=== PATIENT | female | born 2000 | race Caucasian/White ===

== ENCOUNTER 2022-11-07 09:24 | Outpatient (OUT) | payer OTHER, SELFPAY ==
--- NOTE | 2022-11-07 09:27 | US_ITS ---
[place] [id number] Patient Name: NOEMI ORTEGA MRN: [id number] date: 2000 Sex: F Assigned Patient Location: Current Patient Location: Accession/Order Number: [id number] Exam Date: 11/07/2022 09:27 Report Date: 11/10/2022 15:28 At the request of: ANGELINA CA Procedure: US OB transvaginal EXAMINATION: US OB transvaginal HISTORY: MISSED MENSES COMPARISON: No relevant comparison available. FINDINGS: GESTATIONAL SAC: Present and normal appearing. YOLK SAC: Present and normal appearing. POLE: Present and normal appearing. CARDIAC: Present. UTERUS: Normal size and appearance. OVARIES: Right: Corpus lutein cyst. Left: Normal. CERVIX: 4.4 cm in length and closed. CUL-DE-SAC: Normal. OTHER: None. AGE BY LMP: 9 weeks 2 days AL BY LMP: 06/10/2023 AGE BY US CRL: 9 weeks 3 days AL BY US CRL: 06/09/2023 US/US OB transvaginal IMPRESSION: 1. Single live intrauterine . Electronically authenticated by: SARIKA DIANA Date: 11/10/2022 15:28
== END 2022-11-07 09:25 | disposition home or self-care (01) ==
LOC: US 09:24
PROVIDERS: Visit Provider Obstetrics & Gynecology
DX: Z34.91 Encounter for supervision of normal pregnancy, unspecified, first trimester (principal); N92.6 Irregular menstruation, unspecified
CPT/HCPCS: 76817

== ENCOUNTER 2022-11-18 09:56 | Outpatient (OUT) | payer OTHER, SELFPAY ==
[2022-11-18 10:28] LABS: Basophils Percent Auto 0.5 % (0.2-2.0); Eosinophils Absolute Auto 0.1 10^3/uL (0.0-0.7); Eosinophils Percent Auto 1.1 % (0.9-7.0); Hematocrit 40.6 % (36.0-48.0); Hemoglobin 13.1 g/dL (12.0-16.0); Immature Granulocytes Abs Auto 0.04 10^3/uL (0.00-0.03); Immature Granulocytes Pct Auto 0.6 % (0.0-0.5); Lymphocytes Absolute Auto 1.4 10^3/uL (1.2-3.8); Lymphocytes Percent Auto 21.7 % (20.5-60.0); Mean Corpuscular HGB Conc 32.3 g/dL (29.9-35.2); Mean Corpuscular Hemoglobin 28.2 pg (26.7-34.0); Mean Corpuscular Volume 87.5 fL (81.0-99.0); Mean Platelet Volume 9.6 fL (9.5-13.5); Monocytes Absolute Auto 0.3 10^3/uL (0.3-0.8); Monocytes Percent Auto 3.9 % (1.7-12.0); Neutrophils Absolute Auto 4.8 10^3/uL (1.4-6.5); Neutrophils Percent Auto 72.2 % (43.0-75.0); Platelet Count 252 10^3/uL (150-450); Red Blood Count 4.64 10^6/uL (4.20-5.40); Red Cell Distribution Width 12.9 % (11.0-15.0); White Blood Count 6.7 10^3/uL (4.0-11.0)
[2022-11-18 10:40] LABS: Estimated Average Glucose 88 mg/dL; Glycohemoglobin A1C 4.7 % (4.5-6.2)
[2022-11-18 11:01] LABS: Thyroid Stimulating Hormone 0.775 uIU/mL (0.358-3.740)
[2022-11-19 05:07] LABS: HCV Ab Non Reactive (Non Reactive); HIV Ab/p24 Ag Screen Non Reactive (Non Reactive); Rubella Antibodies, IgG 4.12 index (Immune >0.99)
[2022-11-19 06:08] LABS: HBsAg Screen Negative (Negative)
[2022-11-19 11:12] LABS: Rapid Plasma Reagin, Quant Non Reactive (NonRea<1:1)
== END 2022-11-18 09:57 | disposition home or self-care (01) ==
LOC: LAB 10:00
PROVIDERS: PCP Nurse Practitioner; Visit Provider Obstetrics & Gynecology
DX: N92.6 Irregular menstruation, unspecified (principal)
CPT/HCPCS: 36415; 83036; 84443; 85025; 86592; 86706; 86762; 86803; 86850; 86900; 86901; 87086; 87389

== ENCOUNTER 2023-01-21 10:21 | Outpatient (OUT) | payer OTHER, SELFPAY ==
--- NOTE | 2023-01-21 10:23 | US_ITS ---
[address] [address] Patient Name: NOEMI ORTEGA MRN: [id number] date: 2000 Sex: F Assigned Patient Location: US Current Patient Location: US Accession/Order Number: [id number] Exam Date: 01/21/2023 10:23 Report Date: 01/21/2023 16:48 At the request of: PAPI MOURA Procedure: US OB anatomy EXAMINATION: US OB anatomy, US OB cervical length HISTORY: ANATOMY COMPARISON: No relevant comparison available. TECHNIQUE: Transabdominal sonographic examination was performed for obstetrical and evaluation. FINDINGS: Number: 1 Heart Rate: 141.0 bpm H.B. /min Amniotic Fluid Volume: Subjectively normal position: Breech presentation, longitudinal lie Placental Location: ANTERIOR, grade 0. Placental edge 5.0 cm from the cervical os Cervix Length: 3.9 cm, closed Normal anatomy: Lateral ventricles, cerebellum, posterior fossa, nose, lips, orbits, diaphragm, stomach, kidneys, abdominal cord insertion, bladder, umbilical arteries, spine, extremities Suboptimal visualization: Four-chamber heart, RVOT, LVOT, three-vessel BIOMETRY: BPD: 4.6 cm 19 weeks 5 days , 41% HC: 17.6 cm 20 weeks 1 days, 48% AC: 13.9 cm 19 weeks 2 days, 23% FL: 3.5 cm 21 weeks 1 days , 79% EFW:333.6 grams; 12 ounces, 53% FL/AC: 25.2 FL/BPD: 77.0 HC/AC: 1.3 GESTATIONAL AGE: Age by EDC: 20 weeks 0 days Age by current US: 20 weeks 1 days AL by current US: 06/09/2023 AL by EDC: 06/10/2023 US/US OB anatomy IMPRESSION: Suboptimal visualization as detailed above, otherwise normal anatomy scan *Reference: [facility] Practice Guideline for the performance of Obstetric Ultrasound Examinations, December 21, 2006. Electronically authenticated by: VERNOA VICKERS Date: 01/21/2023 16:48
--- NOTE | 2023-01-21 10:23 | US_ITS ---
[address] [address] Patient Name: NOEMI ORTEGA MRN: [id number] date: 2000 Sex: F Assigned Patient Location: US Current Patient Location: Accession/Order Number: [id number] Exam Date: 01/21/2023 10:23 Report Date: 01/21/2023 16:48 At the request of: PAPI MOURA Procedure: US OB cervical length EXAMINATION: US OB anatomy, US OB cervical length HISTORY: ANATOMY COMPARISON: No relevant comparison available. TECHNIQUE: Transabdominal sonographic examination was performed for obstetrical and evaluation. FINDINGS: Number: 1 Heart Rate: 141.0 bpm H.B. /min Amniotic Fluid Volume: Subjectively normal position: Breech presentation, longitudinal lie Placental Location: ANTERIOR, grade 0. Placental edge 5.0 cm from the cervical os Cervix Length: 3.9 cm, closed Normal anatomy: Lateral ventricles, cerebellum, posterior fossa, nose, lips, orbits, diaphragm, stomach, kidneys, abdominal cord insertion, bladder, umbilical arteries, spine, extremities Suboptimal visualization: Four-chamber heart, RVOT, LVOT, three-vessel BIOMETRY: BPD: 4.6 cm 19 weeks 5 days , 41% HC: 17.6 cm 20 weeks 1 days, 48% AC: 13.9 cm 19 weeks 2 days, 23% FL: 3.5 cm 21 weeks 1 days , 79% EFW:333.6 grams; 12 ounces, 53% FL/AC: 25.2 FL/BPD: 77.0 HC/AC: 1.3 GESTATIONAL AGE: Age by EDC: 20 weeks 0 days Age by current US: 20 weeks 1 days AL by current US: 06/09/2023 AL by EDC: 06/10/2023 US/US OB cervical length IMPRESSION: Suboptimal visualization as detailed above, otherwise normal anatomy scan *Reference: [facility] Practice Guideline for the performance of Obstetric Ultrasound Examinations, December 21, 2006. Electronically authenticated by: VERONA VICKERS Date: 01/21/2023 16:48
== END 2023-01-21 10:22 | disposition home or self-care (01) ==
LOC: US 10:21
PROVIDERS: PCP Nurse Practitioner; Visit Provider Physician Assistant
DX: Z34.92 Encounter for supervision of normal pregnancy, unspecified, second trimester (principal); Z3A.20 20 weeks gestation of pregnancy
CPT/HCPCS: 76805; 76817

== ENCOUNTER 2023-01-26 08:16 | Outpatient (OUT) | payer OTHER, SELFPAY ==
[2023-01-28 00:07] LABS: Gest. Age on Collection Date 20.7 weeks (.); Insulin Dep Diabetes No (.); Maternal Age At EDD 20.7 yr (.); OSBR Risk 1 IN 10000 (.); Results Report (.)
== END 2023-01-26 08:17 | disposition home or self-care (01) ==
LOC: LAB 08:19
PROVIDERS: PCP Nurse Practitioner; Visit Provider Obstetrics & Gynecology
DX: Z34.92 Encounter for supervision of normal pregnancy, unspecified, second trimester (principal)
CPT/HCPCS: 36415; 82105

== ENCOUNTER 2023-02-18 06:54 | Outpatient (OUT) | payer OTHER, SELFPAY ==
[2023-02-18 08:08] LABS: Basophils Percent Auto 0.5 % (0.2-2.0); Eosinophils Absolute Auto 0.1 10^3/uL (0.0-0.7); Eosinophils Percent Auto 1.4 % (0.9-7.0); Hematocrit 35.9 % (36.0-48.0); Hemoglobin 11.7 g/dL (12.0-16.0); Immature Granulocytes Abs Auto 0.04 10^3/uL (0.00-0.03); Immature Granulocytes Pct Auto 0.5 % (0.0-0.5); Lymphocytes Absolute Auto 2.1 10^3/uL (1.2-3.8); Lymphocytes Percent Auto 24.3 % (20.5-60.0); Mean Corpuscular HGB Conc 32.6 g/dL (29.9-35.2); Mean Corpuscular Volume 88.9 fL (81.0-99.0); Monocytes Absolute Auto 0.4 10^3/uL (0.3-0.8); Monocytes Percent Auto 4.1 % (1.7-12.0); Neutrophils Percent Auto 69.2 % (43.0-75.0); Platelet Count 244 10^3/uL (150-450); Red Blood Count 4.04 10^6/uL (4.20-5.40); Red Cell Distribution Width 12.7 % (11.0-15.0); White Blood Count 8.6 10^3/uL (4.0-11.0)
[2023-02-18 08:38] LABS: Glucose 1 Hour 148 mg/dL
== END 2023-02-18 06:55 | disposition home or self-care (01) ==
LOC: LAB 06:55
PROVIDERS: PCP Nurse Practitioner; Visit Provider Obstetrics & Gynecology
DX: Z34.92 Encounter for supervision of normal pregnancy, unspecified, second trimester (principal)
CPT/HCPCS: 36415; 82950; 85025

== ENCOUNTER 2023-02-19 13:53 | Outpatient (OUT) | payer OTHER, SELFPAY ==
--- NOTE | 2023-02-19 14:06 | US_ITS ---
[address] [address] Patient Name: NOEMI ORTEGA MRN: [id number] date: 2000 Sex: F Assigned Patient Location: US Current Patient Location: US Accession/Order Number: [id number] Exam Date: 02/19/2023 14:08 Report Date: 02/19/2023 15:12 At the request of: ANGELINA CA Procedure: US OB incomplete anatomy EXAM: US OB incomplete anatomy HISTORY: Encounter For Follow Up Ultrasound Anatomy Z36.2 COMPARISON: Ultrasound OB anatomy 01/21/2023 TECHNIQUE: Transabdominal ultrasound FINDINGS: Presentation: Cephalic Heart rate: 140 bpm Anatomy: Three-vessel cord, four-chamber heart, RVOT, LVOT; no appreciable abnormality. US/US OB incomplete anatomy IMPRESSION: 1. Single live intrauterine . 2. Adequate visualization of the three-vessel cord and four-chamber heart. 2. Slightly limited evaluation of the cardiac outflow tracts due to position; no appreciable abnormality. Electronically authenticated by: SARIKA DIANA Date: 02/19/2023 15:12
== END 2023-02-19 13:54 | disposition home or self-care (01) ==
PROVIDERS: PCP Nurse Practitioner; Visit Provider Obstetrics & Gynecology
DX: Z36.2 Encounter for other antenatal screening follow-up (principal)
CPT/HCPCS: 76815

== ENCOUNTER 2023-03-31 01:09 | Emergency (ER) | payer OTHER, SELFPAY ==
[2023-03-31] VITALS (25 sets, daily range): BP systolic 133; BP diastolic 75; PULSE 105–132; RESP 12–22; TEMP 36.6; O2SAT 94–97; BMI 36.2
--- OUTSIDE RECORDS SUMMARY | 2023-03-31 01:21 | XMS_ITS | CCD ---
Author Name Unknown Address [address] [place] [address] Organization [facility] Care Team Providers Care Maintenance Specialist Name Role Phone PAPI SEGURA Attending Unavailable PAPI SEGURA Consulting Unavailable PAPI SEGURA Admitting Unavailable YOLANDA VILLALOBOS Primary Care Unavailable Anya Contreras Unavailable Ne Henderson Unavailable ANGELINA CA Attending Unavailable PAPI MOURA Attending Unavailable Medications Current Medications Medication Drug Class(es) Dates Sig (Normalized) Sig (Original) [id number] 200 actuat albuterol 0.09 mg/actuat metered dose inhaler (1 source) beta2-Adrenergic Agonist Start: 3 take 2 puff(s) by inhalation every four to six hours as needed Albuterol Sulfate HFA 108 (90 Base) MCG/ACT 2 puffs as needed Inhalation every 4-6 hours for 14 days Jun, Active amoxicillin 875 mg oral tablet (1 source) Penicillin-class Antibacterial Start: 3 take 1 tablet by mouth every twelve hours Amoxicillin 875 MG 1 tablet Orally every 12 hrs for 7 days Mar, Active brompheniramine maleate 0.4 mg/ml / dextromethorphan hydrobromide 2 mg/ml / pseudoephedrine hydrochloride 6 mg/ml oral solution (1 source) alpha-Adrenergic Agonist, Uncompetitive A-ejnnvc-A-asparta te Receptor Antagonist, Sigma-1 Agonist Start: 3 take 10 mL by mouth every six hours Bwapbgfhd-Uvqaoxfx-FQ 30-2-10 MG/5ML 10 mL Orally every 6 hours for 5 days Jun, Active methylPREDNISolone 4 mg oral tablet (1 source) Corticosteroid Start: 3 methylPREDNISolone 4 MG as directed Orally Once a day for 6 days Mar, Active Problems Problem Classification Problem Date Documented Da te Episodic/Chronic Abdominal pain (2 sources) Abdominal pain; Translations: [Unspecified abdominal pain] Episodic Immunizations and screening for infectious disease (4 sources) Contact with and (suspected) exposure to infections with a predominantly sexual mode of transmission; Translations: [Contact with and (suspected) exposure to other viral communicable diseases] Onset: 05-21-2022 Episodic Inflammation; infection of eye (except that caused by tuberculosis or sexually transmitteddisease) (1 source) Unspecified acute conjunctivitis, left eye Episodic Other female genital disorders (4 sources) Other specified noninflammatory disorders of vagina; Translations: [OTH SPEC NONINFLAMMATORY D/O VAGINA] Onset: 05-19-2022 Episodic Other gastrointestinal disorders (2 sources) Irritable bowel syndrome; Translations: [Mixed irritable bowel syndrome] Chronic Other upper respiratory infections (4 sources) Sore throat symptom; Translations: [Acute pharyngitis, unspecified] Episodic Otitis media and related conditions (1 source) Otitis media, unspecified, left ear Episodic Results Test Name Value Interpretation Reference Range Facil ity COVID/FLU RT-PCRon 3 SARS-CoV-2 (COVID-19) RNA [facility]+probe Ql (Unsp spec) Negative [employer] Other COVID/FLU RT-PCR Negative [facility] [employer] Other CHLAMYDIA/GONOCOCCUS [facility] (SW AB/URINE/PAPon 05-22-2022 Chlamydia trachomatis, [facility] Negative Normal Negative [facility] Comment on above: Performed By: #### C T/NGNA #### [facility] [address] [address] [address] Clau Valdivia Neisseria gonorrhoeae, [facility] Negative Normal Negative [facility] Comment on above: Performed By: #### C T/NGNA #### [facility] [address] [place], [place] [address] Dr. Clau Valdivia VAGINITIS/VAGINOSIS DNA PROB Melvin 05-21-2022 [place] species Positive Abnormal Negative [facility] Comment on above: Performed By: #### V AGINT #### [facility] [address] [address] [address] Clau Valdivia Gardnerella vaginalis Positive Abnormal Negative [facility] Comment on above: Performed By: #### V AGINT #### [facility] [address] [address] [address] Clau Valdivia Trichomonas vaginalis Negative Normal Negative [facility] Comment on above: Performed By: #### V AGINT #### [facility] [address] [address] [address] Clau Valdivia COVID + FLU Quick Testingon 04-20-2022 SARS-CoV-2 (COVID-19) RNA [facility]probe Ql (Unsp spec) Negative [employer] Other COVID + FLU Quick Testing Negative [employer] Other Quick Strepon 04-20-2022 S. pyogenes Org specific cx Ql (Throat) Negative [employer] Other Quick Strep [employer] Other Vital Signs Date Time Vital Sign Value Performing Clinician Facility 07-19-2022 11:30-0400 Body height 167.64 cm Ne Henderson Other [employer] Other 07-19-2022 11:30-0400 Body mass index (BMI) [Ratio] 34.7 kg/m2 Ne Henderson Other [employer] Other 07-19-2022 11:30-0400 Body temperature 101 [degF] Ne Henderson Other [facility] [employer] Other 07-19-2022 11:30-0400 Body weight 97.52 kg Ne Henderson Other [facility] [employer] Other 07-19-2022 11:30-0400 Diastolic blood pressure 76 mm[Hg] Ne Henderson Other [facility] [employer] Other 07-19-2022 11:30-0400 Respiratory rate 18 /min Ne Henderson Other [employer] Other 07-19-2022 11:30-0400 SaO2% (BldA) [Mass fraction] 97 % Ne Henderson Other [facility] [employer] Other 07-19-2022 11:30-0400 Systolic blood pressure 113 mm[Hg] Ne Barnardler Other [facility] [employer] Other 04-20-2022 10:50-0500 Body height 167.64 cm Anya Diane Other [facility] [employer] Other 04-20-2022 10:50-0500 Body mass index (BMI) [Ratio] 34.7 kg/m2 Anya Diane Other [facility] [employer] Other 04-20-2022 10:50-0500 Body temperature 98.6 [degF] Anya Diane Other [facility] [employer] Other 04-20-2022 10:50-0500 Body weight 97.52 kg Anya Diane Other [facility] [employer] Other 04-20-2022 10:50-0500 Respiratory rate 18 /min Anya Diane Other [facility] [employer] Other 04-20-2022 10:50-0500 SaO2% (BldA) [Mass fraction] 98 % Anya Contreras Other [employer] Other Encounters Encounter Date Encounter Type Care Provider Facility Start: 03-05-2023 End: 03-05-2023 ambulatory PAPI MOURA Not Available Start: 02-04-2023 End: 02-04-2023 ambulatory ANGELINA CA Not Available Start: 07-19-2022 End: 07-19-2022 ambulatory Ne Henderson Other [employer] Other Start: 07-19-2022 Office outpatient visit 25 minutes Ne Henderson [facility] Start: 05-19-2022 End: 05-19-2022 ambulatory PAPI MOURA . Facility: Start: 04-20-2022 End: 04-20-2022 ambulatory Anya Lucasault Other [employer] Other Start: 04-20-2022 Office outpatient visit 25 minutes Anya Diane [facility] Payers Date Payer Category Payer Unknown [id number] 2000 Unknown [id number] 2000 Unknown [id number] 2000 Unknown [id number] 1957 Unknown [id number] Social History Date Type Detail Facility Unknown if ever smoked [employer] Other Sex Assigned At Sex Assigned At Bir th [employer] Other Evaluation note 07-19-2022 Note Date & Type Note Facility 07-19-2022 Evaluation note Encounter Date Diagnosis Assessment Notes Jun, Contact with and (suspected) exposure to other viral communicable diseases (ICD-10 - Z20.828) Jun, Viral URI with cough (ICD-10 - J06.9) Advised patient that COVID/Influenza A/B test was negative today. Advised patient that will treat as viral URI. Supportive care as directed, increase fluids and rest, Tylenol/Motrin as directed, Rx of Bromfed and albuterol inhaler as directed, cool mist humidifier, throat lozenges. Discussed infection control practices such as good hand washing and mask wearing. If patient is still having fevers Thursday, may write work note off. Patient to follow up with PCP if symptoms persist or worsen despite treatment. Immediate eval for SOB, difficulty breathing, chest pain, fevers that do not break with antipyretic or any other concerning symptoms as reviewed on patient education handout. Patient verbalizes understanding and is agreeable to treatment plan. Patient left in stable condition. [employer] Other History general Narrative - Reported 07-19-2022 Note Date & Type Note Facility 07-19-2022 History general N arrative - Reported Type Medical History ADD Medical History Born with cleft palette Surgical History tonsillectomy and adenoidectomy Surgical History cleft palette 3-4 repair Hospitalization History [facility] [employer] Other History general Narrative - Reported 05-25-2022 Note Date & Type Note Facility 05-25-2022 History general N arrative - Reported Type Medical History ADD Medical History Born with cleft palette Surgical History tonsillectomy and adenoidectomy Surgical History cleft palette 3-4 repair Hospitalization History [facility] [employer] Other Evaluation note 04-20-2022 Note Date & Type Note Facility 04-20-2022 Evaluation note Encounter Date Diagnosis Assessment Notes Mar, Left acute otitis media (ICD-10 - H66.92) Ear infections are often a secondary infection caused from an URI, the flu or allergies. Take medication as directed. Complete all doses, even if you feel better. Tylenol or ibuprofen can help with pain. Warm pack to area for comfort helps as well. Follow up with primary care provider if no improvement of symptoms. Mar, Acute bacterial conjunctivitis of left eye (ICD-10 - H10.32) Use medication as directed. Recommend discarding makeup if applicable. Need to wash linens on bed. If you wear contacts dispose of them or if not disposable then must thoroughly decontaminate the contacts before wearing them again. Contact eye doctor if symptoms are not improved by Thursday. If any changes in vision occurs then recommend going to ER immediately Mar, Sore throat (ICD-10 - J02.9) Mar, Contact with and (suspected) exposure to other viral communicable diseases (ICD-10 - Z20.828) Your Covid PCR test is negative. This means at this time you do not have COVID. [employer] Other Summary Purpose Family History No Family History Records FoundNo Family History Records Found Advance Directives No Advanced Directives Records FoundNo Advanced Directives Records Found Additional Source Comments INFORMATION SOURCE (unrecogn ized section and content) DATE CREATED AUTHOR 05/23/2022 [facility] DATE CREATED AUTHOR AUTHOR'S ORGANIZ ATION 03/07/2023 [facility] EPIC REASON FOR VISIT (unrecogniz ed section and content) SORE THROAT POSS PINK EYEBAD COUGH HOT FLASHES HEADACHE FOR RECORDS PERTAINING TO PATIENTS WHO ARE OR HAVE BEEN ENROLLED IN A CHEMICAL DEPENDENCY/SUBSTANCEABUSE PROGRAM, SOME INFORMATION MAY BE OMITTED. This clinical summary was aggregated from multiple sources. Caution should be exercised in using it in the provision of clinical care. This summary normalizes information from multiple sources, and as a consequence, information in this document may materially change the coding, format and clinical context of patient data. In addition, data may be omitted in some cases. CLINICAL DECISIONS SHOULD BE BASED ON THE PRIMARY CLINICAL RECORDS. [employer] provides no warranty or guarantee of the accuracy or completeness of information in this document.
--- NOTE | 2023-03-31 01:35 | PC.NURSE ---
Pt 30 weeks , . Pt reports n/v/d for past 24hrs, sick contacts at [employer] where she works. Pt actively vomiting during assessment.
--- NOTE | 2023-03-31 01:36 | ED.GENADUL1 ---
HPI - General Adult General Chief complaint: Vaginal Bleeding Stated complaint: VOMITING DIARRHEA Time Seen by Provider: 03/31/23 01:36 Source: patient Mode of arrival: walk-in Limitations: no limitations History of Present Illness HPI narrative: patient is 30 weeks . presents complaining of recurrent vomiting and diarrhea. Not able to keep any thing down. Exposed to custodial residents who have been sick. Denies abdominal pain. no bleeding Related Data Home Medications Medication Instructions Recorded Confirmed folic acid 0.8 mg capsule 0.8 mg PO DAILY 03/31/23 03/31/23 Allergies Allergy/AdvReac Type Severity Reaction Status Date / Time No Known Drug Allergies Allergy Verified 03/31/23 01:21 Review of Systems ROS Status of ROS 10 or more systems reviewed and unremarkable except as noted in history and below [facility] Social History Smoking status: Never smoker Exam Constitutional Vital Signs, click to edit/add: Last Vital Signs Temp 97.8 F 03/31/23 01:18 Pulse 113 H 03/31/23 02:40 Resp 20 03/31/23 02:40 BP 133/75 03/31/23 01:18 Pulse Ox 96 03/31/23 01:50 O2 Del Method Room Air 03/31/23 01:18 Common normals: no apparent distress, average body habitus, oriented x3, no limitations and healthy appearing Eye Common normals: EOMs intact bilaterally and conjunctivae normal Respiratory Common normals: normal respiratory effort, no retractions, no use of accessory muscles and clear to auscultation bilaterally Cardio Rate: tachycardic GI Common normals: Normal to inspection, nondistended, normoactive bowel sounds present, soft to palpation and non-tender Extremity Common normals: normal to inspection Neuro Common normals: CN's II-XII intact bilaterally and moves all extremities Psych Appearance: grossly normal Course Vital Signs Vital signs: Vital Signs Temperature 97.8 F 03/31/23 01:18 Pulse Rate 131 H 03/31/23 01:18 Respiratory Rate 18 03/31/23 01:18 Blood Pressure 133/75 03/31/23 01:18 Pulse Oximetry 97 03/31/23 01:18 Oxygen Delivery Method Room Air 03/31/23 01:18 Temperature 97.8 F 03/31/23 01:18 Pulse Rate 113 H 03/31/23 02:40 Respiratory Rate 20 03/31/23 02:40 Blood Pressure 133/75 03/31/23 01:18 Pulse Oximetry 96 03/31/23 01:50 Oxygen Delivery Method Room Air 03/31/23 01:18 Medical Decision Making MDM Narrative Medical decision making narrative: 30 week . exposed to GI bug at work. Presents with recurrent vomiting and diarrhea. Not able keep water down. Exam neg. labs demonstrate dehydration and UTI. Patient medicated with Rocephin, zofran and hydrated. She is feeling better and tolerating po fluids. Discharged home to follow up with her doctor Lab Data Labs: Lab Results 03/31/23 03/31/23 Range/Units : 02:00 WBC 13.7 H (4.0-11.0) 10^3/uL RBC 4.43 (4.20-5.40) 10^6/uL Hgb 12.6 (12.0-16.0) g/dL Hct 38.5 (36.0-48.0) % MCV 86.9 (81.0-99.0) fL MCH 28.4 (26.7-34.0) pg MCHC 32.7 (29.9-35.2) g/dL RDW 12.4 (11.0-15.0) % Plt Count 297 (150-450) 10^3/uL MPV 9.9 (9.5-13.5) fL Neut % (Auto) 89.7 H (43.0-75.0) % Lymph % (Auto) 5.6 L (20.5-60.0) % [place] % (Auto) 3.7 (1.7-12.0) % Eos % (Auto) 0.4 L (0.9-7.0) % Baso % (Auto) 0.2 (0.2-2.0) % Neut # (Auto) 12.3 H (1.4-6.5) 10^3/uL Lymph # (Auto) 0.8 L (1.2-3.8) 10^3/uL [place] # (Auto) 0.5 (0.3-0.8) 10^3/uL Eos # (Auto) 0.1 (0.0-0.7) 10^3/uL Baso # (Auto) 0.0 (0.0-0.1) 10^3/uL Abs Immat Gran (auto) 0.05 H (0.00-0.03) 10^3/uL Imm/Tot Granulo (auto) 0.4 (0.0-0.5) % Sodium 136 (136-145) mmol/L Potassium 3.6 (3.5-5.1) mmol/L Chloride 101 (98-107) mmol/L Carbon Dioxide 20.2 L (21.0-32.0) mmol/L Anion Gap 18.4 BUN 6.0 L (7.0-18.0) mg/dL Creatinine 0.49 L (0.55-1.02) mg/dL Est GFR ( Amer) >60 (>=60) Est GFR (Non-Af Amer) >60 (>=60) BUN/Creatinine Ratio 12.2 Glucose 106 (74-106) mg/dL Calcium 9.1 (8.5-10.1) mg/dL Urine Color Yellow (YELLOW) Urine Clarity Clear (CLEAR) Urine pH 6.0 (5.0-9.0) Ur Specific [place] >=1.030 A (1.005-1.025) Urine Protein 30 A (NEG/TRACE) mg/dL Urine Glucose (UA) Negative (NEGATIVE) mg/dL Urine Ketones >=80 A (NEGATIVE) mg/dL Urine Occult Blood Negative (NEGATIVE) Urine Nitrite Negative (NEGATIVE) Urine Bilirubin Small A (NEGATIVE) Urine Urobilinogen 0.2 (0.2-1.0) EU/dL Ur Leukocyte Esterase Small A (NEGATIVE) Urine RBC 5-10 A (0-2) #/HPF Urine WBC 10-20 A (NONE SEEN) #/HPF Ur Squamous Epith Cells Few A (NONE/RARE) #/LPF Urine Crystals None seen (None Seen) #/HPF Urine Bacteria Large A (NONE SEEN) #/HPF Urine Casts None seen (NONE SEEN) #/LPF Urine Mucus Small A (NONE SEEN) Ur Culture Indicated? Yes Discharge Plan Discharge Chief Complaint: Vaginal Bleeding Clinical Impression: UTI (urinary tract infection), Viral gastroenteritis Prescriptions / Home Meds: No Action folic acid 0.8 mg capsule 0.8 mg PO DAILY Instructions: Acute Nausea and Vomiting (ED), Urinary Tract Infection in (ED) Additional Instructions: follow up with your doctor in a couple of days for recheck Referrals: Bina Zamora NP [Primary Care Provider] - 1 week
[2023-03-31 01:51] LABS: Basophils Percent Auto 0.2 % (0.2-2.0); Eosinophils Absolute Auto 0.1 10^3/uL (0.0-0.7); Eosinophils Percent Auto 0.4 % (0.9-7.0); Hematocrit 38.5 % (36.0-48.0); Hemoglobin 12.6 g/dL (12.0-16.0); Immature Granulocytes Abs Auto 0.05 10^3/uL (0.00-0.03); Immature Granulocytes Pct Auto 0.4 % (0.0-0.5); Lymphocytes Absolute Auto 0.8 10^3/uL (1.2-3.8); Lymphocytes Percent Auto 5.6 % (20.5-60.0); Mean Corpuscular HGB Conc 32.7 g/dL (29.9-35.2); Mean Corpuscular Hemoglobin 28.4 pg (26.7-34.0); Mean Corpuscular Volume 86.9 fL (81.0-99.0); Mean Platelet Volume 9.9 fL (9.5-13.5); Monocytes Absolute Auto 0.5 10^3/uL (0.3-0.8); Monocytes Percent Auto 3.7 % (1.7-12.0); Neutrophils Absolute Auto 12.3 10^3/uL (1.4-6.5); Neutrophils Percent Auto 89.7 % (43.0-75.0); Platelet Count 297 10^3/uL (150-450); Red Blood Count 4.43 10^6/uL (4.20-5.40); Red Cell Distribution Width 12.4 % (11.0-15.0); White Blood Count 13.7 10^3/uL (4.0-11.0)
[2023-03-31 01:59] LABS: Anion Gap 18.4; BUN Creatinine Ratio 12.2; Calcium 9.1 mg/dL (8.5-10.1); Carbon Dioxide 20.2 mmol/L (21.0-32.0); Chloride 101 mmol/L (98-107); Estimated GFR (African America >60 (>=60); Estimated GFR (Non-African Ame >60 (>=60); Glucose 106 mg/dL (74-106); Potassium 3.6 mmol/L (3.5-5.1); Sodium 136 mmol/L (136-145)
[2023-03-31] MEDS: 0.9 % SODIUM CHLORIDE 1,000 ML 999 ML IV ×2 (02:05→02:06)
[2023-03-31] MEDS: ONDANSETRON PF 4 MG/2 ML VIAL IV (02:23)
[2023-03-31 02:52] LABS: Bilirubin Urine SMALL (NEGATIVE); Blood Urine NEGATIVE (NEGATIVE); Clarity Urine CLEAR (CLEAR); Color Urine YELLOW (YELLOW); Glucose Urine UA NEGATIVE (NEGATIVE); Ketones Urine >=80 mg/dL (NEGATIVE); Leukocyte Esterase Urine SMALL (NEGATIVE); Nitrite Urine NEGATIVE (NEGATIVE); Protein Urine 30 mg/dL (NEG/TRACE); Specific Gravity Urine >=1.030 (1.005-1.025); Urobilinogen Urine 0.2 EU/dL (0.2-1.0)
[2023-03-31 02:57] LABS: Urine Microscopic Indicated YES
[2023-03-31 03:01] LABS: Bacteria Urine LARGE #/HPF (NONE SEEN); Cast Seen? NONE SEEN #/LPF (NONE SEEN); Crystals Seen? None Seen #/HPF (None Seen); Mucus Urine SMALL (NONE SEEN); Squamous Epithelial Cell Urine FEW #/LPF (NONE/RARE); Urine Culture Indicated YES
[2023-03-31] MEDS: CEFTRIAXONE 1,000 MG in 0.9 % SODIUM CHLORIDE 50 ML 100 MG IV (03:39)
--- NOTE | 2023-03-31 05:20 | ECG_ITS ---
[facility] Test Date: 2023-03-31 Pat Name: NOEMI ORTEGA Department: Room: - Gender: Female Casing Tester: : 2000 Requested By: MARTINE VILLALOBOS Order Number: [id number] Reading MD: NUHA AGOSTO Measurements Intervals [place] Rate: 121 P: 51 GA: 122 QRS: 79 QRSD: 80 T: 5 QT: 310 QTc: 382 Interpretive Statements 1120 Sinus tachycardia 4068 Nonspecific Twave abnormality 9140 abnormal rhythm ECG No previous ECG available for comparison Electronically Signed On 03-31-2023 7:13:31 EST by NUHA AGOSTO
== END 2023-03-31 05:08 | disposition home or self-care (01) ==
PROVIDERS: Emergency Provider Internal Medicine; PCP Nurse Practitioner
DX: O23.43 Unspecified infection of urinary tract in pregnancy, third trimester (principal); N39.0 Urinary tract infection, site not specified; O99.613 Diseases of the digestive system complicating pregnancy, third trimester; Z3A.30 30 weeks gestation of pregnancy; A08.4 Viral intestinal infection, unspecified
CPT/HCPCS: 36415; 80048; 81001; 85025; 87086; 93005; 96361; 96365; 96375; 99284; J0696; J2405

== ENCOUNTER 2023-04-13 11:13 | Outpatient (OUT) | payer OTHER, SELFPAY ==
--- NOTE | 2023-04-13 11:15 | US_ITS ---
[address] [address] Patient Name: NOEMI ORTEGA MRN: [id number] date: 2000 Sex: F Assigned Patient Location: US Current Patient Location: US Accession/Order Number: [id number] Exam Date: 04/13/2023 11:16 Report Date: 04/13/2023 12:07 At the request of: ANGELINA CA Procedure: US OB growth EXAMINATION: US OB growth HISTORY: SIZE INCONSISTENT WITH DATES COMPARISON: No relevant comparison available. TECHNIQUE: Transabdominal sonographic examination was performed for obstetrical and evaluation. FINDINGS: Number: 1 Heart Rate: 139.0 bpm H.B. /min position: Cephalic presentation, longitudinal lie Amniotic Fluid Volume: 2.9 cm, largest fluid pocket 3.3 cm BIOMETRY: BPD: 8.2 cm 32 weeks 6 days , 75% HC: 29.0 cm 31 weeks 6 days, 19% AC: 27.3 cm 31 weeks 3 days, 38% FL: 6.0 cm 31 weeks 1 days , 21% EFW:1772.4 grams; 3 lbs. 15 oz., 31% FL/AC: 21.9 FL/BPD: 73.0 HC/AC: 1.1 GESTATIONAL AGE: Age by EDC: 31 weeks 5 days Age by current US: 31 weeks 6 days AL by current US: 06/09/2023 AL by EDC: 06/10/2023 US/US OB growth IMPRESSION: Normal interval growth *Reference: [facility] Practice Guideline for the performance of Obstetric Ultrasound Examinations, December 21, 2006. Electronically authenticated by: VERONA VICKERS Date: 04/13/2023 12:07
--- OUTSIDE RECORDS SUMMARY | 2023-04-13 11:29 | XMS_ITS | CCD ---
Author Name Unknown Address [address] [place] [address] Organization [facility] Care Team Providers Care Salt Manager Name Role Phone PAPI SEGURA Attending Unavailable PAPI SEGURA Consulting Unavailable PAPI SEGURA Admitting Unavailable YOLANDA VILLALOBOS Primary Care Unavailable Anya Contreras Unavailable eN Henderson Unavailable PAPI MOURA Attending Unavailable ANGELINA CA Attending Unavailable ANGELINA CA Attending Unavailable PAPI MOURA Attending Unavailable MARVEL CHRISTIAN Admitting Unavailable MARVEL CHRISTIAN Attending Unavailable MARTINE VILLALOBOS Primary Care Unavailable Medications Current Medications Medication Drug Class(es) Dates Sig (Normalized) Sig (Original) [id number] 200 actuat albuterol 0.09 mg/actuat metered dose [...] oral solution (1 source) alpha-Adrenergic Agonist, Uncompetitive J-mcpezn-A-asparta te Receptor Antagonist, Sigma-1 Agonist Start: 3 take 10 mL by mouth every six hours Npcgrqrgd-Mgjhuxjk-NP 30-2-10 MG/5ML 10 mL Orally every 6 [...] (COVID-19) RNA [facility]+probe Ql (Unsp spec) Negative [facility] Other COVID/FLU RT-PCR Negative [facility] [employer] Other CHLAMYDIA/GONOCOCCUS [facility] (SW AB/URINE/PAPon 05-22-2022 Chlamydia trachomatis, [facility] Negative Normal Negative [facility] Comment on above: Performed By: #### C T/NGNA #### [facility] [address] [address] [address] Clau Valdivia Neisseria gonorrhoeae, [facility] Negative Normal Negative [facility] Comment on above: Performed By: #### C T/NGNA #### [facility] [address] [address] [address] Clau Valdivia VAGINITIS/VAGINOSIS DNA PROB Melvin 05-21-2022 Shiloh species Positive Abnormal Negative [facility] Comment on above: Performed By: #### V AGINT #### [facility] [address] [address] [address] Clau Valdivia Gardnerella vaginalis Positive Abnormal Negative [facility] Comment on above: Performed By: #### V AGINT #### [facility] [address] [address] [address] Clau Valdivia Trichomonas vaginalis Negative Normal Negative [facility] Comment on above: Performed By: #### V AGINT #### [facility] [address] [address] [address] Clau Valdivia COVID + FLU Quick Testingon 04-20-2022 SARS-CoV-2 (COVID-19) RNA [facility]+probe Ql (Unsp spec) Negative [facility] [employer] Other COVID + FLU Quick Testing Negative [facility] Other Quick Strepon 04-20-2022 S. pyogenes Org specific cx Ql (Throat) Negative [facility] Other Quick Strep [facility] Other Vital Signs Date Time Vital Sign Value Performing Clinician Facility 07-19-2022 11:30-0400 Body height 167.64 cm Ne Henderson Other [facility] Other 07-19-2022 11:30-0400 Body mass index (BMI) [Ratio] 34.7 kg/m2 Ne Henderson Other [facility] Other 07-19-2022 11:30-0400 Body temperature 101 [degF] Ne Henderson Other [facility] Other 07-19-2022 11:30-0400 Body weight 97.52 kg Ne Santiago Other [facility] Other 07-19-2022 11:30-0400 Diastolic blood pressure 76 mm[Hg] Ne Henderson Other [facility] Other 07-19-2022 11:30-0400 Respiratory rate 18 /min Ne Santiago Other [facility] Other 07-19-2022 11:30-0400 SaO2% (BldA) [Mass fraction] 97 % Ne Henderson Other [facility] Other 07-19-2022 11:30-0400 Systolic blood pressure 113 mm[Hg] Ne Henderson Other [facility] Other 04-20-2022 10:50-0500 Body height 167.64 cm Anya Lucasault Other [facility] Other 04-20-2022 10:50-0500 Body mass index (BMI) [Ratio] 34.7 kg/m2 Anya Lucasault Other [facility] Other 04-20-2022 10:50-0500 Body temperature 98.6 [degF] Anya Diane Other [facility] Other 04-20-2022 10:50-0500 Body weight 97.52 kg Anya Diane Other [facility] Other 04-20-2022 10:50-0500 Respiratory rate 18 /min Anya Diane Other [facility] Other 04-20-2022 10:50-0500 SaO2% (BldA) [Mass fraction] 98 % Anya Contreras Other [facility] Other Encounters Encounter Date Encounter Type Care Provider Facility Start: 04-11-2023 End: 04-11-2023 ambulatory MARVEL CHRISTIAN [facility] Start: 04-06-2023 End: 04-06-2023 ambulatory ANGELINA ROBY Not Available Start: 03-19-2023 End: 03-19-2023 ambulatory PAPI ZENY Not Available Start: 03-05-2023 End: 03-05-2023 ambulatory PAPI ZENY Not Available Start: 02-04-2023 End: 02-04-2023 ambulatory ANGELINA ROBY Not Available Start: 07-19-2022 End: 07-19-2022 ambulatory Ne Henderson Other [facility] Other Start: 07-19-2022 Office outpatient visit 25 minutes Ne Henderson [facility] Start: 05-19-2022 End: 05-19-2022 ambulatory PAPI MOURA . Facility: Start: 04-20-2022 End: 04-20-2022 ambulatory Anya Contreras Other [facility] Other Start: 04-20-2022 Office outpatient visit 25 minutes Anya Contreras [facility] Payers Date Payer Category Payer Unknown [id number] 2002 Unknown [id number] 2.16.84 [id number] 2002 Unknown [id number] 2.16.84 [id number] 2002 Unknown [id number] 2.16.840 .[id number] 2002 Unknown [id number] 2.16.840 .[id number] 2002 Unknown [id number] 2.16.840 .[id number] 2002 Unknown [id number] 2.16.84 [id number] 1959 Unknown [id number] Social History Date Type Detail Facility Unknown if ever smoked [facility] Other Sex Assigned At Sex Assigned At Bir th [facility] Other Evaluation note 07-19-2022 Note Date & [...] treatment plan. Patient left in stable condition. [facility] Other History general Narrative - Reported 07-19-2022 Note Date & Type Note Facility 07-19-2022 History general N arrative - Reported Type Medical History ADD Medical History Born with cleft palette Surgical History tonsillectomy and adenoidectomy Surgical History cleft palette 3-4 repair Hospitalization History see above sugical hx [facility] Other History general Narrative - Reported 05-25-2022 Note Date & Type Note Facility 05-25-2022 History general N arrative - Reported Type Medical History ADD Medical History Born with cleft palette Surgical History tonsillectomy and adenoidectomy Surgical History cleft palette 3-4 repair Hospitalization History see above sugical hx [facility] Other Evaluation note 04-20-2022 Note Date & [...] this time you do not have COVID. [facility] Other Summary Purpose Family History No Family History Records FoundNo Family History Records FoundNo Family History Records Found Advance Directives No Advanced Directives Records FoundNo Advanced Directives Records FoundNo Advanced Directives Records Found Additional Source Comments INFORMATION SOURCE (unrecogn ized section and content) DATE CREATED AUTHOR [facility]/23/2022 [facility] DATE CREATED AUTHOR AUTHOR'S ORGANIZ ATION 04/06/2023 [facility] d[facility] Specialists EPIC DATE CREATED AUTHOR AUTHOR'S ORGANIZ ATION 04/12/2023 [facility] REASON FOR VISIT (unrecogniz ed section and [...] BE BASED ON THE PRIMARY CLINICAL RECORDS. [facility] Amen. [facility]. provides no warranty or guarantee of the accuracy or completeness of information in this document.
== END 2023-04-13 11:14 | disposition home or self-care (01) ==
LOC: US 11:13
PROVIDERS: PCP Nurse Practitioner; Visit Provider Obstetrics & Gynecology
DX: O26.843 Uterine size-date discrepancy, third trimester (principal); Z3A.32 32 weeks gestation of pregnancy
CPT/HCPCS: 76816

== ENCOUNTER 2023-05-18 20:26 | Outpatient (REF) | payer OTHER, SELFPAY ==
--- OUTSIDE RECORDS SUMMARY | 2023-05-18 20:31 | XMS_ITS | CCD ---
Author Name Unknown Address [address] [place] [address] Organization [facility] Care Team Providers Care Supervisor [employer] Canning Name Role Phone PAPI SEGURA Attending Unavailable PAPI SEGURA Consulting Unavailable PAPI SEGURA Admitting Unavailable YOLANDA VILLALOBOS Primary Care Unavailable Anya Contreras Unavailable Ne Henderson Unavailable MARVEL CHRISTIAN Admitting Unavailable AMRVEL CHRISTIAN Attending Unavailable MARTINE VILLALOBOS Primary Care Unavailable PAPI MOURA Attending Unavailable ANGELINA CA Attending Unavailable ANGELINA CA Attending Unavailable PAPI MOURA Attending Unavailable PAPI MOURA Attending Unavailable ANGELINA CA Attending Unavailable Medications Current Medications Medication Drug Class(es) Dates Sig (Normalized) Sig (Original) [id number] 200 actuat albuterol 0.09 mg/actuat metered dose [...] oral solution (1 source) alpha-Adrenergic Agonist, Uncompetitive O-esjedl-T-asparta te Receptor Antagonist, Sigma-1 Agonist Start: 3 take 10 mL by mouth every six hours Glfarhvvr-Gwzbtvgn-IK 30-2-10 MG/5ML 10 mL Orally every 6 [...] (COVID-19) RNA [facility]+probe Ql (Unsp spec) Negative [facility] Other COVID/FLU RT-PCR Negative [facility] [employer] Other CHLAMYDIA/GONOCOCCUS [facility] ( AB/URINE/PAPon 05-22-2022 Chlamydia trachomatis, [facility] Negative Normal Negative [facility] Comment on above: Performed By: #### C T/NGNA #### [facility] [address] [place] [address] Dr. Clau Valdivia Neisseria gonorrhoeae, [facility] Negative Normal Negative [facility] Comment on above: Performed By: #### C T/NGNA #### [facility] [address] [address] [address] Clau Valdivia VAGINITIS/VAGINOSIS DNA PROB Melvin 05-21-2022 Shiloh species Positive Abnormal Negative [facility] Comment on above: Performed By: #### V AGINT #### [facility] [address] [address] [address] Clau Valdivia Gardnerella vaginalis Positive Abnormal Negative [facility] Comment on above: Performed By: #### V AGINT #### [facility] [address] [address] [address] Clau Valdivia Trichomonas vaginalis Negative Normal Negative [facility] Comment on above: Performed By: #### V AGINT #### [facility] [address] [address] [address] Clau Valdivia COVID + FLU Quick Testingon 04-20-2022 SARS-CoV-2 (COVID-19) RNA [facility]+probe Ql (Unsp spec) Negative [facility] [employer] Other COVID + FLU Quick Testing Negative [facility] [employer] Other Quick Strepon 04-20-2022 S. pyogenes Org specific cx Ql (Throat) Negative [facility] [employer] Other Quick Strep [facility] [employer] Other Vital Signs Date Time Vital Sign Value Performing Clinician Facility 07-19-2022 11:30-0400 Body height 167.64 cm Ne Henderson Other [facility] Other 07-19-2022 11:30-0400 Body mass index (BMI) [Ratio] 34.7 kg/m2 Ne Henderson Other [facility] Other 07-19-2022 11:30-0400 Body temperature 101 [degF] Ne Henderson Other [facility] Other 07-19-2022 11:30-0400 Body weight 97.52 kg Ne Henderson Other [facility] Other 07-19-2022 11:30-0400 Diastolic blood pressure 76 mm[Hg] Ne Henderson Other [facility] Other 07-19-2022 11:30-0400 Respiratory rate 18 /min Ne Henderson Other [facility] Other 07-19-2022 11:30-0400 SaO2% (BldA) [Mass fraction] 97 % Ne Henderson Other [facility] Other 07-19-2022 11:30-0400 Systolic blood pressure 113 mm[Hg] Ne Henderson Other [facility] Other 04-20-2022 10:50-0500 Body height 167.64 cm Anya Lucasault Other [facility] Other 04-20-2022 10:50-0500 Body mass index (BMI) [Ratio] 34.7 kg/m2 Anya Diane Other [facility] Other 04-20-2022 10:50-0500 Body temperature 98.6 [degF] Anya Diane Other [facility] Other 04-20-2022 10:50-0500 Body weight 97.52 kg Anya Diane Other [facility] Other 04-20-2022 10:50-0500 Respiratory rate 18 /min Anya Diane Other [facility] Other 04-20-2022 10:50-0286 SaO2% (BldA) [Mass fraction] 98 % Anya Contreras Other [facility] Other Encounters Encounter Date Encounter Type Care Provider Facility Start: 05-04-2023 End: 05-04-2023 ambulatory ANGELINA ROBY Not Available Start: 04-20-2023 End: 04-20-2023 ambulatory PAPI ZENY Not Available Start: 04-11-2023 End: 04-11-2023 ambulatory MARVEL Chaparro ANAHI [facility] Start: 04-06-2023 End: 04-06-2023 ambulatory ANGELINA ROBY Not Available Start: 03-19-2023 End: 03-19-2023 ambulatory PAPI ZENY Not Available Start: 03-05-2023 End: 03-05-2023 ambulatory PAPI ZENY Not Available Start: 02-04-2023 End: 02-04-2023 ambulatory ANGELINA ROBY Not Available Start: 07-19-2022 End: 07-19-2022 ambulatory Ne Henderson Other [facility] Other Start: 07-19-2022 Office outpatient visit 25 minutes Ne Henderson [facility] Start: 05-19-2022 End: 05-19-2022 ambulatory PAPI ZENY . Facility: Start: 04-20-2022 End: 04-20-2022 ambulatory Anya Contreras Other [facility] Other Start: 04-20-2022 Office outpatient visit 25 minutes Anya Contreras [facility] Payers Date Payer Category Payer Unknown [id number] 2002 Unknown [id number] 2.16.84 [id number] 2002 Unknown [id number] 2.16.84 [id number] 2002 Unknown [id number] 2.16.84 0.1.412103.3.579.2.1259 2002 Unknown [id number] 2.16.84 0.1.478606.3.579.2.9 2002 Unknown [id number] 2.16.84 0.1.582815.3.579.2.1259 2002 Unknown [id number] 2.16.840 .1.567666.3.579.2.9 2002 Unknown [id number] 2.16.840 .1.431527.3.579.2.1259 2002 Unknown [id number] 2.16.840 .[id number] 1959 Unknown [id number] Social History Date Type Detail Facility Unknown if ever smoked [facility] Other Sex Assigned At Sex Assigned At Bir th [facility] Other Evaluation note 07-19-2022 Note Date & [...] treatment plan. Patient left in stable condition. [facility] Other History general Narrative - Reported 07-19-2022 Note Date & Type Note Facility 07-19-2022 History general N arrative - Reported Type Medical History ADD Medical History Born with cleft palette Surgical History tonsillectomy and adenoidectomy Surgical History cleft palette 3-4 repair Hospitalization History see above [facility] Other History general Narrative - Reported 05-25-2022 Note Date & Type Note Facility 05-25-2022 History general N arrative - Reported Type Medical History ADD Medical History Born with cleft palette Surgical History tonsillectomy and adenoidectomy Surgical History cleft palette 3-4 repair Hospitalization History see above [facility] Other Evaluation note 04-20-2022 Note Date & [...] this time you do not have COVID. [facility] Other Summary Purpose Family History No Family History Records FoundNo Family History Records FoundNo Family History Records Found Advance Directives No Advanced Directives Records FoundNo Advanced Directives Records FoundNo Advanced Directives Records Found Additional Source Comments INFORMATION SOURCE (unrecogn ized section and content) DATE CREATED AUTHOR 05/23/2022 [facility] DATE CREATED AUTHOR AUTHOR'S ORGANIZ ATION 04/12/2023 [facility] DATE CREATED AUTHOR AUTHOR'S ORGANIZ ATION 05/05/2023 [facility] d[facility] Specialists EPIC REASON FOR VISIT (unrecogniz ed [...] BE BASED ON THE PRIMARY CLINICAL RECORDS. [facility] [employer] [facility]. provides no warranty or guarantee of the accuracy or completeness of information in this document.
== END 2023-05-18 20:27 | disposition home or self-care (01) ==
LOC: LAB 20:26
PROVIDERS: PCP Nurse Practitioner; Visit Provider Physician Assistant
DX: Z34.93 Encounter for supervision of normal pregnancy, unspecified, third trimester (principal)
CPT/HCPCS: 87081; 87150; 87186

== ENCOUNTER 2023-06-01 15:40 | Outpatient (OUT) | payer OTHER, SELFPAY ==
[2023-06-01 15:50] VITALS: BP 135/78; PULSE 115
--- NOTE | 2023-06-01 15:57 | US_ITS ---
[address] [address] Patient Name: NOEMI ORTEGA MRN: [id number] date: 2000 Sex: F Assigned Patient Location: [facility] Current Patient Location: Accession/Order Number: [id number] Exam Date: 06/01/2023 16:14 Report Date: 06/01/2023 17:20 At the request of: ANGELINA CA Procedure: US OB BPP w non-stress EXAM: US OB BPP w non-stress HISTORY: decreased movement COMPARISON: OB ultrasound previous 04/13/2023 and earlier. TECHNIQUE: Biophysical profile evaluation. FINDINGS: Single fetus cephalic presentation. Heart rate 162 bpm. DEEPALI 13.8 cm. Between fifth and 95th percentile. Biophysical score 8 out 8. breathing movements 2, gross body movements 2, tone 2, qualitative amniotic fluid volume 2 US/US OB BPP w non-stress IMPRESSION: Biophysical score 8 /8. No abnormality noted. Electronically authenticated by: AIYANA GREEN Date: 06/01/2023 17:20
== END 2023-06-01 16:50 | disposition home or self-care (01) ==
LOC: FBCO 15:41 → FBC 15:42
PROVIDERS: PCP Nurse Practitioner; Visit Provider Obstetrics & Gynecology
DX: O36.8190 Decreased fetal movements, unspecified trimester, not applicable or unspecified (principal)
CPT/HCPCS: 76818

== ENCOUNTER 2023-06-03 10:34 | Inpatient (IN) | payer OTHER, SELFPAY ==
[2023-06-03] VITALS (60 sets, daily range): BP systolic 99–144; BP diastolic 58–98; PULSE 87–130; RESP 18; TEMP 36.6–36.7
--- OUTSIDE RECORDS SUMMARY | 2023-06-03 10:39 | XMS_ITS | CCD ---
Author Name Unknown Address [address] [place] [address] Organization [facility] Care Team Providers Care Rotary Shear Operator Name Role Phone PAPI SEGURA Attending Unavailable ZENY ., PAPI Consulting Unavailable PAPI SEGURA Admitting Unavailable YOLANDA VILLALOBOS Primary Care Unavailable Anya Contreras Unavailable Ne Henderson Unavailable MARVEL CHRISTIAN Admitting Unavailable MARVEL CHRISTIAN Attending Unavailable MARTINE VILLALOBOS Primary Care Unavailable PAPI MOURA Attending Unavailable ANGELINA CA Attending Unavailable ANGELINA CA Attending Unavailable PAPI MOURA Attending Unavailable ANGELINA CA Attending Unavailable PAPI MOURA Attending Unavailable PAPI MOURA Attending Unavailable ANGELINA CA Attending Unavailable ANGELINA CA Attending Unavailable Medications Current Medications Medication Drug Class(es) Dates Sig (Normalized) Sig (Original) [id number] 200 actuat albuterol 0.09 mg/actuat metered dose [...] oral solution (1 source) alpha-Adrenergic Agonist, Uncompetitive P-zbgppk-W-asparta te Receptor Antagonist, Sigma-1 Agonist Start: 3 take 10 mL by mouth every six hours Eubodunkd-Ehimwrbs-QW 30-2-10 MG/5ML 10 mL Orally every 6 [...] (COVID-19) RNA [facility]+probe Ql (Unsp spec) Negative [facility] Other COVID/FLU RT-PCR Negative [employer] [employer] Other CHLAMYDIA/GONOCOCCUS [facility] ( AB/URINE/PAPon 05-22-2022 Chlamydia trachomatis, [facility] Negative Normal Negative [facility] Comment on above: Performed By: #### C T/NGNA #### [facility] [address] [place] [address] Dr. Clau Valdivia Neisseria gonorrhoeae, [facility] Negative Normal Negative [facility] Comment on above: Performed By: #### C T/NGNA #### [facility] [address] [address] [address] Clau Valdivia VAGINITIS/VAGINOSIS DNA PROB Melvin 05-21-2022 Shiloh species Positive Abnormal Negative [facility] Comment on above: Performed By: #### V AGINT #### [facility] [address] [address] [address] Clau Valdivia Gardnerella vaginalis Positive Abnormal Negative [facility] Comment on above: Performed By: #### V AGINT #### [facility] [address] [address] [address] Clau Valdivia Trichomonas vaginalis Negative Normal Negative [facility] Comment on above: Performed By: #### V AGINT #### [facility] [address] [address] [address] Clau Valdivia COVID + FLU Quick Testingon 04-20-2022 SARS-CoV-2 (COVID-19) RNA [facility]+probe Ql (Unsp spec) Negative [facility] [address] Other COVID + FLU Quick Testing Negative [facility] [address] Other Quick Strepon 04-20-2022 S. pyogenes Org specific cx Ql (Throat) Negative [facility] [address] Other Quick Strep [facility] [address] Other Vital Signs Date Time Vital Sign Value Performing Clinician Facility 07-19-2022 11:30-0400 Body height 167.64 cm Ne Henderson Other [facility] Other 07-19-2022 11:30-0400 Body mass index (BMI) [Ratio] 34.7 kg/m2 Ne Henderson Other [facility] Other 07-19-2022 11:30-0400 Body temperature 101 [degF] Ne Henderson Other [facility] Other 07-19-2022 11:30-0400 Body weight 97.52 kg Ne Henderson Other [facility] Other 07-19-2022 11:30-0400 Diastolic blood pressure 76 mm[Hg] Ne Henedrson Other [facility] Other 07-19-2022 11:30-0400 Respiratory rate 18 /min Ne Henderson Other [facility] Other 07-19-2022 11:30-0400 SaO2% (BldA) [Mass fraction] 97 % Ne Henderson Other [facility] Other 07-19-2022 11:30-0400 Systolic blood pressure 113 mm[Hg] Ne Henderson Other [facility] Other 04-20-2022 10:50-0500 Body height 167.64 cm Anya Diane Other [facility] Other 04-20-2022 10:50-0500 Body mass index (BMI) [Ratio] 34.7 kg/m2 Anya Contreras Other [facility] Other 04-20-2022 10:50-0500 Body temperature 98.6 [degF] Anya Contreras Other [facility] Other 04-20-2022 10:50-0500 Body weight 97.52 kg Anya Contreras Other [facility] Other 04-20-2022 10:50-0500 Respiratory rate 18 /min Anya Contreras Other [facility] Other 04-20-2022 10:500500 SaO2% (BldA) [Mass fraction] 98 % Anya Contreras Other [facility] Other Encounters Encounter Date Encounter Type Care Provider Facility Start: 06-01-2023 End: 06-01-2023 ambulatory ANGELINA ROBY Not Available Start: 05-25-2023 End: 05-25-2023 ambulatory ANGELINA ROBY Not Available Start: 05-18-2023 End: 05-18-2023 ambulatory PAPI ZENY Not Available Start: 05-04-2023 End: 05-04-2023 ambulatory ANGELINA ROBY Not Available Start: 04-20-2023 End: 04-20-2023 ambulatory PAPI ZENY Not Available Start: 04-11-2023 End: 04-11-2023 ambulatory MARVEL M [facility] Start: 04-06-2023 End: 04-06-2023 ambulatory ANGELINA ROBY Not Available Start: 03-19-2023 End: 03-19-2023 ambulatory PAPI ZENY Not Available Start: 03-05-2023 End: 03-05-2023 ambulatory PAPI ZENY Not Available Start: 02-04-2023 End: 02-04-2023 ambulatory ANGELINA ROBY Not Available Start: 07-19-2022 End: 07-19-2022 ambulatory Ne Henderson Other [facility] Other Start: 07-19-2022 Office outpatient visit 25 minutes Ne Henderson [facility] Start: 05-19-2022 End: 05-19-2022 ambulatory PAPI ZENY . Facility: Start: 04-20-2022 End: 04-20-2022 ambulatory Anya Contreras Other [facility] Other Start: 04-20-2022 Office outpatient visit 25 minutes Anya Contreras [facility] Payers Date Payer Category Payer Unknown [id number] 2002 Unknown [id number] 2.16.84 [id number] 2002 Unknown [id number] 2.16.84 0.1.551884.3.579.2.1286 2002 Unknown [id number] 2.16.84 0.1.928997.3.579.2.1259 2002 Unknown [id number] 2.16.84 0.1.133194.3.579.2.1259 2002 Unknown [id number] 2.16.84 0.1.534362.3.579.2.1259 2002 Unknown [id number] 2.16.84 0.1.543799.3.579.2.1259 2002 Unknown [id number] 2.16.84 0.1.584310.3.579.2.1259 2002 Unknown [id number] 2.16.84 0.1.184318.3.579.2.1259 2002 Unknown [id number] 2.16.840 .1.738566.3.579.2.1259 2002 Unknown [id number] 2.16.840 .1.268029.3.579.2.1259 2002 Unknown [id number] 2.16.840 .1.997918.3.579.2.1259 1959 Unknown [id number] Social History Date Type Detail Facility Unknown if ever smoked [facility] Other Sex Assigned At Sex Assigned At Bir th [facility] Other Evaluation note 07-19-2022 Note Date & [...] treatment plan. Patient left in stable condition. [facility] Other History general Narrative - Reported 07-19-2022 Note Date & Type Note Facility 07-19-2022 History general N arrative - Reported Type Medical History ADD Medical History Born with cleft palette Surgical History tonsillectomy and adenoidectomy Surgical History cleft palette 3-4 repair Hospitalization History see above [facility] Other History general Narrative - Reported 05-25-2022 Note Date & Type Note Facility 05-25-2022 History general N arrative - Reported Type Medical History ADD Medical History Born with cleft palette Surgical History tonsillectomy and adenoidectomy Surgical History cleft palette 3-4 repair Hospitalization History see above [facility] [employer] [facility] Other Evaluation note 04-20-2022 Note Date & [...] this time you do not have COVID. [facility] Other Summary Purpose Family History No Family History Records FoundNo Family History Records FoundNo Family History Records Found Advance Directives No Advanced Directives Records FoundNo Advanced Directives Records FoundNo Advanced Directives Records Found Additional Source Comments INFORMATION SOURCE (unrecogn ized section and content) DATE CREATED AUTHOR 05/23/2022 [facility] DATE CREATED AUTHOR AUTHOR'S ORGANIZ ATION 04/12/2023 [facility] DATE CREATED AUTHOR AUTHOR'S ORGANIZ ATION 06/02/2023 [facility] Special[facility] EPIC REASON FOR VISIT (unrecogniz ed [...] BE BASED ON THE PRIMARY CLINICAL RECORDS. [employer] provides no warranty or guarantee of the accuracy or completeness of information in this document.
[2023-06-03 13:26] LABS: Hematocrit 33.5 % (36.0-48.0); Hemoglobin 10.6 g/dL (12.0-16.0); Mean Corpuscular HGB Conc 31.6 g/dL (29.9-35.2); Mean Corpuscular Volume 82.3 fL (81.0-99.0); Mean Platelet Volume 10.1 fL (9.5-13.5); Platelet Count 272 10^3/uL (150-450); Red Blood Count 4.07 10^6/uL (4.20-5.40); Red Cell Distribution Width 12.8 % (11.0-15.0)
[2023-06-03 13:44] LABS: Amphetamine Screen Urine NEGATIVE (NEGATIVE); Benzodiazepines Screen Urine NEGATIVE (NEGATIVE); Cannabinoid Screen Urine NEGATIVE (NEGATIVE); Cocaine Screen Urine NEGATIVE (NEGATIVE); Methamphetamines Screen Urine NEGATIVE (NEGATIVE); Opiate Screen Urine NEGATIVE (NEGATIVE); Phencyclidine Screen Urine NEGATIVE (NEGATIVE)
[2023-06-03 13:45] LABS: Barbiturates Screen Urine NEGATIVE (NEGATIVE); Buprenorphine Screen Urine NEGATIVE (NEGATIVE); Methadone Screen Urine NEGATIVE (NEGATIVE); Oxycodone Screen Urine NEGATIVE (NEGATIVE); Tricyclic Antidepressant Urine NEGATIVE (NEGATIVE)
[2023-06-03] MEDS: OXYTOCIN/0.9 % SODIUM CHLORIDE 10 UNITS/500 ML PLAST..BAG 6 UNIT IV (14:06)
[2023-06-03] MEDS: AMPICILLIN SODIUM 2,000 MG in 0.9 % SODIUM CHLORIDE 100 ML 200 MG IV (14:08)
[2023-06-03] MEDS: 0.9 % SODIUM CHLORIDE 1,000 ML 125 ML IV (14:08)
[2023-06-03] MEDS: AMPICILLIN SODIUM 1,000 MG in 0.9 % SODIUM CHLORIDE 50 ML 100 MG IV ×2 (16:25→20:31)
[2023-06-03] MEDS: 0.9 % SODIUM CHLORIDE 1,000 ML 999 ML IV (19:36)
[2023-06-03] MEDS: ROPIVACAINE HCL/PF 400 MG/200 ML PREMIX 6 MG EPIDURAL (20:32)
[2023-06-04] VITALS (29 sets, daily range): BP systolic 107–140; BP diastolic 57–89; PULSE 87–139; RESP 16; TEMP 36.7–36.8
[2023-06-04] MEDS: OXYTOCIN/0.9 % SODIUM CHLORIDE 20 UNITS/1,000 ML PLAST..BAG 125 UNIT IV (01:05)
--- NOTE | 2023-06-04 01:08 | PM.OBPRCVD ---
Procedure Intrapartal events: None Induction method: per pitocin protocol Delivery augmentation: rupture of membranes and pitocin Delivery monitor: external FHT and external uterine Route of delivery: Episiotomy Description: none L&D Laceration Description: none, periurethral - 1st degree and perineal - 1st degree Delivery repair: Vicryl Estimated blood loss (mL): 300 Anesthesia type: None Disposition: floor Delivery date: 06/04/23 Gender: female presentation: vertex Placental delivery description: Spontaneous cord description: 3 Vessels and Nuchal Cord
[2023-06-04] MEDS: ACETAMINOPHEN 325 MG TABLET 650 MG PO ×3 (01:43→21:10)
[2023-06-04] MEDS: IBUPROFEN 600 MG TABLET PO ×2 (08:11→17:10)
--- NOTE | 2023-06-04 12:00 | P.OBPN_ITS ---
OB - PN: Subj Subjective Patient comments: no complaints, pain well controlled, tolerating diet and flatus present [place] status: doing well feeding status: exclusively bottle feeding Exam Constitutional Vital Signs, click to edit/add: Last Vital Signs Temp 98.2 F 06/04/23 07:50 Pulse 97 H 06/04/23 07:52 Resp 16 06/04/23 07:50 BP 121/81 06/04/23 07:52 Documenting provider has reviewed patient's vital signs: yes Common normals: no apparent distress, average body habitus, oriented x3, no limitations, healthy appearing and alert General appearance: cooperative, comfortable and well kempt Orientation/consciousness: Yes awake, Yes oriented to person, Yes oriented to place and Yes oriented to time HENMT Common normals: normocephalic and head/scalp atraumatic Eye Pupil: PERRL and accommodation reflex normal Neck & C-Spine Common normals: full ROM Chest Common normals: inspection of chest normal Respiratory Common normals: normal respiratory effort and clear to auscultation bilaterally Cardio Common normals: regular rate and regular rhythm GI Common normals: Normal to inspection, nondistended, normoactive bowel sounds present, soft to palpation and non-tender Common normals: no CVA tenderness Back & Pelvis Common normals: thoracic and lumbar spine normal to inspection Extremity Common normals: normal to inspection, full ROM and no calf tenderness Neuro Common normals: oriented x3, CN's II-XII intact bilaterally, moves all extremities, no focal motor deficits and no sensory deficits noted Sensorium/orientation: awake, oriented to person, oriented to place and oriented to time Psych Common normals: mental status grossly normal, thought process normal, cooperative, affect normal and speech normal Results Labs Labs: Short CBC 06/03/23 Range/Units 13:15 WBC 12.0 H (4.0-11.0) 10^3/uL Hgb 10.6 L (12.0-16.0) g/dL Hct 33.5 L (36.0-48.0) % Plt Count 272 (150-450) 10^3/uL OB - PN: A/P Assessment and Plan (1) Normal vaginal delivery: Assessment and Plan: small perineal laceration, bottle feeding, sports bra on, ambulating eating eliminating normally Plan routine care Plan - Vaginal Delivery day: 1 Plan: routine care Time Spent with Patient Time: Total time spent is greater than 50% in coordination of care (as documented) at patient's floor/unit and/or counseling patient: Total time spent with greater than 50% in coordination of care (as documented) at patient's floor/unit and/or counseling patient: less than 15 minutes
--- NOTE | 2023-06-04 14:12 | PC.NURSE ---
given teaching folder and gift packs as well as teaching videos with full explanation on all, voices understanding of same
[2023-06-05] VITALS (9 sets, daily range): BP systolic 123–146; BP diastolic 81–104; PULSE 84–98; RESP 16; TEMP 35.6–36.7
[2023-06-05] MEDS: ACETAMINOPHEN 325 MG TABLET 650 MG PO ×2 (05:06→12:18)
--- NOTE | 2023-06-05 07:29 | W.PC.ACHO ---
Registration Status: ADM IN Primary Language: Preferred Language: Polish Report received at 0700. Active Medications Generic Name Dose Route Start Last Admin Trade Name Freq PRN Reason Stop Dose Admin Acetaminophen 650 mg 06/04/23 01:09 06/05/23 05:06 Acetaminophen 325 Mg Tablet PO 650 mg Q6H PRN Administration Mild Pain Al Hydroxide/Mg Hydroxide 2,400 mg 06/04/23 01:09 Magnesium Hydroxide 2,400 Mg/10 Ml Oral.Susp PO Q6H PRN Dyspepsia Benzocaine/Menthol 1 applic 06/04/23 01:09 Benzocaine/Menthol 85 Gram Costa Bottle TOPICAL Q2H PRN Pain Diphtheria/Pertussis/Tetanus Vacc 0.5 ml 06/06/23 09:00 Adacel Diph,Pertuss(Acell),Tet Vac/Pf 0.5 Ml Adult Syringe IM 06/06/23 09:01 .ONCE ONE Docusate Sodium 100 mg 06/05/23 09:00 Docusate Sodium 100 Mg Capsule PO BID PORTIA Sodium Chloride 1,000 mls @ 125 mls/hr 06/03/23 13:00 06/04/23 01:00 Sodium Chloride 0.9% 1,000 Ml IV Infused .Q8H PORTIA Infusion Ibuprofen 600 mg 06/04/23 01:09 06/04/23 17:10 Ibuprofen 600 Mg Tablet PO 600 mg Q6H PRN Administration Moderate Pain Measles/Mumps/Rubella Vaccine Live 0.5 ml 06/06/23 09:00 Measles,Mumps,Rubella Vacc/Pf 0.5 Ml Vial SQ 06/06/23 09:01 .ONCE ONE Ondansetron HCl 4 mg 06/03/23 12:44 Ondansetron Pf 4 Mg/2 Ml Vial IV Q6H PRN Nausea And Vomiting Senna 17.2 mg 06/04/23 20:00 Sennosides 8.6 Mg Tablet PO QHS PRN Constipation Simethicone 80 mg 06/04/23 01:09 Simethicone 80 Mg Tab.Chew PO QID PRN Abdominal Distention Temazepam 15 mg 06/04/23 01:09 Temazepam 15 Mg Capsule PO QHS PRN Sleep Witch Noemi/Glycerin 1 pad 06/04/23 01:09 Glycerin/Witch Noemi Pads TOPICAL Q2H PRN Pain
[2023-06-05] MEDS: DOCUSATE SODIUM 100 MG CAPSULE PO (09:02)
[2023-06-05] MEDS: IBUPROFEN 600 MG TABLET PO (09:06)
--- NOTE | 2023-06-05 12:38 | PM.OBDS ---
DS: Providers Provider Date of admission: 06/03/23 10:34 Primary care physician: Bina Zamora NP Admitting clinician: Keagan Mcgowan Attending physician on admission: Keagan Mcgowan Consults: 06/03/23 Consult to Anesthesiology Routine Consulting Provider: Jp Owens Reason for consultation: labor pain Has provider been notified: No Attending physician on discharge: Yudy Sim Discharging clinician: Yudy Sim Anticipated date of discharge: 06/05/23 DS: Diagnosis Discharge Diagnosis (1) Normal vaginal delivery: Assessment and plan: INSTRUCTIONS GIVEN, REQUESTING DISCHARGE, DISCHARGED TO HOME, FOLLOW UP IN SIX WEEKS WITH OB PROVIDER Plan ABOVE OB - DS: Summary Hospital Course Hospital Course: UNCOMPLICATED Time spent discussing smoking cessation with patient: 3 to 10 minutes Peripartum Data - Vaginal Delivery Laceration description: perineal - 1st degree Complications complications: none Delivery method: spontaneous vaginal delivery Gender: female Discharge plan: home Status at Discharge Cognitive/behavioral status at discharge: WNL Functional status at discharge: independent ambulation Overall status at discharge: patient is progressing back to baseline Time Spent with Patient Time attestation: Total time spent providing and/or coordinating discharge services: Time spent: less than 30 minutes Exam Narrative Exam Narrative: VOICING NO COMPLAINTS Constitutional Vital Signs, click to edit/add: Last Vital Signs Temp 98.0 F 06/05/23 08:50 Pulse 89 06/05/23 08:55 Resp 16 06/05/23 08:50 BP 126/86 06/05/23 08:55 O2 Del Method Room Air 06/05/23 08:50 Documenting provider has reviewed patient's vital signs: yes Common normals: no apparent distress HENMT Common normals: normocephalic and head/scalp atraumatic Eye Pupil: PERRL and accommodation reflex normal Neck & C-Spine Common normals: full ROM and supple Respiratory Common normals: normal respiratory effort Cardio Common normals: regular rate and regular rhythm GI Common normals: Normal to inspection, nondistended, normoactive bowel sounds present, soft to palpation and non-tender Common normals: no CVA tenderness Back & Pelvis Common normals: thoracic and lumbar spine normal to inspection and no thoracic nor lumbar tenderness Extremity Common normals: full ROM and no calf tenderness Neuro Common normals: CN's II-XII intact bilaterally, moves all extremities, no focal motor deficits and no sensory deficits noted Psych Common normals: mental status grossly normal, thought process normal, cooperative, affect normal and speech normal Discharge Plan Discharge Disposition: Home, Self-Care Condition: Good Assessment: NONFOCAL PHYSICAL EXAM, AFEBRILE VSS Health Concerns: NONE Plan of Treatment: DISCHARGE HOME Discharge Medications: Discontinued folic acid 0.8 mg capsule 0.8 mg PO DAILY Activity: increase activity as tolerated Diet: regular diet Patient Instructions: Vaginal Delivery (DC) Activity Restrictions/Additional Instructions: NO SEX SIX WEEKS, MAY SHOWER, NO BATH TUB FOR 4 WEEKS, LIMIT DRIVING, WALKING ONLY EXERCISE, ONLY LIFT BABY, SPORTS BRA ON 13/10 TO INHIBIT MILK PRODUCTION BOTTLE FEEDING Forms: Portal Instructions Follow Up Appointments: SCHEDULE POST EXAM IN SIX WEEKS Discharge location: HOME
[2023-06-05] MEDS: ADACEL DIPH,PERTUSS(ACELL),TET VAC/PF 0.5 ML ADULT SYRINGE IM (14:47)
--- NOTE | 2023-06-05 15:25 | PC.NURSE ---
Appropriate sized BP cuff used at this time.
--- NOTE | 2023-06-05 15:32 | PC.NURSE ---
POST- warning signs reviewed with pt.
== END 2023-06-05 15:15 | disposition home or self-care (01) | DRG 807 ==
PROVIDERS: Admitting Provider Obstetrics & Gynecology; PCP Nurse Practitioner; Visit Provider Obstetrics & Gynecology
DX: O99.824 Streptococcus B carrier state complicating childbirth (principal); Z37.0 Single live birth; O70.0 First degree perineal laceration during delivery; O69.81X0 Labor and delivery complicated by cord around neck, without compression, not applicable or unspecified; Z3A.39 39 weeks gestation of pregnancy
CPT/HCPCS: 36415; 59050; 80307; 85027; 86850; 86900; 86901; 90471; 90715; 96365; 96366; 96368; 96375; 96376

== ENCOUNTER 2023-12-10 12:57 | Outpatient (OUT) | payer OTHER, SELFPAY ==
--- NOTE | 2023-12-10 13:01 | US_ITS ---
[place] [id number] Patient Name: NOEMI ORTEGA MRN: [id number] date: 2000 Sex: F Assigned Patient Location: [facility] Current Patient Location: [facility] Accession/Order Number: [id number] Exam Date: 12/10/2023 13:01 Report Date: 12/10/2023 13:48 At the request of: ANGELINA CA Procedure: US OB >= 14 weeks Fetus EXAMINATION: US OB >= 14 weeks Fetus HISTORY: MISSED MENSES COMPARISON: No relevant comparison available. FINDINGS: Dozier intrauterine gestation position: Cephalic presentation, transverse lie Heart rate: 148 beats minute Placenta: Posterior BPD: 4.52 cm, 19 weeks 5 days, 96% Head circumference: 16.0 cm, 8 weeks 6 days, 76% Abdominal circumference: 13.5 cm, 19 weeks 0 days, 75% Femur length: 3.0 cm, 19 weeks 3 days, 86% Estimated weight: 277 g, 10 ounces, 95% Clinical age: 18 weeks 1 day Clinical AL: 05/11/2024 Ultrasound age: 19 weeks 2 days Ultrasound AL: 05/03/2024 US/US OB >= 14 weeks Fetus IMPRESSION: BPD at the 96th percentile Dozier intrauterine gestation of 19 weeks 2 days Electronically authenticated by: VERONA VICKERS Date: 12/10/2023 13:48
--- OUTSIDE RECORDS SUMMARY | 2023-12-10 13:07 | XMS_ITS | CCD ---
Author Organization [facility] In[facility] ion Partnership [facility] Care Team Providers Care Hand Singer Name Role Phone PAPI SEGURA Attending Unavailable ZENY ., PAPI Consulting Unavailable PAPI SEGURA Admitting Unavailable YOLANDA ZAMORA Primary Care Unavailable Diane Anya Unavailable Ne Henderson Unavailable MARVEL CHRISTIAN Admitting Unavailable MARVEL CHRISTIAN Attending Unavailable BINA ZAMORA Primary Care Unavailable PAPI MOURA Attending Unavailable ANGELINA CA Attending Unavailable ROBY, ANGELINA Attending Unavailable ZENY, PAPI Attending Unavailable ROBY, ANGELINA Attending Unavailable PAPI MOURA Attending Unavailable ZENY, PAPI Attending Unavailable ROBY, ANGELINA Attending Unavailable ROBY, ANGELINA Attending Unavailable PAPI MOURA Attending Unavailable Bina Zamora Primary Care Unavailable MIRIAN HERBERT Attending Unavailable MIRIAN HERBERT Admitting Unavailable Medications Current Medications Medication Drug Class(es) Dates Sig (Normalized) Sig (Original) [id number] 200 actuat albuterol 0.09 mg/actuat metered dose [...] oral solution (1 source) alpha-Adrenergic Agonist, Uncompetitive S-vnuuct-T-asparta te Receptor Antagonist, Sigma-1 Agonist Start: 3 take 10 mL by mouth every six hours Gljnomigg-Vnjpezej-MK 30-2-10 MG/5ML 10 mL Orally every 6 [...] Results Test Name Value Interpretation Reference Range Facility Consent Formson 09-03-2023 Consent Forms [id number] [facility]son 0 09-03-2023 Lab - Toxicology Results [id number] .00OTGTIFF [facility] ED Clinical Summaryon 2023 ED Clinical Summary [facility] ? Urgent Care [address] [id number] Clinical Summary PERSON INFORMATION Name: NOEMI ORTEGA Age: 22 Years Sex: MALE : 2000 MRN: Acct#: Visit Reason: Medical screening exam; [facility] Arrival: 09/02/2023 11:09:30 Discharge: 09/02/2023 11:41:00 LOS: 000 00:32 Check In: 09/02/2023 11:09:30 Checkout: 09/02/2023 11:41:00 Address: [facility] [address] PCP: Bina Zamora CNP PROVIDER INFORMATION Provider Role Assigned Unassigned MIRIAN HERBERT ED PA 09/02/2023 11:14:20 Tanya Land MA ED Nurse 09/02/2023 11:21:08 VITALS INFORMATION Vital Sign Triage Latest Temperature Tympanic Temperature Temporal Artery Pulse Rate O2 Sat 99 % 99 % Respiratory Rate Blood Pressure /84 mmHg /84 mmHg MEDICAL INFORMATION Medications Given: Allergy Information: No known allergies PHYSICIAN DOCUMENTATION DISCHARGE INFORMATION: Discharge Disposition: Home Discharge Location: Home PATIENT EDUCATION INFORMATION Instructions: Care; First Trimester of Follow-Up: With: Address: When: Pamela Ortiz [address] [place] [address], [facility] [address], [place] [address] Business (1) Comments: Sight Mounter to 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 Abstain from any alcohol or illicit drugs With: Address: When: Bina Zamora [address] [place] [address] Business (1) , only if needed DIAGNOSIS: Physical exam Patient Understands: Yes - Patient/family/caregi carlos verbalizes understanding of instructions given Comment: Normal [facility] ED Patient Summaryon 024 ED Patient Summary [facility] ? Urgent Care [address], [place] [id number] PATIENT DISCHARGE INSTRUCTIONS Patient Information Name: NOEMI ORTEGA Age: 22 Years Date of : 2000 Reason For Visit: Medical screening exam; [facility] Arrival Time: 09/02/2023 11:09:30 Primary Care Physician: Bina Zamora CNP Attending Physician: MIRIAN HERBERT Comment: Patient Education With: Address: When: Pamela Harr[address]irstentelma [address], [address], [place] [address] Business (1) Comments: Sight Mounter to 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 Abstain from any alcohol or illicit drugs With: Address: When: Bina Zamora [address] [place] [address] Business (1) , only if needed Care care is health care during . It helps you and your unborn baby (fetus) stay as healthy as possible. care may be provided by a director of casework, a family practice doctor, a mid-level practitioner (nurse practitioner or physician doctor's assistant), or a childbirth and doctor (ostomy care nurse). How does this affect me? During , you will be closely monitored for any new conditions that might develop. To lower your risk of complications, you and your health care provider will talk about any underlying conditions you have. How does this affect my baby? Early and consistent care increases the chance that your baby will be healthy during . care lowers the risk that your baby will be: ? Born early (prematurely). ? Smaller than expected at (small for gestational age). What can I expect at the first care visit? Your first care visit will likely be the longest. You should schedule your first care visit as soon as you know that you are . Your first visit is a good time to talk about any questions or concerns you have about . Medical history At your visit, you and your health care provider will talk about your medical history, including: ? Any past pregnancies. ? Your family's medical history. ? Medical history of the baby's father. ? Any long-term (chronic) health conditions you have and how you manage them. ? Any surgeries or procedures you have had. ? Any current gduh-hbc-bvruhdt or prescription medicines, herbs, or supplements that you are taking. ? Other factors that could pose a risk to your baby, including: ? Exposure to harmful chemicals or radiation at work or at home. ? Any substance use, including tobacco, alcohol, and drug use. ? Your home setting and your stress levels, including: ? Exposure to abuse or violence. ? Household financial strain. ? Your daily health habits, including diet and exercise. Tests and screenings Your health care provider will: ? Measure your weight, height, and blood pressure. ? Do a physical exam, including a pelvic and breast exam. ? Perform blood tests and urine tests to check for: ? Urinary tract infection. ? Sexually transmitted infections (STIs). ? Low iron levels in your blood (anemia). ? Blood type and certain proteins on red blood cells (Rh antibodies). ? Infections and immunity to viruses, such as hepatitis B and rubella. ? HIV (human immunodeficiency virus). ? Discuss your options for genetic screening. Tips about staying healthy Your health care provider will also give you information about how to keep yourself and your baby healthy, including: ? Nutrition and taking vitamins. ? Physical activity. ? How to manage symptoms such as nausea and vomiting (morning sickness). ? Infections and substances that may be harmful to your baby and how to avoid them. ? Food safety. ? Dental care. ? Working. ? Travel. ? Warning signs to watch for and when to call your health care provider. How often will I have care visits? After your first care visit, you will have regular visits throughout your . The visit schedule is often as follows: ? Up to week 28 of : once every 4 weeks. ? 28?36 weeks: once every 2 weeks. ? After 36 weeks: every week until delivery. Some women may have visits more or less often depending on any underlying health conditions and the health of the baby. Keep all follow-up and care visits. This is important. What happens during routine care visits? Your health care provider will: ? Measure your weight and blood pressure. ? Check for heart sounds. ? Measure the height of your uterus in your abdomen (fundal height). This may be measured starting around week 20 of . ? Check the position of your baby inside your uterus. ? Ask questions about your diet, sleeping patterns, and whether you can feel the baby move. ? Review warning signs to watch for and signs of labor. ? Ask about any s (more content not included)... [facility] Triage Industrialon 09-02-19 24 Drug Screen Complete Collected Normal [facility] Comment on above: Performed By: #### 1 [id number] #### [facility] (DEFAULT) [address] [place] [address] Urgent Care Note- Provideron 09-02-2023 Urgent Care Note- Provider Patient: NOEMI ORTEGA Age: 22 years Sex: MALE : 2000 Associated Diagnoses: Physical exam Author: MIRIAN HERBERT Subjective Patient presents for physical exam. Patient denies any medical issues or taking medications. Does admit that she just found out she was , approximately 3 weeks. Health Status Allergies: No active allergies have been recorded. Objective CONST: -Well-developed well-nourished. -Acute distress: No -Vitals: reviewed. SKIN: -Gross abnormalities: No EYES: -EOM intact, NICHOLE: -Sclera conjunctiva: Unremarkable. ENT: -Postsurgical scarring of the upper lip and oropharynx, posterior pharynx is pink and moist. NECK: -Supple (vxwt-pc-hdxbg): non-tender. CARD: -Rate and rhythm: Regular -Edema: No -Calf pain: No RESP: -Respiratory effort and chest excursion with respirations: Normal -Breath sounds equal bilaterally: Clear -Wheezes: No -Rales: No BACK: -Signs of pain with movement: No ABD: -Distended: No -Deep palpation: Non-tender EXT: Gross appearance and use of all four extremities: Unremarkable NEURO: -Patient: alert -Oriented to: person, place and time. -Appearance and judgment: appropriate. Results Review Heart rate on reexamination is 84 bpm. Impression and Plan Assessment and Plan: Diagnosis: Physical exam (NPQ00-WA Z00.00). Cleared for employment [Electronically Signed on: 09/02/2023 11:41 EDT] MIRIAN HERBERT [Verified on: 09/02/2023 11:41 EDT] MIRIAN HERBERT Normal [facility] [place] 024 Urgent Care Record [facility] ? Urgent Care [address], [place] [id number] PATIENT DISCHARGE INSTRUCTIONS Patient Information Name: NOEMI ORTEGA Age: 22 Years Date of : 2000 [facility]: [id number] Reason For Visit: Medical screening exam; [facility] Arrival Time: 09/02/2023 11:09:30 Primary Care Physician: Bina Zamora CNP Attending Physician: MIRIAN HERBERT Comment: Visit Diagnosis: Diagnoses This Visit Medical screening exam ([id number]) Physical exam (Z00.00) If you received any narcotics, sedation, or any other medication that causes drowsiness for the next 24 hours, unless otherwise directed: ? Do not drive a car. ? Do not operate machinery such as power tools, lawn mowers, drills, sewing machines, or stoves ? Avoid alcoholic beverages and drugs for allergies, nerves, or sleep ? Do not make important personal or business decisions or sign any legal documents With: Address: When: Pamela Ortiz [address] [facility], [address], [place] [address] Business (1) Comments: Sight Mounter to 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 Abstain from any alcohol or illicit drugs With: Address: When: Bina Zamora [address] [place] [address] Business (1) , only if needed Medication Information: The exam and treatment you received today in the [facility] were for an urgent problem and are not intended as complete care. It is important for you to follow up with a doctor, nurse practitioner, or physician?s doctor's assistant for ongoing care. If your symptoms become worse or you do not improve as expected and you are unable to reach your usual health care provider, you should return to the Emergency Department, we are available 24 hours a day. For those patients who have received Radiology results, the interpretation of your X-ray as given to you by our Urgent Care physician is only a preliminary report. The Radiologist will review your films and if there is a change in the diagnosis you will be notified by phone. Please make sure you have provided a working phone number so we can reach you if necessary. In the event that you had a lab culture while you were a patient in the Urgent Care, you will be notified by phone if there is a need to change your antibiotic. Please make sure you have provided a working phone number so we can reach you if necessary. [facility] has provided you with a complete list of medications post discharge. 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 Any specific questions regarding your chronic medications and dosages should be discussed with your primary care physician(s) and/or pharmacist. Visit Information Allergies: Substance Reaction Symptoms Type Comments No known allergies Drug Vital Signs: Vitals and Measurements this Visit (last charted value for your 09/02/2023 visit) Vital Signs This Visit Temperature Oral: 36.1 DegC Apical Heart Rate: 105 bpm Respiratory Rate: 18 br/min Systolic Blood Pressure: 126 mmHg Diastolic Blood Pressure: 84 mmHg SpO2: 99 % Blood Pressure Method: Automatic Measurements This Visit Height/Length Measured: 167.64 cm Weight Measured: 99.79 kg Weight Dosin.790 kg Body Mass Index: 35.51 kg/m2 BSA Measured: 2.16 m2 Problems List: Problem Onset Comments No Problems found Patient Education Care care is health care during . It helps you and your unborn baby (fetus) stay as healthy as possible. care may be provided by a director of casework, a family practice doctor, a mid-level practitioner (nurse practitioner or physician doctor's assistant), or a childbirth and doctor (ostomy care nurse). How does this affect me? During , you will be closely monitored for any new conditions that might develop. To lower your risk of complications, you and your health care provider will talk about any underlying conditions you have. How does this affect my baby? Early and consistent care increases the chance that your baby will be healthy during . care lowers the risk that your baby will be: ? Born early (prematurely). ? Smaller than expected at (small for gestational age). What can I expect at the first care visit? Your first care visit will likely be the longest. You should schedule your first care visit as soon as you know that you are . Your first visit is a good time to talk about any questions or concerns you have about . Medical history At your visit, you and your health care provider will talk about your medical history, including: ? Any past pregnancies. ? Your family's medical history. ? Medical history of the baby's father. ? Any long-term (chronic) health conditions you have and how you manage them. ? Any (more content not included)... Normal [facility] COVID/FLU RT-PCRon 3 SARS-CoV-2 (COVID-19) RNA [facility]+probe Ql (Unsp spec) Negative [facility] Other COVID/FLU RT-PCR Negative [facility] Join The Wellness Team Other CHLAMYDIA/GONOCOCCUS [facility] (SW AB/URINE/PAPon 05-22-2022 Chlamydia trachomatis, [facility] Negative Normal Negative [facility] Comment on above: Performed By: #### C T/NGNA #### [facility] [address] [place] [address] Dr. Clau Valdivia Neisseria gonorrhoeae, [facility] Negative Normal Negative [facility] Comment on above: Performed By: #### C T/NGNA #### [facility] [address] [place] [address] Dr. Clau Valdivia VAGINITIS/VAGINOSIS DNA PROB Melvin 05-21-2022 Shiloh species Positive Abnormal Negative [facility] Comment on above: Performed By: #### V AGINT #### [facility] [address] [place] [address] Dr. Clau Valdivia Gardnerella vaginalis Positive Abnormal Negative [facility] Comment on above: Performed By: #### V AGINT #### [facility] [address] [place] [address] Dr. Clau Valdivia Trichomonas vaginalis Negative Normal Negative [facility] Comment on above: Performed By: #### V AGINT #### [facility] [address] [place] [address] Dr. Clau Valdivia COVID + FLU Quick Testingon 04-20-2022 SARS-CoV-2 (COVID-19) RNA [facility]+probe Ql (Unsp spec) Negative [facility] Other COVID + FLU Quick Testing Negative [facility] Other Quick Strepon 04-20-2022 S. pyogenes Org specific cx Ql (Throat) Negative [facility] Other Quick Strep [facility] Other Vital Signs Date Time Vital Sign Value Performing Clinician Facility 07-19-2022 11:30-0400 Body height 167.64 cm Ne Henderson Other [facility] Other 07-19-2022 11:30-0400 Body mass index (BMI) [Ratio] 34.7 kg/m2 Ne Henderson Other [facility] Other 07-19-2022 11:30-0400 Body temperature 101 [degF] Ne Henderson Other [facility] Other 07-19-2022 11:30-0400 Body weight 97.52 kg Ne Henderson Other [facility] Other 07-19-2022 11:30-0400 Diastolic blood pressure 76 mm[Hg] Ne Henderson Other [facility] Other 07-19-2022 11:30-0400 Respiratory rate 18 /min Ne Henderson Other [facility] Other 07-19-2022 11:30-0400 SaO2% (BldA) [Mass fraction] 97 % Ne Henderson Other [facility] Other 07-19-2022 11:30-0400 Systolic blood pressure 113 mm[Hg] Ne Henderson Other [facility] Other 04-20-2022 10:50-0500 Body height 167.64 cm Anya Contreras Other [facility] Other 04-20-2022 10:50-0500 Body mass index (BMI) [Ratio] 34.7 kg/m2 Anya Contreras Other [facility] Other 04-20-2022 10:50-0500 Body temperature 98.6 [degF] Anya Contreras Other [facility] Other 04-20-2022 10:50-0500 Body weight 97.52 kg Anya Contreras Other [facility] Other 04-20-2022 10:50-0500 Respiratory rate 18 /min Anya Contreras Other [facility] Other 04-20-2022 10:50-0500 SaO2% (BldA) [Mass fraction] 98 % Anya Contreras Other [facility] Other Encounters Encounter Date Encounter Type Care Provider Facility Start: 09-02-2023 End: 09-02-2023 ambulatory Bina Zamora Facility:[facility] Start: 07-16-2023 End: 07-16-2023 ambulatory PAPI MOURA Not Available Start: 06-01-2023 End: 06-01-2023 ambulatory ANGELINA ROBY Not Available Start: 05-25-2023 End: 05-25-2023 ambulatory ANGELINA ROBY Not Available Start: 05-18-2023 End: 05-18-2023 ambulatory PAPI MOURA Not Available Start: 05-04-2023 End: 05-04-2023 ambulatory ANGELINA ROBY Not Available Start: 04-20-2023 End: 04-20-2023 ambulatory PAPI ZENY Not Available Start: 04-11-2023 End: 04-11-2023 ambulatory MARVEL CHRISTIAN [facility] Start: 04-06-2023 End: 04-06-2023 ambulatory ANGELINA ROBY Not Available Start: 03-19-2023 End: 03-19-2023 ambulatory PAPI ZENY Not Available Start: 03-05-2023 End: 03-05-2023 ambulatory PAPI ZENY Not Available Start: 02-04-2023 End: 02-04-2023 ambulatory ANGELINA ROBY Not Available Start: 07-19-2022 End: 07-19-2022 ambulatory Ne Henderson Other [facility] Other Start: 07-19-2022 Office outpatient visit 25 minutes Ne Henderson [facility] Start: 05-19-2022 End: 05-19-2022 ambulatory PAPI MOURA . Facility: Start: 04-20-2022 End: 04-20-2022 ambulatory Anya Contreras Other [facility] Other Start: 04-20-2022 Office outpatient visit 25 minutes Anya Contreras [facility] Payers Date Payer Category Payer Unknown [id number] 2000 Unknown [id number] 2.16.84 [id number] 2000 Unknown [id number] 2.16.84 [id number] 2000 Unknown [id number] 2.16.84 [id number] 2000 Unknown [id number] 2.16.84 [id number] 2002 Unknown [id number] 2.16.84 [id number] 2002 Unknown [id number] 2.16.84 0.1.596438.3.579.2.1259 2002 Unknown [id number] 2.16.84 0.1.401018.3.579.2.9 2002 Unknown [id number] 2.16.84 0.1.994038.3.579.2.9 2002 Unknown [id number] 2.16.84 0.1.623814.3.579.2.1258 2002 Unknown [id number] 2.16.840 .1.333448.3.579.2.1259 2000 Unknown [id number] 2.16.840 .[id number] 2002 Unknown [id number] 2.16.840 .[id number] 1959 Unknown [id number] Social History Date Type Detail Facility Unknown if ever smoked [facility] Other Sex Assigned At Sex Assigned At Bir th [facility] Other History and physical note 09-03-2023 Note Date & Type Note Facility 09-03-2023 Note [id number] [facility] Clinical Note 09-02-2023 Note Date & Type Note Facility 09-02-2023 Note Patient Education Ma terials Follows:and Gynecology Care care is health care during . It helps you and your unborn baby (fetus) stay as healthy as possible. care may be provided by a director of casework, a family practice doctor, a mid-level practitioner (nurse practitioner or physician doctor's assistant), or a childbirth and doctor (ostomy care nurse). How does this affect me? During , you will be closely monitored for any new conditions that might develop. To lower your risk of complications, you and your health care provider will talk about any underlying conditions you have. How does this affect my baby? Early and consistent care increases the chance that your baby will be healthy during . care lowers the risk that your baby will be: ? Born early (prematurely). ? Smaller than expected at (small for gestational age). What can I expect at the first care visit? Your first care visit will likely be the longest. You should schedule your first care visit as soon as you know that you are . Your first visit is a good time to talk about any questions or concerns you have about . Medical history At your visit, you and your health care provider will talk about your medical history, including: ? Any past pregnancies. ? Your family's medical history. ? Medical history of the baby's father. ? Any long-term (chronic) health conditions you have and how you manage them. ? Any surgeries or procedures you have had. ? Any current epla-xij-ojoetok or prescription medicines, herbs, or supplements that you are taking. ? Other factors that could pose a risk to your baby, including: ? Exposure to harmful chemicals or radiation at work or at home. ? Any substance use, including tobacco, alcohol, and drug use. ? Your home setting and your stress levels, including: ? Exposure to abuse or violence. ? Household financial strain. ? Your daily health habits, including diet and exercise. Tests and screenings Your health care provider will: ? Measure your weight, height, and blood pressure. ? Do a physical exam, including a pelvic and breast exam. ? Perform blood tests and urine tests to check for: ? Urinary tract infection. ? Sexually transmitted infections (STIs). ? Low iron levels in your blood (anemia). ? Blood type and certain proteins on red blood cells (Rh antibodies). ? Infections and immunity to viruses, such as hepatitis B and rubella. ? HIV (human immunodeficiency virus). ? Discuss your options for genetic screening. Tips about staying healthy Your health care provider will also give you information about how to keep yourself and your baby healthy, including: ? Nutrition and taking vitamins. ? Physical activity. ? How to manage symptoms such as nausea and vomiting (morning sickness). ? Infections and substances that may be harmful to your baby and how to avoid them. ? Food safety. ? Dental care. ? Working. ? Travel. ? Warning signs to watch for and when to call your health care provider. How often will I have care visits? After your first care visit, you will have regular visits throughout your . The visit schedule is often as follows: ? Up to week 28 of : once every 4 weeks. ? 28?36 weeks: once every 2 weeks. ? After 36 weeks: every week until delivery. Some women may have visits more or less often depending on any underlying health conditions and the health of the baby. Keep all follow-up and care visits. This is important. What happens during routine care visits? Your health care provider will: ? Measure your weight and blood pressure. ? Check for heart sounds. ? Measure the height of your uterus in your abdomen (fundal height). This may be measured starting around week 20 of . ? Check the position of your baby inside your uterus. ? Ask questions about your diet, sleeping patterns, and whether you can feel the baby move. ? Review warning signs to watch for and signs of labor. ? Ask about any symptoms you are having and how you are dealing with them. Symptoms may include: ? Headaches. ? Nausea and vomiting. ? Vaginal discharge. ? Swelling. ? Fatigue. ? Constipation. ? Changes in your vision. ? Feeling persistently sad or anxious. ? Any discomfort, including back or pelvic pain. ? Bleeding or spotting. Make a list of questions to ask your health care provider at your routine visits. What tests might I have during care visits? You may have blood, urine, and imaging tests throughout your , such as: ? Urine tests to check for glucose, protein, or signs of infection. ? Glucose tests to check for a form of diabetes that can develop during (gestational diabetes mellitus). This is usually done around week 24 of (more content not included)... [facility] Evaluation note 07-19-2022 Note Date & Type [...] treatment plan. Patient left in stable condition. [employer] Other History general Narrative - Reported 07-19-2022 Note Date & Type Note Facility 07-19-2022 History general N arrative - Reported Type Medical History ADD Medical History Born with cleft palette Surgical History tonsillectomy and adenoidectomy Surgical History cleft palette 3-4 repair [facility] [employer] Other History general Narrative - Reported 05-25-2022 Note Date & Type Note Facility 05-25-2022 History general N arrative - Reported Type Medical History ADD Medical History Born with cleft palette Surgical History tonsillectomy and adenoidectomy Surgical History cleft palette 3-4 repair [facility] [employer] Other Evaluation note 04-20-2022 Note Date & [...] this time you do not have COVID. [employer] Other Summary Purpose Family History No Family History Records FoundNo Family History Records FoundNo Family History Records FoundNo Family History Records Found Advance Directives No Advanced Directives Records FoundNo Advanced Directives Records FoundNo Advanced Directives Records FoundNo Advanced Directives Records Found Additional Source Comments INFORMATION SOURCE (unrecogn ized section and content) DATE CREATED AUTHOR 05/23/2022 [facility] DATE CREATED AUTHOR AUTHOR'S ORGANIZ ATION 04/12/2023 [facility] DATE CREATED AUTHOR AUTHOR'S ORGANIZ ATION 07/18/2023 [facility] DATE CREATED AUTHOR AUTHOR'S ORGANIZ ATION 09/03/2023 [facility] REASON FOR VISIT (unrecogniz ed section [...] BE BASED ON THE PRIMARY CLINICAL RECORDS. [employer] provides no warranty or guarantee of the accuracy or completeness of information in this document.
== END 2023-12-10 12:58 | disposition home or self-care (01) ==
LOC: NOMS 12:58
PROVIDERS: PCP Nurse Practitioner; Visit Provider Obstetrics & Gynecology
DX: Z34.92 Encounter for supervision of normal pregnancy, unspecified, second trimester (principal); Z3A.19 19 weeks gestation of pregnancy; N92.6 Irregular menstruation, unspecified
CPT/HCPCS: 76815

== ENCOUNTER 2023-12-18 09:04 | Outpatient (OUT) | payer OTHER, SELFPAY ==
--- OUTSIDE RECORDS SUMMARY | 2023-12-18 09:09 | XMS_ITS | CCD ---
Author Organization [facility] Inform ion Partnership [facility] Care Team Providers Care Desizing Machine Operator Name Role Phone ZENY .PAPI Attending Unavailable ZENY ., PAPI Consulting Unavailable PAPI SEGURA Admitting Unavailable YOLANDA ZAMORA Primary Care Unavailable Diane Anya Unavailable Ne Henderson Unavailable MARVEL CHRISTIAN Admitting Unavailable MARVEL CHRISTIAN Attending Unavailable BINA ZAMORA Primary Care Unavailable Bina Zamora Primary Care Unavailable MIRIAN HERBERT Attending Unavailable MIRIAN HERBERT Admitting Unavailable PAPI MOURA Attending Unavailable ANGELINA CA Attending Unavailable ANGELINA CA Attending Unavailable PAPI MOURA Attending Unavailable ANGELINA CA Attending Unavailable PAPI MOURA Attending Unavailable ANGELINA CA Attending Unavailable ANGELINA CA Attending Unavailable PAPI MOURA Attending Unavailable PAPI MOURA Attending Unavailable Medications Current Medications Medication Drug Class(es) Dates Sig (Normalized) Sig (Original) [id number] 200 actuat albuterol 0.09 mg/actuat metered dose [...] oral solution (1 source) alpha-Adrenergic Agonist, Uncompetitive G-sdzaxn-L-asparta te Receptor Antagonist, Sigma-1 Agonist Start: 3 take 10 mL by mouth every six hours Nhzacvquc-Dpuxscgm-FW 30-2-10 MG/5ML 10 mL Orally every 6 [...] Range Facility Consent Formson 09-03-2023 Consent Forms [id number] .[facility] Resultson 0 09-03-2023 Lab - Toxicology Results [id number] .00OTGTIFF [facility] ED Clinical Summaryon 2023 ED Clinical Summary [facility] ? Urgent Care [address] [place] [address] Clinical Summary PERSON INFORMATION Name: NOEMI ORTEGA Age: 22 Years Sex: MALE : 2000 MRN: Acct#: Visit Reason: Medical screening exam; ZBIGNIEW SHARPE Arrival: 09/02/2023 11:09:30 Discharge: 09/02/2023 11:41:00 LOS: 000 00:32 Check In: 09/02/2023 11:09:30 Checkout: 09/02/2023 11:41:00 Address: [address] [place] [id number] PCP: Bina Zamora CNP PROVIDER INFORMATION Provider Role Assigned Unassigned MIRIAN HERBETR ED PA 09/02/2023 11:14:20 Tanya Land MA [...] of Follow-Up: With: Address: When: Pamela Ortiz [address], [address], [place] [address] Business (1) Comments: Deck Supervisor to 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 Abstain from any alcohol or illicit drugs With: Address: When: Bina Zamora [address] [place] [address] Business (1) , only if needed DIAGNOSIS: Physical exam Patient Understands: Yes - Patient/family/caregi carlos verbalizes understanding of instructions given Comment: Normal [facility] ED Patient Summaryon 024 ED Patient Summary [facility] ? Urgent Care [address] [place] [address] [id number] PATIENT DISCHARGE INSTRUCTIONS Patient Information Name: NOEMI ORTEGA Age: 22 Years Date of : 2000 Reason For Visit: Medical screening exam; ZBIGNIEW SHARPE Arrival Time: 09/02/2023 11:09:30 Primary Care Physician: Bina Zamora CNP Attending Physician: MIRIAN HERBERT Comment: Patient Education With: Address: When: Pamela Angel [address], [address], [place] [address] Business (1) Comments: Deck Supervisor to 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 Abstain from any alcohol or illicit drugs With: Address: When: Bina Zamora [address] [place] [address] Business (1) , only if needed Care care is health care during . It helps you and your unborn baby (fetus) stay as healthy as possible. care may be provided by a gauge maker, a family practice doctor, a mid-level practitioner (nurse practitioner or physician emergency veterinary assistant), or a childbirth and doctor (computer technical support specialist). How does this affect me? During , [...] procedures you have had. ? Any current mtlx-fbc-knjubcp or prescription medicines, herbs, or supplements that [...] about any s (more content not included)... Normal [facility] Triage Industrialon 09-02-19 24 Drug Screen Complete Collected [facility] l Comment on above: Performed By: #### 1 [id number] #### [facility] (DEFAULT) [address] [place] [address] Urgent Care Note- Provideron 09-02-2023 Urgent Care [...] pharynx is pink and moist. NECK: -Supple (kooi-me-vhlkr): non-tender. CARD: -Rate and rhythm: Regular -Edema: [...] Plan Assessment and Plan: Diagnosis: Physical exam ([id number] Z00.00). Cleared for employment [Electronically Signed on: 09/02/2023 11:41 EDT] MIRIAN HERBERT [Verified on: 09/02/2023 11:41 EDT] MIRIAN HERBERT Normal [facility] Urgent Care [place] 024 Urgent Care Record [facility] ? Urgent Care [address] [place] [address] PATIENT DISCHARGE INSTRUCTIONS Patient Information Name: NOEMI ORTEGA Age: 22 Years Date of : 2000 Reason For Visit: Medical screening exam; [facility] Arrival Time: 09/02/2023 11:09:30 Primary Care Physician: Bina Zamora CNP Attending Physician: MIRIAN HERBERT Comment: Visit Diagnosis: Diagnoses This Visit Medical screening exam ([id number]) Physical exam (Z00.00) If you received any [...] documents With: Address: When: Pamela Ortiz [address], [address], [place] [address] Business (1) Comments: Deck Supervisor to 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 Abstain from any alcohol or illicit drugs With: Address: When: Bina Zamora [address] [place] [address] Business (1) , only if needed Medication Information: The exam and treatment you received today in the [facility] were for an urgent problem and are not intended as complete care. It is important for you to follow up with a doctor, nurse practitioner, or physician?s emergency veterinary assistant for ongoing care. If your symptoms [...] so we can reach you if necessary. [facility] Urgent Care has provided you with a complete list of medications post discharge. Please inform your plant breeder scientist/provider of your visit and for further instruction [...] possible. care may be provided by a gauge maker, a family practice doctor, a mid-level practitioner (nurse practitioner or physician emergency veterinary assistant), or a childbirth and doctor (computer technical support specialist). How does this affect me? During , [...] ? Any (more content not included)... Normal [facility] COVID/FLU RT-PCRon 3 SARS-CoV-2 (COVID-19) RNA [facility]+probe Ql (Unsp spec) Negative [employer] Other COVID/FLU RT-PCR Negative [facility] [employer] Other CHLAMYDIA/GONOCOCCUS [facility] (SW AB/URINE/PAPon 05-22-2022 Chlamydia trachomatis, [facility] Negative Normal Negative [facility] Comment on above: Performed By: #### C T/NGNA #### [facility] [address] [place] [address] Dr. Clau Valdivia Neisseria gonorrhoeae, [facility] Negative Normal Negative [facility] Comment on above: Performed By: #### C T/NGNA #### [facility] [address] [place] [address] Dr. Clau Valdivia VAGINITIS/VAGINOSIS DNA PROB Melvin 05-21-2022 [place] species Positive Abnormal Negative [facility] Comment on above: Performed By: #### V AGINT #### [facility] [address] [place] [address] Dr. Clau Valdivia Gardnerella vaginalis Positive Abnormal Negative [facility] Comment on above: Performed By: #### V AGINT #### [facility] [address] [place] [address] Dr. Clau Valdivia Trichomonas vaginalis Negative Normal Negative [facility] Comment on above: Performed By: #### V AGINT #### [facility] [address] [place] [address] Dr. Clau Valdivia COVID + FLU Quick Testingon 04-20-2022 SARS-CoV-2 (COVID-19) RNA [facility]+probe Ql (Unsp spec) Negative [employer] Other COVID + FLU Quick Testing Negative [employer] Other Quick Strepon 04-20-2022 S. pyogenes Org specific cx Ql (Throat) Negative [employer] Other Quick Strep [employer] Other Vital Signs Date Time Vital Sign Value Performing Clinician Facility 07-19-2022 11:30-0400 Body height 167.64 cm Ne Henderson Other [employer] Other 07-19-2022 11:30-0400 Body mass index (BMI) [Ratio] 34.7 kg/m2 Ne Henderson Other [employer] Other 07-19-2022 11:30-0400 Body temperature 101 [degF] Ne Henderson Other [employer] Other 07-19-2022 11:30-0400 Body weight 97.52 kg Ne Henderson Other [employer] Other 07-19-2022 11:30-0400 Diastolic blood pressure 76 mm[Hg] Ne Henderson Other [employer] Other 07-19-2022 11:30-0400 Respiratory rate 18 /min Ne Henderson Other [employer] Other 07-19-2022 11:30-0400 SaO2% (BldA) [Mass fraction] 97 % Ne Henderson Other [employer] Other 07-19-2022 11:30-0400 Systolic blood pressure 113 mm[Hg] Ne Henderson Other [employer] Other 04-20-2022 10:50-0500 Body height 167.64 cm Anya Contreras Other [employer] Other 04-20-2022 10:50-0500 Body mass index (BMI) [Ratio] 34.7 kg/m2 Anya Contreras Other [employer] Other 04-20-2022 10:50-0500 Body temperature 98.6 [degF] Anya Contreras Other [employer] Other 04-20-2022 10:50-0500 Body weight 97.52 kg Anya Contreras Other [employer] Other 04-20-2022 10:50-0500 Respiratory rate 18 /min Anya Contreras Other [employer] Other 04-20-2022 10:50-0500 SaO2% (BldA) [Mass fraction] 98 % Anya Contreras Other [employer] Other Encounters Encounter Date Encounter Type Care Provider Facility Start: 12-10-2023 End: 12-10-2023 ambulatory PAPI MOURA Not Available Start: 09-02-2023 End: 09-02-2023 ambulatory Bina Zamora Facility:[facility] Start: 07-16-2023 End: 07-16-2023 ambulatory PAPI MOURA Not Available Start: 06-01-2023 End: 06-01-2023 ambulatory ANGELINA CA Not Available Start: 05-25-2023 End: 05-25-2023 ambulatory ANGELINA ROBY Not Available Start: 05-18-2023 End: 05-18-2023 ambulatory PAPI MOURA Not Available Start: 05-04-2023 End: 05-04-2023 ambulatory ANGELINA ROBY Not Available Start: 04-20-2023 End: 04-20-2023 ambulatory PAPI ZENY Not Available Start: 04-11-2023 End: 04-11-2023 ambulatory MARVEL CHRISTIAN [facility] Start: 04-06-2023 End: 04-06-2023 ambulatory ANGELINA ROBY Not Available Start: 03-19-2023 End: 03-19-2023 ambulatory PAPI ZENY Not Available Start: 03-05-2023 End: 03-05-2023 ambulatory PAPI ZENY Not Available Start: 02-04-2023 End: 02-04-2023 ambulatory ANGELINA ROBY Not Available Start: 07-19-2022 End: 07-19-2022 ambulatory Ne Henderson Other [employer] Other Start: 07-19-2022 Office outpatient visit 25 minutes Ne Henderson [facility] Start: 05-19-2022 End: 05-19-2022 ambulatory PAPI ZENY . Facility: Start: 04-20-2022 End: 04-20-2022 ambulatory Anya Contreras Other [employer] Other Start: 04-20-2022 Office outpatient visit 25 minutes Anya Contreras [facility] Payers Date Payer Category Payer Unknown [id number] 2000 Unknown [id number] 2.16.84 [id number] 2000 Unknown [id number] 2.16.84 [id number] 2002 Unknown [id number] 2.16.84 0.1.518540.3.579.2.1259 2000 Unknown [id number] 2.16.84 0.1.576374.3.579.2.1259 2002 Unknown [id number] 2.16.84 0.1.441381.3.579.2.1259 2002 Unknown [id number] 2.16.84 0.1.630245.3.579.2.1258 2002 Unknown [id number] 2.16.84 0.1.031047.3.579.2.1258 2002 Unknown [id number] 2.16.84 0.1.011410.3.579.2.1258 2002 Unknown [id number] 2.16.84 0.1.609763.3.579.2.1258 2002 Unknown [id number] 2.16.84 0.1.876302.3.579.2.1258 2002 Unknown [id number] 2.16.840 .1.503002.3.579.2.1258 2002 Unknown [id number] 2.16.840 .1.937199.3.579.2.1258 2002 Unknown [id number] 2.16.840 .[id number] 1959 Unknown [id number] Social History Date Type Detail Facility Unknown if ever smoked [employer] Other Sex Assigned At Sex Assigned At Bir th [employer] Other History and physical note 09-03-2023 Note Date & Type Note Facility 09-03-2023 Note [id number] [facility] Clinical Note 09-02-2023 Note Date & Type Note Facility 09-02-2023 Note Patient Education Ma terials Follows:and Gynecology Care care is health care during . It helps you and your unborn baby (fetus) stay as healthy as possible. care may be provided by a gauge maker, a family practice doctor, a mid-level practitioner (nurse practitioner or physician emergency veterinary assistant), or a childbirth and doctor (computer technical support specialist). How does this affect me? During , [...] procedures you have had. ? Any current wtsd-ddz-qourldz or prescription medicines, herbs, or supplements that [...] week 24 of (more content not included)... [facility] Evaluation note 07-19-2022 Note Date & Type [...] treatment plan. Patient left in stable condition. [employer] Other History general Narrative - Reported 07-19-2022 Note Date & Type Note Facility 07-19-2022 History general N arrative - Reported Type Medical History ADD Medical History Born with cleft palette Surgical History tonsillectomy and adenoidectomy Surgical History cleft palette 3-4 repair Hospitalization History see above [facility] [employer] Other History general Narrative - Reported 05-25-2022 Note Date & Type Note Facility 05-25-2022 History general N arrative - Reported Type Medical History ADD Medical History Born with cleft palette Surgical History tonsillectomy and adenoidectomy Surgical History cleft palette 3-4 repair [facility] [employer] Other Evaluation note 04-20-2022 Note Date & [...] this time you do not have COVID. [employer] Other Summary Purpose Family History No Family History Records FoundNo Family History Records FoundNo Family History Records FoundNo Family History Records Found Advance Directives No Advanced Directives Records FoundNo Advanced Directives Records FoundNo Advanced Directives Records FoundNo Advanced Directives Records Found Additional Source Comments INFORMATION SOURCE (unrecogn ized section and content) DATE CREATED AUTHOR 05/23/2022 [facility] DATE CREATED AUTHOR AUTHOR'S ORGANIZ ATION 04/12/2023 [facility] DATE CREATED AUTHOR AUTHOR'S ORGANIZ ATION 09/03/2023 [facility] DATE CREATED AUTHOR AUTHOR'S ORGANIZ ATION 12/13/2023 [facility] EPIC REASON FOR VISIT (unrecogniz ed [...] BE BASED ON THE PRIMARY CLINICAL RECORDS. [employer] provides no warranty or guarantee of the accuracy or completeness of information in this document.
[2023-12-18 09:38] LABS: Basophils Percent Auto 0.5 % (0.2-2.0); Eosinophils Absolute Auto 0.1 10^3/uL (0.0-0.7); Hematocrit 34.1 % (36.0-48.0); Hemoglobin 10.8 g/dL (12.0-16.0); Immature Granulocytes Abs Auto 0.02 10^3/uL (0.00-0.03); Immature Granulocytes Pct Auto 0.3 % (0.0-0.5); Lymphocytes Absolute Auto 2.2 10^3/uL (1.2-3.8); Lymphocytes Percent Auto 27.3 % (20.5-60.0); Mean Corpuscular HGB Conc 31.7 g/dL (29.9-35.2); Mean Platelet Volume 10.2 fL (9.5-13.5); Monocytes Absolute Auto 0.3 10^3/uL (0.3-0.8); Monocytes Percent Auto 4.2 % (1.7-12.0); Neutrophils Absolute Auto 5.3 10^3/uL (1.4-6.5); Neutrophils Percent Auto 66.7 % (43.0-75.0); Platelet Count 270 10^3/uL (150-450); Red Blood Count 4.16 10^6/uL (4.20-5.40); Red Cell Distribution Width 14.7 % (11.0-15.0); White Blood Count 7.9 10^3/uL (4.0-11.0)
[2023-12-18 09:57] LABS: Estimated Average Glucose 97 mg/dL
[2023-12-18 10:18] LABS: Amphetamine Screen Urine NEGATIVE (NEGATIVE); Cannabinoid Screen Urine NEGATIVE (NEGATIVE); Cocaine Screen Urine NEGATIVE (NEGATIVE); Methamphetamines Screen Urine NEGATIVE (NEGATIVE); Opiate Screen Urine NEGATIVE (NEGATIVE); Phencyclidine Screen Urine NEGATIVE (NEGATIVE)
[2023-12-18 10:19] LABS: Barbiturates Screen Urine NEGATIVE (NEGATIVE); Benzodiazepines Screen Urine NEGATIVE (NEGATIVE); Buprenorphine Screen Urine NEGATIVE (NEGATIVE); Methadone Screen Urine NEGATIVE (NEGATIVE); Oxycodone Screen Urine NEGATIVE (NEGATIVE); Tricyclic Antidepressant Urine NEGATIVE (NEGATIVE)
[2023-12-19 06:09] LABS: HBsAg Screen Negative (Negative); HCV Ab Non Reactive (Non Reactive); HIV Ab/p24 Ag Screen Non Reactive (Non Reactive); Rubella Antibodies, IgG 3.18 index (Immune >0.99)
[2023-12-19 10:08] LABS: Rapid Plasma Reagin, Quant Non Reactive titer (NonRea<1:1)
[2023-12-20 01:10] LABS: AFP Value 27.4 ng/mL (.); Gest. Age on Collection Date 19.3 weeks (.); Gestat. Age Based On Ultrasound (.); Insulin Dep Diabetes No (.); Maternal Age At EDD 21.6 yr (.); OSBR Risk 1 IN 10000 (.); Results Report (.)
== END 2023-12-18 09:05 | disposition home or self-care (01) ==
LOC: LAB 09:04
PROVIDERS: PCP Nurse Practitioner; Visit Provider Obstetrics & Gynecology
DX: Z34.92 Encounter for supervision of normal pregnancy, unspecified, second trimester (principal); N92.6 Irregular menstruation, unspecified
CPT/HCPCS: 36415; 80307; 82105; 83036; 85025; 86592; 86762; 86803; 86850; 86900; 86901; 87086; 87340; 87389

== ENCOUNTER 2023-12-22 08:00 | Outpatient (OUT) | payer OTHER, SELFPAY ==
--- NOTE | 2023-12-22 | US_ITS ---
[address] [address] Patient Name: NOEMI ORTEGA MRN: [id number] date: 2000 Sex: F Assigned Patient Location: [facility] Current Patient Location: [facility] Accession/Order Number: [id number] Exam Date: 12/22/2023 08:05 Report Date: 12/22/2023 09:52 At the request of: ANGELINA CA Procedure: US OB anatomy EXAMINATION: US OB transvaginal, US OB anatomy HISTORY: ANATOMY COMPARISON: 12/22/2023 TECHNIQUE: Transabdominal sonographic examination was performed for obstetrical and evaluation. FINDINGS: Number: 1 Heart Rate: 156 bpm H.B. /min Amniotic Fluid Volume: Subjectively normal Placental Location: POSTERIOR, placental edge is 4.3 cm from the cervical os position: Variable presentation and variable lie Cervix Length: 4.15 cm , closed Normal anatomy: Lateral ventricles, cerebellum, posterior fossa, nose, lips, orbits, four-chamber heart, RVOT, LVOT, diaphragm, stomach, kidneys, abdominal cord insertion, bladder, umbilical arteries, three-vessel cord, spine, extremities BIOMETRY: BPD: 4.67 cm; 20 weeks 1 day; 16.30 % HC: 17.81 cm; 20 weeks 2 days; 13.40 % AC: 16.11 cm; 21 weeks 1 day; 50 % FL: 3.47 cm; 21 weeks 0 days; 38.50 % EFW:369.84 g; 42.60 %, 14 ounces FL/AC: 21.54 FL/BPD: 74.30 HC/AC: 1.11 GESTATIONAL AGE: Age by EDC: 21 weeks 0 days AL by EDC: 2024-05-03 Age by current US: 20 weeks 5 days AL by current US: 2024-05-05 US/US OB anatomy IMPRESSION: Low lying placenta Otherwise normal anatomy scan *Reference: [facility] Practice Guideline for the performance of Obstetric Ultrasound Examinations, December 21, 2006. Electronically authenticated by: VERONA VICKERS Date: 12/22/2023 09:52
--- NOTE | 2023-12-22 | US_ITS ---
[address] [address] Patient Name: NOEMI ORTEGA MRN: [id number] date: 2000 Sex: F Assigned Patient Location: [facility] Current Patient Location: [facility] Accession/Order Number: [id number] Exam Date: 12/22/2023 08:05 Report Date: 12/22/2023 09:52 At the request of: ANGELINA CA Procedure: US OB transvaginal EXAMINATION: US OB transvaginal, US OB anatomy HISTORY: ANATOMY COMPARISON: 12/22/2023 TECHNIQUE: Transabdominal sonographic examination was performed for obstetrical and evaluation. FINDINGS: Number: 1 Heart Rate: 156 bpm H.B. /min Amniotic Fluid Volume: Subjectively normal Placental Location: POSTERIOR, placental edge is 4.3 cm from the cervical os position: Variable presentation and variable lie Cervix Length: 4.15 cm , closed Normal anatomy: Lateral ventricles, cerebellum, posterior fossa, nose, lips, orbits, four-chamber heart, RVOT, LVOT, diaphragm, stomach, kidneys, abdominal cord insertion, bladder, umbilical arteries, three-vessel cord, spine, extremities BIOMETRY: BPD: 4.67 cm; 20 weeks 1 day; 16.30 % HC: 17.81 cm; 20 weeks 2 days; 13.40 % AC: 16.11 cm; 21 weeks 1 day; 50 % FL: 3.47 cm; 21 weeks 0 days; 38.50 % EFW:369.84 g; 42.60 %, 14 ounces FL/AC: 21.54 FL/BPD: 74.30 HC/AC: 1.11 GESTATIONAL AGE: Age by EDC: 21 weeks 0 days AL by EDC: 2024-05-03 Age by current US: 20 weeks 5 days AL by current US: 2024-05-05 US/US OB transvaginal IMPRESSION: Low lying placenta Otherwise normal anatomy scan *Reference: [facility] Practice Guideline for the performance of Obstetric Ultrasound Examinations, December 21, 2006. Electronically authenticated by: VERONA VICKERS Date: 12/22/2023 09:52
--- OUTSIDE RECORDS SUMMARY | 2023-12-22 08:20 | XMS_ITS | CCD ---
Author Organization [facility] Inform ion Partnership [facility] Care Team Providers Care Optics Test Technician Name Role Phone ZENY .PAPI Attending Unavailable [...] Drug Class(es) Dates Sig (Normalized) Sig (Original) [id number] 200 actuat albuterol 0.09 mg/actuat metered dose [...] oral solution (1 source) alpha-Adrenergic Agonist, Uncompetitive G-arvmnl-O-asparta te Receptor Antagonist, Sigma-1 Agonist Start: 3 take 10 mL by mouth every six hours Mxpkdzgyf-Sxsriwyl-LN 30-2-10 MG/5ML 10 mL Orally every 6 [...] Range Facility Consent Formson 09-03-2023 Consent Forms [id number] .[facility] Resultson 0 09-03-2023 Lab - Toxicology Results [id number] .00OTGTIFF [facility] ED Clinical Summaryon 2023 ED Clinical Summary [facility] ? Urgent Care [address] [place] [address] Clinical Summary PERSON INFORMATION Name: NOEMI ORTEGA Age: 22 Years Sex: MALE : 2000 MRN: Acct#: Visit Reason: Medical screening exam; ZBIGNIEW SHARPE Arrival: 09/02/2023 11:09:30 Discharge: 09/02/2023 11:41:00 LOS: 000 00:32 Check In: 09/02/2023 11:09:30 Checkout: 09/02/2023 11:41:00 Address: [address] [place] [id number] PCP: Bina Zamora CNP PROVIDER INFORMATION Provider [...] Follow-Up: With: Address: When: Pamela Ortiz [address] [facility] [address] [address], [address], [place] [address] Business (1) Comments: Dermatology Sales Representative to 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 Abstain from any alcohol or illicit drugs With: Address: When: Bina Zamora [address] [place] [address] Business (1) , only if needed DIAGNOSIS: Physical exam Patient Understands: Yes - Patient/family/caregi carlos verbalizes understanding of instructions given Comment: Normal [facility] ED Patient Summaryon 024 ED Patient Summary [facility] ? Urgent Care [address] [place] [address] [id number] PATIENT DISCHARGE INSTRUCTIONS Patient Information Name: NOEMI ORTEGA Age: 22 Years Date of : 2000 Reason For Visit: Medical screening exam; ZBIGNIEW SHARPE Arrival Time: 09/02/2023 11:09:30 Primary Care Physician: Bina Zamora CNP Attending Physician: MIRIAN HERBERT Comment: Patient Education With: Address: When: Pamela Angel [address], [address], [place] [address] Business (1) Comments: Dermatology Sales Representative to 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 Abstain from any alcohol or illicit drugs With: Address: When: Bina Zamora [address] [place] [address] Business (1) , only if needed Care care is health care during . It helps you and your unborn baby (fetus) stay as healthy as possible. care may be provided by a superintendent nonselling, a family practice doctor, a mid-level practitioner (nurse practitioner or physician marketing operations assistant), or a childbirth and doctor (shredded filler cutter operator). How does this affect me? During , [...] procedures you have had. ? Any current lfmb-bll-bxodxux or prescription medicines, herbs, or supplements that [...] any s (more content not included)... Normal [facility] Triage Industrialon 09-02-19 24 Drug Screen Complete Collected [facility] Comment on above: Performed By: #### 1 [id number] #### [facility] (DEFAULT) [address] [place] [address] Urgent Care Note- Provideron 09-02-2023 Urgent Care [...] pharynx is pink and moist. NECK: -Supple (cnpv-lj-walkz): non-tender. CARD: -Rate and rhythm: Regular -Edema: [...] Plan Assessment and Plan: Diagnosis: Physical exam ([id number]-SE Z00.00). Cleared for employment [Electronically Signed on: 09/02/2023 11:41 EDT] MIRIAN HERBERT [Verified on: 09/02/2023 11:41 EDT] MIRIAN HERBERT Normal [facility] Urgent Care [place] 024 Urgent Care Record [facility] ? Urgent Care [address] [place] [address] PATIENT DISCHARGE INSTRUCTIONS Patient Information Name: NOEMI ORTEGA Age: 22 Years Date of : 2000 Reason For Visit: Medical screening exam; [facility] Arrival Time: 09/02/2023 11:09:30 Primary Care Physician: Bina Zamora CNP Attending Physician: MIRIAN HERBERT Comment: Visit Diagnosis: Diagnoses This Visit Medical screening exam ([id number]) Physical exam (Z00.00) If you received any [...] documents With: Address: When: Pamela Ortiz [address] [facility], [address], [place] [address] Business (1) Comments: Dermatology Sales Representative to 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 Abstain from any alcohol or illicit drugs With: Address: When: Bina Zamora [address] [place] [address] Business (1) , only if needed Medication Information: The exam and treatment you received today in the [facility] were for an urgent problem and are not intended as complete care. It is important for you to follow up with a doctor, nurse practitioner, or physician?s marketing operations assistant for ongoing care. If your symptoms [...] so we can reach you if necessary. [facility] has provided you with a complete list of medications post discharge. Please inform your oil prospecting observer/provider of your visit and for further instruction [...] possible. care may be provided by a superintendent nonselling, a family practice doctor, a mid-level practitioner (nurse practitioner or physician marketing operations assistant), or a childbirth and doctor (shredded filler cutter operator). How does this affect me? During , [...] ? Any (more content not included)... Normal [facility] COVID/FLU RT-PCRon 3 SARS-CoV-2 (COVID-19) RNA [facility]+probe Ql (Unsp spec) Negative [facility] Other COVID/FLU RT-PCR Negative [email or web address] Other CHLAMYDIA/GONOCOCCUS [facility] (SW AB/URINE/PAPon 05-22-2022 Chlamydia trachomatis, [facility] Negative Normal Negative [facility] Comment on above: Performed By: #### C T/NGNA #### [facility] [address] [place] [address] Dr. Clau Valdivia Neisseria gonorrhoeae, [facility] Negative Normal Negative [facility] Comment on above: Performed By: #### C T/NGNA #### [facility] [address] [place] [address] Dr. Clau Valdivia VAGINITIS/VAGINOSIS DNA PROB Melvin 05-21-2022 [place] species Positive Abnormal Negative [facility] Comment on above: Performed By: #### V AGINT #### [facility] [address] [place] [address] Dr. Clau Valdivia Gardnerella vaginalis Positive Abnormal Negative [facility] Comment on above: Performed By: #### V AGINT #### [facility] [address] [place] [address] Dr. Clau Valdivia Trichomonas vaginalis Negative Normal Negative [facility] Comment on above: Performed By: #### V AGINT #### [facility] [address] [place] [address] Dr. Clau Valdivia COVID + FLU Quick Testingon 04-20-2022 SARS-CoV-2 (COVID-19) RNA [facility]+probe Ql (Unsp spec) Negative [facility] Other COVID + FLU Quick Testing Negative [facility] Other Quick Strepon 04-20-2022 S. pyogenes Org specific cx Ql (Throat) Negative [facility] Other Quick Strep [facility] Other Vital Signs Date Time Vital Sign Value Performing Clinician Facility 07-19-2022 11:30-0400 Body height 167.64 cm Ne Henderson Other [facility] Other 07-19-2022 11:30-0400 Body mass index (BMI) [Ratio] 34.7 kg/m2 Ne Henderson Other [facility] Other 07-19-2022 11:30-0400 Body temperature 101 [degF] Ne Henderson Other [facility] Other 07-19-2022 11:30-0400 Body weight 97.52 kg Ne Henderson Other [facility] Other 07-19-2022 11:30-0400 Diastolic blood pressure 76 mm[Hg] Ne Henderson Other [facility] Other 07-19-2022 11:30-0400 Respiratory rate 18 /min Ne Henderson Other [facility] Other 07-19-2022 11:30-0400 SaO2% (BldA) [Mass fraction] 97 % Ne Henderson Other [facility] Other 07-19-2022 11:30-0400 Systolic blood pressure 113 mm[Hg] Ne Henderson Other [facility] Other 04-20-2022 10:50-0500 Body height 167.64 cm Anya Contreras Other [facility] Other 04-20-2022 10:50-0500 Body mass index (BMI) [Ratio] 34.7 kg/m2 Anya Contreras Other [facility] Other 04-20-2022 10:50-0500 Body temperature 98.6 [degF] Anya Contreras Other [facility] Other 04-20-2022 10:50-0500 Body weight 97.52 kg Anya Contreras Other [facility] Other 04-20-2022 10:50-0500 Respiratory rate 18 /min Anya Contreras Other [facility] Other 04-20-2022 10:50-0500 SaO2% (BldA) [Mass fraction] 98 % Anya Contreras Other [facility] Other Encounters Encounter Date Encounter Type Care Provider Facility Start: 12-10-2023 End: 12-10-2023 ambulatory PAPI MOURA Not Available Start: 09-02-2023 End: 09-02-2023 ambulatory Bina Zamora Facility:[facility] Start: 07-16-2023 End: 07-16-2023 ambulatory PAPI MOURA Not Available Start: 06-01-2023 End: 06-01-2023 ambulatory ANGELINA CA Not Available Start: 05-25-2023 End: 05-25-2023 ambulatory ANGELINA ROBY Not Available Start: 05-18-2023 End: 05-18-2023 ambulatory PAPI MOURA Not Available Start: 05-04-2023 End: 05-04-2023 ambulatory ANGELINA ROBY Not Available Start: 04-20-2023 End: 04-20-2023 ambulatory PAPI ZENY Not Available Start: 04-11-2023 End: 04-11-2023 ambulatory MARVEL [facility]RI[facility] Start: 04-06-2023 End: 04-06-2023 ambulatory ANGELINA ROBY Not Available Start: 03-19-2023 End: 03-19-2023 ambulatory PAPI ZENY Not Available Start: 03-05-2023 End: 03-05-2023 ambulatory PAPI ZENY Not Available Start: 02-04-2023 End: 02-04-2023 ambulatory ANGELINA ROBY Not Available Start: 07-19-2022 End: 07-19-2022 ambulatory Ne Henderson Other [facility] Other Start: 07-19-2022 Office outpatient visit 25 minutes Ne Henderson [facility] Start: 05-19-2022 End: 05-19-2022 ambulatory PAPI ZENY . Facility: Start: 04-20-2022 End: 04-20-2022 ambulatory Anya Contreras Other [facility] Other Start: 04-20-2022 Office outpatient visit 25 minutes Anya Contreras [facility] Payers Date Payer Category Payer Unknown [id number] 2000 Unknown [id number] 2.16.84 [id number] 2000 Unknown [id number] 2.16.84 0.1.176078.3.579.2.1286 2000 Unknown [id number] 2.16.84 0.1.356570.3.579.2.1259 2000 Unknown [id number] 2.16.84 0.1.570648.3.579.2.1259 2002 Unknown [id number] 2.16.84 0.1.419851.3.579.2.1259 2002 Unknown [id number] 2.16.84 0.1.030077.3.579.2.1258 2002 Unknown [id number] 2.16.84 0.1.890994.3.579.2.1258 2002 Unknown [id number] 2.16.84 0.1.735116.3.579.2.1258 2002 Unknown [id number] 2.16.84 0.1.636046.3.579.2.1258 2002 Unknown [id number] 2.16.84 0.1.827142.3.579.2.1258 2002 Unknown [id number] 2.16.840 .1.206127.3.579.2.1258 2002 Unknown [id number] 2.16.840 .1.564058.3.579.2.1258 2002 Unknown [id number] 2.16.840 .1.122769.3.579.2.1259 1959 Unknown [id number] Social History Date Type Detail Facility Unknown if ever smoked [facility] Other Sex Assigned At Sex Assigned At Bir th [facility] Other History and physical note 09-03-2023 Note Date & Type Note Facility 09-03-2023 Note [id number] [facility] Clinical Note 09-02-2023 Note Date & Type Note Facility 09-02-2023 Note Patient Education Ma terials Follows:and Gynecology Care care is health care during . It helps you and your unborn baby (fetus) stay as healthy as possible. care may be provided by a superintendent nonselling, a family practice doctor, a mid-level practitioner (nurse practitioner or physician marketing operations assistant), or a childbirth and doctor (shredded filler cutter operator). How does this affect me? During , [...] procedures you have had. ? Any current ajwo-nbf-chrsxns or prescription medicines, herbs, or supplements that [...] week 24 of (more content not included)... [facility] Evaluation note 07-19-2022 Note Date & Type [...] treatment plan. Patient left in stable condition. [facility] Other History general Narrative - Reported 07-19-2022 Note Date & Type Note Facility 07-19-2022 History general N arrative - Reported Type Medical History ADD Medical History Born with cleft palette Surgical History tonsillectomy and adenoidectomy Surgical History cleft palette 3-4 repair Hospitalization History see above [facility] Other History general Narrative - Reported 05-25-2022 Note Date & Type Note Facility 05-25-2022 History general N arrative - Reported Type Medical History ADD Medical History Born with cleft palette Surgical History tonsillectomy and adenoidectomy Surgical History cleft palette 3-4 repair Hospitalization History see above [facility] Other Evaluation note 04-20-2022 Note Date & [...] this time you do not have COVID. [facility] Other Summary Purpose Family History No Family History Records FoundNo Family History Records FoundNo Family History Records FoundNo Family History Records Found Advance Directives No Advanced Directives Records FoundNo Advanced Directives Records FoundNo Advanced Directives Records FoundNo Advanced Directives Records Found Additional Source Comments INFORMATION SOURCE (unrecogn ized section and content) DATE CREATED AUTHOR 05/23/2022 [facility] DATE CREATED AUTHOR AUTHOR'S ORGANIZ ATION 04/12/2023 [facility] DATE CREATED AUTHOR AUTHOR'S ORGANIZ ATION 09/03/2023 [facility] DATE CREATED AUTHOR AUTHOR'S ORGANIZ ATION 12/13/2023 [facility] EPIC REASON FOR VISIT (unrecogniz ed [...] BE BASED ON THE PRIMARY CLINICAL RECORDS. [employer] provides no warranty or guarantee of the accuracy or completeness of information in this document.
== END 2023-12-22 08:01 | disposition home or self-care (01) ==
LOC: NOMS 08:01
PROVIDERS: PCP Nurse Practitioner; Visit Provider Obstetrics & Gynecology
DX: O44.42 Low lying placenta NOS or without hemorrhage, second trimester (principal); Z3A.21 21 weeks gestation of pregnancy; Z36.89 Encounter for other specified antenatal screening
CPT/HCPCS: 76805; 76817

== ENCOUNTER 2024-01-19 18:33 | Outpatient (REF) | payer OTHER, SELFPAY ==
--- OUTSIDE RECORDS SUMMARY | 2024-01-19 18:53 | XMS_ITS | CCD ---
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 Name Role Phone ANA LUISA SEGURA Attending Unavailable ZENY ., ANA LUISA Consulting Unavailable ANA LUISA SEGURA Admitting Unavailable YOLANDA ZAMORA Primary Care Unavailable Anya Contreras Unavailable Ne Henderson Unavailable MARVEL CHRISTIAN Admitting Unavailable MARVEL CHRISTIAN Attending Unavailable BINA ZAMORA Primary Care Unavailable Bina Zamora Primary Care Unavailable MIRIAN HERBERT Attending Unavailable MIRIAN HERBERT Admitting Unavailable Unavailable Primary Care Provider UnavailANA LUISA Figueredo Attending Unavailable ANGELINA MCGOWAN Attending Unavailable ROSLYN, ANGELINA Attending Unavailable ZENY, ANA LUISA Attending Unavailable ANGELINA MCGOWAN Attending Unavailable ANA LUISA MOURA Attending Unavailable ZENY, ANA LUISA Attending Unavailable ANGELINA MCGOWAN Attending Unavailable ANGELINA MCGOWAN Attending Unavailable ANA LUISA MOURA Attending Unavailable ANGELINA MCGOWAN Attending Unavailable Araceli BOOGIE Attending Unavailable Araceli BOOGIE Attending Unavailable Medications Current Medications Medication Drug Class(es) Dates Sig (Normalized) Sig (Original) [id number] 200 actuat albuterol 0.09 mg/actuat metered dose [...] 12 hrs for 7 days Mar, Active amoxicillin 500 mg / clavulanate 125 mg oral tablet (2 sources) Penicillin-class Antibacterial Start: 4 take 1 tablet by mouth twice daily at mealtime amoxicillin-clavulana te (Augmentin) 500-125 MG tablet TAKE 1 TABLET BY MOUTH TWICE DAILY WITH FOOD FOR 7 DAYS 12/19/2023 Active brompheniramine maleate 0.4 mg/ml / dextromethorphan hydrobromide 2 mg/ml / pseudoephedrine hydrochloride 6 mg/ml oral solution (1 source) alpha-Adrenergic Agonist, Uncompetitive E-elypwr-X-asparta te Receptor Antagonist, Sigma-1 Agonist Start: 3 take 10 mL by mouth every six hours Tfvcxskcx-Hvusvcwm-VZ 30-2-10 MG/5ML 10 mL Orally every 6 hours for 5 days Jun, Active methylPREDNISolone 4 mg oral tablet (1 source) Corticosteroid Start: 3 methylPREDNISolone 4 MG as directed Orally Once a day for 6 days Mar, Active MV-Min-Fe Fum-FA-DHA ( 1 PO) (3 sources) MV-Min- Fe Fum-FA-DHA ( 1 PO) Take by mouth Active Problems Problem Classification Problem Date Documented Da te Episodic/Chronic Abdominal pain (2 sources) Abdominal pain; Translations: [Unspecified abdominal pain] Episodic Immunizations and screening for infectious disease (4 sources) Contact with and (suspected) exposure to infections with a predominantly sexual mode of transmission; Translations: [Contact with and (suspected) exposure to other viral communicable diseases] Onset: 3 Episodic Inflammation; infection of eye (except that caused by tuberculosis or sexually transmitteddisease) (1 source) Unspecified acute conjunctivitis, left eye Episodic Other female genital disorders (4 sources) Other specified noninflammatory disorders of vagina; Translations: [OTH SPEC NONINFLAMMATORY D/O VAGINA] Onset: 3 Episodic Other gastrointestinal disorders (2 sources) Irritable bowel syndrome; Translations: [Mixed irritable bowel syndrome] Chronic Other and delivery including normal (2 sources) Second trimester ; Translations: [Encounter for supervision of normal , unspecified, second trimester] 12-22-2023 Episodic Other screening for suspected conditions (not mental disorders or infectious disease) (2 sources) Alpha-fetoprotein blood test status; Translations: [Encounter for screening for raised alphafetoprotein level] 12-22-2023 Episodic Other upper respiratory infections (4 sources) Sore throat symptom; Translations: [Acute pharyngitis, unspecified] Episodic Otitis media and related conditions (1 source) Otitis media, unspecified, left ear Episodic Residual codes; unclassified (2 sources) Gestation period, 21 weeks; Translations: [21 weeks gestation of ] 12-22-2023 Episodic Results Test Name Value Interpretation Reference Range Facility Urinalysis macro (dipstick) panel (U)on 12-22-2023 Bilirubin, UA Negative Negative - 4(70) +++ mg/dL [facility] Blood, UA Negative Negative - 50 Jimmy/mcL [facility] Clarity, UA Clear [facility] re Color, UA Yellow [facility] e Glucose, UA Negative Negative - 1999(110) ++++ mg/dL [facility] Interpretation and review of laboratory results Abnormal [facility] re Ketones, UA Negative Negative - 160(16) ++++ mg/dL [facility] Leukocytes, UA Moderate Negative - 500+++ Minnie/mcL [facility] Nitrite, UA Negative Negative - Positive [facility] pH, UA 6.5 5 - 9 [facility] e Protein, UA Negative Negative - 1999(20) ++++ mg/dL [facility] Spec Grav, UA 1.030 1 - 1.03 [facility] Urobilinogen, UA 1.0 0.2 - 12 mg/dL [facility] Cons[facility] Formson 09-03-2023 Consent Forms [id number] [facility] Resultson 0 09-03-2023 Lab - Toxicology Results [id number] .[facility] Clinical Summaryon 2023 ED Clinical Summary [facility] [address] [place] [address] Clinical Summary PERSON INFORMATION Name: FLORINDA ORTEGA Age: 22 Years Sex: MALE : 2000 MRN: Acct#: Visit Reason: Medical screening exam; ZBIGNIEW SHARPE Arrival: 09/02/2023 11:09:30 Discharge: 09/02/2023 11:41:00 LOS: 000 00:32 Check In: 09/02/2023 11:09:30 Checkout: 09/02/2023 11:41:00 Address: [facility] [address] PCP: Bina Zamora CNP PROVIDER INFORMATION Provider [...] Follow-Up: With: Address: When: Pamela Ortiz [address], [address], [place] [address] Business (1) Comments: [employer]ue [employer] Stitcher to 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 Abstain from any alcohol or illicit drugs With: Address: When: Bina Zamora [address] [place], [place] [id number] Business (1) , only if needed DIAGNOSIS: Physical exam Patient Understands: Yes - Patient/family/caregi carlos verbalizes understanding of instructions given Comment: Normal [facility] ED Patient Summaryon 024 ED Patient Summary [facility] [address] [place] [address] [id number] PATIENT DISCHARGE INSTRUCTIONS Patient Information Name: FLORINDA ORTEGA Age: 22 Years Date of : 2000 Reason For Visit: Medical screening exam; ZBIGNIEW SHARPE Arrival Time: 09/02/2023 11:09:30 Primary Care Physician: Bina Zamora CNP Attending Physician: MIRIAN HERBERT Comment: Patient Education With: Address: When: Pamela Robb [address], [address], [place] [address] Business (1) Comments: [employer] Stitcher to 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 Abstain from any alcohol or illicit drugs With: Address: When: Bina Zamora [address] [place] [address] Business (1) , only if needed Care care is health care during . It helps you and your unborn baby (fetus) stay as healthy as possible. care may be provided by a housing assistant property manager, a family practice doctor, a mid-level practitioner (nurse practitioner or physician paralegal assistant), or a childbirth and doctor (forensic materials engineer). How does this affect me? During , [...] procedures you have had. ? Any current cnyo-yjg-bctnfmi or prescription medicines, herbs, or supplements that [...] about any s (more content not included)... [facility] T[facility] Industrial[facility] 09-02-19 24 Drug Screen Complete [facility]lected [facility] Comment on above: Performed By: #### 1 [id number] #### [facility] (DEFAULT) [address] [place] [address] Urgent Care Note- Provideron 09-02-2023 Urgent Care Note- Provider Patient: FLORINDA ORTEGA Age: 22 years Sex: MALE : [...] pharynx is pink and moist. NECK: -Supple (lxmy-ln-izjyw): non-tender. CARD: -Rate and rhythm: Regular -Edema: [...] Plan Assessment and Plan: Diagnosis: Physical exam ([id number] Z00.00). Cleared for employment [Electronically Signed on: 09/02/2023 11:41 EDT] MIRIAN HERBERT [Verified on: 09/02/2023 11:41 EDT] MIRIAN HERBERT [facility] 024 Urgent Care Record [facility] Ur[facility] [address] [id number] PATIENT DISCHARGE INSTRUCTIONS Patient Information Name: FLORINDA ORTEGA Age: 22 Years Date of : 2000 Reason For Visit: Medical screening exam; [facility] Arrival Time: 09/02/2023 11:09:30 Primary Care Physician: Bina Zamora CNP Attending Physician: MIRIAN HERBERT Comment: Visit Diagnosis: Diagnoses This Visit Medical screening exam ([id number]) Physical exam (Z00.00) If you received any [...] Address: When: Pamela Ortiz [address] [facility], [address], [place] [address] Business (1) Comments: [employer]ue And Quarter Stitcher to 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 Abstain from any alcohol or illicit drugs With: Address: When: Bina Zamora [address] [place] [address] Business (1) , only if needed Medication Information: The exam and treatment you received today in the [facility] were for an urgent problem and are not intended as complete care. It is important for you to follow up with a doctor, nurse practitioner, or physician?s paralegal assistant for ongoing care. If your symptoms [...] so we can reach you if necessary. [facility] has provided you with a complete list of medications post discharge. Please inform your medication specialist/provider of your visit and for further instruction [...] possible. care may be provided by a housing assistant property manager, a family practice doctor, a mid-level practitioner (nurse practitioner or physician paralegal assistant), or a childbirth and doctor (forensic materials engineer). How does this affect me? During , [...] ? Any (more content not included)... Normal [facility] COVID/FLU RT-PCRon SARS-CoV-2 (COVID-19) RNA [facility]+probe Ql (Unsp spec) Negative [facility] Other COVID/FLU RT-PCR Negative [facility] Other CHLAMYDIA/GONOCOCCUS [facility] (SW AB/URINE/PAPon 05-22-2022 Chlamydia trachomatis, [facility] Negative Normal Negative [facility] Comment on above: Performed By: #### C T/NGNA #### [facility] [address] [place] [address] Dr. Clau Valdivia Neisseria gonorrhoeae, [facility] Negative Normal Negative [facility] Comment on above: Performed By: #### C T/NGNA #### [facility] [address] [place] [address] Dr. Clau Valdivia VAGINITIS/VAGINOSIS DNA PROB Melvin 05-21-2022 Shiloh species Positive Abnormal Negative [facility] Comment on above: Performed By: #### V AGINT #### [facility] [address] [place] [address] Dr. Clau Valdivia Gardnerella vaginalis Positive Abnormal Negative The [facility] Comment on above: Performed By: #### V AGINT #### [facility] [address] [place] [address] Dr. Clau Valdivia Trichomonas vaginalis Negative Normal Negative [facility] Comment on above: Performed By: #### V AGINT #### [facility] [address] [place] [address] Dr. Clau Valdivia COVID + FLU Quick Testingon 04-20-2022 SARS-CoV-2 (COVID-19) RNA [facility]+probe Ql (Unsp spec) Negative [facility] Other COVID + FLU Quick Testing Negative [facility] Other Quick Strepon 04-20-2022 S. pyogenes Org specific cx Ql (Throat) Negative [facility] Other Quick Strep [facility] Other Vital Signs Date Time Vital Sign Value Performing Clinician Facility 12-22-2023 09:36-0400 Body mass index (BMI) [Ratio] 33.83 kg/m2 [facility] Work Phone: [facility] 12-22-2023 09:36-0400 Body weight 97.98 kg [facility] Work Phone: [facility] 12-22-2023 09:36-0400 Diastolic blood pressure 72 mm[Hg] [facility] Work Phone: [facility] 12-22-2023 09:36-0400 Systolic blood pressure 110 mm[Hg] [facility] Work Phone: [facility] 07-19-2022 11:30-0400 Body height 167.64 cm Ne Henderson Other [facility] Other 07-19-2022 11:30-0400 Body mass index (BMI) [Ratio] 34.7 kg/m2 Ne Henderson Other [facility] Other 07-19-2022 11:30-0400 Body temperature 101 [degF] Ne Henderson Other [facility] Other 07-19-2022 11:30-0400 Body weight 97.52 kg Ne Henderson Other [facility] Other 07-19-2022 11:30-0400 Diastolic blood pressure 76 mm[Hg] Ne Henderson Other [facility] Other 07-19-2022 11:30-0400 Respiratory rate 18 /min Ne Henderson Other [facility] Other 07-19-2022 11:30-0400 SaO2% (BldA) [Mass fraction] 97 % Ne Henderson Other [facility] Other 07-19-2022 11:30-0400 Systolic blood pressure 113 mm[Hg] Ne Henderson Other [facility] Other 04-20-2022 10:50-0500 Body height 167.64 cm Anya Diane Other [facility] Other 04-20-2022 10:50-0500 Body mass index (BMI) [Ratio] 34.7 kg/m2 Anya Contreras Other [facility] Other 04-20-2022 10:50-0500 Body temperature 98.6 [degF] Anya Diane Other [facility] Other 04-20-2022 10:50-0500 Body weight 97.52 kg Anya Diane Other [facility] Other 04-20-2022 10:50-0500 Respiratory rate 18 /min Anya Contreras Other [facility] Other 04-20-2022 10:50-0500 SaO2% (BldA) [Mass fraction] 98 % Anya Contreras Other [facility] Other Encounters Encounter Date Encounter Type Care Provider Facility Start: 01-07-2024 End: 01-07-2024 ambulatory Araceli BOOGIE Facility:[facility] Start: 12-30-2023 End: 12-30-2023 ambulatory Araceli BOOGIE Facility:[facility] Start: 12-22-2023 End: 12-22-2023 Bamboo flowsheet Angelina Roslyn DO Work Phone: [facility] Start: 12-22-2023 End: 12-22-2023 Bamboo flowsheet Angelina Roslyn DO Work Phone: [facility] Start: 12-22-2023 End: 12-22-2023 flow sheet Angelina Roslyn DO Work Phone: [facility] Comment on above: Second trimester pre gnancy; 21 weeks gestation of ; Need for maternal serum alpha-protein (MSAFP) screening Start: 12-22-2023 End: 12-22-2023 ambulatory ANGELINA ROSLYN Not Available Start: 12-10-2023 End: 12-10-2023 ambulatory ANA LUISA ZENY Not Available Start: 09-02-2023 End: 09-02-2023 ambulatory Bina Subha Zamora Facility:[facility] Start: 07-16-2023 End: 07-16-2023 ambulatory ANA LUISA ZENY Not Available Start: 06-01-2023 End: 06-01-2023 ambulatory ANGELINA ROSLYN Not Available Start: 05-25-2023 End: 05-25-2023 ambulatory ANGELINA ROSLYN Not Available Start: 05-18-2023 End: 05-18-2023 ambulatory ANA LUISA ZENY Not Available Start: 05-04-2023 End: 05-04-2023 ambulatory ANGELINA ROSLYN Not Available Start: 04-20-2023 End: 04-20-2023 ambulatory ANA LUISA ZENY Not Available Start: 04-11-2023 End: 04-11-2023 ambulatory MARVEL CHRISTIAN [facility] Start: 04-06-2023 End: 04-06-2023 ambulatory ANGELINA ROSLYN Not Available Start: 03-19-2023 End: 03-19-2023 ambulatory ANA LUISA ZENY Not Available Start: 03-05-2023 End: 03-05-2023 ambulatory ANA LUISA ZENY Not Available Start: 02-04-2023 End: 02-04-2023 ambulatory ANGELINA MCGOWAN Not Available Start: 07-19-2022 End: 07-19-2022 ambulatory Ne Henderson Other [facility] Other Start: 07-19-2022 Office outpatient visit 25 minutes Ne Henderson [facility] Start: 05-19-2022 End: 05-19-2022 ambulatory ANA LUISA MOURA . Facility: Start: 04-20-2022 End: 04-20-2022 ambulatory Anya Contreras Other [facility] Other Start: 04-20-2022 Office outpatient visit 25 minutes Anya Lucasault [facility] Procedures Date Procedure Procedure Detail Performing Clinician Start: 12-22-2023 Urnls dip stick/tabl et rgnt non-auto w/o micrscp Angelina Mcgowan DO Work Phone: Plan of Treatment Date Care Activity Detail Author Start: 01-19-2024 End: 01-19-2024 Patient encounter procedure 01/19/2024 1:30 PM EDT Routine [facility] [address] [place] [address] Ana Luisa Moura PA [address], [place] [address] [facility] Start: 12-22-2023 End: 12-22-2023 Patient encounter procedure 12/22/2023 9:00 AM EDT Routine [facility] [address] [place] [address] Angelina Mcgowan DO [address] [place], [place] [id number] Arrived [facility] Comment on above: Arrived Payers Date Payer Category Payer Unknown [id number] 2019 Private Health Insurance [facility] [id number] 2019-Present [address] [address] [place] [address] [id number] 2000 Unknown [id number] 2.16.840.1.134045.3.579 .2.593 2002 Unknown [id number] 2.16.840.1.026777.3.579 .2.1286 2002 Unknown [id number] 2.16.840.1.762471.3.579 .2.1259 2002 Unknown [id number] 2.16.840.1.195005.3.579 .2.1259 2002 Unknown [id number] 2.16.840.1.318284.3.579 .2.1259 2002 Unknown [id number] 2.16.840.1.049989.3.579 .2.1259 2002 Unknown [id number] 2.16.840.1.200996.3.579 .2.1259 2002 Unknown [id number] 2.16.840.1.754172.3.579 .2.1259 2002 Unknown [id number] 2.16.840.1.894741.3.579 .2.1259 2002 Unknown [id number] 2.16.840.1.897085.3.579 .2.1259 2002 Unknown [id number] 2.16.840.1.807576.3.579 .2.1259 2002 Unknown [id number] 2.16.840.1.500919.3.579 .2.1259 2002 Unknown [id number] 2.16.840.1.504757.3.579 .2.1259 2002 Unknown [id number] 2.16.840.1.786549.3.579 .2.1259 1959 Unknown [id number] Social History Date Type Detail Facility Unknown if ever smoked [facility] Other Sex Assigned At [facility] Other Tobacco smoking status NHIS Tobacco smoking consumption unknown [facility] Start: 08-11-2023 [facility] Start: 2000 Sex assigned at Not on file [facility] History of Present illness Narrative 12-22-2023 Chelsea Wilysandra, TIERRA - 12/22/2023 9:00 AM EDT Note Date & Type Note Facility 12-22-2023 History of Presen t illness Narrative Reason for Appointment: Patient ID: Florinda Ortega is a 23 y.o. female who presents for Routine Visit Patient presents today for Return OB appointment. MEDICATIONS Current Outpatient Medications Medication Instructions amoxicillin-clavulanate (Augmentin) 500-125 MG tablet TAKE 1 TABLET BY MOUTH TWICE DAILY WITH FOOD FOR 7 DAYS MV-Min-Fe Fum-FA-DHA ( 1 PO) Oral ALLERGIES No Known Allergies PROBLEMS Active Ambulatory Problems Diagnosis Date Noted No Active Ambulatory Problems Resolved Ambulatory Problems Diagnosis Date Noted No Resolved Ambulatory Problems Past Medical History: Diagnosis Date ADD (attention deficit disorder) IBS (irritable bowel syndrome) Obesity Pelvic pain HISTORY PAST MEDICAL HISTORY SOCIAL HISTORY Past Medical History: Diagnosis Date ADD (attention deficit disorder) IBS (irritable bowel syndrome) Obesity Pelvic pain Social History Tobacco Use Smoking status: Not on file Smokeless tobacco: Not on file Substance Use Topics Alcohol use: Not on file Drug use: Not on file FAMILY HISTORY Family History Problem Relation Name Age of Onset Hypertension Father Mental illness Father SURGICAL HISTORY Past Surgical History: Procedure Laterality Date LARYNGEAL CLEFT REPAIR TONSILLECTOMY REVIEW OF SYSTEMS Review of Systems: Review of Systems Constitutional: Negative. HENT: Negative. Eyes: Negative. Respiratory: Negative. Cardiovascular: Negative. Gastrointestinal: Negative. Genitourinary: Negative. Musculoskeletal: Negative. Skin: Negative. Neurological: Negative. All other systems reviewed and are negative. Hematological: Negative. Endocrine: Negative. Allergic/Immunologic: Negative. OBJECTIVE Objective: Physical Exam Constitutional: Appearance: Normal appearance. She is well-developed. Cardiovascular: Rate and Rhythm: Normal rate and regular rhythm. Pulmonary: Effort: Pulmonary effort is normal. Breath sounds: Normal breath sounds. Abdominal: General: Bowel sounds are normal. There is no distension. Palpations: Abdomen is soft. Tenderness: There is no abdominal tenderness. There is no guarding or rebound. Musculoskeletal: General: No swelling. Normal range of motion. Right lower leg: No edema. Left lower leg: No edema. Neurological: Mental Status: She is alert and oriented to person, place, and time. Skin: General: Skin is warm and dry. Psychiatric: Mood and Affect: Mood normal. Behavior: Behavior normal. Vitals and nursing note reviewed. Exam conducted with a dental scheduling coordinator present. Vitals: Estimated body mass index is 33.83 kg/m as calculated from the following: Height as of 05/19/22: 5' 7 . Weight as of this encounter: 216 lb. BP: 110/72 Patient's last menstrual period was 08/05/2023. ASSESSMENT & PLAN ICD-10-CM 1. Second trimester Z34.92 POCT urinalysis dipstick manually resulted CANCELED: Alpha fetoprotein, maternal CANCELED: Alpha fetoprotein, maternal 2. 21 weeks gestation of Z3A.21 CANCELED: Alpha fetoprotein, maternal CANCELED: Alpha fetoprotein, maternal 3. Need for maternal serum alpha-protein (MSAFP) screening Z36.1 CANCELED: Alpha fetoprotein, maternal CANCELED: Alpha fetoprotein, maternal Patient presents today for a routine obstetrics appointment. Patient is currently 21w0d with a Estimated Date of Delivery: 05/03/24. Pt had anatomy scan prior to appt. Will notify pt when results return. Pt given msafp order to have obtained. Pt to have pap and cultures next visit. Pt to return in 4 weeks for scheduled OB appt. Documented by Chelsea Mcdonnell LPN on behalf of: Angelina Mcgowan DO documented in this encounter [facility] History and physical note 09-03-2023 Note Date & Type Note Facility 09-03-2023 Note [id number] Clinical Note 09-02-2023 Note Date & Type Note Facility 09-02-2023 Note Patient Education Ma terials Follows:and Gynecology Care care is health care during . It helps you and your unborn baby (fetus) stay as healthy as possible. care may be provided by a housing assistant property manager, a family practice doctor, a mid-level practitioner (nurse practitioner or physician paralegal assistant), or a childbirth and doctor (forensic materials engineer). How does this affect me? During , [...] procedures you have had. ? Any current flli-alp-axxjrhk or prescription medicines, herbs, or supplements that [...] week 24 of (more content not included)... [facility] Evaluation note 07-19-2022 Note Date & Type [...] treatment plan. Patient left in stable condition. [facility] Other History general Narrative - Reported 07-19-2022 Note Date & Type Note Facility 07-19-2022 History general N arrative - Reported Type Medical History ADD Medical History Born with cleft palette Surgical History tonsillectomy and adenoidectomy Surgical History cleft palette 3-4 repair Hospitalization History see above [facility] Other History general Narrative - Reported 05-25-2022 Note Date & Type Note Facility 05-25-2022 History general N arrative - Reported Type Medical History ADD Medical History Born with cleft palette Surgical History tonsillectomy and adenoidectomy Surgical History cleft palette 3-4 repair Hospitalization History see above [facility] Other Evaluation note 04-20-2022 Note Date & [...] this time you do not have COVID. [facility] Other Evaluation note Note Date & Type Note Facility Evaluation note Diagnosis Second trimester state, incidental 21 weeks gestation of Need for maternal serum alpha-protein (MSAFP) screening documented in this encounter [facility] Summary Purpose Family History No Family History Records FoundNo Family History Records FoundNo Family History Records FoundNo Family History Records FoundNo Family History Records Found Advance Directives No Advanced Directives Records FoundNo Advanced Directives Records FoundNo Advanced Directives Records FoundNo Advanced Directives Records FoundNo Advanced Directives Records Found Additional Source Comments INFORMATION SOURCE (unrecogn ized section and content) DATE CREATED AUTHOR 05/23/[address] [facility] DATE CREATED AUTHOR AUTHOR'S ORGANIZ ATION 04/12/2023 [facility] DATE CREATED AUTHOR AUTHOR'S ORGANIZ ATION [facility]/03[facility]2023 [facility] Health DATE CREATED AUTHOR AUTHOR'S ORGANIZ ATION 12/23/2023 [facility] DATE CREATED AUTHOR AUTHOR'S ORGANIZ ATION 01/09/2024 [facility] REASON FOR VISIT (unrecogniz ed section and content) Reason Comments Routine Visit FOR RECORDS PERTAINING TO PATIENTS WHO ARE [...] BE BASED ON THE PRIMARY CLINICAL RECORDS. [facility] [place] [facility]. provides no warranty or guarantee of the accuracy or completeness of information in this document.
== END 2024-01-19 18:34 | disposition home or self-care (01) ==
LOC: LAB 18:33
PROVIDERS: PCP Nurse Practitioner; Visit Provider Physician Assistant
DX: Z01.419 Encounter for gynecological examination (general) (routine) without abnormal findings (principal)
CPT/HCPCS: 88175

== ENCOUNTER 2024-01-20 11:00 | Emergency (ER) | payer OTHER, SELFPAY ==
[2024-01-20 11:04] VITALS: BP 136/76; PULSE 104; TEMP 36.6; O2SAT 98; BMI 35.3
--- NOTE | 2024-01-20 11:29 | ED.NAVMDI1 ---
HPI - Nausea/Vomiting/Diarrhea General Chief complaint: Nausea/Vomiting/Diarrhea Stated complaint: FLU LIKE SYMPTOMS, 6 MONTHS Time Seen by Provider: 01/20/24 11:14 Source: patient Mode of arrival: walk-in Limitations: no limitations History of Present Illness HPI Narrative: This patient is here complaining nausea vomiting and diarrhea. She started with some nausea yesterday morning. She also had a routine obstetrical visit with her doctor yesterday but did not think there was any real problem. Her OB check was completely normal she is approximately 6 months . She went home after the visit and then last night she started having more vomiting and then she developed copious amounts of watery diarrhea. She has not had blood in the diarrhea, she has not had fever. She has not been on antibiotics. 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 She has no pre this GI problems. No other household members are ill. She is not having any chest pain or shortness of breath or respiratory symptoms in the last 48 hours. She is otherwise healthy. She is not having any vaginal bleeding cramping or lower abdominal discomfort. Related Data Allergies Allergy/AdvReac Type Severity Reaction Status Date / Time No Known Drug Allergies Allergy Verified 01/20/24 11:04 [facility] Medical History (Updated 01/20/24 @ 12:21 by Thor Hager MD) Normal vaginal delivery ?O80 - Encounter for full-term uncomplicated delivery (ICD-10) Social History Smoking status: Never smoker Highest level of school completed/degree received: high school graduate Little interest or pleasure in doing things: not at all Feeling down, depressed, or hopeless: not at all Exam Narrative Exam Narrative: Awake alert very pleasant good historian pulse is modestly elevated at 104. Her skin is slightly moist. Mucous membranes however appear normal. Conjunctiva is moist and pink with no evidence of pallor or anemia. Abdomen is nontender there is no guarding rebound rigidity or peritoneal findings. There is no tenderness to palpation any quadrants of the abdomen. Her extremities are normal with no peripheral edema. Cognition mentation neurological examination is normal. Constitutional Vital Signs, click to edit/add: Last Vital Signs Temp 97.8 F 01/20/24 11:04 Pulse 104 H 01/20/24 11:04 Resp 18 01/20/24 11:04 BP 136/76 01/20/24 11:04 Pulse Ox 98 01/20/24 11:04 O2 Del Method Room Air 01/20/24 11:04 Course Vital Signs Vital signs: Vital Signs Temperature 97.8 F 01/20/24 11:04 Pulse Rate 104 H 01/20/24 11:04 Respiratory Rate 18 01/20/24 11:04 Blood Pressure 136/76 01/20/24 11:04 Pulse Oximetry 98 01/20/24 11:04 Oxygen Delivery Method Room Air 01/20/24 11:04 Temperature 97.8 F 01/20/24 11:04 Pulse Rate 104 H 01/20/24 11:04 Respiratory Rate 18 01/20/24 11:04 Blood Pressure 136/76 01/20/24 11:04 Pulse Oximetry 98 01/20/24 11:04 Oxygen Delivery Method Room Air 01/20/24 11:04 MDM - Nausea/Vomiting/Diarrhea MDM Narrative Medical decision making narrative: Patient is laboratory studies are essentially unremarkable however her urinalysis preliminary findings consistent with a UTI. We have given her crystalloid IV fluids. Will also start her on amoxicillin. Will have her follow-up in 48 hours for the final culture results. She should also return should there be any change in her condition and follow-up with her [employer] on an as-needed basis Discharge Plan Discharge Chief Complaint: Nausea/Vomiting/Diarrhea Clinical Impression: Gastroenteritis, UTI (urinary tract infection) Patient Disposition: Home, Self-Care Time of Disposition Decision: 12:21 Print Language: Mongolian Additional Instructions: Zofran/clear fluids for 24 hours. Amoxicillin/call for culture results on Thursday morning Referrals: Bina Zamora [facility] [Primary Care Provider] - 1 week
--- OUTSIDE RECORDS SUMMARY | 2024-01-20 11:40 | XMS_ITS | CCD ---
Author Organization [facility] Inform ion Partnership [facility] Care Team Providers Care Strip Roller Name Role Phone ZENY ., ANA LUISA Attending Unavailable ZENY ., ANA LUISA Consulting Unavailable ZENY ., ANA LUISA Admitting Unavailable AICHHOLIván, YOLANDA BINA Primary Care Unavailable Anya Contreras Unavailable Ne Henderson Unavailable MARVEL CHRISTIAN Admitting Unavailable MARVEL CHRISTIAN Attending Unavailable BINA ZAMORA Primary Care Unavailable Bina Zamora Primary Care Unavailable MIRIAN HERBERT Attending Unavailable MIRIAN HERBERT Admitting Unavailable Unavailable Primary Care Provider UnavailANA LUISA Figueredo Attending Unavailable ROSLYN, ANGELINA Attending Unavailable ROSLYN, ANGELINA Attending Unavailable ZENY, ANA LUISA Attending Unavailable ROSLYN, ANGELINA Attending Unavailable ZENY, ANA LUISA Attending Unavailable ZENY, ANA LUISA Attending Unavailable ROSLYN, ANGELINA Attending Unavailable ROSLYN, ANGELINA Attending Unavailable ZENY, ANA LUISA Attending Unavailable ROSLYN, ANGELINA Attending Unavailable Araceli BOOGIE Attending Unavailable Araceli BOOGIE Attending Unavailable Medications Current Medications Medication Drug Class(es) Dates Sig (Normalized) Sig (Original) [id number] 200 actuat albuterol 0.09 mg/actuat metered dose [...] mg / clavulanate 125 mg oral tablet (5 sources) Penicillin-class Antibacterial Start: 4 take 1 tablet by mouth twice daily at mealtime amoxicillin-clavulana te (Augmentin) 500-125 MG tablet TAKE 1 TABLET BY MOUTH TWICE DAILY WITH FOOD FOR 7 DAYS 12/19/2023 Active brompheniramine maleate 0.4 mg/ml / dextromethorphan hydrobromide 2 mg/ml / pseudoephedrine hydrochloride 6 mg/ml oral solution (1 source) alpha-Adrenergic Agonist, Uncompetitive K-mgbyma-X-asparta te Receptor Antagonist, Sigma-1 Agonist Start: 3 take 10 mL by mouth every six hours Sbhbuflgt-Xfxdqjhz-YO 30-2-10 MG/5ML 10 mL Orally every 6 hours for 5 days Jun, Active methylPREDNISolone 4 mg oral tablet (1 source) Corticosteroid Start: 3 methylPREDNISolone 4 MG as directed Orally Once a day for 6 days Mar, Active MV-Min-Fe Fum-FA-DHA ( 1 PO) (6 sources) MV-Min- Fe Fum-FA-DHA ( 1 PO) Take by mouth Active Problems Problem Classification Problem Date Documented Da te Episodic/Chronic Abdominal pain (2 sources) Abdominal pain; Translations: [Unspecified abdominal pain] Episodic Immunizations and screening for infectious disease (6 sources) Contact with and (suspected) exposure to [...] NONINFLAMMATORY D/O VAGINA] Onset: 3 Episodic Other female genital disorders (2 sources) Vaginal discharge; Translations: [Other specified noninflammatory disorders of vagina] 01-19-2024 Episodic Other gastrointestinal disorders (2 sources) Irritable bowel syndrome; Translations: [Mixed irritable bowel syndrome] Chronic Other and delivery including normal (4 sources) Second trimester ; Translations: [Encounter for [...] [21 weeks gestation of ] 12-22-2023 Episodic Residual codes; unclassified (2 sources) Gestation period, 25 weeks; Translations: [25 weeks gestation of ] 01-19-2024 Episodic Results Test Name Value Interpretation Reference Range Facility Urinalysis macro (dipstick) panel (U)on 01-19-2024 Bilirubin, UA Negative Negative - 4(70) +++ mg/dL [facility] Blood, UA Negative Negative - 50 Jimmy/mcL [facility] Clarity, UA Clear [facility] re Color, UA Light Yellow [facility] are Glucose, UA Negative Negative - 1999(110) ++++ mg/dL [facility] Interpretation and review of laboratory results Abnormal [facility] re Ketones, UA Negative Negative - 160(16) ++++ mg/dL [facility] Leukocytes, UA Negative Negative - 500+++ Minnie/mcL [facility] Nitrite, UA Negative Negative - Positive [facility] pH, UA 6.5 5 - 9 [facility] Protein, UA Positive Negative - 1999(20) ++++ mg/dL [facility] Spec Grav, UA 1.02 1 - 1.03 [facility] Urobilinogen, UA 1.0 0.2 - 12 mg/dL [facility] Urinalysis macro (dipstick) panel (U)on 12-22-2023 Bilirubin, UA Negative Negative - 4(70) +++ mg/dL [facility] Blood, UA Negative Negative - 50 Jimmy/mcL [facility] Clarity, UA Clear [facility] re Color, UA Yellow [facility] Glucose, UA Negative Negative - 1999(110) ++++ mg/dL [facility] Interpretation and review of laboratory results Abnormal [facility] re Ketones, UA Negative Negative - 160(16) ++++ mg/dL [facility] Leukocytes, UA Moderate Negative - 500+++ Minnie/mcL [facility] Nitrite, UA Negative Negative - Positive [facility] pH, UA 6.5 5 - 9 [facility] e Protein, UA Negative Negative - 2000(20) ++++ mg/dL [facility] Spec Grav, UA 1.030 1 - 1.03 [facility] Urobilinogen, UA 1.0 0.2 - 12 mg/dL [facility] Consent Formson 09-03-2023 Consent Forms [id number] Resultson 0 09-03-2023 Lab - Toxicology Results [id number] [facility] Summary[facility] 2023 ED Clinical Summary [facility] ? Urgent Care [address] [place], [place] [address] Clinical Summary PERSON INFORMATION Name: FLORINDA ORTEGA Age: 22 Years Sex: MALE : 2000 MRN: Acct#: Visit Reason: Medical screening exam; [facility] Arrival: 09/02/2023 11:09:30 Discharge: 09/02/2023 11:41:00 LOS: 000 00:32 Check In: 09/02/2023 11:09:30 Checkout: 09/02/2023 11:41:00 Address: [address] [place] [id number] PCP: Bina Zamora CNP PROVIDER INFORMATION Provider [...] Follow-Up: With: Address: When: Pamela Ortiz [address], [address], [place] [address] Business (1) Comments: Supervisory Aide to 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 Abstain from any alcohol or illicit drugs With: Address: When: Bina Sera [facility] [place] [address] Business (1) , only if needed DIAGNOSIS: Physical exam Patient Understands: Yes - Patient/family/caregi carlos verbalizes understanding of instructions given Comment: Normal [facility] ED Patient Summaryon 024 ED Patient Summary [facility] ? Urgent Care [address] [place] [address] PATIENT DISCHARGE INSTRUCTIONS Patient Information Name: FLORINDA ORTEGA Age: 22 Years Date of : 2000 [facility]: [id number] Reason For Visit: Medical screening exam; [facility] Arrival Time: 09/02/2023 11:09:30 Primary Care Physician: Bina Zamora CNP Attending Physician: MIRIAN HERBERT Comment: Patient Education With: Address: When: Pamela [address], [place] [address] Business (1) Comments: Supervisory Aide to 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 Abstain from any alcohol or illicit drugs With: Address: When: Bina Sera [facility] [place] [address] Business (1) , only if needed Care care is health care during . It helps you and your unborn baby (fetus) stay as healthy as possible. care may be provided by a biological engineer, a family practice doctor, a mid-level practitioner (nurse practitioner or physician assistant media planner), or a childbirth and doctor (director prospect). How does this affect me? During , [...] procedures you have had. ? Any current kzkp-mlt-mtrnypo or prescription medicines, herbs, or supplements that [...] any s (more content not included)... Normal [facility] Triage Industrialon 09-02-19 24 Drug Screen Complete Collected Normal [facility] Comment on above: Performed By: #### 1 [id number] #### [facility] (DEFAULT) [address] [place] [address] Urgent Care Note- Provideron 09-02-2023 Urgent Care [...] pharynx is pink and moist. NECK: -Supple (pbfv-mi-chapj): non-tender. CARD: -Rate and rhythm: Regular -Edema: [...] Plan Assessment and Plan: Diagnosis: Physical exam (QUX98-IS Z00.00). Cleared for employment [Electronically Signed on: 09/02/2023 11:41 EDT] MIRIAN HERBERT [Verified on: 09/02/2023 11:41 EDT] MIRIAN HERBERT [facility] [place] 024 Urgent Care Record [facility] ? Urgent Care [address] [place] [address] PATIENT DISCHARGE INSTRUCTIONS Patient Information Name: FLORINDA ORTEGA Age: 22 Years Date of : 2000 [facility]: [id number] Reason For Visit: Medical screening exam; [facility] Arrival Time: 09/02/2023 11:09:30 Primary Care Physician: Bina Zamora CNP Attending Physician: MIRIAN HERBERT Comment: Visit Diagnosis: Diagnoses This Visit Medical screening exam ([id number]) Physical exam (Z00.00) If you received any [...] any legal documents With: Address: When: Pamela Angel [address], [address], [place] [address] Business (1) Comments: Supervisory Aide to 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 Abstain from any alcohol or illicit drugs With: Address: When: Bina Zamora [address] [place] [address] Business (1) , only if needed Medication Information: The exam and treatment you received today in the [facility] were for an urgent problem and are not intended as complete care. It is important for you to follow up with a doctor, nurse practitioner, or physician?s assistant media planner for ongoing care. If your symptoms become [...] so we can reach you if necessary. [facility] Urgent [facility] has provided you with a complete list of medications post discharge. Please inform your director on air/provider of your visit and for further instruction [...] possible. care may be provided by a biological engineer, a family practice doctor, a mid-level practitioner (nurse practitioner or physician assistant media planner), or a childbirth and doctor (director prospect). How does this affect me? During , [...] ? Any (more content not included)... Normal [facility] COVID/FLU RT-PCRon 3 SARS-CoV-2 (COVID-19) RNA [facility]+probe Ql (Unsp spec) Negative [employer] Other COVID/FLU RT-PCR Negative [facility] [employer] Other CHLAMYDIA/GONOCOCCUS [facility] (SW AB/URINE/PAPon 05-22-2022 Chlamydia trachomatis, [facility] Negative Normal Negative [facility] Comment on above: Performed By: #### C T/NGNA #### [facility] [address] [address] [address] Clau Valdivia Neisseria gonorrhoeae, [facility] Negative Normal Negative [facility] Comment on above: Performed By: #### C T/NGNA #### [facility] [address] [address] [address] Clau Valdivia VAGINITIS/VAGINOSIS DNA PROB Melvin 05-21-2022 Shiloh species Positive Abnormal Negative The [facility] Comment on above: Performed By: #### V AGINT #### [facility] [address] [address] [address] Clau Valdivia Gardnerella vaginalis Positive Abnormal Negative [facility] Comment on above: Performed By: #### V AGINT #### [facility] [address] [address] [address] Clau Valdivia Trichomonas vaginalis Negative Normal Negative [facility] Comment on above: Performed By: #### V AGINT #### [facility] [address] [address] [address] Clau Valdivia COVID + FLU Quick Testingon 04-20-2022 SARS-CoV-2 (COVID-19) RNA [facility]+probe Ql (Unsp spec) Negative [facility] [employer] Other COVID + FLU Quick Testing Negative [facility] Other Quick Strepon 04-20-2022 S. pyogenes Org specific cx Ql (Throat) Negative [facility] [employer] Other Quick Strep [facility] Other Vital Signs Date Time Vital Sign Value Performing Clinician Facility 01-19-2024 13:35-0400 Body mass index (BMI) [Ratio] 34.43 kg/m2 Ana Luisa ROY Work Phone: [facility] 01-19-2024 13:35-0400 Body weight 99.7 kg Ana Luisa ROY Work Phone: [facility] 01-19-2024 13:35-0400 Diastolic blood pressure 70 mm[Hg] Ana Luisa ROY Work Phone: [facility] 01-19-2024 13:35-0400 Systolic blood pressure 108 mm[Hg] Ana Luisa Lindoey PA Work Phone: [facility] 12-22-2023 09:36-0400 Body mass index (BMI) [Ratio] 33.83 kg/m2 Angelina Roslyn DO Work Phone: [facility] 12-22-2023 09:36-0400 Body weight 97.98 kg Angelina Roslyn DO Work Phone: [facility] 12-22-2023 09:36-0400 Diastolic blood pressure 72 mm[Hg] Angelina Roslyn DO Work Phone: [facility] 12-22-2023 09:36-0400 Systolic blood pressure 110 mm[Hg] Angelina Roslyn DO Work Phone: [facility] 07-19-2022 11:30-0400 Body height 167.64 cm Ne Henderson Other [employer] Other 07-19-2022 11:30-0400 Body mass index (BMI) [Ratio] 34.7 kg/m2 Ne Henderson Other [employer] Other 07-19-2022 11:30-0400 Body temperature 101 [degF] Ne Henderson Other [employer] Other 07-19-2022 11:30-0400 Body weight 97.52 kg Ne Henderson Other [employer] Other 07-19-2022 11:30-0400 Diastolic blood pressure 76 mm[Hg] Ne Henderson Other [employer] Other 07-19-2022 11:30-0400 Respiratory rate 18 /min Ne Henderson Other [employer] Other 07-19-2022 11:30-0400 SaO2% (BldA) [Mass fraction] 97 % Ne Henderson Other [employer] Other 07-19-2022 11:30-0400 Systolic blood pressure 113 mm[Hg] Ne Henderson Other [employer] Other 04-20-2022 10:50-0500 Body height 167.64 cm Anya Contreras Other [employer] Other 04-20-2022 10:50-0500 Body mass index (BMI) [Ratio] 34.7 kg/m2 Anya Contreras Other [employer] Other 04-20-2022 10:50-0500 Body temperature 98.6 [degF] Anya Contreras Other [employer] Other 04-20-2022 10:50-0500 Body weight 97.52 kg Anya Contreras Other [employer] Other 04-20-2022 10:50-0500 Respiratory rate 18 /min Anya Contreras Other [employer] Other 04-20-2022 10:50-0500 SaO2% (BldA) [Mass fraction] 98 % Anya Contreras Other [employer] Other Encounters Encounter Date Encounter Type Care Provider Facility Start: 01-19-2024 End: 01-19-2024 Ayde ROY Work Phone: [facility] Start: 01-19-2024 End: 01-19-2024 Ayde ROY Work Phone: [facility] Start: 01-19-2024 End: 01-19-2024 Patient encounter procedure Ana Luisa ROY Work Phone: [facility] Work Phone: Start: 01-19-2024 End: 01-19-2024 Periodic preventive med est patient 18-39 yrs Ana Luisa RYO Work Phone: [facility] Comment on above: Well woman exam with routine gynecological exam; Second trimester ; Vaginal discharge; STD exposure; 25 weeks gestation of Start: 01-07-2024 End: 01-07-2024 ambulatory [facility] Facility:[facility] Start: 12-30-2023 End: 12-30-2023 ambulatory [facility] Facility:[facility] Start: 12-22-2023 End: 12-22-2023 Bamboo flowsheet Angelina Roslyn DO Work Phone: [facility] Start: 12-22-2023 End: 12-22-2023 Bamboo flowsheet Angelina Roslyn DO Work Phone: [facility] Start: 12-22-2023 End: 12-22-2023 flow sheet Angelina Roslyn DO Work Phone: [facility] Comment on above: Second trimester pre gnancy; 21 weeks gestation of ; Need for maternal serum alpha-protein (MSAFP) screening Start: 12-22-2023 End: 12-22-2023 ambulatory ANGELINA ROSLYN Not Available Start: 12-10-2023 End: 12-10-2023 ambulatory ANA LUISA MOURA Not Available Start: 09-02-2023 End: 09-02-2023 ambulatory Bina Zamora Facility:[facility] Start: 07-16-2023 End: 07-16-2023 ambulatory ANA LUISA MOURA Not Available Start: 06-01-2023 End: 06-01-2023 ambulatory ANGELINA ROSLYN Not Available Start: 05-25-2023 End: 05-25-2023 ambulatory ANGELINA ROSLYN Not Available Start: 05-18-2023 End: 05-18-2023 ambulatory ANA LUISA MOURA Not Available Start: 05-04-2023 End: 05-04-2023 ambulatory ANGELINA ROSLYN Not Available Start: 04-20-2023 End: 04-20-2023 ambulatory ANA LUISA ZENY Not Available Start: 04-11-2023 End: 04-11-2023 ambulatory MARVEL CHRISTIAN [facility] Start: 04-06-2023 End: 04-06-2023 ambulatory ANGELINA ROSLYN Not Available Start: 03-19-2023 End: 03-19-2023 ambulatory ANA LUISA ZENY Not Available Start: 03-05-2023 End: 03-05-2023 ambulatory ANA LUISA ZENY Not Available Start: 02-04-2023 End: 02-04-2023 ambulatory ANGELINA ROSLYN Not Available Start: 07-19-2022 End: 07-19-2022 ambulatory Ne Henderson Other [employer] Other Start: 07-19-2022 Office outpatient vi sit 25 minutes Ne Henderson [facility] Start: 05-19-2022 End: 05-19-2022 ambulatory ANA LUISA MOURA . Facility: Start: 04-20-2022 End: 04-20-2022 ambulatory Anya Contreras Other [employer] Other Start: 04-20-2022 Office outpatient vi sit 25 minutes Anya Contreras [facility] Procedures Date Procedure Procedure Detail Performing Clinician Start: 01-19-2024 Urnls dip stick/tabl et rgnt non-auto w/o micrscp Ana Luisa Moura PA Work Phone: Start: 12-22-2023 Urnls dip stick/tabl et rgnt non-auto w/o micrscp Angelina Mcgowan DO Work Phone: Plan of Treatment Date Care Activity Detail Author Start: 02-16-2024 End: 02-16-2024 Patient encounter procedure 02/16/2024 1:50 PM EST Routine [facility] [address] [place] [address] Angelina Mcgowan DO [address] [place] [address] [facility] Start: 01-19-2024 End: 01-19-2024 Patient encounter procedure [facility] Comment on above: Arrived Start: 12-22-2023 End: 12-22-2023 Patient encounter procedure 12/22/2023 9:00 AM EDT Routine [facility] [address] [place] [id number] Angelina Mcgowan, [address] [place] [address] Arrived [facility] Comment on above: Arrived CHLAMYDIA TRACHOMATI S (GENITO/STI) CHLAMYDIA TRACHOMATIS (GENITO/STI) Lab Routine STD exposure Ordered: 01/19/2024 [facility] Comment on above: Ordered: 01/19/2024 Cytology Cervical or vaginal smear or scraping study Pap Smear Pathology and Cytology Routine Well woman exam with routine gynecological exam Ordered: 01/19/2024 [facility] Comment on above: Ordered: 01/19/2024 Neisseria gonorrhoea e DNA [Presence] in Unspecified specimen by [facility] with probe detection Neisseria gonorrhea DNA probe, direct Lab Routine STD exposure Ordered: 01/19/2024 [facility] Comment on above: Ordered: 01/19/2024 SURESWAB(R) ADVANCED VAGINITIS PLUS, TMA SURESWAB(R) ADVANCED VAGINITIS PLUS, TMA Pathology and Cytology Routine Vaginal discharge Ordered: 01/19/2024 [facility] Work Phone: Comment on above: Ordered: 01/19/2024 Payers Date Payer Category Payer Unknown [id number] 2019 Private Health Insurance [id number] 2000 Unknown [id number] 2.16.84 [id number] 2000 Unknown [id number] 2.16.84 0.1.300540.3.579.2.1286 2002 Unknown [id number] 2.16.84 0.1.190145.3.579.2.9 2002 Unknown [id number] 2.16.84 0.1.165751.3.579.2.9 2002 Unknown [id number] 2.16.84 0.1.032892.3.579.2.1258 2002 Unknown [id number] 2.16.84 0.1.242658.3.579.2.9 2002 Unknown [id number] 2.16.84 0.1.893258.3.579.2.1258 2002 Unknown [id number] 2.16.84 0.1.564992.3.579.2.9 2002 Unknown [id number] 2.16.84 0.1.812634.3.579.2.1258 2002 Unknown [id number] 2.16.84 0.1.382156.3.579.2.9 2002 Unknown [id number] 2.16.84 0.1.828237.3.579.2.1258 2002 Unknown [id number] 2.16.840 .1.560201.3.579.2.9 2002 Unknown [id number] 2.16.840 .1.134072.3.579.2.1258 2002 Unknown [id number] 2.16.840 .1.468040.3.579.2.1259 1959 Unknown [id number] Social History Date Type Detail Facility Unknown if ever smoked [employer] Other Sex Assigned At [employer] Other Tobacco smoking status NHIS Tobacco smoking consumption unknown [facility] Start: 08-11-2023 [facility] Start: 2000 Sex assigned at Not on file [facility] History of Present illness Narrative 01-19-2024 MANUELA Foy - 01/19/2024 1:30 PM EDT Note Date & Type Note Facility 01-19-2024 History of Presen t illness Narrative Reason [...] Constitutional: Appearance: Normal appearance. She is well-developed. Genitourinary: Vulva normal. Cardiovascular: Rate and Rhythm: Normal rate and [...] nursing note reviewed. Exam conducted with a sr vice president present. Vitals: Estimated body mass index is 34.43 kg/m as calculated from the following: Height as of 05/19/22: 5' 7 . Weight as of this encounter: 219 lb 12.8 oz. BP: 108/70 Patient's last menstrual period was 08/05/2023. ASSESSMENT & PLAN ICD-10-CM 1. Well woman exam with routine gynecological exam Z01.419 Pap Smear 2. Second trimester Z34.92 POCT urinalysis dipstick manually resulted 3. Vaginal discharge N89.8 SURESWAB(R) ADVANCED VAGINITIS PLUS, TMA 4. STD exposure Z20.2 CHLAMYDIA TRACHOMATIS (GENITO/STI) Neisseria gonorrhea DNA probe, direct 5. 25 weeks gestation of Z3A.25 POCT urinalysis dipstick manually resulted Return OB/Annual Exam: Patient presents today for an annual exam/routine obstetrics appointment. Patient is currently 25w0d . Patient is doing well and states she has no complaints. Pap/cultures was obtained without difficulty. Orders Placed This Encounter Procedures CHLAMYDIA TRACHOMATIS (GENITO/STI) Neisseria gonorrhea DNA probe, direct POCT urinalysis dipstick manually resulted Follow Up: Patient is to return to our office in 4 weeks for routine OB appointment Documented by Zhane Amador LPN on behalf of: MANUELA Foy documented in this encounter [facility] History of Present illness Narrative 12-22-2023 Chelsea Mcdonnell LPN - 12/22/2023 9:00 AM EDT Note Date [...] nursing note reviewed. Exam conducted with a sr vice president present. Vitals: Estimated body mass index is [...] Date & Type Note Facility 09-03-2023 Note [id number] [facility] Clinical Note 09-02-2023 Note Date & Type Note Facility 09-02-2023 Note Patient Education Ma terials Follows:and Gynecology Care care is health care during . It helps you and your unborn baby (fetus) stay as healthy as possible. care may be provided by a biological engineer, a family practice doctor, a mid-level practitioner (nurse practitioner or physician assistant media planner), or a childbirth and doctor (director prospect). How does this affect me? During , [...] procedures you have had. ? Any current bdnn-xly-ozsreua or prescription medicines, herbs, or supplements that [...] week 24 of (more content not included)... [facility] Evaluation note 07-19-2022 Note Date [...] treatment plan. Patient left in stable condition. [employer] Other History general Narrative - Reported 07-19-2022 Note Date & Type Note Facility 07-19-2022 History general N arrative - Reported Type Medical History ADD Medical History Born with cleft palette Surgical History tonsillectomy and adenoidectomy Surgical History cleft palette 3-4 repair Hospitalization History see above [email or web address] [employer] Other History general Narrative - Reported 05-25-2022 Note Date & Type Note Facility 05-25-2022 History general N arrative - Reported Type Medical History ADD Medical History Born with cleft palette Surgical History tonsillectomy and adenoidectomy Surgical History cleft palette 3-4 repair Hospitalization History see above nadiya [employer] Other Evaluation note 04-20-2022 Note Date & [...] this time you do not have COVID. [employer] Other Evaluation note Note Date & Type Note Facility Evaluation note Diagnosis Second trimester state, incidental 21 weeks gestation of Need for maternal serum alpha-protein (MSAFP) screening documented in this encounter [facility] Evaluation note Note Date & Type Note Facility Evaluation note Diagnosis Well woman exam with routine gynecological exam Routine gynecological examination Second trimester state, incidental Vaginal discharge Leukorrhea, not specified as infective STD exposure 25 weeks gestation of documented in this encounter [facility] Summary [...] and content) DATE CREATED AUTHOR 05/23/2022 [facility] [facility] DATE CREATED AUTHOR AUTHOR'S ORGANIZ ATION 04/12/2023 [facility] DATE CREATED AUTHOR AUTHOR'S ORGANIZ ATION 09/03/2023 [facility] DATE CREATED AUTHOR AUTHOR'S ORGANIZ ATION 12/23/2023 [facility] EPIC DATE CREATED AUTHOR AUTHOR'S ORGANIZ ATION 01/09/2024 [facility] REASON FOR VISIT (unrecogniz ed section and [...] BE BASED ON THE PRIMARY CLINICAL RECORDS. [facility]. provides no warranty or guarantee of the accuracy or completeness of information in this document.
[2024-01-20] MEDS: 0.9 % SODIUM CHLORIDE 1,000 ML 999 ML IV (11:43)
[2024-01-20] MEDS: ONDANSETRON PF 4 MG/2 ML VIAL IV (11:44)
[2024-01-20 11:47] LABS: Basophils Percent Auto 0.2 % (0.2-2.0); Eosinophils Absolute Auto 0.1 10^3/uL (0.0-0.7); Eosinophils Percent Auto 0.9 % (0.9-7.0); Hematocrit 34.3 % (36.0-48.0); Hemoglobin 11.1 g/dL (12.0-16.0); Immature Granulocytes Abs Auto 0.06 10^3/uL (0.00-0.03); Immature Granulocytes Pct Auto 0.5 % (0.0-0.5); Lymphocytes Percent Auto 17.6 % (20.5-60.0); Mean Corpuscular HGB Conc 32.4 g/dL (29.9-35.2); Mean Corpuscular Hemoglobin 26.3 pg (26.7-34.0); Mean Corpuscular Volume 81.3 fL (81.0-99.0); Mean Platelet Volume 9.4 fL (9.5-13.5); Monocytes Absolute Auto 0.4 10^3/uL (0.3-0.8); Monocytes Percent Auto 3.6 % (1.7-12.0); Neutrophils Absolute Auto 8.8 10^3/uL (1.4-6.5); Neutrophils Percent Auto 77.2 % (43.0-75.0); Platelet Count 306 10^3/uL (150-450); Red Blood Count 4.22 10^6/uL (4.20-5.40); White Blood Count 11.4 10^3/uL (4.0-11.0)
[2024-01-20 11:48] LABS: Bilirubin Urine SMALL (NEGATIVE); Blood Urine NEGATIVE (NEGATIVE); Glucose Urine UA NEGATIVE (NEGATIVE); Ketones Urine NEGATIVE (NEGATIVE); Leukocyte Esterase Urine LARGE (NEGATIVE); Nitrite Urine NEGATIVE (NEGATIVE); Protein Urine TRACE mg/dL (NEG/TRACE); Urobilinogen Urine 0.2 EU/dL (0.2-1.0); pH Urine 6.5 (5.0-9.0)
[2024-01-20 11:49] LABS: Clarity Urine SLIGHTLY CLOUDY (CLEAR); Color Urine DK YELLOW (YELLOW)
[2024-01-20 11:56] LABS: Bacteria Urine SMALL #/HPF (NONE SEEN); Cast Seen? NONE SEEN #/LPF (NONE SEEN); Crystals Seen? None Seen #/HPF (None Seen); Mucus Urine NONE SEEN (NONE SEEN); Squamous Epithelial Cell Urine FEW #/LPF (NONE/RARE); Urine Culture Indicated YES
[2024-01-20 12:06] LABS: Alanine Aminotransferase 16 U/L (14-59); Albumin Globulin Ratio 0.6; Albumin Level 2.7 g/dL (3.4-5.0); Alkaline Phosphatase 102 U/L (46-116); Aspartate Amino Transferase 8 U/L (15-37); BUN Creatinine Ratio 10.9; Bilirubin Total 0.3 mg/dL (0.2-1.0); Calcium 8.9 mg/dL (8.5-10.1); Carbon Dioxide 23.8 mmol/L (21.0-32.0); Chloride 103 mmol/L (98-107); Estimated GFR (African America >60 (>=60 mL/min/1.73m^2); Estimated GFR (Non-African Ame >60 (>=60 mL/min/1.73m^2); Globulin 4.8 g/dL; Glucose 95 mg/dL (74-106); Potassium 3.8 mmol/L (3.5-5.1); Sodium 140 mmol/L (136-145); Total Protein 7.5 g/dL (6.4-8.2)
== END 2024-01-20 13:00 | disposition home or self-care (01) ==
PROVIDERS: Emergency Provider Emergency Medicine Emergency Medical Services; PCP Nurse Practitioner
DX: O23.40 Unspecified infection of urinary tract in pregnancy, unspecified trimester (principal); N39.0 Urinary tract infection, site not specified; O99.619 Diseases of the digestive system complicating pregnancy, unspecified trimester; K52.9 Noninfective gastroenteritis and colitis, unspecified; Z3A.00 Weeks of gestation of pregnancy not specified
CPT/HCPCS: 36415; 80053; 81001; 85025; 87086; 96361; 96374; 99284; J2405

== ENCOUNTER 2024-03-08 13:38 | Outpatient (OUT) | payer OTHER, SELFPAY ==
--- NOTE | 2024-03-08 13:41 | US_ITS ---
[address] [address] Patient Name: NOEMI ORTEGA MRN: [id number] date: 2000 Sex: F Assigned Patient Location: [facility] Current Patient Location: [facility] Accession/Order Number: [id number] Exam Date: 03/08/2024 13:41 Report Date: 03/08/2024 14:10 At the request of: ANGELINA CA Procedure: US OB growth EXAMINATION: US OB growth HISTORY: SIZE INCONSISTENT WITH DATES COMPARISON: No relevant comparison available. FINDINGS: Heart Rate: 136 bpm Amniotic Fluid Volume: 16.5 cm, largest fluid pocket 4.9 cm Number: 1 Position: Cephalic presentation, longitudinal lie BIOMETRY: BPD: 8.28 cm; 33 weeks 2 days; 78.70 % HC: 29.36 cm; 32 weeks 3 days; 23.20 % AC: 27.69 cm; 31 weeks 5 days; 40.80 % FL: 6.40 cm; 33 weeks 0 days: 66.50 % EFW: 1960.48 g; 50.20 % 4 lbs. 5 oz. FL/AC: 23.11 FL/BPD: 77.29 HC/AC: 1.06 GESTATIONAL AGE: Age by EDC: 32 weeks 0 days AL by EDC: 2024-05-03 Age by US: 32 weeks 4 days AL by US: 2024-04-29 US/US OB growth IMPRESSION: Normal interval growth Electronically authenticated by: VERONA VICEKRS Date: 03/08/2024 14:10
--- OUTSIDE RECORDS SUMMARY | 2024-03-08 13:47 | XMS_ITS | CCD ---
Author Organization [facility] Inform ion [facility] Care Team Providers Care Belt Operator Name Role Phone ZENY ., ANA LUISA Attending Unavailable ZENY ., ANA LUISA Consulting Unavailable ZENY ., ANA LUISA Admitting Unavailable YOLANDA ZAMORA Primary Care Unavailable Diane Anya Unavailable Ne Henderson Unavailable Bina Zamora Primary Care Unavailable MIRIAN HERBERT Attending Unavailable MIRIAN HERBERT Admitting Unavailable Unavailable Primary Care Provider UnavailAraceli Jin Attending Unavailable Araceli BOOGIE Attending Unavailable KATHLEEN HASKINS Admitting Unavailable KATHLEEN HASKINS Attending Unavailable BINA ZAMORA Primary Care Unavailable MARVEL CHRISTIAN Admitting Unavailable MARVEL CHRISTIAN Attending Unavailable BINA ZAMORA Primary Care Unavailable ANA LUISA MOURA Attending Unavailable ANGELINA MCGOWAN Attending Unavailable ZENY, ANA LUISA Attending Unavailable ROSLYN, ANGEILNA Attending Unavailable ZENY, ANA LUISA Attending Unavailable ROSLYN, ANGELINA Attending Unavailable ZENY, ANA LUISA Attending Unavailable ROSLYN, ANGELINA Attending Unavailable ZENY, ANA LUISA Attending Unavailable ROSLYN, ANGELINA Attending Unavailable ZENY, ANA LUISA Attending Unavailable ANGELINA MCGOWAN Attending Unavailable Medications Current Medications Medication Drug Class(es) Dates Sig (Normalized) Sig (Original) [id number] 200 actuat albuterol 0.09 mg/actuat metered dose [...] mg / clavulanate 125 mg oral tablet (11 sources) Penicillin-class Antibacterial Start: 4 take 1 tablet by mouth twice daily at mealtime amoxicillin-clavulana te (Augmentin) 500-125 MG tablet TAKE 1 TABLET BY MOUTH TWICE DAILY WITH FOOD FOR 7 DAYS 12/19/2023 Active brompheniramine maleate 0.4 mg/ml / dextromethorphan hydrobromide 2 mg/ml / pseudoephedrine hydrochloride 6 mg/ml oral solution (1 source) alpha-Adrenergic Agonist, Uncompetitive X-sknvgz-E-asparta te Receptor Antagonist, Sigma-1 Agonist Start: 3 take 10 mL by mouth every six hours Bpxrudfug-Oqonoxro-HK 30-2-10 MG/5ML 10 mL Orally every 6 hours for 5 days Jun, Active methylPREDNISolone 4 mg oral tablet (1 source) Corticosteroid Start: 3 methylPREDNISolone 4 MG as directed Orally Once a day for 6 days Mar, Active metroNIDAZOLE 500 mg oral tablet (1 source) Nitroimidazole Antimicrobial Start: 4 End: 4 take 1 tablet by mouth in the morning metroNIDAZOLE (Flagyl) 500 MG tablet Indications: BV (bacterial vaginosis) Take 1 tablet (500 mg) by mouth in the morning and 1 tablet (500 mg) before bedtime. Do all this for 7 days. Do not drink alcohol while taking this medication. 14 tablet 01/20/2024 01/27/2024 Active MV-Min-Fe Fum-FA-DHA ( 1 PO) (12 sources) MV-Min- Fe Fum-FA-DHA ( 1 PO) Take by mouth Active terconazole 4 mg/ml vaginal cream (2 sources) Azole Antifungal Start: 4 End: 4 terconazole (Terazol 7) 0.4 % vaginal cream Indications: Yeast infection Insert 1 applicator into the vagina at bedtime for 7 days 45 g 02/23/2024 03/01/2024 Active Problems Problem Classification Problem Date Documented Da te Episodic/Chronic Abdominal pain (2 sources) Abdominal pain; Translations: [Unspecified abdominal pain] Episodic Headache; including migraine (1 source) Headache Onset: 4 Episodic Headache; including migraine (1 source) Headache; including migraine; Translations: [Headache, unspecified] Onset: 4 Immunizations and screening for infectious disease (6 sources) Contact with and (suspected) exposure to infections with a predominantly sexual mode of transmission; Translations: [Contact with and (suspected) exposure to other viral communicable diseases] Onset: 3 Episodic Inflammation; infection of eye (except that caused by tuberculosis or sexually transmitteddisease) (1 source) Unspecified acute conjunctivitis, left eye Episodic Mycoses (2 sources) Mycosis; Translations: [Candidiasis, unspecified] 02-23-2024 Episodic Other complications of (1 source) Other specified related conditions, second trimester; Translations: [Other specified related conditions, second trimester] Onset: 4 Episodic Other complications of (2 sources) size does not accord with dates; Translations: [Uterine size-date discrepancy, unspecified trimester] 02-23-2024 Episodic Other female genital disorders (4 sources) Other specified noninflammatory disorders of vagina; Translations: [OTH SPEC NONINFLAMMATORY D/O VAGINA] Onset: 3 Episodic Other female genital disorders (2 sources) Vaginal discharge; Translations: [Other specified noninflammatory disorders of vagina] 01-19-2024 Episodic Other gastrointestinal disorders (2 sources) Irritable bowel syndrome; Translations: [Mixed irritable bowel syndrome] Chronic Other and delivery including normal (6 sources) Second trimester ; Translations: [Encounter for supervision of normal , unspecified, second trimester] 12-22-2023 Episodic Other screening for suspected conditions (not mental disorders or infectious disease) (4 sources) Alpha-fetoprotein blood test status; Translations: [Encounter [...] [25 weeks gestation of ] 01-19-2024 Episodic Residual codes; unclassified (2 sources) Gestation period, 30 weeks; Translations: [30 weeks gestation of ] 02-23-2024 Episodic Unclassified (1 source) Decreased Movement Onset: Results Test Name Value Interpretation Reference Range Facility Urinalysis macro (dipstick) panel (U)on 02-23-2024 Bilirubin, UA Negative Negative - 4(70) +++ mg/dL [facility] Blood, UA Negative Negative - 50 Jimmy/mcL [facility] Clarity, UA Clear [facility] re Color, UA Yellow [facility] Glucose, UA Negative Negative - 1999(110) ++++ mg/dL [facility] Interpretation and review of laboratory results Abnormal [facility] re Ketones, UA Negative Negative - 160(16) ++++ mg/dL [facility] Leukocytes, UA Trace Negative - 500+++ Minnie/mcL [facility] Nitrite, UA Negative Negative - Positive [facility] pH, UA 6.5 5 - 9 [facility], [facility]A Negative Negative - 1999(20) ++++ mg/dL [facility] Spec Grav, UA 1.02 1 - 1.03 [facility] Urobilinogen, UA 1.0 0.2 - 12 mg/dL [facility] CBC AND AUTO DIFFon 02-01-20 24 ABSOLUTE BASOPHIL 0.0 X10E9/L Normal 0.0-0.2 [facility] Comment on above: Performed By: #### C BCA, CMP, 2532-0, 3084-1 #### [facility] ([id number]) [address] [place] [address]50 ABSOLUTE NEUTROPHIL 10.5 X10E9/L High 1.5-6.6 [facility] Comment on above: Performed By: #### C BCA, CMP, 2532-0, 3084-1 #### [facility] ([id number]) [address] [place] [address] Basophils/100 WBC (Bld) 0.4 % Normal [facility] Comment on above: Performed By: #### Carol PÉREZ CMP, 0, 3083-03 #### [facility] ([id number]) [address] [place] [address]2446 Eosinophils (Bld) [#/Vol] 0.1 10*3/uL Normal 0.0-0.4 [facility] Comment on above: Performed By: #### C HUDSON PÉREZ, 0, 3083-03 #### [facility] ([id number]) [address] [place] [address] 30209 Eosinophils/100 WBC (Bld) 0.7 % Normal [facility] Comment on above: Performed By: #### Carol PÉREZ CMP, 0, 3083-03 #### [facility] ([id number]) [address] [place] [address] 88036 Erythrocyte distribution width (RBC) [Ratio] 14.5 % Normal 11.5-15.0 [facility] Comment on above: Performed By: #### Carol PÉREZ CMP, 0, 3083-03 #### [facility] ([id number]) [address] [place] [address] 77120 Hematocrit (Bld) [Volume fraction] 29.1 % Low 35-47 [facility] Comment on above: Performed By: #### Carol PÉREZ CMP, 0, 3083-03 #### [facility] ([id number]) [address] [place] [address] 65969 Hemoglobin (Bld) [Mass/Vol] 9.6 g/dL Low 11.7-15.5 [facility] Comment on above: Performed By: #### Carol PÉREZ CMP, 0, 3083-03 #### [facility] ([id number]) [address] [place] [address] 80006 Lymphocytes (Bld) [#/Vol] 2.2 10*3/uL Normal 1.0-3.5 [facility] Comment on above: Performed By: #### Carol PÉREZ CMP, 2531-0, 3083- #### [facility] ([id number]) [address] [place] [address]10 Lymphocytes/100 WBC (Bld) 16.6 % Normal [facility] Comment on above: Performed By: #### Carol PÉREZ [facility], 2531-0, 3083-03 #### [facility] ([id number]) [address] [place] [address] 37549 MCH (RBC) [Entitic mass] 25.7 pg Low 27-34 [facility] Comment on above: Performed By: #### Carol PÉREZ CMP, 0, 3083-03 #### [facility] ([id number]) [address] [place] [address] 25808 MCHC (RBC) [Mass/Vol] 32.9 g/dL Normal 32-36 [facility] Comment on above: Performed By: #### Carol PÉREZ CMP, 0, 3083-03 #### [facility] ([id number]) [address] [place] [address] 51300 MCV (RBC) [Entitic vol] 78 fL Low 80-100 [facility] Comment on above: Performed By: #### Carol PÉREZ CMP, 0, 3083-03 #### [facility] ([id number]) [address] [place] [address] 89511 Monocytes (Bld) [#/Vol] 0.5 10*3/uL Normal 0-0.9 [facility] Comment on above: Performed By: #### Carol PÉREZ CMP, 2531-0, 3083-03 #### [facility] ([id number]) [address] [place] [address] 12759 Monocytes/100 WBC (Bld) 3.7 % Normal [facility] Comment on above: Performed By: #### Carol PÉREZ CMP, 2531-0, 3083- #### [facility] ([id number]) [address] [place] [address] 44085 Neutrophils/100 WBC (Bld) 78.6 % Normal [facility] Comment on above: Performed By: #### C ELISA, CMP, 2531-0, 3083-03 #### [facility] ([id number]) [address] [place] [address] 44061 Platelet mean volume (Bld) [Entitic vol] 7.6 fL Normal 7-12 [facility] Comment on above: Performed By: #### Carol PÉREZ CMP, 0, 3083-03 #### [facility] ([id number]) [address] [place] [address] 61116 Platelets (Bld) [#/Vol] 315 10*3/uL Normal 150-450 [facility] Comment on above: Performed By: #### Carol PÉREZ, CMP, 0, 3083-03 #### [facility] ([id number]) [address] [place] [address] 19272 RBC COUNT 3.73 X10E12/L Low 3.80-5.20 [facility] Comment on above: Performed By: #### Carol PÉREZ, CMP, 2531-0, 3083-03 #### [facility] ([id number]) [address] [place] [address] 20407 WBC (Bld) [#/Vol] 13.4 10*3/uL High 4.0-11.0 [facility] Comment on above: Performed By: #### Carol PÉREZ, CMP, 2531-0, 3083-03 #### [facility] ([id number]) [address] [place] [address] [place] [address] COMPREHENSIVE METABOLIC PANE Wilbur 02-01-2024 Albumin [Mass/Vol] 3.0 g/dL Low 3.2-5.3 [facility] Comment on above: Performed By: #### C BCA, CMP, 2532-0, 3084-1 #### [facility] ([id number]) [address] [place] [address] 71123 ALP [Catalytic activity/Vol] 81 U/L Normal 39-130 [facility] Comment on above: Performed By: #### C BCA, CMP, 2532-0, 3084-1 #### [facility] ([id number]) [address] [place] [address] 63682 ALT [Catalytic activity/Vol] 15 U/L Normal 0-31 [facility] Comment on above: Performed By: #### C BCA, CMP, 2532-0, 3084-1 #### [facility] ([id number]) [address] [place] [address] 48016 Anion gap [Moles/Vol] 11 mmol/L Normal 5-15 [facility] Comment on above: Performed By: #### C BCA, CMP, 2532-0, 3084-1 #### [facility] ([id number]) [address] [place] [address] 52979 AST [Catalytic activity/Vol] 12 U/L Normal 0-41 [facility] Comment on above: Performed By: #### C BCA, CMP, 2532-0, 3084-1 #### [facility] ([id number]) [address] [place] [address] 59981 Bilirubin [Mass/Vol] 0.3 mg/dL Normal 0.3-1.2 [facility] Comment on above: Performed By: #### C BCA, CMP, 2532-0, 3084-1 #### [facility] ([id number]) [address] [place] [address] 95028 Calcium [Mass/Vol] 8.7 mg/dL Normal 8.5-10.5 [facility] Comment on above: Performed By: #### C HUDSON PÉREZ, 2532-0, 3083-1 #### [facility] ([id number]) [address] [place] [address] 74200 Chloride [Moles/Vol] 105 mmol/L Normal 98-109 [facility] Comment on above: Performed By: #### C HUDSON PÉREZ, 2532-0, 3083-1 #### [facility] ([id number]) [address] [place] [address] 22086 CO2 [Moles/Vol] 19 mmol/L Low 22-32 [facility] Comment on above: Performed By: #### C HUDSON PÉREZ, 2531-0, 3083-03 #### [facility] ([id number]) [address] [place] [address] 59610 Creatinine [Mass/Vol] 0.38 mg/dL Low 0.40-1.00 [facility] Comment on above: Result Comment: METH OD TRACEABLE TO IDMS STANDARD Performed By: #### C HUDSON PÉREZ, 2531-0, 3083- #### [facility] ([id number]) [address] [place] [address] 73488 eGFR (CKD-EPI) NON-RACE DEPENDENT >90 Normal >59 [facility] Comment on above: Result Comment: Reported eGFR is based on the CKD-EPI 2020 equation that does not use a race coefficient. Performed By: #### C HUDSON PÉREZ, 2532-0, 3083-1 #### [facility] ([id number]) [address] [place] [address] 88651 Glucose [Mass/Vol] 93 mg/dL Normal 65-99 [facility] Comment on above: Performed By: #### C HUDSON PÉREZ, 2532-0, 3083-1 #### [facility] ([id number]) [address] [place] [address] 25301 Potassium [Moles/Vol] 3.5 mmol/L Normal 3.5-5.0 [facility] Comment on above: Performed By: #### C BCA, CMP, 2532-0, 3083-1 #### [facility] ([id number]) [address] [place] [address] 13185 Protein [Mass/Vol] 6.7 g/dL Normal 6.0-8.0 [facility] Comment on above: Performed By: #### C BCA, CMP, 2531-0, 1 #### [facility] ([id number]) [address] [place] [address] 11673 Sodium [Moles/Vol] 135 mmol/L Normal 134-146 [facility] Comment on above: Performed By: #### C BCA, CMP, 0, 3083-03 #### [facility] ([id number]) [address] [place] [address] 04572 Urea nitrogen [Mass/Vol] 8 mg/dL Normal 5-23 [facility] Comment on above: Performed By: #### C BCA, CMP, 0, 3083-03 #### [facility] ([id number]) [address] [place] [address] 79095 LDH [Catalytic activity/Vol] on 02-01-2024 LDH 107 U/L Normal 100-235 [facility] Comment on above: Performed By: #### C BCA, CMP, 2532-0, 3083-1 #### [facility] ([id number]) [address] [place] [address] 42350 URIC ACIDon 02-01-2024 Urate [Mass/Vol] 4.9 mg/dL Normal 2.6-7.2 [facility] Comment on above: Performed By: #### C BCA, CMP, 2532-0, 3084-1 #### [facility] ([id number]) [address] [place] [address] 40184 PROTEIN CREAT RATIOon 2023 RANDOM URINE PROTEIN 190 mg/L High <120 [facility] Comment on above: Performed By: #### U PCR #### [facility] ([id number]) [address] [place] [address] 64325 U/PRO/BUTTON TUFTER RATIO CALC 0.11 Normal <0.2 [facility] Comment on above: Result Comment: Neph rotic Syndrome is associated with ratios >3.5 Performed By: #### U PCR #### [facility] ([id number]) [address] [place] [address] 64020 URINE CREATININE,RDM 177.57 mg/dL Normal [facility] Comment on above: Performed By: #### U PCR #### [facility] ([id number]) [address] [place] [address] [place] [address] URINALYSISon 01-31-2024 Bilirubin Ql (U) Negative Normal NEG [facility] Comment on above: Performed By: #### U A #### [facility] ([id number]) [address] [place] [address] 65405 BLOOD/HGB Negative Normal NEG [facility] Comment on above: Performed By: #### U A #### [facility] ([id number]) [address] [place] [address] [place] [address] Color (U) YELLOW Normal YELLOW [facility] Comment on above: Performed By: #### U A #### [facility] ([id number]) [address] [place] [address] [place] [address] Glucose Ql (U) Negative Normal NEG [facility] Comment on above: Performed By: #### U A #### [facility] ([id number]) [address] [place] [address] 26721 Ketones Ql (U) Trace Abnormal NEG [facility] Comment on above: Performed By: #### U A #### [facility] ([id number]) [address] [place] [address] 30483 Leukocyte esterase Test strip Ql (U) Trace Abnormal NEG [facility] Comment on above: Performed By: #### U A #### [facility] ([id number]) [address] [place] [address] 07023 Nitrite Ql (U) Negative Normal NEG [facility] Comment on above: Performed By: #### U A #### [facility] ([id number]) [address] [place] [address] 30316 pH (U) 6.0 [pH] Normal 5.0-8.5 [facility] Comment on above: Performed By: #### U A #### [facility] ([id number]) [address] [place] [address] 59140 Protein Ql (U) Negative Normal NEG [facility] Comment on above: Performed By: #### U A #### [facility] ([id number]) [address] [place] [address] 07304 R.B.CELLS 0 /hpf Normal 0-5 [facility] Comment on above: Performed By: #### U A #### [facility] ([id number]) [address] [place] [address] [place] [address] Specific gravity (U) [Rel density] >1.030 Normal 1.003-1.035 [facility] Comment on above: Performed By: #### U A #### [facility] ([id number]) [address] [place] [address] 63755 SQUAMOUS EPITHELIUM 6 /hpf High 0-5 [facility] Comment on above: Performed By: #### U A #### [facility] ([id number]) [address] [place] [address] 72174 TURBIDITY CLEAR Normal CLEAR [facility] Comment on above: Performed By: #### U A #### [facility] ([id number]) [address] [place], [place] [address] Urobilinogen Qn (U) 0.2 {Marce'U}/dL Normal <1.1 [facility] Comment on above: Performed By: #### U A #### [facility] ([id number]) [address] [place], [place] [address] W.B.CELLS 4 /hpf Normal 0-5 [facility] Comment on above: Performed By: #### U A #### [facility] ([id number]) [address] [place] [address] 07555 IGP,APTIMA HPV,AGE GDLNon AGE GDLN ACOG TESTING Note . [facility] Comment on above: TESTS RESULT FLAG UN ITS REF RANGE LAB Clinician Provided Cytology Information Source.............Cervix Other.............. No. of containers..01 ThinPrep Vial Age Algo ACOG Velia... -20 04 FLAG LEGEND: L-Low Normal,H-High Normal,LL-Alert Low,HH-Alert High <-Panic Low,>-Panic High,A-Abnormal,AA-Critical Abnormal Performed at: 01 =[facility] [address] [place] [address] Dodie Felix MD, IGP, RFX APTIMA HPV ASCU Note . [facility] Comment on above: TESTS RESULT FLAG UN ITS REF RANGE LAB DIAGNOSIS: 02 NEGATIVE FOR INTRAEPITHELIAL LESION OR MALIGNANCY. FUNGAL ORGANISMS MORPHOLOGICALLY CONSISTENT WITH SHILOH SPECIES ARE PRESENT. Specimen adequacy: 02 Satisfactory for evaluation. No endocervical component is identified. Performed by: Gallo Lyons, Ticket Clerk ([facility]) . 02 Note: Note 02 The Pap smear is a screening test designed to aid in the detection of premalignant and malignant conditions of the uterine cervix. It is not a diagnostic procedure and should not be used as the sole means of detecting cervical cancer. Both false-positive and false-negative reports do occur. Test Methodology: Note 02 This liquid based ThinPrep(R) pap test was screened with the use of an image guided system. . 02 The HPV DNA reflex criteria were not met with this specimen result therefore, no HPV testing was performed. FLAG LEGEND: L-Low Normal,H-High Normal,LL-Alert Low,HH-Alert High <-Panic Low,>-Panic High,A-Abnormal,AA-Critical Abnormal Performed at: [address] [address] Dodie Felix MD, Performed at: =[facility] [id number] Distribution Accounting Clerk: Ddoie Felix MD, Phone: [phone] Performed at: [facility] [id number] Distribution Accounting Clerk: Dodie Felix MD, Phone: [phone] [facility] URINE CULTURE, ROUTINEon Bacteria identified Cx Nom (U) Urine Culture, Routine [facility] Bacteria identified Cx Nom (U) Mixed urogenital seven [facility] Bacteria identified Cx Nom (U) 25,000-50,000 colony forming units per mL [facility] Bacteria identified Cx Nom (U) Performed at: [facility] Bacteria identified Cx Nom (U) [address] [place], [place] [id number] [facility] Bacteria identified Cx Nom (U) Distribution Accounting Clerk: Anirudh Avendano PhD, Phone: [phone] [facility] URETHRITIS/DISCHARGE PLUS VA GINITIS (HTRX)on 01-20-2024 ATOPOBIUM VAGINAE 18.808 Abnormal [facility] ATOPOBIUM VAGINAE Detected Abnormal [facility]care BVAB 2,3 (BACTERIAL VAGINOSIS ASSOCIATED BACTERIA 2, 3); MOBILUNCUS SPP 0 [facility] BVAB 2,3 (BACTERIAL VAGINOSIS ASSOCIATED BACTERIA 2, 3); MOBILUNCUS SPP Not detected [facility] SHILOH ALBICANS, PARAPSILOSIS, TROPICALIS 26.752 Abnormal [facility] SHILOH ALBICANS, PARAPSILOSIS, TROPICALIS Detected Abnormal [facility] SHILOH GLABRATA 0 [facility] SHILOH GLABRATA Not detected [facility] SHILOH KRUSEI 0 [facility] SHILOH KRUSEI Not detected [facility] CHLAMYDIA TRACHOMATIS 0 [facility] CHLAMYDIA TRACHOMATIS Not detected [facility] ERMB, C; MEFA 17.114 Abnormal [facility] care ERMB, C; MEFA Detected Abnormal [facility] GARDNERELLA VAGINALIS 22.039 Abnormal [facility] GARDNERELLA VAGINALIS Detected Abnormal [facility] Interpretation and review of laboratory results Abnormal [facility] MEGASPHAERA (TYPES 1, 2) 0 [facility] MEGASPHAERA (TYPES 1, 2) Not detected [facility] MYCOPLASMA GENITALIUM 0 [facility] MYCOPLASMA GENITALIUM Not detected [facility] NEISSERIA GONORRHOEAE 0 [facility] NEISSERIA GONORRHOEAE Not detected [facility] TET B, TET M 17.484 Abnormal [facility] are TET B, TET M Detected Abnormal [facility] are TRICHOMONAS VAGINALIS 0 [facility] TRICHOMONAS VAGINALIS Not detected [facility] Urinalysis macro (dipstick) panel (U)on 01-19-2024 Bilirubin, UA Negative Negative - 4(70) +++ mg/dL [facility] Blood, UA Negative Negative - 50 Jimmy/mcL [facility] Clarity, UA Clear [facility] Color, UA Light Yellow [facility] are Glucose, UA Negative Negative - 1999(110) ++++ mg/dL [facility] Interpretation and review of laboratory results [facility]normal [facility] Ketones, UA Negative Negative - 160(16) ++++ mg/dL [facility] Leukocytes, UA Negative Negative - 500+++ Minnie/mcL [facility] Nitrite, UA Negative Negative - Positive [facility] pH, UA 6.5 5 - 9 [facility] e Protein, UA Positive Negative - 1999(20) ++++ mg/dL [facility] Spec Grav, UA 1.02 1 - 1.03 [facility] Urobilinogen, UA 1.0 0.2 - 12 mg/dL [facility] Urinalysis macro (dipstick) panel (U)on 12-22-2023 Bilirubin, UA Negative Negative - 4(70) +++ mg/dL [facility] Blood, UA Negative Negative - 50 Jimmy/mcL [facility] Clarity, UA Clear [facility] Color, UA Yellow [facility] Glucose, UA Negative Negative - 1999(110) ++++ mg/dL [facility] Interpretation and review of laboratory results Abnormal [facility] Ketones, UA Negative Negative - 160(16) ++++ mg/dL [facility] Leukocytes, UA Moderate Negative - 500+++ Minnie/mcL [facility] Nitrite, UA Negative Negative - Positive [facility] pH, UA 6.5 5 - 9 [facility] Protein, UA Negative Negative - 2000(20) ++++ mg/dL [facility] Spec Grav, UA 1.030 1 - 1.03 [facility] care Urobilinogen, UA 1.0 0.2 - 12 mg/dL [facility] Consent Formson 09-03-2023 Consent Forms [id number] [facility] Resultson 0 09-03-2023 Lab - Toxicology Results [id number] .[facility] Clinical Summaryon 2023 ED Clinical Summary [facility] ? Urgent Care [address] [place], [place] [id number] Clinical Summary PERSON INFORMATION Name: FLORINDA ORTEGA Age: 22 Years Sex: MALE : 2000 MRN: Acct#: Visit Reason: Medical screening exam; [facility] Arrival: 09/02/2023 11:09:30 Discharge: 09/02/2023 11:41:00 LOS: 000 00:32 Check In: 09/02/2023 11:09:30 Checkout: 09/02/2023 11:41:00 Address: [facility] [address] PCP: Bina Zamora CNP PROVIDER INFORMATION Provider [...] Pamela Ortiz [address], [address], [place] [address] Business (1) Comments: Food And Beverage Coordinator to 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 Abstain from any alcohol or illicit drugs With: Address: When: Bina Sera [address] [place] [address] Business (1) , only if needed DIAGNOSIS: Physical exam Patient Understands: Yes - Patient/family/caregi carlos verbalizes understanding of instructions given Comment: Normal [facility] ED Patient Summaryon 024 ED Patient Summary [facility] ? Urgent Care [address] [place] [address] PATIENT DISCHARGE INSTRUCTIONS Patient Information Name: FLORINDA ORTEGA Age: 22 Years Date of : 2000 Reason For Visit: Medical screening exam; [facility] Arrival Time: 09/02/2023 11:09:30 Primary Care Physician: Bina Zamora CNP Attending Physician: MIRIAN HERBERT Comment: Patient Education With: Address: When: Pamela Ortiz [address], [address], [place] [address] Business (1) Comments: Food And Beverage Coordinator to 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 Abstain from any alcohol or illicit drugs With: Address: When: Bina Sera [address] [place] [address] Business (1) , only if needed Care care is health care during . It helps you and your unborn baby (fetus) stay as healthy as possible. care may be provided by a rn support services, a family practice doctor, a mid-level practitioner (nurse practitioner or physician assistant associate professor), or a childbirth and doctor (spinner hand). How does this affect me? During , [...] procedures you have had. ? Any current hcai-zdt-mropdsg or prescription medicines, herbs, or supplements that [...] s (more content not included)... [facility] Triage Industrialon 09-02-19 24 Drug Screen Complete Collected [facility] Comment on above: Performed By: #### 1 [id number] #### [facility] (DEFAULT) [address] [place] [address] Urgent Care Note- Provideron 09-02-2023 Urgent Care [...] pharynx is pink and moist. NECK: -Supple (rnjn-wh-ngjgj): non-tender. CARD: -Rate and rhythm: Regular -Edema: [...] Plan Assessment and Plan: Diagnosis: Physical exam ([id number]-BU Z00.00). Cleared for employment [Electronically Signed on: 09/02/2023 11:41 EDT] MIRIAN HERBERT [Verified on: 09/02/2023 11:41 EDT] MIRIAN HERBERT [facility] [place] 024 Urgent Care Record [facility] ? 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 Abstain from any alcohol or illicit drugs With: Address: When: Bina Zamora [address] [place] [address] Business (1) , only if needed Medication Information: The exam and treatment you received today in the [facility] were for an urgent problem and are not intended as complete care. It is important for you to follow up with a doctor, nurse practitioner, or physician?s assistant associate professor for ongoing care. If your symptoms become [...] can reach you if necessary. [facility] has provided you with a complete list of medications post discharge. Please inform your primary counselor/provider of your visit and for further instruction [...] possible. care may be provided by a rn support services, a family practice doctor, a mid-level practitioner (nurse practitioner or physician assistant associate professor), or a childbirth and doctor (spinner hand). How does this affect me? During , [...] (more content not included)... Normal [facility] COVID/FLU RT-PCRon 3 SARS-CoV-2 (COVID-19) RNA [facility]+probe Ql (Unsp spec) Negative [employer] Other COVID/FLU RT-PCR Negative [facility] [employer] Other CHLAMYDIA/GONOCOCCUS [facility] ( AB/URINE/PAPon 05-22-2022 Chlamydia trachomatis, [facility] Negative Normal Negative [facility] Comment on above: Performed By: #### C T/NGNA #### [facility] [address] [place] [address] Dr. Clau Valdivia Neisseria gonorrhoeae, [facility] Negative Normal Negative [facility] Comment on above: Performed By: #### C T/NGNA #### [facility] [address] [place] [address] Dr. Clau Valdivia VAGINITIS/VAGINOSIS DNA PROB Melvin 05-21-2022 Shiloh species Positive Abnormal Negative [facility] Comment on above: Performed By: #### V AGINT #### [facility] [address] [address] [address] Clau Valdivia Gardnerella vaginalis Positive Abnormal Negative [facility] Comment on above: Performed By: #### V AGINT #### [facility] [address] [address] [address] Clau Valdivia Trichomonas vaginalis Negative Normal Negative [facility] Comment on above: Performed By: #### V AGINT #### [facility] [address] [place] [address] Dr. Clau Valdivia COVID + FLU Quick Testingon 04-20-2022 SARS-CoV-2 (COVID-19) RNA [facility]probe Ql (Unsp spec) Negative [facility] [employer] Other COVID + FLU Quick Testing Negative [facility] [employer] Other Quick Strepon 04-20-2022 S. pyogenes Org specific cx Ql (Throat) Negative [facility] [employer] Other Quick Strep [facility] [employer] Other Vital Signs Date Time Vital Sign Value Performing Clinician Facility 02-23-2024 13:59-0500 Body mass index (BMI) [Ratio] 35.37 kg/m2 [employer] Work Phone: [facility] 02-23-2024 13:59-0500 Body weight 102.42 kg [employer] Work Phone: [facility] 02-23-2024 13:59-0500 Diastolic blood pressure 72 mm[Hg] [employer] Work Phone: [facility] 02-23-2024 13:59-0500 Systolic blood pressure 118 mm[Hg] Angelina Roslyn DO Work Phone: [facility] 01-19-2024 13:35-0400 Body mass index (BMI) [Ratio] 34.43 kg/m2 Ana Luisa Zeny PA Work Phone: [facility] 01-19-2024 13:35-0400 Body weight 99.7 kg Ana Luisa Ely PA Work Phone: [facility] 01-19-2024 13:35-0400 Diastolic blood pressure 70 mm[Hg] Ana Luisa Zeny PA Work Phone: [facility] 01-19-2024 13:35-0400 Systolic blood pressure 108 mm[Hg] Ana Luisa Moura PA Work Phone: [facility] 12-22-2023 09:36-0400 Body mass index (BMI) [Ratio] 33.83 kg/m2 Angelina Roslyn DO Work Phone: [facility] 12-22-2023 09:36-0400 Body weight 97.98 kg Angelina Roslyn DO Work Phone: [facility] 12-22-2023 09:36-0400 Diastolic blood pressure 72 mm[Hg] Angelina Roslyn DO Work Phone: [facility] 12-22-2023 09:36-0400 Systolic blood pressure 110 mm[Hg] Angelina Roslyn DO Work Phone: [facility] 07-19-2022 11:30-0400 Body height 167.64 cm Ne Henderson Other [employer] Other 07-19-2022 11:30-0400 Body mass index (BMI) [Ratio] 34.7 kg/m2 Ne Henderson Other [employer] Other 07-19-2022 11:30-0400 Body temperature 101 [degF] Ne Henderson Other [employer] Other 07-19-2022 11:30-0400 Body weight 97.52 kg Ne Henderson Other [employer] Other 07-19-2022 11:30-0400 Diastolic blood pressure 76 mm[Hg] Ne Henderson Other [employer] Other 07-19-2022 11:30-0400 Respiratory rate 18 /min Ne Henderson Other [employer] Other 07-19-2022 11:30-0400 SaO2% (BldA) [Mass fraction] 97 % Ne Henderson Other [employer] Other 07-19-2022 11:30-0400 Systolic blood pressure 113 mm[Hg] Ne Henderson Other [employer] Other 04-20-2022 10:50-0500 Body height 167.64 cm Anya Diane Other [employer] Other 04-20-2022 10:50-0500 Body mass index (BMI) [Ratio] 34.7 kg/m2 Anya Diane Other [employer] Other 04-20-2022 10:50-0500 Body temperature 98.6 [degF] Anya Contreras Other [employer] Other 04-20-2022 10:50-0500 Body weight 97.52 kg Anya Diane Other [employer] Other 04-20-2022 10:50-0500 Respiratory rate 18 /min Anyaviri Contreras Other [employer] Other 04-20-2022 10:500500 SaO2% (BldA) [Mass fraction] 98 % Anya Contreras Other [employer] Other Encounters Encounter Date Encounter Type Care Provider Facility Start: 02-23-2024 End: 02-23-2024 Bamboo flowsheet Angelina Roslyn DO Work Phone: [facility] Start: 02-23-2024 End: 02-23-2024 Bamboo flowsheet Angelina Roslyn DO Work Phone: [facility] Start: 02-23-2024 End: 02-23-2024 flow sheet Angelina Roslyn DO Work Phone: [facility] Comment on above: Third trimester preg sharee; 30 weeks gestation of ; Yeast infection; Diabetes mellitus screening; size inconsistent with dates Start: 02-23-2024 End: 02-23-2024 ambulatory ANGELINA ROSLYN Not Available Start: 01-31-2024 End: 02-01-2024 ambulatory [facility] Start: 01-20-2024 End: 01-22-2024 Clinisync Result Encounter Generic External Data Provider [facility] External [facility] Unsolicited Start: 01-20-2024 End: 01-22-2024 Clinisync Result Encounter Generic External Data Provider [facility] External [facility] Unsolicited Start: 01-19-2024 End: 01-19-2024 Bamboo flowsheet Ana Luisa ROY Work Phone: [facility] Start: 01-19-2024 End: 01-27-2024 Bamboo flowsheet Ana Luisa ROY Work Phone: [facility] Start: 01-19-2024 End: 01-27-2024 Clinisync Result Encounter Generic External Data Provider [facility] External [facility] Unsolicited Start: 01-19-2024 End: 01-20-2024 External Result Encounter Ana Luisa ROY Work Phone: [facility] Unsolicited Start: 01-19-2024 End: 01-19-2024 Patient encounter procedure Ana Luisa ROY Work Phone: [facility] Work Phone: Start: 01-19-2024 End: 01-19-2024 Periodic preventive med est patient 18-39 yrs Ana Luisa ROY Work Phone: [facility] Comment on above: Well woman exam with routine gynecological exam; Second trimester ; Vaginal discharge; STD exposure; 25 weeks gestation of Start: 01-19-2024 End: 01-19-2024 ambulatory ANA LUISA MOURA Not Available Start: 01-07-2024 End: 01-07-2024 ambulatory [facility] Facility:[facility] Start: 12-30-2023 End: 12-30-2023 ambulatory [facility] Facility:[facility] Start: 12-22-2023 End: 12-22-2023 Bamboo flowsheet Angelina Roslyn DO Work Phone: [facility] Start: 12-22-2023 End: 12-22-2023 Bamboo flowsheet Angelina Roslyn DO Work Phone: [facility] Start: 12-22-2023 End: 12-22-2023 flow sheet Angelina Roslyn DO Work Phone: [facility] Comment on above: Second trimester pre gnancy; 21 weeks gestation of ; Need for maternal serum alpha-protein (MSAFP) screening Start: 12-22-2023 End: 12-22-2023 ambulatory ANGELINA ROSLYN Not Available Start: 12-10-2023 End: 12-10-2023 ambulatory ANA LUISA MOURA Not Available Start: 09-02-2023 End: 09-02-2023 [facility] Start: 07-16-2023 End: 07-16-2023 ambulatory ANA LUISA MOURA Not Available Start: 06-01-2023 End: 06-01-2023 ambulatory ANGELINA ROSLYN Not Available Start: 05-25-2023 End: 05-25-2023 ambulatory ANGELINA ROSLYN Not Available Start: 05-18-2023 End: 05-18-2023 ambulatory ANA LUISA MOURA Not Available Start: 05-04-2023 End: 05-04-2023 ambulatory ANGELINA ROSLYN Not Available Start: 04-20-2023 End: 04-20-2023 ambulatory ANA LUISA MOURA Not Available Start: 04-11-2023 End: 04-11-2023 ambulatory MARVEL Villaseñor ANAHI [facility] Start: 04-06-2023 End: 04-06-2023 ambulatory ANGELINA ROSLYN Not Available Start: 03-19-2023 End: 03-19-2023 ambulatory ANA LUISA ZENY Not Available Start: 03-05-2023 End: 03-05-2023 ambulatory ANA LUISA ZENY Not Available Start: 07-19-2022 End: 07-19-2022 ambulatory Ne Henderson Other [employer] Other Start: 07-19-2022 Office outpatient vi sit 25 minutes Ne Henderson [facility] Start: 05-19-2022 End: 05-19-2022 ambulatory ANA LUISA ZENY . Facility: Start: 04-20-2022 End: 04-20-2022 ambulatory Anya Contreras Other [employer] Other Start: 04-20-2022 Office outpatient vi sit 25 minutes Anya Contreras [facility] Procedures Date Procedure Procedure Detail Performing Clinician Start: 02-23-2024 Urnls dip stick/tabl et rgnt non-auto w/o micrscp Angelina Roslyn DO Work Phone: Start: 01-20-2024 Bacteria identified in Urine by Culture Generic External Data Provider Start: 01-19-2024 IGP,APTIMA HPV,AGE GDLN Ana Luisa ROY Work Phone: Start: 01-19-2024 Urnls dip stick/tabl et rgnt non-auto w/o micrscp Ana Luisa ROY Work Phone: Start: 01-19-2024 URETHRITIS/DISCHARGE PLUS VAGINITIS (HTRX) Ana Luisa ROY Work Phone: Start: 12-22-2023 Urnls dip stick/tabl et rgnt non-auto w/o micrscp Angelina Mcgowan DO Work Phone: Plan of Treatment Date Care Activity Detail Author Start: 03-08-2024 End: 03-08-2024 Patient encounter procedure 03/08/2024 2:20 PM EST Routine [facility] [address] [facility] [place] [address] Ana Luisa Moura PA [address] [facility] [address] [place] [address] [facility] Start: 03-08-2024 End: 03-08-2024 Professional / ancillary services management 03/08/2024 1:30 PM EST Ancillary Procedure [facility] [address] [facility] [place] [address] [facility] Start: 02-23-2024 End: 02-22-2025 CBC panel - Blood by Automated count CBC Lab Routine Diabetes mellitus screening Expected: 02/23/2024 (Approximate), Expires: 02/22/2025 [facility] Comment on above: Expected: 02/23/2024 (Approximate), Expires: 02/22/2025 Start: 02-23-2024 End: 02-22-2025 Measurement of glucose 1 hour after glucose challenge for glucose tolerance test Glucose tolerance, 1 hour Lab Routine Diabetes mellitus screening Expected: 02/23/2024 (Approximate), Expires: 02/22/2025 [facility] Comment on above: Expected: 02/23/2024 (Approximate), Expires: 02/22/2025 Start: 02-23-2024 End: 02-22-2025 US for US OB SCAN FOR GROWTH Imaging Routine size inconsistent with dates Expected: 02/23/2024 (Approximate), Expires: 02/22/2025 [facility] Work Phone: Comment on above: Expected: 02/23/2024 (Approximate), Expires: 02/22/2025 Start: 02-23-2024 End: 02-23-2024 Patient encounter procedure 02/23/2024 1:40 PM EST Routine [facility] [address] [place] [address] Angelina Mcgowan, DO [address] [place] [address] Arrived [facility] Comment on above: Arrived Start: 02-16-2024 End: 02-16-2024 Patient encounter procedure 02/16/2024 1:50 PM EST Routine [facility] [address] [place] [address] Angelina Mcgowan, DO [address] [place] [address] [facility] Start: 01-19-2024 End: 01-19-2024 Patient encounter procedure [facility] Comment on above: Arrived Start: 12-22-2023 End: 12-22-2023 Patient encounter procedure 12/22/2023 9:00 AM EDT Routine [facility] [address] [facility] [place] [address] Angelina Mcgowan, DO [address] [place] [address] Arrived [facility] Comment on above: Arrived CHLAMYDIA TRACHOMATI S (GENITO/STI) CHLAMYDIA TRACHOMATIS (GENITO/STI) Lab Routine STD exposure Ordered: 01/19/2024 [facility] Comment on above: Ordered: 01/19/2024 Cytology Cervical or vaginal smear or scraping study Pap Smear Pathology and Cytology Routine Well woman exam with routine gynecological exam Ordered: 01/19/2024 [facility] Comment on above: Ordered: 01/19/2024 Neisseria gonorrhoea e DNA [Presence] in Unspecified specimen by [facility] with probe detection Neisseria gonorrhea DNA probe, direct Lab Routine STD exposure Ordered: 01/19/2024 [facility] Comment on above: Ordered: 01/19/2024 SURESWAB(R) ADVANCED VAGINITIS PLUS, TMA SURESWAB(R) ADVANCED VAGINITIS PLUS, TMA Pathology and Cytology Routine Vaginal discharge Ordered: 01/19/2024 [facility] [employer] Work Phone: Comment on above: Ordered: 01/19/2024 Payers Date Payer Category Payer Unknown [id number] 2019 Private Health Insurance [id number] 2002 Unknown [id number] 2.16.84 [id number] 2002 Unknown [id number] 2.16.8 40.1.676544.3.579.2.1286 2002 Unknown [id number] 2.16.84 0.1.354835.3.579.2.1286 2002 Unknown [id number] 2.16.84 0.1.411168.3.579.2.1259 2002 Unknown [id number] 2.16.84 0.1.346690.3.579.2.1259 2002 Unknown [id number] 2.16.84 0.1.247401.3.579.2.1259 2002 Unknown [id number] 2.16.84 0.1.354126.3.579.2.1259 2002 Unknown [id number] 2.16.84 0.1.973669.3.579.2.1259 2002 Unknown [id number] 2.16.84 0.1.215822.3.579.2.1259 2002 Unknown [id number] 2.16.84 0.1.189450.3.579.2.1259 2002 Unknown [id number] 2.16.84 0.1.626000.3.579.2.1259 2002 Unknown [id number] 2.16.84 0.1.556615.3.579.2.1259 2002 Unknown [id number] 2.16.84 0.1.758455.3.579.2.1259 2002 Unknown [id number] 2.16.84 0.1.552842.3.579.2.1259 2002 Unknown [id number] 2.16.840 .1.026546.3.579.2.1259 2002 Unknown [id number] 2.16.840 .1.595501.3.579.2.1259 1959 Unknown [id number] Social History Date Type Detail Facility Unknown if ever smoked [facility] [employer] Other Sex Assigned At [facility] [employer] Other Tobacco smoking status PRIS Tobacco smoking consumption unknown [facility] Start: 08-11-2023 [facility] Start: 2000 Sex assigned at Not on file N [facility] Clinical Notes 04-20-2022 to 02-23-2024 Zhane Amador LPN - 02/23/2024 1:40 PM Lizzy Mcdonnell LPN - 02/23/2024 1:40 PM MANUELA Zayas - 01/19/2024 1:30 PM Milagros Mcdonnell LPN - 12/22/2023 9:00 AM EDT Note Date & Type Note Facility 02-23-2024 History of Presen t illness Narrative Reason [...] Respiratory: Negative. Cardiovascular: Negative. Gastrointestinal: Negative. Genitourinary: Positive for vaginal discharge. Musculoskeletal: Negative. Skin: Negative. Neurological: Negative. All [...] nursing note reviewed. Exam conducted with a customer resource specialist present. Vitals: Estimated body mass index is 35.37 kg/m as calculated from the following: Height as of 05/19/22: 5' 7 . Weight as of this encounter: 225 lb 12.8 oz. BP: 118/72 Patient's last menstrual period was 08/05/2023. ASSESSMENT & PLAN ICD-10-CM 1. Third trimester Z34.93 POCT urinalysis dipstick manually resulted 2. 30 weeks gestation of Z3A.30 POCT urinalysis dipstick manually resulted Return OB: Patient presents today for a routine obstetrics appointment. Patient is currently 30w0d . Patient states she is doing well but has complaints of being tired due to current . Patient has verbalizes frequent movement. labor precautions was discussed/given and patient was instructed to perform kick counts three times a day. Pt given glucola and cbc order to have obtained. Pt given growth to have obtained next visit. Orders Placed This Encounter Procedures US OB SCAN FOR GROWTH CBC Glucose tolerance, 1 hour POCT urinalysis dipstick manually resulted Follow Up: Patient is to return to office in 2 week for routine OB appointment. Documented by Chelsea Mcdonnell LPN on behalf of: Angelina Mcgowan DO documented in this encounter [facility] 01-19-2024 History of Presen t illness Narrative [...] nursing note reviewed. Exam conducted with a customer resource specialist present. Vitals: Estimated body mass index is [...] of: MANUELA Foy documented in this encounter [facility] 12-22-2023 History of Presen t illness Narrative [...] nursing note reviewed. Exam conducted with a customer resource specialist present. Vitals: Estimated body mass index is [...] Angelina Mcgowan DO documented in this encounter [facility] 09-03-2023 Note [id number] 09-02-2023 Note Patient Education Ma terials Follows:and Gynecology Care care is health care during . It helps you and your unborn baby (fetus) stay as healthy as possible. care may be provided by a rn support services, a family practice doctor, a mid-level practitioner (nurse practitioner or physician assistant associate professor), or a childbirth and doctor (spinner hand). How does this affect me? During , [...] procedures you have had. ? Any current ieox-tkv-voazjda or prescription medicines, herbs, or supplements that [...] of (more content not included)... [facility] 07-19-2022 Evaluation note Encounter Date Diagnosis Assessment [...] treatment plan. Patient left in stable condition. [employer] Other 04-29-2023 History general Narrative - Reported* Type Description Date Medical History ADD Medical History Born with cleft palette Surgical History tonsillectomy and adenoidectomy Surgical History cleft palette 3-4 repair Hospitalization History see above nadiya [employer] Other 03-05-2023 History general Narrative - Reported* Type Description Date Medical History ADD Medical History Born with cleft palette Surgical History tonsillectomy and adenoidectomy Surgical History cleft palette 3-4 repair Hospitalization History see above nadiya [employer] Other 01-29-2023 Evaluation note* Encounter Date Diagnosis Assessment Notes Treatment Notes Treatment Clinical Notes Mar, Left acute otitis media (ICD-10 [...] this time you do not have COVID. [employer] Other Evaluation note* Diagnosis Second trimester state, incidental 21 weeks gestation of Need for maternal serum alpha-protein (MSAFP) screening [facility] Diagnosis Well woman exam with routine gynecological exam Routine gynecological examination Second trimester state, incidental Vaginal discharge Leukorrhea, not specified as infective STD exposure 25 weeks gestation of [facility] Diagnosis Third trimester state, incidental 30 weeks gestation of Yeast infection Diabetes mellitus screening Screening for diabetes mellitus size inconsistent with dates documented in this encounter [facility] Summary [...] and content) DATE CREATED AUTHOR 05/23/2022 [facility] DATE CREATED AUTHOR AUTHOR'S ORGANIZ ATION 09/03/2023 [facility] DATE CREATED AUTHOR AUTHOR'S ORGANIZ ATION 01/09/2024 [facility] DATE CREATED AUTHOR AUTHOR'S ORGANIZ ATION 02/01/2024 [facility] DATE CREATED AUTHOR AUTHOR'S ORGANIZ ATION 02/25/2024 [facility] EPIC REASON FOR VISIT (unrecogniz ed [...] BE BASED ON THE PRIMARY CLINICAL RECORDS. [employer] provides no warranty or guarantee of the accuracy or completeness of information in this document.
== END 2024-03-08 13:39 | disposition home or self-care (01) ==
LOC: NOMS 13:40
PROVIDERS: PCP Nurse Practitioner; Visit Provider Obstetrics & Gynecology
DX: O26.843 Uterine size-date discrepancy, third trimester (principal); Z3A.32 32 weeks gestation of pregnancy
CPT/HCPCS: 76816

== ENCOUNTER 2024-03-11 10:28 | Outpatient (OUT) | payer OTHER, SELFPAY ==
--- OUTSIDE RECORDS SUMMARY | 2024-03-11 10:39 | XMS_ITS | CCD ---
Author Organization [facility] Inform ion [facility] Care Team Providers Care Afternoon Nanny Name Role Phone ZENY ., ANA LUISA [...] Drug Class(es) Dates Sig (Normalized) Sig (Original) [id number] 200 actuat albuterol 0.09 mg/actuat metered dose [...] oral solution (1 source) alpha-Adrenergic Agonist, Uncompetitive L-fbfzbg-Y-asparta te Receptor Antagonist, Sigma-1 Agonist Start: 3 take 10 mL by mouth every six hours Ujxhvbugr-Chvwvbzx-MF 30-2-10 MG/5ML 10 mL Orally every 6 [...] 01/27/2024 Active MV-Min-Fe Fum-FA-DHA ( 1 PO) (17 sources) MV-Min- Fe Fum-FA-DHA ( 1 PO) Take by mouth Active Completed/Discontinued Medications Medication Drug Class(es) Dates Sig (Normalized) Sig (Original) amoxicillin 500 mg / clavulanate 125 mg oral tablet (14 sources) Penicillin-class Antibacterial Start: 12-19-2023 End: 03-08-2024 take 1 tablet by mouth twice daily at mealtime amoxicillin-clavula geovanny (Augmentin) 500-125 MG tablet TAKE 1 TABLET BY MOUTH TWICE DAILY WITH FOOD FOR 7 DAYS 12/19/2023 03/08/2024 Discontinued (Therapy completed) desogestrel 0.15 mg / ethinyl estradiol 0.03 mg oral tablet (1 source) Progestin, Estrogen Start: 07-16-2023 End: 12-10-2023 desogestrel-ethinyl estradiol (Apri) 0.15-30 MG-MCG tablet Indications: 6 weeks follow-up Take 1 tablet by mouth Daily 28 tablet 12 07/16/2023 12/10/2023 Discontinued folic acid 1 mg oral tablet (1 source) End: 12-10-2023 take 1 tablet by mouth in the morning folic acid (Folvite) 1 MG tablet Take 1 mg by mouth in the morning. 12/10/2023 Discontinued folic acid / vitamin B12 / vitamin B6 (1 source) Vitamin B12 Start: 03-27-2023 End: 12-10-2023 K-Ysagiomtflis-Z4-B 12 (Folbic RF) 1.13-25-2 MG tablet Take 1 tablet by mouth in the morning. 03/27/2023 12/10/2023 Discontinued loratadine 10 mg oral tablet (1 source) End: 12-10-2023 take 1 tablet by mouth in the morning loratadine (Claritin) 10 MG tablet Take 10 mg by mouth in the morning. 12/10/2023 Discontinued ondansetron 4 mg disintegrating oral tablet (1 source) Serotonin-3 Receptor Antagonist Start: 03-31-2023 End: 12-10-2023 ondansetron ODT (Zofran-ODT) 4 MG disintegrating tablet DISSOLVE 1 TABLET ON THE TONGUE FOUR TIMES DAILY NEEDED 03/31/2023 12/10/2023 Discontinued terconazole 4 mg/ml vaginal cream (4 sources) Azole Antifungal Start: 02-23-2024 End: 03-08-2024 terconazole (Terazol 7) 0.4 % vaginal cream Indications: Yeast infection Insert 1 applicator into the vagina at bedtime for 7 days 45 g 02/23/2024 03/08/2024 Discontinued (Therapy completed) Problems Problem Classification Problem Date Documented Da [...] source) Unspecified acute conjunctivitis, left eye Episodic Menstrual disorders (1 source) Missed period; Translations: [Irregular menstruation, unspecified] 12-10-2023 Chronic Mycoses (2 sources) Mycosis; Translations: [Candidiasis, 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 Other and delivery including normal (11 sources) Second trimester ; Translations: [Encounter for supervision of normal , unspecified, second trimester] 12-22-2023 Episodic Other screening for suspected conditions (not mental disorders or infectious disease) (5 sources) Alpha-fetoprotein blood test status; Translations: [Encounter [...] [30 weeks gestation of ] 02-23-2024 Episodic Residual codes; unclassified (2 sources) Gestation period, 32 weeks; Translations: [32 weeks gestation of ] 03-08-2024 Episodic Unclassified (1 source) Decreased Movement Onset: Results Test Name Value Interpretation Reference Range Facility Urinalysis macro (dipstick) panel (U)on 03-08-2024 Bilirubin, UA Negative Negative - 4(70) +++ mg/dL [facility] Blood, UA Negative Negative - 50 Jimmy/mcL [facility] Healthcare Clarity, UA Clear [facility] Color, UA Yellow [facility] Glucose, UA Negative Negative - 1999(110) ++++ mg/dL [facility] Interpretation and review of laboratory results Abnormal [facility] re Ketones, UA Negative Negative - 160(16) ++++ mg/dL [facility] Leukocytes, UA Trace Negative - 500+++ Minnie/mcL [facility] Nitrite, UA Negative Negative - Positive [facility] pH, UA 6.5 5 - 9 [facility] Healthcar e Protein, UA Negative Negative - 1999(20) ++++ mg/dL [facility] Spec Grav, UA 1.025 1 - 1.03 [facility] Urobilinogen, UA 0.2 0.2 - 12 mg/dL [facility] Urinalysis macro (dipstick) panel (U)on 02-23-2024 Bilirubin, UA Negative Negative - 4(70) +++ mg/dL [facility] Blood, UA Negative Negative - 50 Jimmy/mcL [facility] Healthcare Clarity, UA Clear [facility] Color, UA Yellow [facility]car e Glucose, UA Negative Negative - 1999(110) ++++ mg/dL [facility] Interpretation and review of laboratory results Abnormal [facility] Healthca re Ketones, UA Negative Negative - 160(16) ++++ mg/dL [facility] Leukocytes, UA Trace Negative - 500+++ Minnie/mcL [facility] Nitrite, UA Negative Negative - Positive [facility] pH, UA 6.5 5 - 9 [facility] Healthcar e Protein, UA Negative Negative - 1999(20) ++++ mg/dL [facility] Healthcare Spec Grav, UA 1.02 1 - 1.03 [facility] care Urobilinogen, UA 1.0 0.2 - 12 mg/dL [facility] e CBC AND AUTO DIFFon 02-01-20 24 ABSOLUTE BASOPHIL 0.0 X10E9/L Normal 0.0-0.2 [facility] Comment on above: Performed By: #### C ELISA CMP, 2-0, 3083-1 #### [facility] ([id number]) [address] [place] [address] 19165 ABSOLUTE NEUTROPHIL 10.5 X10E9/L High 1.5-6.6 [facility] Comment on above: Performed By: #### C ELISA CMP, 2531-0, 3083-1 #### [facility] ([id number]) [address] [place] [address] 35246 Basophils/100 WBC (Bld) 0.4 % Normal [facility] Comment on above: Performed By: #### C ELISA, CMP, 0, 3083-03 #### [facility] ([id number]) [address] [place] [address] 47399 Eosinophils (Bld) [#/Vol] 0.1 10*3/uL Normal 0.0-0.4 [facility] Comment on above: Performed By: #### Carol PÉREZ, CMP, 0, 3083-03 #### [facility] ([id number]) [address] [place] [address] 55847 Eosinophils/100 WBC (Bld) 0.7 % Normal [facility] Comment on above: Performed By: #### C ELISA, CMP, 0, 3083- #### [facility] ([id number]) [address] [place] [address] 53773 Erythrocyte distribution width (RBC) [Ratio] 14.5 % Normal 11.5-15.0 [facility] Comment on above: Performed By: #### Carol PÉREZ, CMP, 2531-0, 3083-1 #### [facility] ([id number]) [address] [place] [address] 27192 Hematocrit (Bld) [Volume fraction] 29.1 % Low 35-47 [facility] Comment on above: Performed By: #### C ELISA CMP, 2531-0, 3083-03 #### [facility] ([id number]) [address] [place] [address] 79534 Hemoglobin (Bld) [Mass/Vol] 9.6 g/dL Low 11.7-15.5 [facility] Comment on above: Performed By: #### C ELISA CMP, 0, 3083-03 #### [facility] ([id number]) [address] [place] [address] 64889 Lymphocytes (Bld) [#/Vol] 2.2 10*3/uL Normal 1.0-3.5 [facility] Comment on above: Performed By: #### C ELISA, CMP, 0, 3083-03 #### [facility] ([id number]) [address] [place] [address] 34930 Lymphocytes/100 WBC (Bld) 16.6 % Normal [facility] Comment on above: Performed By: #### Carol PÉREZ CMP, 0, 3083-03 #### [facility] ([id number]) [address] [place] [address] 80858 MCH (RBC) [Entitic mass] 25.7 pg Low 27-34 [facility] Comment on above: Performed By: #### C ELISA, CMP, 0, 3083-03 #### [facility] ([id number]) [address] [place] [address] 42112 MCHC (RBC) [Mass/Vol] 32.9 g/dL Normal 32-36 [facility] Comment on above: Performed By: #### Carol PÉREZ CMP, 0, 3083-03 #### [facility] ([id number]) [address] [place] [address] 50862 MCV (RBC) [Entitic vol] 78 fL Low 80-100 [facility] Comment on above: Performed By: #### Carol PÉREZ CMP, 2532-0, 3083-03 #### [facility] ([id number]) [address] [place] [address] 92289 Monocytes (Bld) [#/Vol] 0.5 10*3/uL Normal 0-0.9 [facility] Comment on above: Performed By: #### Carol PÉREZ CMP, 2531-0, 3083-03 #### [facility] ([id number]) [address] [place] [address] 46491 Monocytes/100 WBC (Bld) 3.7 % Normal [facility] Comment on above: Performed By: #### Carol PÉREZ CMP, 0, 3083-03 #### [facility] ([id number]) [address] [place] [address] 47404 Neutrophils/100 WBC (Bld) 78.6 % Normal [facility] Comment on above: Performed By: #### Carol PÉREZ CMP, 253-0, 3083-03 #### [facility] ([id number]) [address] [place] [address] 88214 Platelet mean volume (Bld) [Entitic vol] 7.6 fL Normal 7-12 [facility] Comment on above: Performed By: #### C ELISA CMP, 2532-0, 3083-03 #### [facility] ([id number]) [address] [place] [address] 69909 Platelets (Bld) [#/Vol] 315 10*3/uL Normal 150-450 [facility] Comment on above: Performed By: #### Carol PÉREZ CMP, 253-0, 3083- #### [facility] ([id number]) [address] [place] [address] 75620 RBC COUNT 3.73 X10E12/L Low 3.80-5.20 [facility] Comment on above: Performed By: #### C BCA, CMP, 2532-0, 3083-1 #### [facility] ([id number]) [address] [place] [address] 66767 WBC (Bld) [#/Vol] 13.4 10*3/uL High 4.0-11.[address] [facility] Comment on above: Performed By: #### C BCA, CMP, 2531-0, 3083- #### [facility] ([id number]) [address] [place] [address] 54446 COMPREHENSIVE METABOLIC PANE Wilbur 02-01-2024 Albumin [Mass/Vol] 3.0 g/dL Low 3.2-5.3 [facility] Comment on above: Performed By: #### C BCA, CMP, 2532-0, 3083-1 #### [facility] ([id number]) [address] [place] [address] 89588 ALP [Catalytic activity/Vol] 81 U/L Normal 39-130 [facility] Comment on above: Performed By: #### C BCA, CMP, 2531-0, 3083- #### [facility] ([id number]) [address] [place] [address] 77289 ALT [Catalytic activity/Vol] 15 U/L Normal 0-31 [facility] Comment on above: Performed By: #### C BCA, CMP, 2532-0, 3083- #### [facility] ([id number]) [address] [place] [address] 87122 Anion gap [Moles/Vol] 11 mmol/L Normal 5-15 [facility] Comment on above: Performed By: #### C BCA, CMP, 2532-0, 3083-03 #### [facility] ([id number]) [address] [place] [address] [place] [address] AST [Catalytic activity/Vol] 12 U/L Normal 0-41 [facility] Comment on above: Performed By: #### C BCA, CMP, 2532-0, 4-1 #### [facility] ([id number]) [address] [place] [address] 16115 Bilirubin [Mass/Vol] 0.3 mg/dL Normal 0.3-1.2 [facility] Comment on above: Performed By: #### C BCA, CMP, 0, 3083-03 #### [facility] ([id number]) [address] [place] [address] 15194 Calcium [Mass/Vol] 8.7 mg/dL Normal 8.5-10.5 [facility] Comment on above: Performed By: #### C BCA, CMP, 0, 3083-03 #### [facility] ([id number]) [address] [place] [address] 14623 Chloride [Moles/Vol] 105 mmol/L Normal 98-109 [facility] Comment on above: Performed By: #### C BCA, CMP, 0, 3083- #### [facility] ([id number]) [address] [place] [address] [place] [address] CO2 [Moles/Vol] 19 mmol/L Low 22-32 [facility] Comment on above: Performed By: #### C BCA, CMP, 2-0, 3084-1 #### [facility] ([id number]) [address] [place] [address] 19927 Creatinine [Mass/Vol] 0.38 mg/dL Low 0.40-1.00 [facility] Comment on above: Result Comment: METH OD TRACEABLE TO IDMS STANDARD Performed By: #### C BCA, CMP, 2532-0, 3083-03 #### [facility] ([id number]) [address] [place] [address] 17806 eGFR (CKD-EPI) NON-RACE DEPENDENT >90 Normal >59 [facility] Comment on above: Result Comment: Reported eGFR is based on the CKD-EPI 2020 equation that does not use a race coefficient. Performed By: #### C HUDSON PÉREZ, 0, 3083-03 #### [facility] ([id number]) [address] [place] [address] 39499 Glucose [Mass/Vol] 93 mg/dL Normal 65-99 [facility] Comment on above: Performed By: #### C HUDSON PÉREZ, 0, 3083-03 #### [facility] ([id number]) [address] [place] [address] 72781 Potassium [Moles/Vol] 3.5 mmol/L Normal 3.5-5.0 [facility] Comment on above: Performed By: #### C HUDSON PÉREZ, 0, 3083-03 #### [facility] ([id number]) [address] [place] [address] 17083 Protein [Mass/Vol] 6.7 g/dL Normal 6.0-8.0 [facility] Comment on above: Performed By: #### C HUDSON PÉREZ, 0, 3083-03 #### [facility] ([id number]) [address] [place] [address] 15162 Sodium [Moles/Vol] 135 mmol/L Normal 134-146 [facility] Comment on above: Performed By: #### C HUDSON PÉREZ, 0, 3083-03 #### [facility] ([id number]) [address] [place] [address] 01619 Urea nitrogen [Mass/Vol] 8 mg/dL Normal 5-23 [facility] Comment on above: Performed By: #### C BCA, CMP, 2532-0, 3084-1 #### [facility] ([id number]) [address] [place] [address] 33183 LDH [Catalytic activity/Vol] on 02-01-2024 LDH 107 U/L Normal 100-235 [facility] Comment on above: Performed By: #### C BCA, CMP, 2532-0, 3084-1 #### [facility] ([id number]) [address] [place] [address] 00969 URIC ACIDon 02-01-2024 Urate [Mass/Vol] 4.9 mg/dL Normal 2.6-7.2 [facility] Comment on above: Performed By: #### C BCA, CMP, 2532-0, 3084-1 #### [facility] ([id number]) [address] [place] [address] 57982 PROTEIN CREAT RATIOon 2023 RANDOM URINE PROTEIN 190 mg/L High <120 [facility] Comment on above: Performed By: #### U PCR #### [facility] ([id number]) [address] [place] [address] 16558 U/PRO/STUDENT ADVISOR RATIO CALC 0.11 Normal <0.2 [facility] Comment on above: Result Comment: Neph rotic Syndrome is associated with ratios >3.5 Performed By: #### U PCR #### [facility] ([id number]) [address] [place] [address] 83739 URINE CREATININE,RDM 177.57 mg/dL Normal [facility] Comment on above: Performed By: #### U PCR #### [facility] ([id number]) [address] [place] [address] 75090 URINALYSISon 01-31-2024 Bilirubin Ql (U) Negative Normal NEG [facility] Comment on above: Performed By: #### U A #### [facility] ([id number]) [address] [place] [address], [place] [address] BLOOD/HGB Negative Normal NEG [facility] Comment on above: Performed By: #### U A #### [facility] ([id number]) [address] [place] [address] [place] [address] Color (U) YELLOW Normal YELLOW [facility] Comment on above: Performed By: #### U A #### [facility] ([id number]) [address] [place] [address], [place] [address] Glucose Ql (U) Negative Normal NEG [facility] Comment on above: Performed By: #### U A #### [facility] ([id number]) [address] [place] [address] [place] [address] Ketones Ql (U) Trace Abnormal NEG [facility] Comment on above: Performed By: #### U A #### [facility] ([id number]) [address] [place] [address] [place] [address] Leukocyte esterase Test strip Ql (U) Trace Abnormal NEG [facility] Comment on above: Performed By: #### U A #### [facility] ([id number]) [address] [place] [address], [place] [address] Nitrite Ql (U) Negative Normal NEG [facility] Comment on above: Performed By: #### U A #### [facility] ([id number]) [address] [place] [address], [place] [address] pH (U) 6.0 [pH] Normal 5.0-8.5 [facility] Comment on above: Performed By: #### U A #### [facility] ([id number]) [address] [place] [address], [place] [address] Protein Ql (U) Negative Normal NEG [facility] Comment on above: Performed By: #### U A #### [facility] ([id number]) [address] [place] [address] 74379 R.B.CELLS 0 /hpf Normal 0-5 [facility] Comment on above: Performed By: #### U A #### [facility] ([id number]) [address] [place] [address] 75949 Specific gravity (U) [Rel density] >1.030 Normal 1.003-1.035 [facility] Comment on above: Performed By: #### U A #### [facility] ([id number]) [address] [place] [address] 76366 SQUAMOUS EPITHELIUM 6 /hpf High 0-[address] [facility] Comment on above: Performed By: #### U A #### [facility] ([id number]) [address] [place] [address] 36152 TURBIDITY CLEAR Normal CLEAR [facility] Comment on above: Performed By: #### U A #### [facility] ([id number]) [address] [place] [address] 28330 Urobilinogen Qn (U) 0.2 {Marce'U}/dL Normal <1.1 [facility] Comment on above: Performed By: #### U A #### [facility] ([id number]) [address] [place] [address] 34172 W.B.CELLS 4 /hpf Normal 0-5 [facility] Comment on above: Performed By: #### U A #### [facility] ([id number]) [address] [place] [address] 39143 IGP,APTIMA HPV,AGE GDLNon AGE GDLN ACOG TESTING Note . [facility] Comment on above: TESTS RESULT FLAG UN ITS REF RANGE LAB Clinician Provided Cytology Information Source.............Cervix Other.............. No. of containers..01 ThinPrep Vial Age Bryce MACEDO Velia... FLAG LEGEND: L-Low Normal,H-High Normal,LL-Alert Low,HH-Alert High <-Panic Low,>-Panic High,A-Abnormal,AA-Critical Abnormal Performed at: 01 =[facility] [address] [place] [address] Dodie Felix MD, IGP, RFX APTIMA HPV ASCU Note . [facility] Comment on above: TESTS RESULT FLAG UN ITS REF RANGE LAB DIAGNOSIS: 02 NEGATIVE FOR INTRAEPITHELIAL LESION OR MALIGNANCY. FUNGAL ORGANISMS MORPHOLOGICALLY CONSISTENT WITH SHILOH SPECIES ARE PRESENT. Specimen adequacy: 02 Satisfactory for evaluation. No endocervical component is identified. Performed by: [employer] ([facility]) . 02 Note: Note 02 [...] <-Panic Low,>-Panic High,A-Abnormal,AA-Critical Abnormal Performed at: [address] [address] Dodie Felix MD, Performed at: =[address] [id number] Market Gardener: Dodie Felix MD, Phone: [phone] Performed at: [address] [id number] Market Gardener: Dodie Felix MD, Phone: [phone] [facility] URINE CULTURE, ROUTINEon Bacteria identified Cx Nom (U) Urine Culture, Routine [facility] Bacteria identified Cx Nom (U) Mixed urogenital seven [facility] Bacteria identified Cx Nom (U) 25,000-50,000 colony forming units per mL [facility] Bacteria identified Cx Nom (U) Performed at: [facility] Bacteria identified Cx Nom (U) [address], [place] [id number] [facility] Bacteria identified Cx Nom (U) Market Gardener: Anirudh Avendano PhD, Phone: [phone] [facility] URETHRITIS/DISCHARGE PLUS VA GINITIS (HTRX)on 01-20-2024 ATOPOBIUM VAGINAE 18.808 Abnormal [facility] ATOPOBIUM VAGINAE Detected Abnormal [facility]care BVAB 2,3 (BACTERIAL VAGINOSIS ASSOCIATED BACTERIA 2, 3); MOBILUNCUS SPP 0 [facility] BVAB 2,3 (BACTERIAL VAGINOSIS ASSOCIATED BACTERIA 2, 3); MOBILUNCUS SPP Not detected [facility] SHILOH ALBICANS, PARAPSILOSIS, TROPICALIS 26.752 Abnormal [facility] SHILOH ALBICANS, PARAPSILOSIS, TROPICALIS Detected Abnormal [facility] SHILOH GLABRATA 0 [facility] Hea lthcare SHILOH GLABRATA Not detected [facility] ealthcare SHILOH KRUSEI 0 [facility] Healt hcare SHILOH KRUSEI Not detected [facility] CHLAMYDIA TRACHOMATIS 0 [facility] CHLAMYDIA TRACHOMATIS Not detected [facility] ERMB, C; MEFA 17.114 Abnormal [facility] care ERMB, C; MEFA Detected Abnormal [facility] care GARDNERELLA VAGINALIS 22.039 Abnormal [facility] GARDNERELLA VAGINALIS Detected Abnormal [facility] Interpretation and review of laboratory results Abnormal [facility] re MEGASPHAERA (TYPES 1, 2) 0 [facility] MEGASPHAERA (TYPES 1, 2) Not detected [facility] MYCOPLASMA GENITALIUM 0 [facility] MYCOPLASMA GENITALIUM Not detected [facility] NEISSERIA GONORRHOEAE 0 [facility] NEISSERIA GONORRHOEAE Not detected [facility] TET B, TET M 17.484 Abnormal [facility] TET B, TET M Detected Abnormal [facility] TRICHOMONAS VAGINALIS 0 [facility] TRICHOMONAS VAGINALIS Not detected [facility] Urinalysis macro (dipstick) panel (U)on 01-19-2024 Bilirubin, UA Negative Negative - 4(70) +++ mg/dL [facility] Blood, UA Negative Negative - 50 Jimmy/mcL [facility] Clarity, UA Clear [facility] Healthca re Color, UA Light Yellow [facility] Glucose, UA Negative Negative - 2000(110) ++++ mg/dL [facility] Interpretation and review of laboratory results Abnormal [facility] Healthca re Ketones, UA Negative Negative - 160(16) ++++ mg/dL [facility] Leukocytes, UA Negative Negative - 500+++ Minnie/mcL [facility] Nitrite, UA Negative Negative - Positive [facility] pH, UA 6.5 5 - 9 [facility] Healthcar e Protein, UA Positive Negative - 1999(20) ++++ mg/dL [facility] Spec Grav, UA 1.02 1 - 1.03 [facility] Urobilinogen, UA 1.0 0.2 - 12 mg/dL [facility] Urinalysis macro (dipstick) panel (U)on 12-22-2023 Bilirubin, UA Negative Negative - 4(70) +++ mg/dL [facility] Blood, UA Negative Negative - 50 Jimmy/mcL [facility] Clarity, UA Clear [facility] Healthde re Color, UA Yellow [facility] Health[facility] e Glucose, UA Negative Negative - 1999(110) ++++ mg/dL [facility] Interpretation and review of laboratory results Abnormal [facility] re Ketones, UA Negative Negative - 160(16) ++++ mg/dL [facility] Leukocytes, UA Moderate Negative - 500+++ Minnie/mcL [facility] Nitrite, UA Negative Negative - Positive [facility] pH, UA 6.5 5 - 9 [facility] Healthcar e Protein, UA Negative Negative - 1999(20) ++++ mg/dL [facility] Spec Grav, UA 1.030 1 - 1.03 [facility] Urobilinogen, UA 1.0 0.2 - 12 mg/dL [facility] Health[facility] e ALL CBC WITH AUTO DIFFon BASOPHILS ABSOLUTE AUTO 0.0 [facility] Basophils/100 WBC (Bld) 0.5 % 0.2 - 2.0 % [facility] Eosinophils/100 WBC (Bld) 1.0 % 0.9 - 7.0 % [facility] Erythrocyte distribution width (RBC) [Ratio] 14.7 % 11.0 - 15.0 % [facility] Hematocrit (Bld) [Volume fraction] 34.1 % Low 36.0 - 48.0 % [facility] Healthcar e Hemoglobin (Bld) [Mass/Vol] 10.8 g/dL Low 12.0 - 16.0 g/dL [facility] IMMATURE GRANULOCYTES ABS AUTO 0.02 [facility] Immature granulocytes/100 WBC (Bld) 0.3 % 0.0 - 0.5 % [facility] Interpretation and review of laboratory results Abnormal [facility] Healthca re LYMPHOCYTES ABSOLUTE AUTO 2.2 [facility] Lymphocytes/100 WBC (Bld) 27.3 % 20.5 - 60.0 % [facility] MCH (RBC) [Entitic mass] 26.0 pg Low 26.7 - 34.0 pg [facility] MCHC (RBC) [Mass/Vol] 31.7 g/dL 29.9 - 35.2 g/dL [facility] MCV (RBC) [Entitic vol] 82.0 fL 81.0 - 99.0 fL [facility] MONOCYTES ABSOLUTE AUTO 0.3 [facility] Monocytes/100 WBC (Bld) 4.2 % 1.7 - 12.0 % [facility] NEUTROPHILS ABSOLUTE AUTO 5.3 [facility] Neutrophils/100 WBC (Bld) 66.7 % 43.0 - 75.0 % [facility] Platelet mean volume (Bld) [Entitic vol] 10.2 fL 9.5 - 13.5 fL [facility] TBH EO # 0.1 [facility] e TBH PLT 270 [facility] TB RBC 4.16 Low [facility] TBH WBC 7.9 [facility] CLINISYNC [facility] HCG ( test) Ql (U)o n 12-10-2023 Interpretation and review of laboratory results Abnormal [facility] re Preg Test, Ur Positive [facility] Health[facility] e Urinalysis macro (dipstick) panel (U)on 12-10-2023 Bilirubin, UA Negative Negative - 4(70) +++ mg/dL [facility] Blood, UA Negative Negative - 50 Jimmy/mcL [facility] Clarity, UA Clear [facility] re Color, UA Yellow [facility] e Glucose, UA Negative Negative - 1999(110) ++++ mg/dL [facility] Interpretation and review of laboratory results Abnormal [facility] re Ketones, UA Negative Negative - 160(16) ++++ mg/dL [facility] Leukocytes, UA Positive Negative - 500+++ Minnie/mcL [facility] Comment on above: small Nitrite, UA Negative Negative - Positive [facility] pH, UA 7.5 5 - 9 [facility] e Protein, UA Negative Negative - 1999(20) ++++ mg/dL [facility] Spec Grav, UA 1.015 1 - 1.03 [facility] Urobilinogen, UA 0.2 0.2 - 12 mg/dL [facility] e Consent Formson 09-03-2023 Consent Forms [id number] [facility] Resultson 0 09-03-2023 Lab - Toxicology Results [id number] .[facility] ED Clinical Summaryon 2023 ED Clinical Summary [facility] ? Urgent Care [address] [place] [address] Clinical Summary PERSON INFORMATION Name: FLORINDA ORTEGA Age: 22 Years Sex: MALE : 2000 MRN: Acct#: Visit Reason: Medical screening exam; [facility] Arrival: 09/02/2023 11:09:30 Discharge: 09/02/2023 11:41:00 LOS: 000 00:32 Check In: 09/02/2023 11:09:30 Checkout: 09/02/2023 11:41:00 Address: [facility] [address] PCP: Bina Zamora CNP PROVIDER INFORMATION Provider [...] Trimester of Follow-Up: With: Address: When: Pamela ROSADO, [facility] [address], [place] [address] Business (1) Comments: Rehabilitation Counsellor to 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 Abstain from any alcohol or illicit drugs With: Address: When: Bina Zamora [address] [place] [address] Business (1) , only if needed DIAGNOSIS: Physical exam Patient Understands: Yes - Patient/family/caregi carlos verbalizes understanding of instructions given Comment: Normal [facility] ED Patient Summaryon 024 ED Patient Summary [facility] ? Urgent Care [address] [place] [address] PATIENT DISCHARGE INSTRUCTIONS Patient Information Name: FLORINDA ORTEGA Age: 22 Years Date of : 2000 Reason [facility] Ar[facility] Time: 09/02/2023 11:09:30 Primary Care Physician: Bina Zamora CNP Attending Physician: MIRIAN HERBERT Comment: Patient Education With: Address: When: Pamela Ortiz [address] [facility] [address] [place] [address] Business (1) Comments: Rehabilitation Counsellor to 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 Abstain from any alcohol or illicit drugs With: Address: When: Bina Zamora [address] [place] [address] Business (1) , only if needed Care care is health care during . It helps you and your unborn baby (fetus) stay as healthy as possible. care may be provided by a form maker plaster, a family practice doctor, a mid-level practitioner (nurse practitioner or physician patient services assistant), or a childbirth and doctor (sanitation inspector). How does this affect me? During , [...] procedures you have had. ? Any current gnbo-pxl-pkmavdn or prescription medicines, herbs, or supplements that [...] any s (more content not included)... Normal [facility] Triage Industrialon 09-02-19 24 Drug Screen Complete Collected [facility] Comment on above: Performed By: #### 1 [id number] #### [facility] (DEFAULT) [address] [place] [address] Urgent Care Note- Provideron 09-02-2023 Urgent Care [...] pharynx is pink and moist. NECK: -Supple (lige-iu-ndauk): non-tender. CARD: -Rate and rhythm: Regular -Edema: [...] Plan Assessment and Plan: Diagnosis: Physical exam ([id number] Z00.00). Cleared for employment [Electronically Signed on: 09/02/2023 11:41 EDT] MIRIAN HERBERT [Verified on: 09/02/2023 11:41 EDT] MIRIAN HERBERT Normal [facility] Care [place] 024 Urgent Care Record [facility] ? Urgent Care [address] [place] [address] PATIENT DISCHARGE INSTRUCTIONS Patient Information Name: FLORINDA ORTEGA Age: 22 Years Date of : 2000 Reason For Visit: Medical screening exam; [facility] Arrival Time: 09/02/2023 11:09:30 Primary Care Physician: Bina Zamora CNP Attending Physician: MIRIAN HERBERT Comment: Visit Diagnosis: Diagnoses This Visit Medical screening exam ([id number]) Physical exam (Z00.00) If you received any [...] any legal documents With: Address: When: Pamela ROSADO, [address], [place] [address] Business (1) Comments: Rehabilitation Counsellor to 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 Abstain from any alcohol or illicit drugs With: Address: When: Bina Zamora [address] [place] [address] Business (1) , only if needed Medication Information: The exam and treatment you received today in the [facility] were for an urgent problem and are not intended as complete care. It is important for you to follow up with a doctor, nurse practitioner, or physician?s patient services assistant for ongoing care. If your symptoms [...] so we can reach you if necessary. [facility] Urgent [facility] has provided you with a complete list of medications post discharge. Please inform your primary special education teacher/provider of your visit and for further instruction [...] possible. care may be provided by a form maker plaster, a family practice doctor, a mid-level practitioner (nurse practitioner or physician patient services assistant), or a childbirth and doctor (sanitation inspector). How does this affect me? During , [...] ? Any (more content not included)... Normal [facility] COVID/FLU RT-PCRon 3 SARS-CoV-2 (COVID-19) RNA [facility]+probe Ql (Unsp spec) Negative [employer] Other COVID/FLU RT-PCR Negative [employer] [facility] Agent Panda Other CHLAMYDIA/GONOCOCCUS [facility] (SW AB/URINE/PAPon 05-22-2022 Chlamydia trachomatis, [facility] Negative Normal Negative [facility] Comment on above: Performed By: #### C T/NGNA #### [facility] [address] [address] [address] Clau Valdivia Neisseria gonorrhoeae, [facility] Negative Normal Negative [facility] Comment on above: Performed By: #### C T/NGNA #### [facility] [address] [address] [address] Clau Valdivia VAGINITIS/VAGINOSIS DNA PROB Melvin 05-21-2022 [place] species Positive Abnormal Negative [facility] Comment on above: Performed By: #### V AGINT #### [facility] [address] [address] [address] Clau Valdivia Gardnerella vaginalis Positive Abnormal Negative [facility] Comment on above: Performed By: #### V AGINT #### [facility] [address] [address] [address] Clau Valdivia Trichomonas vaginalis Negative Normal Negative [facility] Comment on above: Performed By: #### V AGINT #### [facility] [address] [address] [address] Clau Valdivia COVID + FLU Quick Testingon 04-20-2022 SARS-CoV-2 (COVID-19) RNA [facility]+probe Ql (Unsp spec) Negative [facility] Agent [employer] Other COVID + FLU Quick Testing Negative [facility] Agent [employer] Other Quick Strepon 04-20-2022 S. pyogenes Org specific cx Ql (Throat) Negative [facility] Agent [employer] Other Quick Strep [facility] Agent [employer] Other Vital Signs Date Time Vital Sign Value Performing Clinician Facility 03-08-2024 14:41-0500 Body mass index (BMI) [Ratio] 35.87 kg/m2 Ana Luisa ROY Work Phone: [facility] 03-08-2024 14:41-0500 Body weight 103.87 kg Ana Luisa ROY Work Phone: [facility] 03-08-2024 14:41-0500 Diastolic blood pressure 74 mm[Hg] Ana Luisa ROY Work Phone: [facility] 03-08-2024 14:41-0500 Systolic blood pressure 120 mm[Hg] Ana Luisa ROY Work Phone: [facility] 02-23-2024 13:59-0500 Body mass index (BMI) [Ratio] 35.37 kg/m2 Angelina Roslyn Sosedi Work Phone: [facility] 02-23-2024 13:59-0500 Body weight 102.42 kg Angelina Roslyn DO Work Phone: [facility] 02-23-2024 13:59-0500 Diastolic blood pressure 72 mm[Hg] Angelina Roslyn DO Work Phone: [facility] 02-23-2024 13:59-0500 Systolic blood pressure 118 mm[Hg] Angelina Roslyn DO Work Phone: [facility] 01-19-2024 13:35-0400 Body mass index (BMI) [Ratio] 34.43 kg/m2 Ana Luisa ROY Work Phone: [facility] 01-19-2024 13:35-0400 Body weight 99.7 kg Ana Luisa Zeny PA Work Phone: [facility] 01-19-2024 13:35-0400 Diastolic blood pressure 70 mm[Hg] Ana Luisa Moura PA Work Phone: [facility] 01-19-2024 13:35-0400 Systolic blood pressure 108 mm[Hg] Ana Luisa Moura PA Work Phone: [facility] 12-22-2023 09:36-0400 Body mass index (BMI) [Ratio] 33.83 kg/m2 Angelina Roslyn DO Work Phone: [facility] 12-22-2023 09:36-0400 Body weight 97.98 kg Angelina Roslyn DO Work Phone: [facility] 12-22-2023 09:36-0400 Diastolic blood pressure 72 mm[Hg] Angelina Roslyn DO Work Phone: [facility] 12-22-2023 09:36-0400 Systolic blood pressure 110 mm[Hg] Angelina Roslyn DO Work Phone: [facility] 12-10-2023 13:39-0400 Body mass index (BMI) [Ratio] 33.67 kg/m2 [facility] Nurse [facility] 12-10-2023 13:39-0400 Body weight 97.52 kg [facility] Nurse [facility] 12-10-2023 13:39-0400 Diastolic blood pressure 78 mm[Hg] Nom Nurse [facility] 12-10-2023 13:39-0400 Systolic blood pressure 112 mm[Hg] [facility] 07-19-2022 11:30-0400 Body height 167.64 cm Ne Henderson Other [employer] Other 07-19-2022 11:30-0400 Body mass index (BMI) [Ratio] 34.7 kg/m2 Ne Henderson Other [employer] Other 07-19-2022 11:30-0400 Body temperature 101 [degF] Ne Henderson Other [employer] Other 07-19-2022 11:30-0400 Body weight 97.52 kg Ne Henderson Other [employer] Other 07-19-2022 11:30-0400 Diastolic blood pressure 76 mm[Hg] Ne Henderson Other [employer] Other 07-19-2022 11:30-0400 Respiratory rate 18 /min Ne Henderson Other [employer] Other 07-19-2022 11:30-0400 SaO2% (BldA) [Mass fraction] 97 % Ne Henderson Other [employer] Other 07-19-2022 11:30-0400 Systolic blood pressure 113 mm[Hg] Ne Henderson Other [employer] Other 04-20-2022 10:50-0500 Body height 167.64 cm Anya Contreras Other [employer] Other 04-20-2022 10:50-0500 Body mass index (BMI) [Ratio] 34.7 kg/m2 Anya Contreras Other [employer] Other 04-20-2022 10:50-0500 Body temperature 98.6 [degF] Anya Contreras Other [employer] Other 04-20-2022 10:50-0500 Body weight 97.52 kg Anya Contreras Other [employer] Other 04-20-2022 10:50-0500 Respiratory rate 18 /min Anya Contreras Other [employer] Other 04-20-2022 10:50-0500 SaO2% (BldA) [Mass fraction] 98 % Anya Contreras Other [employer] Other Encounters Encounter Date Encounter Type Care Provider Facility Start: 03-08-2024 End: 03-08-2024 flow sheet Ana Luisa ROY Work Phone: [facility] Comment on above: Third trimester preg sharee; 32 weeks gestation of Start: 03-08-2024 End: 03-08-2024 Bamboo flowsheet Ana Luisa ROY Work Phone: [facility] Start: 03-08-2024 End: 03-08-2024 Bamboo flowsheet Ana Luisa ROY Work Phone: [facility] Start: 02-23-2024 [...] dates Start: 02-23-2024 End: 02-23-2024 ambulatory ANGELINA MCGOWAN Not Available Start: 01-31-2024 End: 02-01-2024 ambulatory [facility] Start: 01-20-2024 End: 01-22-2024 Clinisync Result Encounter [...] encounter procedure Ana Luisa ROY Work Phone: [facility] Work Phone: Start: 01-19-2024 End: 01-19-2024 Periodic preventive med est patient 18-39 yrs Ana Luisa ROY Work Phone: [facility] Comment on above: Well woman exam with routine gynecological exam; Second trimester ; Vaginal discharge; STD exposure; 25 weeks gestation of Start: 01-19-2024 End: 01-19-2024 ambulatory ANA LUISA MOURA Not Available Start: 01-07-2024 End: 01-07-2024 ambulatory [facility] Val BOOGIE Facility:[facility] Start: 12-30-2023 End: 12-30-2023 [facility] Start: 12-22-2023 End: 12-22-2023 Bamboo flowsheet Angelina [...] 12-22-2023 ambulatory ANGELINA ROSLYN Not Available Start: 12-18-2023 End: 12-18-2023 Clinisync Result Encounter Generic External Data Provider [facility] External Department Unsolicited Start: 12-18-2023 End: 12-18-2023 Clinisync Result Encounter Generic External Data Provider [facility] External Department Unsolicited Start: 12-10-2023 End: 12-10-2023 Office outpatient visit 5 minutes [facility] Roslyn Nurse [facility] Comment on above: GA: 19w2d Start: 12-10-2023 End: 12-10-2023 ambulatory ANA LUISA ZENY Not Available Start: 09-02-2023 End: 09-02-2023 ambulatory Bina Zamora Facility:[facility] Start: 07-16-2023 End: 07-16-2023 ambulatory ANA [...] 04-11-2023 End: 04-11-2023 ambulatory MARVEL Villaseñor ANAHI [facility] Start: 04-06-2023 End: 04-06-2023 ambulatory ANGELINA ROSLYN Not Available Start: 03-19-2023 End: 03-19-2023 ambulatory ANA LUISA ZENY Not Available Start: 03-05-2023 End: 03-05-2023 ambulatory ANA LUISA MOURA Not Available Start: 07-19-2022 End: 07-19-2022 ambulatory Ne Henderson Other [employer] Other Start: 07-19-2022 Office outpatient vi sit 25 minutes Ne Henderson [facility] Start: 05-19-2022 End: 05-19-2022 ambulatory ANA LUISA MOURA . Facility: Start: 04-20-2022 End: 04-20-2022 ambulatory Anya Contreras Other [employer] Other Start: 04-20-2022 Office outpatient vi sit 25 minutes Anya Contreras [facility] Procedures Date Procedure Procedure Detail Performing Clinician Start: 03-08-2024 Urnls dip stick/tabl et rgnt non-auto w/o micrscp Ana Luisa ROY Work Phone: Start: 02-23-2024 Urnls dip stick/tabl et rgnt [...] micrscp Angelina Roslyn DO Work Phone: Start: 12-18-2023 ALL CBC WITH AUTO DIFF Angelina Roslyn DO Work Phone: Start: 12-10-2023 End: 12-10-2023 Urnls dip stick/tablet rgnt non-auto w/o micrscp Angelina Mcgowan DO Work Phone: Plan of Treatment Date Care Activity Detail Author Start: 03-29-2024 End: 03-29-2024 Patient encounter procedure 03/29/2024 10:10 AM EST Routine [facility] [address] [place] [address] Angelina Mcgowan, DO [address] [place], [place] [id number] [facility] Start: 03-08-2024 End: 03-08-2024 Patient encounter procedure [facility] Comment on above: Arrived Start: 03-08-2024 End: 03-08-2024 Professional / ancillary services management 03/08/2024 1:30 PM EST Ancillary Procedure [facility] [address] [place] [address] [facility] Start: 02-23-2024 End: 02-22-2025 CBC panel - Blood by Automated count CBC Lab Routine Diabetes mellitus screening Expected: 02/23/2024 (Approximate), Expires: 02/22/2025 [facility] Comment on above: Expected: 02/23/2024 (Approximate), Expires: 02/22/2025 Start: 02-23-2024 End: 02-22-2025 Measurement of glucose 1 hour after glucose challenge for glucose tolerance test Glucose tolerance, 1 hour Lab Routine Diabetes mellitus screening Expected: 02/23/2024 (Approximate), Expires: 02/22/2025 [facility] Comment on above: Expected: 02/23/2024 (Approximate), Expires: 02/22/2025 Start: 02-23-2024 End: 02-22-2025 US for US OB SCAN FOR GROWTH Imaging Routine size inconsistent with dates Expected: 02/23/2024 (Approximate), Expires: 02/22/2025 [facility] Healthcare Work Phone: Comment on above: Expected: 02/23/2024 (Approximate), Expires: 02/22/2025 Start: 02-23-2024 End: 02-23-2024 Patient encounter procedure 02/23/2024 1:40 PM EST Routine [facility] [address] [place] [phone] Angelina Mcgowan, DO [address] [place], [place] [id number] Arrived [facility] Comment on above: Arrived Start: 02-16-2024 End: 02-16-2024 Patient encounter procedure 02/16/2024 1:50 PM EST Routine [facility] [address] [place] [phone] Angelina Mcgowan, DO [address] [place] [address] [facility] Start: 01-19-2024 End: 01-19-2024 Patient encounter procedure [facility] Comment on above: Arrived Start: 12-22-2023 End: 12-22-2023 Patient encounter procedure [facility] Comment on above: Arrived Start: 12-22-2023 End: 12-22-2023 Professional / ancillary services management 12/22/2023 8:00 AM EDT Ancillary Procedure [facility] [address] [place] [phone] [facility] Start: 12-21-2023 End: 12-21-2023 Patient encounter procedure 12/21/2023 9:00 AM EDT Routine [facility] [address] [place] [phone] Angelina Mcgowan, DO [address] [place] [address] [facility] Start: 12-10-2023 End: 12-09-2024 ABO/Rh ABO/Rh Lab Routine Missed menses Expected: 12/10/2023 (Approximate), Expires: 12/09/2024 [facility] Comment on above: Expected: 12/10/2023 (Approximate), Expires: 12/09/2024 Start: 12-10-2023 End: 12-09-2024 Alpha fetoprotein, maternal Alpha fetoprotein, maternal Lab Routine Second trimester Expected: 12/10/2023 (Approximate), Expires: 12/09/2024 [facility] Comment on above: Expected: 12/10/2023 (Approximate), Expires: 12/09/2024 Start: 12-10-2023 End: 12-09-2024 Blood type and Indirect antibody screen panel - Blood Type and screen Lab Routine Missed menses Expected: 12/10/2023 (Approximate), Expires: 12/09/2024 [facility] Work Phone: Comment on above: Expected: 12/10/2023 (Approximate), Expires: 12/09/2024 Start: 12-10-2023 End: 12-09-2024 Drugs of abuse panel - Urine by Screen method Rapid drug screen, urine Lab Routine Encounter for supervision of normal first in first trimester , unspecified gestational age Expected: 12/10/2023 (Approximate), Expires: 12/09/2024 [facility] Comment on above: Expected: 12/10/2023 (Approximate), Expires: 12/09/2024 Start: 12-10-2023 End: 12-09-2024 US for [facility] Comment on above: Expected: 12/10/2023 (Approximate), Expires: 12/09/2024 Bacteria identified in Urine by Culture Urine culture Microbiology Routine Missed menses Ordered: 12/10/2023 [facility] Comment on above: Ordered: 12/10/2023 CBC W Auto Different ial panel - Blood CBC and differential Lab Routine Missed menses Ordered: 12/10/2023 [facility] Comment on above: Ordered: 12/10/2023 CHLAMYDIA TRACHOMATI S (GENITO/STI) CHLAMYDIA TRACHOMATIS (GENITO/STI) Lab Routine STD exposure Ordered: 01/19/2024 [facility] Comment on above: Ordered: 01/19/2024 Cytology Cervical or vaginal smear or scraping study Pap Smear Pathology and Cytology Routine Well woman exam with routine gynecological exam Ordered: 01/19/2024 [facility] Comment on above: Ordered: 01/19/2024 Hemoglobin A1c/Hemoglobin.total in Blood Hemoglobin A1c Lab Routine Third trimester Ordered: 03/08/2024 [facility] Work Phone: Comment on above: Ordered: 03/08/2024 Hemoglobin A1c/Hemoglobin.total in Blood Hemoglobin A1c Lab Routine Missed menses Ordered: 12/10/2023 [facility] Comment on above: Ordered: 12/10/2023 Hepatitis B virus surface Ag [Presence] in Serum or Plasma by Immunoassay Hepatitis B surface antigen Lab Routine Missed menses Ordered: 12/10/2023 [facility] Comment on above: Ordered: 12/10/2023 Hepatitis C virus Ab [Presence] in Serum or Plasma by Immunoassay Hepatitis C antibody Lab Routine Missed menses Ordered: 12/10/2023 [facility] Comment on above: Ordered: 12/10/2023 HIV-1/HIV-2 antigen/antibody combination immunoassay HIV-1 and HIV-2 antibodies Lab Routine Missed menses Ordered: 12/10/2023 [facility] Comment on above: Ordered: 12/10/2023 Neisseria gonorrhoea e DNA [Presence] in Unspecified specimen by [facility] with probe detection Neisseria gonorrhea DNA probe, direct Lab Routine STD exposure Ordered: 01/19/2024 [facility] Comment on above: Ordered: 01/19/2024 Reagin Ab [Presence] in Serum by RPR RPR Lab Routine Missed menses Ordered: 12/10/2023 [facility] Comment on above: Ordered: 12/10/2023 Rubella antibody, IgG Rubella an tibody, IgG Lab Routine Missed menses Ordered: 12/10/2023 [facility] Comment on above: Ordered: 12/10/2023 SURESWAB(R) ADVANCED VAGINITIS PLUS, TMA SURESWAB(R) ADVANCED VAGINITIS PLUS, TMA Pathology and Cytology Routine Vaginal discharge Ordered: 01/19/2024 [facility] Work Phone: Comment on above: Ordered: 01/19/2024 Payers Date Payer Category Payer Unknown [id number] 2019 Private Health Insurance [id number] 2000 Unknown [id number] 2000 Unknown [id number] 2002 Unknown [id number] 2002 Unknown [id number] 2.16.84 0.1.022738.3.579.2.1259 2002 Unknown [id number] 2.16.84 0.1.459816.3.579.2.1258 2002 Unknown [id number] 2.16.84 0.1.802156.3.579.2.1259 2002 Unknown [id number] 2.16.84 0.1.102867.3.579.2.1258 2002 Unknown [id number] 2.16.84 0.1.276782.3.579.2.125 2002 Unknown [id number] 2.16.84 0.1.239961.3.579.2.1258 2002 Unknown [id number] 2.16.84 0.1.116765.3.579.2.1258 2002 Unknown [id number] 2.16.84 0.1.801503.3.579.2.125 2002 Unknown [id number] 2.16.84 0.1.368935.3.579.2.125 2002 Unknown [id number] 2.16.84 0.1.346091.3.579.2.125 2002 Unknown [id number] 2.16.84 0.1.119166.3.579.2.125 2002 Unknown [id number] 2.16.840 .1.092885.3.579.2.1258 2002 Unknown [id number] 2.16.840 .1.566325.3.579.2.1259 1959 Unknown [id number] Social History Date Type Detail Facility Unknown if ever smoked [facility] Agent Panda Other Sex Assigned At [employer] Other Tobacco smoking status NHIS Tobacco smoking consumption unknown [facility] Start: 08-11-2023 [facility] Start: 2002 Sex assigned at Not on file [facility] Clinical Notes 04-20-2022 to 03-08-2024 Gila Torres, MA - 03/08/2024 2:20 PM MANUELA Zayas - 03/08/2024 2:20 PM Jay Amador, CRYPTOLOGIC TECHNICIAN OPERATOR/ANALYST - 02/23/2024 1:40 PM Lizzy Mcdonnell, [facility] - 02/23/2024 1:40 PM EST Note Date & Type Note Facility 03-08-2024 History of Presen t illness Narrative Reason for Appointment: Patient ID: Florinda Ortega is a 23 y.o. female who presents for Routine Visit Patient presents today for Return OB appointment. MEDICATIONS Current Outpatient Medications Medication Instructions MV-Min-Fe Fum-FA-DHA ( 1 PO) Oral ALLERGIES [...] SYSTEMS Review of Systems: Review of Systems OBJECTIVE Objective: OBGyn Exam Vitals: Estimated body mass index is 35.87 kg/m as calculated from the following: Height as of 05/19/22: 5' 7 . Weight as of this encounter: 229 lb. BP: 120/74 Patient's last menstrual period was 08/05/2023. ASSESSMENT & PLAN ICD-10-CM 1. Third trimester Z34.93 POCT urinalysis dipstick manually resulted 2. 32 weeks gestation of Z3A.32 Return OB: Patient presents today for a routine obstetrics appointment. Patient is currently 32w0d . Patient states she is doing well but has complaints of being tired due to current . Patient has verbalizes frequent movement. labor precautions was discussed/given and patient was instructed to perform kick counts three times a day. Orders Placed This Encounter Procedures POCT urinalysis dipstick manually resulted Follow Up: Patient is to return to office in 2 week for routine OB appointment. Documented by Gila Torres MA on behalf of: MANUELA Foy Reason for Appointment: Patient ID: Florinda Ortega is a 23 y.o. female who presents for Routine Visit Patient presents today for Return OB appointment. MEDICATIONS Current Outpatient Medications Medication Instructions MV-Min-Fe Fum-FA-DHA ( 1 PO) Oral ALLERGIES [...] SYSTEMS Review of Systems: Review of Systems All other systems reviewed and are negative. OBJECTIVE Objective: Physical Exam Constitutional: Appearance: Normal appearance. She is normal weight. HENT: Head: Normocephalic. Cardiovascular: Rate and Rhythm: Normal rate. Pulses: Normal pulses. Pulmonary: Effort: Pulmonary effort is normal. Breath sounds: Normal breath sounds. Abdominal: Palpations: Abdomen is soft. Musculoskeletal: General: Normal range of motion. Neurological: General: No focal deficit present. Mental Status: She is alert and oriented to person, place, and time. Psychiatric: Mood and Affect: Mood normal. Behavior: Behavior normal. Thought Content: Thought content normal. Judgment: Judgment normal. Vitals and nursing note reviewed. Vitals: Estimated body mass index is 35.87 kg/m as calculated from the following: Height as of 05/19/22: 5' 7 . Weight as of this encounter: 229 lb. BP: 120/74 Patient's last menstrual period was 08/05/2023. ASSESSMENT & PLAN ICD-10-CM 1. Third trimester Z34.93 POCT urinalysis dipstick manually resulted Hemoglobin A1c 2. 32 weeks gestation of Z3A.32 Return OB: Patient presents today for a routine obstetrics appointment. Patient is currently 32w0d . Patient states she is doing well but has complaints of being tired due to current . Patient has verbalizes frequent movement. Patient advised on the importance of monitoring glucose during and an order was provided for an A1c today. Patient verbalizes understanding and reports that she will obtain lab draw today. labor precautions was discussed/given and patient was instructed to perform kick counts three times a day. Orders Placed This Encounter Procedures Hemoglobin A1c POCT urinalysis dipstick manually resulted Follow Up: Patient is to return to office in 2 week for routine OB appointment. Documented by MANUELA Foy on behalf of: MANUELA Foy documented in this encounter [facility] 02-23-2024 History of Presen t illness Narrative [...] nursing note reviewed. Exam conducted with a community development coordinator present. Vitals: Estimated body mass index [...] Angelina Mcgowan DO documented in this encounter [facility] 01-19-2024 History of Presen t illness [...] nursing note reviewed. Exam conducted with a community development coordinator present. Vitals: Estimated body mass index [...] of: MANUELA Foy documented in this encounter [facility] 12-22-2023 History of Presen t illness [...] nursing note reviewed. Exam conducted with a community development coordinator present. Vitals: Estimated body mass index [...] Angelina Mcgowan DO documented in this encounter [facility] 12-10-2023 History of Presen t illness Narrative Reason for Appointment: Patient ID: Florinda Ortega is a 23 y.o. female who presents for Initial Visit Patient presents today for a Nurse OB Intake appointment. Patient is 19w2d with a Estimated Date of Delivery: 05/03/24 OB History Para Term AB Living 2 1 1 1 SAB IAB Ectopic Multiple Live Births # Outcome Date GA Lbr Noam/2nd Weight Sex Type Anes PTL Lv 2 Current 1 Term 06/04/23 39w1d Current Medications: has a current medication list which includes the following prescription(s): mv-min-fe fum-fa-dha. Medical History: Active Ambulatory Problems Diagnosis Date Noted No Active Ambulatory Problems Resolved Ambulatory Problems Diagnosis Date Noted No Resolved Ambulatory Problems Past Medical History: Diagnosis Date ADD (attention deficit disorder) IBS (irritable bowel syndrome) Obesity Pelvic pain Family History Problem Relation Name Age of Onset Hypertension Father Mental illness Father Social History Tobacco Use Smoking status: Not on file Smokeless tobacco: Not on file Substance Use Topics Alcohol use: Not on file Drug use: Not on file Past Surgical History: Procedure Laterality Date LARYNGEAL CLEFT REPAIR TONSILLECTOMY No Known Allergies Vitals: Estimated body mass index is 33.67 kg/m as calculated from the following: Height as of 05/19/22: 5' 7 . Weight as of this encounter: 215 lb. BP: 112/78 Patient's last menstrual period was 08/05/2023. Assessment/Plan Diagnoses and all orders for this visit: Missed menses - Type and screen; Future - ABO/Rh; Future - CBC and differential - Hemoglobin A1c - RPR - Rubella antibody, IgG - Hepatitis B surface antigen - Hepatitis C antibody - HIV-1 and HIV-2 antibodies - Urine culture - POCT , urine manually resulted - POCT urinalysis dipstick manually resulted - US OB > 14 WEEKS; Future Encounter for supervision of normal first in first trimester - Rapid drug screen, urine; Future , unspecified gestational age - Rapid drug screen, urine; Future Screening, , for anatomic survey - US OB ANATOMY SINGLE W US OB CERVICAL LENGTH; Future Second trimester - Alpha fetoprotein, maternal; Future Nurse Note: OB Intake: Patient presents today for first OB visit. Patients history has been reviewed in great detail including any potential risks. Patient signed consent forms and patient desires testing in both trimesters. Patient currently has no complaints and has been advised to drink 6-8 glasses of water a day, eat no raw or undercooked meat, and stay away from [facility]. Patient has also been advised to not change litter boxes and eat 6 small meals a day. Patient has been consulted regarding the do's and don'ts of . Patient was given labs and all questions and concerns were answered. Follow Up: Patient is to return in 4 weeks for routine OB appointment. Follow Up: Patient is to have labs drawn at directed and return to office for initial OB appointment with provider. Patient may call office as needed with any concerns or questions. Nurse Visit Completed by: Karmen Alvares documented in this encounter [facility] 09-03-2023 Note [phone] [id number] 09-02-2023 Note Patient Education Ma terials Follows:and Gynecology Care care is health care during . It helps you and your unborn baby (fetus) stay as healthy as possible. care may be provided by a form maker plaster, a family practice doctor, a mid-level practitioner (nurse practitioner or physician patient services assistant), or a childbirth and doctor (sanitation inspector). How does this affect me? During , [...] procedures you have had. ? Any current [id number]-kprxczh or prescription medicines, herbs, or supplements that [...] week 24 of (more content not included)... [facility] 07-19-2022 Evaluation note Encounter Date Diagnosis Assessment [...] treatment plan. Patient left in stable condition. [employer] Other 04-29-2023 History general Narrative - Reported* Type Description Date Medical History ADD Medical History Born with cleft palette Surgical History tonsillectomy and adenoidectomy Surgical History cleft palette 3-4 repair Hospitalization History see above [facility] Other 03-05-2023 History general Narrative - Reported* Type Description Date Medical History ADD Medical History Born with cleft palette Surgical History tonsillectomy and adenoidectomy Surgical History cleft palette 3-4 repair Hospitalization History see above [facility] Other 01-29-2023 Evaluation note* Encounter Date Diagnosis [...] this time you do not have COVID. [employer] Other Evaluation note* Diagnosis Second trimester state, [...] with dates [facility] Diagnosis Third trimester state, incidental 32 weeks gestation of [facility]* Diagnosis Missed menses Encounter for supervision of normal first in first trimester , unspecified gestational age Screening, , for anatomic survey Encounter for anatomic survey Second trimester state, incidental documented in this encounter [facility] Healthcare Summary Purpose Family History No Family [...] content) DATE CREATED AUTHOR 05/23/2022 [facility] DATE CREATED AUTHOR AUTHOR'S ORGANIZ ATION 09/03/2023 [facility] DATE CREATED AUTHOR AUTHOR'S ORGANIZ ATION 01/09/2024 [facility] DATE CREATED AUTHOR AUTHOR'S ORGANIZ ATION 02/01/2024 [facility] DATE CREATED AUTHOR AUTHOR'S PETROS AGUAYO 02/25/2024 [facility] EPIC REASON FOR VISIT (unrecogniz ed section and content) Reason Comments Routine Visit Reason Comments Initial Visit FOR RECORDS PERTAINING TO PATIENTS WHO [...] BE BASED ON THE PRIMARY CLINICAL RECORDS. [facility] [employer] provides no warranty or guarantee of the accuracy or completeness of information in this document.
[2024-03-11 11:07] LABS: Estimated Average Glucose 108 mg/dL; Glycohemoglobin A1C 5.4 % (4.5-6.2)
== END 2024-03-11 10:29 | disposition home or self-care (01) ==
LOC: LAB 10:30
PROVIDERS: PCP Nurse Practitioner; Visit Provider Physician Assistant
DX: Z34.93 Encounter for supervision of normal pregnancy, unspecified, third trimester (principal)
CPT/HCPCS: 36415; 83036

== ENCOUNTER 2024-04-01 09:25 | Outpatient (OUT) | payer OTHER, SELFPAY ==
--- OUTSIDE RECORDS SUMMARY | 2024-04-01 09:48 | XMS_ITS | CCD ---
Author Organization [facility] Inform ion [facility] Care Team Providers Care Can Filler Name Role Phone ZENY ., ANA LUISA [...] Care Unavailable ANA LUISA MOURA Attending Unavailable ANA LUISA MOURA Attending Unavailable ANGELINA MCGOWAN Attending Unavailable ZENY, ANA LUISA Attending Unavailable ANGELINA MCGOWAN Attending Unavailable ZENY, ANA LUISA Attending Unavailable ROSLYN, ANGELINA Attending Unavailable ROSLYN, ANGELINA Attending Unavailable ROSLYN, ANGELINA Attending Unavailable ZENY, ANA LUISA Attending Unavailable ROSLYN, ANGELINA Attending Unavailable ZENY, ANA LUISA Attending Unavailable Medications Current Medications Medication Drug Class(es) Dates Sig (Normalized) Sig (Original) [id number] 200 actuat albuterol 0.09 mg/actuat metered dose [...] oral solution (1 source) alpha-Adrenergic Agonist, Uncompetitive S-kzqqkr-A-asparta te Receptor Antagonist, Sigma-1 Agonist Start: 3 take 10 mL by mouth every six hours Fdhctafaz-Npbsrhev-VY 30-2-10 MG/5ML 10 mL Orally every 6 [...] this medication. 14 tablet 01/20/2024 01/27/2024 Active polysaccharide iron complex 391 mg oral capsule (2 sources) Start: 5 End: 5 take 1 capsule by mouth once daily iron polysaccharides (ProFe) 391.3 (180 Fe) MG capsule Indications: Other iron deficiency anemia Take 1 capsule (391.3 mg) by mouth Daily 30 capsule 6 03/29/2024 04/28/2024 Active MV-Min-Fe Fum-FA-DHA ( 1 PO) (20 sources) MV-Min- Fe Fum-FA-DHA ( 1 PO) [...] source) Vitamin B12 Start: 03-27-2023 End: 12-10-2023 R-Cyitkpvvbite-Z9-B 12 (Folbic RF) 1.13-25-2 MG tablet Take [...] Abdominal pain; Translations: [Unspecified abdominal pain] Episodic Deficiency and other anemia (2 sources) Iron deficiency anemia; Translations: [Other iron deficiency anemias] 03-29-2024 Episodic Headache; including migraine (1 source) Headache [...] syndrome] Chronic Other and delivery including normal (13 sources) Second trimester ; Translations: [Encounter for [...] [32 weeks gestation of ] 03-08-2024 Episodic Residual codes; unclassified (2 sources) Gestation period, 35 weeks; Translations: [35 weeks gestation of ] 03-29-2024 Episodic Unclassified (1 source) Decreased Movement Onset: Results Test Name Value Interpretation Reference Range Facility Urinalysis macro (dipstick) panel (U)on 03-29-2024 Bilirubin, UA Negative Negative - 4(70) +++ mg/dL [facility] Blood, UA Negative Negative - 50 Jimmy/mcL [facility] Clarity, UA Clear [facility] re Color, UA Ne [facility] e Glucose, UA Negative Negative - 1999(110) ++++ mg/dL [facility] Interpretation and review of laboratory results Abnormal [facility] re Ketones, UA Negative Negative - 160(16) ++++ mg/dL [facility] Leukocytes, UA Trace Negative - 500+++ Minnie/mcL [facility] Nitrite, UA Negative Negative - Positive [facility] pH, UA 6 5 - 9 [facility], [facility] Trace Negative - 1999(20) ++++ mg/dL [facility] Spec Grav, UA 1.025 1 - 1.03 [facility] Urobilinogen, UA 0.2 0.2 - 12 mg/dL [facility] MLR HEMOGLOBIN A1Con 024 Glucose [Mass/Vol] 108 mg/dL [facility] HbA1c (Bld) [Mass fraction] 5.4 % 4.5 - 6.2 % [facility] Comment on above: ADA RECOMMENDED LIMI T 4.0 - 6.0 ADA THERAPEUTIC TARGET < 7.0 ACTION SUGGESTED > 7.0 [facility] Urinalysis macro (dipstick) panel (U)on 03-08-2024 Bilirubin, UA Negative Negative - 4(70) +++ mg/dL [facility] Blood, UA Negative Negative - 50 Jimmy/mcL [facility] Clarity, UA Clear [facility] Color, UA Yellow [facility] Glucose, UA Negative Negative - 1999(110) ++++ mg/dL [facility] Interpretation and review of laboratory results Abnormal [facility] re Ketones, UA Negative Negative - 160(16) ++++ mg/dL [facility] Leukocytes, UA Trace Negative - 500+++ Minnie/mcL [facility] Healthcare Nitrite, UA Negative Negative - Positive [facility] pH, UA 6.5 5 - 9 [facility] Protein, UA Negative Negative - 1999(20) ++++ mg/dL [facility] Spec Grav, UA 1.025 1 - 1.03 [facility] Urobilinogen, UA 0.2 0.2 - 12 mg/dL [facility] Urinalysis macro (dipstick) panel (U)on 02-23-2024 Bilirubin, UA Negative Negative - 4(70) +++ mg/dL [facility] Blood, UA Negative Negative - 50 Jimmy/mcL [facility] Clarity, UA Clear [facility] Color, UA Yellow [facility] Glucose, UA Negative Negative - 1999(110) ++++ mg/dL [facility] Interpretation and review of laboratory results Abnormal [facility] Ketones, UA Negative Negative - 160(16) ++++ mg/dL [facility] Healthcare Leukocytes, UA Trace Negative - 500+++ Minnie/mcL [facility] Healthcare Nitrite, UA Negative Negative - Positive [facility] pH, UA 6.5 5 - 9 [facility] Protein, UA Negative Negative - 1999(20) ++++ mg/dL [facility] Spec Grav, UA 1.02 1 - 1.03 [facility] Urobilinogen, UA 1.0 0.2 - 12 mg/dL [facility] CBC AND AUTO DIFFon 02-01-20 24 ABSOLUTE BASOPHIL 0.0 X10E9/L Normal 0.0-0.2 [facility] Comment on above: Performed By: #### C HUDSON PÉREZ, 0, 3083-03 #### [facility] ([id number]) [address] [place] [address] 72224 ABSOLUTE NEUTROPHIL 10.5 X10E9/L High 1.5-6.6 [facility] Comment on above: Performed By: #### Carol PÉREZ CMP, 0, 3083-03 #### [facility] ([id number]) [address] [place] [address] 86514 Basophils/100 WBC (Bld) 0.4 % Normal [facility] Comment on above: Performed By: #### Carol PÉREZ CMP, , 3083-03 #### [facility] ([id number]) [address] [place] [address] 59644 Eosinophils (Bld) [#/Vol] 0.1 10*3/uL Normal 0.0-0.4 [facility] Comment on above: Performed By: #### Carol PÉREZ CMP, 0, 3083-03 #### [facility] ([id number]) [address] [place] [address] 08384 Eosinophils/100 WBC (Bld) 0.7 % Normal [facility] Comment on above: Performed By: #### Carol PÉREZ CMP, 0, 3083-03 #### [facility] ([id number]) [address] [place] [address] 26216 Erythrocyte distribution width (RBC) [Ratio] 14.5 % Normal 11.5-15.0 [facility] Comment on above: Performed By: #### Carol PÉREZ CMP, 0, 3083-03 #### [facility] ([id number]) [address] [place] [address] 59933 Hematocrit (Bld) [Volume fraction] 29.1 % Low 35-47 [facility] Comment on above: Performed By: #### C HUDSON PÉREZ, 0, 3083-03 #### [facility] ([id number]) [address] [place] [address] 02748 Hemoglobin (Bld) [Mass/Vol] 9.6 g/dL Low 11.7-15.5 [facility] Comment on above: Performed By: #### Carol PÉREZ CMP, 0, 3083-03 #### [facility] ([id number]) [address] [place] [address] 23575 Lymphocytes (Bld) [#/Vol] 2.2 10*3/uL Normal 1.0-3.5 [facility] Comment on above: Performed By: #### Carol PÉREZ CMP, 0, 3083-03 #### [facility] ([id number]) [address] [place] [address] 65314 Lymphocytes/100 WBC (Bld) 16.6 % Normal [facility] Comment on above: Performed By: #### Carol PÉREZ CMP, 0, 3083-03 #### [facility] ([id number]) [address] [place] [address] 34558 MCH (RBC) [Entitic mass] 25.7 pg Low 27-34 [facility] Comment on above: Performed By: #### Carol PÉREZ CMP, 0, 3083-03 #### [facility] ([id number]) [address] [place] [address] 03337 MCHC (RBC) [Mass/Vol] 32.9 g/dL Normal 32-36 [facility] Comment on above: Performed By: #### Carol PÉREZ CMP, 0, 3083-03 #### [facility] ([id number]) [address] [place] [address] 44003 MCV (RBC) [Entitic vol] 78 fL Low 80-100 [facility] Comment on above: Performed By: #### C ELISA CMP, 2531-0, 3083-03 #### [facility] ([id number]) [address] [place] [address] 93043 Monocytes (Bld) [#/Vol] 0.5 10*3/uL Normal 0-0.9 [facility] Comment on above: Performed By: #### Carol PÉREZ, CMP, 2531-0, 3083-03 #### [facility] ([id number]) [address] [place] [address] 62608 Monocytes/100 WBC (Bld) 3.7 % Normal [facility] Comment on above: Performed By: #### Carol PÉREZ, CMP, 0, 3083-03 #### [facility] ([id number]) [address] [place] [address] 83883 Neutrophils/100 WBC (Bld) 78.6 % Normal [facility] Comment on above: Performed By: #### Carol PÉREZ CMP, 0, 3083-03 #### [facility] ([id number]) [address] [place] [address] 93549 Platelet mean volume (Bld) [Entitic vol] 7.6 fL Normal 7-12 [facility] Comment on above: Performed By: #### Carol PÉREZ CMP, 0, 3083-03 #### [facility] ([id number]) [address] [place] [address] 99692 Platelets (Bld) [#/Vol] 315 10*3/uL Normal 150-450 [facility] Comment on above: Performed By: #### Carol PÉREZ, CMP, 2531-0, 3083-03 #### [facility] ([id number]) [address] [place] [address] 49422 RBC COUNT 3.73 X10E12/L Low 3.80-5.20 [facility] Comment on above: Performed By: #### C BCA, CMP, 2532-0, 3084-1 #### [facility] ([id number]) [address] [place] [address] 23490 WBC (Bld) [#/Vol] 13.4 10*3/uL High 4.0-11.0 [facility] Comment on above: Performed By: #### C BCA, CMP, 2532-0, 3084-1 #### [facility] ([id number]) [address] [place] [address] 95533 COMPREHENSIVE METABOLIC PANE Wilbur 02-01-2024 Albumin [Mass/Vol] 3.0 g/dL Low 3.2-5.3 [facility] Comment on above: Performed By: #### C BCA, CMP, 2532-0, 3084-1 #### [facility] ([id number]) [address] [place] [address] 12783 ALP [Catalytic activity/Vol] 81 U/L Normal 39-130 [facility] Comment on above: Performed By: #### C BCA, CMP, 2532-0, 3084-1 #### [facility] ([id number]) [address] [place] [address] 00829 ALT [Catalytic activity/Vol] 15 U/L Normal 0-31 [facility] Comment on above: Performed By: #### C BCA, CMP, 2532-0, 3084-1 #### [facility] ([id number]) [address] [place] [address] 49940 Anion gap [Moles/Vol] 11 mmol/L Normal 5-15 [facility] Comment on above: Performed By: #### C BCA, CMP, 2532-0, 3084-1 #### [facility] ([id number]) [address] [place] [address] 01913 AST [Catalytic activity/Vol] 12 U/L Normal 0-41 [facility] Comment on above: Performed By: #### C BCA, CMP, 2-0, 3083-1 #### [facility] ([id number]) [address] [place] [address] 63548 Bilirubin [Mass/Vol] 0.3 mg/dL Normal 0.3-1.2 [facility] Comment on above: Performed By: #### C BCA, CMP, 2531-0, 3083- #### [facility] ([id number]) [address] [place] [address] 03430 Calcium [Mass/Vol] 8.7 mg/dL Normal 8.5-10.5 [facility] Comment on above: Performed By: #### C ELISA, CMP, 0, 3083-03 #### [facility] ([id number]) [address] [place] [address] 73234 Chloride [Moles/Vol] 105 mmol/L Normal 98-109 [facility] Comment on above: Performed By: #### C ELISA, CMP, 0, 3083-03 #### [facility] ([id number]) [address] [place] [address] 42996 CO2 [Moles/Vol] 19 mmol/L Low 22-32 [facility] Comment on above: Performed By: #### C BCA, CMP, 0, 3083-03 #### [facility] ([id number]) [address] [place] [address] 93341 Creatinine [Mass/Vol] 0.38 mg/dL Low 0.40-1.00 [facility] Comment on above: Result Comment: METH OD TRACEABLE TO IDMS STANDARD Performed By: #### C BCA, CMP, 2532-0, 3083- #### [facility] ([id number]) [address] [place] [address] 67872 eGFR (CKD-EPI) NON-RACE DEPENDENT >90 Normal >59 [facility] Comment on above: Result Comment: Reported eGFR is based on the CKD-EPI 2020 equation that does not use a race coefficient. Performed By: #### C HUDSON PÉREZ, 2532-0, 3083-1 #### [facility] ([id number]) [address] [place] [address] 78694 Glucose [Mass/Vol] 93 mg/dL Normal 65-99 [facility] Comment on above: Performed By: #### C HUDSON PÉREZ, 2531-0, 3083- #### [facility] ([id number]) [address] [place] [address] 78522 Potassium [Moles/Vol] 3.5 mmol/L Normal 3.5-5.0 [facility] Comment on above: Performed By: #### C HUDSON PÉREZ, 0, 3083-03 #### [facility] ([id number]) [address] [place] [address] 44283 Protein [Mass/Vol] 6.7 g/dL Normal 6.0-8.0 [facility] Comment on above: Performed By: #### C HUDSON PÉREZ, 2530, 3083-03 #### [facility] ([id number]) [address] [place] [address] 96855 Sodium [Moles/Vol] 135 mmol/L Normal 134-146 [facility] Comment on above: Performed By: #### C ELISA CMP, 253-0, 3083-03 #### [facility] ([id number]) [address] [place] [address] 59665 Urea nitrogen [Mass/Vol] 8 mg/dL Normal 5-23 [facility] Comment on above: Performed By: #### C ELISA CMP, 253-0, 3083- #### [facility] ([id number]) [address] [place] [address] LDH [Catalytic activity/Vol] on 02-01-2024 LDH 107 U/L Normal 100-235 [facility] Comment on above: Performed By: #### C BCA, CMP, 2532-0, 3084-1 #### [facility] ([id number]) [address] [place] [address] 57466 URIC ACIDon 02-01-2024 Urate [Mass/Vol] 4.9 mg/dL Normal 2.6-7.2 [facility] Comment on above: Performed By: #### C BCA, [facility], 2532-0, 3084-1 #### [facility] ([id number]) [address] [place] [address] 85263 PROTEIN CREAT RATIOon 2023 RANDOM URINE PROTEIN 190 mg/L High <120 [facility] Comment on above: Performed By: #### U PCR #### [facility] ([id number]) [address] [place] [address] 34310 U/PRO/GENERAL CONTRACTOR RATIO CALC 0.11 Normal <0.2 [facility] Comment on above: Result Comment: Neph rotic Syndrome is associated with ratios >3.5 Performed By: #### U PCR #### [facility] ([id number]) [address] [place] [address] 07832 URINE CREATININE,RDM 177.57 mg/dL Normal [facility] Comment on above: Performed By: #### U PCR #### [facility] ([id number]) [address] [place] [address] 74787 URINALYSISon 01-31-2024 Bilirubin Ql (U) Negative Normal NEG [facility] Comment on above: Performed By: #### U A #### [facility] ([id number]) [address] [place] [address] 38217 BLOOD/HGB Negative Normal NEG [facility] Comment on above: Performed By: #### U A #### [facility] ([id number]) [address] [place] [address] 48091 Color (U) YELLOW Normal YELLOW [facility] Comment on above: Performed By: #### U A #### [facility] ([id number]) [address] [place] [address] 72560 Glucose Ql (U) Negative Normal NEG [facility] Comment on above: Performed By: #### U A #### [facility] ([id number]) [address] [place] [address] 57449 Ketones Ql (U) Trace Abnormal NEG [facility] Comment on above: Performed By: #### U A #### [facility] ([id number]) [address] [place] [address] 55757 Leukocyte esterase Test strip Ql (U) Trace Abnormal NEG [facility] Comment on above: Performed By: #### U A #### [facility] ([id number]) [address] [place] [address] 55818 Nitrite Ql (U) Negative Normal NEG [facility] Comment on above: Performed By: #### U A #### [facility] ([id number]) [address] [place] [address] 80193 pH (U) 6.0 [pH] Normal 5.0-8.5 [facility] Comment on above: Performed By: #### U A #### [facility] ([id number]) [address] [place] [address] 86990 Protein Ql (U) Negative Normal NEG [facility] Comment on above: Performed By: #### U A #### [facility] ([id number]) [address] [place] [address] 09242 R.B.CELLS 0 /hpf Normal 0-5 [facility] Comment on above: Performed By: #### U A #### [facility] ([id number]) [address] [place] [address] 42966 Specific gravity (U) [Rel density] >1.030 Normal 1.003-1.035 [facility] Comment on above: Performed By: #### U A #### [facility] ([id number]) [address] [place] [address] 98625 SQUAMOUS EPITHELIUM 6 /hpf High 0-5 [facility] Comment on above: Performed By: #### U A #### [facility] ([id number]) [address] [place] [address] 04107 TURBIDITY CLEAR Normal CLEAR [facility] Comment on above: Performed By: #### U A #### [facility] ([id number]) [address] [place] [address] 22978 Urobilinogen Qn (U) 0.2 {Marce'U}/dL Normal <1.1 [facility] Comment on above: Performed By: #### U A #### [facility] ([id number]) [address] [place] [address] 47252 W.B.CELLS 4 /hpf Normal 0-5 [facility] Comment on above: Performed By: #### U A #### [facility] ([id number]) [address] [place] [address] [place] [address] IGP,APTIMA HPV,AGE GDLNon AGE GDLN ACOG TESTING Note . [facility] Comment on above: TESTS RESULT FLAG UN ITS REF RANGE LAB Clinician Provided Cytology Information Source.............Cervix Other.............. No. of containers..01 ThinPrep Vial Age Bryce Gunn... -22 04 FLAG LEGEND: L-Low Normal,H-High Normal,LL-Alert Low,HH-Alert High <-Panic Low,>-Panic High,A-Abnormal,AA-Critical Abnormal Performed at: 01 =[address] [facility] [address] Dodie Felix MD, IGP, RFX APTIMA HPV ASCU Note . [facility] Comment on above: TESTS RESULT FLAG UN ITS REF RANGE LAB DIAGNOSIS: 02 NEGATIVE FOR INTRAEPITHELIAL LESION OR MALIGNANCY. FUNGAL ORGANISMS MORPHOLOGICALLY CONSISTENT WITH SHILOH SPECIES ARE PRESENT. Specimen adequacy: 02 Satisfactory for evaluation. No endocervical component is identified. Performed by: 02 Brianna Lyons Home Theater Experience Expert ([facility]) . 02 Note: Note 02 The Pap [...] <-Panic Low,>-Panic High,A-Abnormal,AA-Critical Abnormal Performed at: [address] [address] Dodie Felix MD, Performed at: =[address] [id number] Summer Clerk: Dodie Felix MD, Phone: [phone] Performed at: [address] [id number] Summer Clerk: Dodie Felix MD, Phone: [phone] SPATULA[facility]ONE CERVIX [facility] URINE CULTURE, ROUTINEon Bacteria identified Cx Nom (U) Urine Culture, Routine [facility] Healthcare Bacteria identified Cx Nom (U) Mixed urogenital seven [facility] Bacteria identified Cx Nom (U) 25,000-50,000 colony forming units per mL [facility] Bacteria identified Cx Nom (U) Performed at: [facility] Bacteria identified Cx Nom (U) [address] [place], [place] [id number] [facility] Bacteria identified Cx Nom (U) Summer Clerk: Anirudh Avendano PhD, Phone: [phone] [facility] URETHRITIS/DISCHARGE PLUS VA GINITIS (HTRX)on 01-20-2024 ATOPOBIUM VAGINAE 18.808 Abnormal [facility] ATOPOBIUM VAGINAE Detected Abnormal [facility] BVAB 2,3 (BACTERIAL VAGINOSIS ASSOCIATED BACTERIA 2, 3); MOBILUNCUS SPP [address] [facility] BVAB 2,3 (BACTERIAL VAGINOSIS ASSOCIATED BACTERIA 2, 3); MOBILUNCUS SPP Not detected [facility] SHILOH ALBICANS, PARAPSILOSIS, TROPICALIS 26.[address] [facility] SHILOH ALBICANS, PARAPSILOSIS, TROPICALIS Detected Abnormal [facility] SH[facility] GLABRATA Not detected [facility] ealthcare SHILOH KRUSEI 0 [facility] Healt hcare SHILOH KRUSEI Not detected [facility] Hea lthcare CHLAMYDIA TRACHOMATIS [address] [facility] CHLAMYDIA TRACHOMATIS Not detected [facility] ERMB, C; MEFA 17.114 Abnormal [facility] care ERMB, C; MEFA Detected Abnormal [facility] GARDNERELLA VAGINALIS 22.[address] [facility] GARDNERELLA VAGINALIS Detected Abnormal [facility] Interpretation and review of laboratory results Abnormal [facility] re MEGASPHAERA (TYPES 1, 2) [address] [facility] MEGASPHAERA (TYPES 1, 2) Not detected [facility] MYCOPLASMA GENITALIUM [address] [facility] MYCOPLASMA GENITALIUM Not detected [facility] NEISSERIA GONORRHOEAE [address] [facility] NEISSERIA GONORRHOEAE Not detected [facility] TET B, TET M 17.484 Abnormal [facility] T[facility] B, TET M Detected Abnormal [facility] are TRICHOMONAS VAGINALIS [address] [facility] TRICHOMONAS VAGINALIS Not detected [facility] Urinalysis macro (dipstick) panel (U)on 01-19-2024 Bilirubin, UA Negative Negative - 4(70) +++ mg/dL [facility] Blood, UA Negative Negative - 50 Jimmy/mcL [facility] Clarity, UA Clear [facility] re Color, UA Light Yellow [facility] Healthc are Glucose, UA Negative Negative - 1999(110) ++++ mg/dL [facility] Interpretation and review of laboratory results Abnormal [facility] Ketones, UA Negative Negative - 160(16) ++++ mg/dL [facility] Leukocytes, UA Negative Negative - 500+++ Minnie/mcL [facility] Nitrite, UA Negative Negative - Positive [facility] pH, UA 6.5 5 - 9 [facility] e Protein, UA Positive Negative - 1999(20) ++++ mg/dL [facility] Spec Grav, UA 1.02 1 - 1.03 [facility] Urobilinogen, UA 1.0 0.2 - 12 mg/dL [facility] Urinalysis macro (dipstick) panel (U)on 12-22-2023 Bilirubin, UA Negative Negative - 4(70) +++ mg/dL [facility] Blood, UA Negative Negative - 50 Jimmy/mcL [facility] Clarity, UA Clear [facility] re Color, UA Yellow [facility] Glucose, UA Negative Negative - 1999(110) ++++ mg/dL [facility] Interpretation and review of laboratory results Abnormal [facility] re Ketones, UA Negative Negative - 160(16) ++++ mg/dL [facility] Leukocytes, UA Moderate Negative - 500+++ Minnie/mcL [facility] Nitrite, UA Negative Negative - Positive [facility] pH, UA 6.5 5 - 9 [facility] Protein, UA Negative Negative - 1999(20) ++++ mg/dL [facility] Spec Grav, UA 1.030 1 - 1.03 [facility] Urobilinogen, UA 1.0 0.2 - 12 mg/dL [facility] ALL CBC WITH AUTO DIFFon BASOPHILS ABSOLUTE AUTO 0.[address] [facility] Basophils/100 WBC (Bld) 0.5 % 0.2 - 2.0 % [facility] Eosinophils/100 WBC (Bld) 1.0 % 0.9 - 7.0 % [facility] Erythrocyte distribution width (RBC) [Ratio] 14.7 % 11.0 - 15.0 % [facility] Hematocrit (Bld) [Volume fraction] 34.1 % Low 36.0 - 48.0 % [facility] e Hemoglobin (Bld) [Mass/Vol] 10.8 g/dL Low 12.0 - 16.0 g/dL [facility] IMMATURE GRANULOCYTES ABS AUTO 0.[address] [facility] Immature granulocytes/100 WBC (Bld) 0.3 % 0.0 - 0.5 % [facility] Interpretation and review of laboratory results [facility] LYMPHOC[facility] ABSOLUTE AUTO 2.[address] [facility] Lymphocytes/100 WBC (Bld) 27.3 % 20.5 - 60.0 % [facility] MCH (RBC) [Entitic mass] 26.0 pg Low 26.7 - 34.[address] [facility] MCHC (RBC) [Mass/Vol] 31.7 g/dL 29.9 - 35.2 g/dL [facility] MCV (RBC) [Entitic vol] 82.0 fL 81.0 - 99.[address] [facility] MONOCYTES ABSOLUTE AUTO 0.[address] [facility] Monocytes/100 WBC (Bld) 4.2 % 1.7 - 12.0 % [facility] NEUTROPHILS ABSOLUTE AUTO 5.[address] [facility] Neutrophils/100 WBC (Bld) 66.7 % 43.0 - 75.0 % [facility] Platelet mean volume (Bld) [Entitic vol] 10.2 fL 9.5 - 13.[address] [facility] TBH EO # 0.1 [facility] e TB PLT 270 [facility] e TB RBC 4.16 Low [facility] WBC 7.9 [facility] e [facility]IS[facility]NC [facility] e HCG ( test) Ql (U)o n 12-10-2023 Interpretation and review of laboratory results Abnormal [facility] re Preg Test, Ur Positive [facility] e Urinalysis macro (dipstick) panel (U)on 12-10-2023 Bilirubin, UA Negative Negative - 4(70) +++ mg/dL [facility] Blood, UA Negative Negative - 50 Jimmy/mcL [facility] Clarity, UA Clear [facility] re Color, UA Yellow [facility] e Glucose, UA Negative Negative - 1999(110) ++++ mg/dL [facility] Interpretation and review of laboratory results Abnormal [facility] re Ketones, UA Negative Negative - 160(16) ++++ mg/dL [facility] Leukocytes, UA Positive Negative - 500+++ Minnie/mcL [facility] Comment on above: small Nitrite, UA Negative Negative - Positive [facility] pH, UA 7.5 5 - 9 [facility] e Protein, UA Negative Negative - 1999(20) ++++ mg/dL [facility] Spec Grav, UA 1.015 1 - 1.03 [facility] Urobilinogen, UA 0.2 0.2 - 12 mg/dL [facility] Consent Formson 09-03-2023 Consent Forms [id number] .[id number] [facility] Lab - Toxicology Resultson 0 09-03-2023 Lab - Toxicology Results [id number] .[id number] [facility] ED Clinical Summaryon 2023 ED Clinical Summary [facility] ? Urgent Care [address] [place], [place] [id number] Clinical Summary PERSON INFORMATION Name: FLORINDA ORTEGA Age: 22 Years Sex: MALE : 2000 MRN: Acct#: Visit Reason: Medical screening exam; [facility] Arrival: 09/02/2023 11:09:30 Discharge: 09/02/2023 11:41:00 LOS: 000 00:32 Check In: 09/02/2023 11:09:30 Checkout: 09/02/2023 11:41:00 Address: [address] [place] [id number] PCP: Bina Zamora CNP PROVIDER INFORMATION Provider [...] Follow-Up: With: Address: When: Pamela Ortiz [address] [facility], [address], [place] [address] Business (1) Comments: [facility] to 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 Abstain from any alcohol or illicit drugs With: Address: When: Bina Zamora [address] [place] [address] Business (1) , only if needed DIAGNOSIS: Physical exam Patient Understands: Yes - Patient/family/caregi carlos verbalizes understanding of instructions given Comment: [facility] ED Patient Summaryon 024 ED Patient Summary [facility] ? Urgent Care [address] [place] [address] PATIENT DISCHARGE INSTRUCTIONS Patient Information Name: FLORINDA ORTEGA Age: 22 Years Date of : 2000 Reason For Visit: Medical screening exam; [facility] Arrival Time: 09/02/2023 11:09:30 Primary Care Physician: Bina Zamora CNP Attending Physician: MIRIAN HERBERT Comment: Patient Education With: Address: When: Pamela Ortiz [address] [facility], [address], [place] [address] Business (1) Comments: [facility] [employer] to 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 Abstain from any alcohol or illicit drugs With: Address: When: Bina Zamora [address] [place] [address] Business (1) , only if needed Care care is health care during . It helps you and your unborn baby (fetus) stay as healthy as possible. care may be provided by a electric deicer inspector, a family practice doctor, a mid-level practitioner (nurse practitioner or physician podiatric assistant), or a childbirth and doctor (administrative office assistant). How does this affect me? During , [...] procedures you have had. ? Any current higu-wha-bdtsftg or prescription medicines, herbs, or supplements that [...] any s (more content not included)... Normal [facility] Triage Industrialon 09-02-19 24 Drug Screen Complete Collected [facility] Comment on above: Performed By: #### 1 [id number] #### [facility] (DEFAULT) [address] [place] [address] Urgent Care Note- Provideron 09-02-2023 Urgent Care [...] pharynx is pink and moist. NECK: -Supple (cjpg-so-jbfec): non-tender. CARD: -Rate and rhythm: Regular -Edema: [...] Plan Assessment and Plan: Diagnosis: Physical exam ([id number] Z00.00). Cleared for employment [Electronically Signed on: 09/02/2023 11:41 EDT] MIRIAN HERBERT [Verified on: 09/02/2023 11:41 EDT] MIRIAN HERBERT Normal [facility] Urgent Care Recordon 024 Urgent Care Record [facility] ? Urgent Care [address] [place] [address] PATIENT DISCHARGE INSTRUCTIONS Patient Information Name: FLORINDA ORTEGA Age: 22 Years Date of : 2000 Reason For Visit: Medical screening exam; [facility] Arrival Time: 09/02/2023 11:09:30 Primary Care Physician: Bina Zamora CNP Attending Physician: MIRIAN HERBERT Comment: Visit Diagnosis: Diagnoses This Visit Medical screening exam ([id number]) Physical exam (Z00.00) If you received any [...] documents With: Address: When: Pamela Ortiz [address] [facility], [address], [place] [address] Business (1) Comments: [facility] [employer] to 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 Abstain from any alcohol or illicit drugs With: Address: When: Bina Zamora [address] [place] [address] Business (1) , only if needed Medication Information: The exam and treatment you received today in the [facility] were for an urgent problem and are not intended as complete care. It is important for you to follow up with a doctor, nurse practitioner, or physician?s podiatric assistant for ongoing care. If your symptoms [...] so we can reach you if necessary. [facility] has provided you with a complete list of medications post discharge. Please inform your net solutions architect/provider of your visit and for further instruction [...] possible. care may be provided by a electric deicer inspector, a family practice doctor, a mid-level practitioner (nurse practitioner or physician podiatric assistant), or a childbirth and doctor (administrative office assistant). How does this affect me? During , [...] ? Any (more content not included)... Normal [facility] COVID/FLU RT-PCRon SARS-CoV-2 (COVID-19) RNA [facility]+probe Ql (Unsp spec) Negative [facility] Other COVID/FLU RT-PCR Negative [facility] Other CHLAMYDIA/GONOCOCCUS [facility] (SW AB/URINE/PAPon 05-22-2022 Chlamydia trachomatis, [facility] Negative Normal Negative [facility] Comment on above: Performed By: #### C T/NGNA #### [facility] [address] [address] [address] Clau Valdivia Neisseria gonorrhoeae, [facility] Negative Normal Negative [facility] Comment on above: Performed By: #### C T/NGNA #### [facility] [address] [address] [address] Clau Valdivia VAGINITIS/VAGINOSIS DNA PROB Melvin 05-21-2022 [place]oh species Positive Abnormal Negative [facility] Comment on above: Performed By: #### V AGINT #### [facility] [address] [address] [address] Clau Valdivia Gardnerella vaginalis Positive Abnormal Negative [facility] Comment on above: Performed By: #### V AGINT #### [facility] [address] [address] [address] Clau Valdivia Trichomonas vaginalis Negative Normal Negative [facility] Comment on above: Performed By: #### V AGINT #### [facility] [address] [address] [address] Clau Valdivia COVID + FLU Quick Testingon 04-20-2022 SARS-CoV-2 (COVID-19) RNA [facility]probe Ql (Unsp spec) Negative [facility] [employer] Other COVID + FLU Quick Testing Negative [facility] Other Quick Strepon 04-20-2022 S. pyogenes Org specific cx Ql (Throat) Negative [facility] Other Quick Strep [employer] [facility] Other Vital Signs Date Time Vital Sign Value Performing Clinician Facility 03-29-2024 10:14-0500 Body mass index (BMI) [Ratio] 35.89 kg/m2 [email or web address] Work Phone: [facility] 03-29-2024 10:14-0500 Body weight 103.93 kg [email or web address] Work Phone: [facility] 03-29-2024 10:14-0500 Diastolic blood pressure 72 mm[Hg] [email or web address] Work Phone: [facility] 03-29-2024 10:14-0500 Systolic blood pressure 110 mm[Hg] [email or web address] Work Phone: [facility] 03-08-2024 14:41-0500 Body mass index (BMI) [Ratio] 35.87 kg/m2 Ana Luisa ROY Work Phone: [facility] 03-08-2024 14:41-0500 Body weight 103.87 kg Ana Luisa ROY Work Phone: [facility] 03-08-2024 14:41-0500 Diastolic blood pressure 74 mm[Hg] Ana Luisa ROY Work Phone: [facility] 03-08-2024 14:41-0500 Systolic blood pressure 120 mm[Hg] Ana Luisa ROY Work Phone: [facility] 02-23-2024 13:59-0500 Body mass index (BMI) [Ratio] 35.37 kg/m2 Angelina Roslyn DO Work Phone: [facility] 02-23-2024 13:59-0500 Body weight 102.42 kg Angelina Roslyn DO Work Phone: [facility] 02-23-2024 13:59-0500 Diastolic blood pressure 72 mm[Hg] Angelina Roslyn DO Work Phone: [facility] 02-23-2024 13:59-0500 Systolic blood pressure 118 mm[Hg] Angelina Roslyn DO Work Phone: [facility] 01-19-2024 13:35-0400 Body mass index (BMI) [Ratio] 34.43 kg/m2 Ana Luisa ROY Work Phone: [facility] 01-19-2024 13:35-0400 Body weight 99.7 kg Ana Luisa ROY Work Phone: [facility] 01-19-2024 13:35-0400 Diastolic blood pressure 70 mm[Hg] Ana Luisa ROY Work Phone: [facility] 01-19-2024 13:35-0400 Systolic blood pressure 108 mm[Hg] Ana Luisa ROY Work Phone: [facility] 12-22-2023 09:36-0400 Body mass index (BMI) [Ratio] 33.83 kg/m2 Angelina Roslyn DO Work Phone: [facility] 12-22-2023 09:36-0400 Body weight 97.98 kg Angelina Roslyn DO Work Phone: [facility] 12-22-2023 09:36-0400 Diastolic blood pressure 72 mm[Hg] Angelina Roslyn DO Work Phone: [facility] 12-22-2023 09:36-0400 Systolic blood pressure 110 mm[Hg] Angelina Mcgowan DO Work Phone: [facility] 12-10-2023 13:39-0400 Body mass index (BMI) [Ratio] 33.67 kg/m2 [facility] Nurse [facility] 12-10-2023 13:39-0400 Body weight 97.52 kg Nom Nurse [facility] 12-10-2023 13:39-0400 Diastolic blood pressure 78 mm[Hg] [facility] Nurse [facility] 12-10-2023 13:39-0400 Systolic blood pressure 112 mm[Hg] [facility] Nurse [facility] 07-19-2022 11:30-0400 Body height 167.64 cm Ne Henderson Other [facility] Other 07-19-2022 11:30-0400 Body mass index (BMI) [Ratio] 34.7 kg/m2 Ne Henderson Other [facility] Other 07-19-2022 11:30-0400 Body temperature 101 [degF] Ne Henderson Other [facility] Other 07-19-2022 11:30-0400 Body weight 97.52 kg Ne Henderson Other [facility] Other 07-19-2022 11:30-0400 Diastolic blood pressure 76 mm[Hg] Ne Henderson Other [facility] Other 07-19-2022 11:30-0400 Respiratory rate 18 /min Ne Henderson Other [facility] Other 07-19-2022 11:30-0400 SaO2% (BldA) [Mass fraction] 97 % Ne Henderson Other [facility] Other 07-19-2022 11:30-0400 Systolic blood pressure 113 mm[Hg] Ne Henderson Other [facility] Other 04-20-2022 10:50-0500 Body height 167.64 cm Anya Contreras Other [facility] Other 04-20-2022 10:50-0500 Body mass index (BMI) [Ratio] 34.7 kg/m2 Anya Contreras Other [facility] Other 04-20-2022 10:50-0500 Body temperature 98.6 [degF] Anya Contreras Other [facility] Other 04-20-2022 10:50-0500 Body weight 97.52 kg Anya Contreras Other [facility] Other 04-20-2022 10:50-0500 Respiratory rate 18 /min Anya Contreras Other [facility] Other 04-20-2022 10:50-0500 SaO2% (BldA) [Mass fraction] 98 % Anya Contreras Other [facility] Other Encounters Encounter Date Encounter Type Care Provider Facility Start: 03-29-2024 End: 03-29-2024 Bamboo flowsheet Angelina Roslyn DO Work Phone: [facility] Start: 03-29-2024 End: 03-29-2024 Bamboo flowsheet Angelina Roslyn DO Work Phone: [facility] Start: 03-29-2024 End: 03-29-2024 flow sheet Angelina Roslyn DO Work Phone: [facility] Comment on above: 35 weeks gestation o f ; Third trimester ; Other iron deficiency anemia Start: 03-11-2024 End: 03-11-2024 Clinisync Result Encounter Ana Luisa ROY Work Phone: [facility] Unsolicited Start: 03-11-2024 End: 03-11-2024 Clinisync Result Encounter Ana Luisa ROY Work Phone: [facility] Unsolicited Start: 03-08-2024 End: 03-08-2024 flow sheet Ana Luisa ROY Work Phone: [facility] Comment on above: Third trimester preg sharee; 32 weeks gestation of Start: 03-08-2024 End: 03-08-2024 Bamboo flowsheet Ana Luisa ROY Work Phone: [facility] Start: 03-08-2024 End: 03-08-2024 Bamboo flowsheet Ana Luisa ROY Work Phone: [facility] Start: 03-08-2024 End: 03-08-2024 ambulatory ANA LUISA MOURA Not Available Start: 02-23-2024 End: 02-23-2024 Bamboo flowsheet Angelina [...] Not Available Start: 01-31-2024 End: 02-01-2024 ambulatory [facility] Start: 01-20-2024 End: 01-22-2024 Clinisync Result Encounter [...] Not Available Start: 01-07-2024 End: 01-07-2024 ambulatory [facility] Start: 12-30-2023 End: 12-30-2023 ambulatory [facility] Start: 12-22-2023 End: 12-22-2023 Bamboo [...] Start: 09-02-2023 End: 09-02-2023 ambulatory Bina Zamora Facility:[facility] Start: 07-16-2023 End: 07-16-2023 ambulatory ANA LUISA [...] Start: 04-11-2023 End: 04-11-2023 ambulatory MARVEL CHRISTIAN [facility] Start: 04-06-2023 End: 04-06-2023 ambulatory ANGELINA ROSLYN Not Available Start: 03-19-2023 End: 03-19-2023 ambulatory ANA LUISA ZENY Not Available Start: 07-19-2022 End: 07-19-2022 ambulatory Ne Henderson Other [facility] Other Start: 07-19-2022 Office outpatient vi sit 25 minutes Ne Henderson [facility] Start: 05-19-2022 End: 05-19-2022 ambulatory ANA LUISA ZENY . Facility: Start: 04-20-2022 End: 04-20-2022 ambulatory Anya Diane Other [facility] Other Start: 04-20-2022 Office outpatient vi sit 25 minutes Anya Contreras [facility] Procedures Date Procedure Procedure Detail Performing Clinician Start: 03-29-2024 Urnls dip stick/tabl et rgnt non-auto w/o micrscp Angelina Roslyn DO Work Phone: Start: 03-11-2024 MLR HEMOGLOBIN A1C Gene ken External Data Provider Start: 03-08-2024 Urnls dip stick/tabl et rgnt [...] dip stick/tablet rgnt non-auto w/o micrscp Angelina Roslyn DO Work Phone: Plan of Treatment Date Care Activity Detail Author Start: 03-29-2024 End: 03-29-2024 Patient encounter procedure [facility] Comment on above: Arrived Start: 03-08-2024 End: 03-08-2024 Patient encounter procedure [facility] Comment on above: Arrived Start: 03-08-2024 End: 03-08-2024 Professional / ancillary services management 03/08/2024 1:30 PM EST Ancillary Procedure [facility] [address] [place] [address] [facility] Start: 02-23-2024 End: 02-22-2025 CBC panel - Blood by Automated count CBC Lab Routine Diabetes mellitus screening Expected: 02/23/2024 (Approximate), Expires: 02/22/2025 [facility] Comment on above: Expected: 02/23/2024 (Approximate), Expires: 02/22/2025 Start: 02-23-2024 End: 02-22-2025 Measurement of glucose 1 hour after glucose challenge for glucose tolerance test Glucose tolerance, 1 hour Lab Routine Diabetes mellitus screening Expected: 02/23/2024 (Approximate), Expires: 02/22/[address] [facility] Comment on above: Expected: 02/23/2024 (Approximate), Expires: 02/22/2025 Start: 02-23-2024 End: 02-22-2025 US for US OB SCAN FOR GROWTH Imaging Routine size inconsistent with dates Expected: 02/23/2024 (Approximate), Expires: 02/22/2025 [facility] Work Phone: Comment on above: Expected: 02/23/2024 (Approximate), Expires: 02/22/2025 Start: 02-23-2024 End: 02-23-2024 Patient encounter procedure 02/23/2024 1:40 PM EST Routine [facility] [address] [facility] [place] [id number] Angelina Mcgowan DO [address] [place] [address] Arrived [facility] Comment on above: Arrived Start: 02-16-2024 End: 02-16-2024 Patient encounter procedure 02/16/2024 1:50 PM EST Routine [facility] [address] [place] [address] Angelina Mcgowan, DO [address] [place] [address] [facility] Start: 01-19-2024 End: 01-19-2024 Patient encounter procedure [facility] Comment on above: Arrived Start: 12-22-2023 End: 12-22-2023 Patient encounter procedure [facility] Comment on above: Arrived Start: 12-22-2023 End: 12-22-2023 Professional / ancillary services management 12/22/2023 8:00 AM EDT Ancillary Procedure [facility] [address] [place] [address] [facility] Start: 12-21-2023 End: 12-21-2023 Patient encounter procedure 12/21/2023 9:00 AM EDT Routine [facility] [address] [place] [address] Angelina Mcgowan, DO [address] [place] [address] [facility] Start: 12-10-2023 End: 12-09-2024 [...] Missed menses Expected: 12/10/2023 (Approximate), Expires: 12/09/2024 [facility] Work Phone: Comment on above: Expected: 12/10/2023 (Approximate), Expires: 12/09/2024 Start: 12-10-2023 End: 12-09-2024 Drugs of abuse panel - Urine by Screen method Rapid drug screen, urine Lab Routine Encounter for supervision of normal first in first trimester , unspecified gestational age Expected: 12/10/2023 (Approximate), Expires: 12/09/2024 [facility] Comment on above: Expected: 12/10/2023 (Approximate), Expires: 12/09/2024 Start: 12-10-2023 End: 12-09-2024 US for [facility] Comment on above: Expected: 12/10/2023 (Approximate), Expires: 12/09/2024 Start: 11-22-2023 Influenza vaccination Influenza Vacc ine (#1) [facility] Bacteria identified in Urine by Culture Urine culture Microbiology Routine Missed menses Ordered: 12/10/[address] [facility] Comment on above: Ordered: 12/10/2023 CBC W Auto Different ial panel - Blood CBC and differential Lab Routine Missed menses Ordered: 12/10/[address] [facility] Comment on above: Ordered: 12/10/2023 CHLAMYDIA TRACHOMATI S (GENITO/STI) CHLAMYDIA TRACHOMATIS (GENITO/STI) Lab Routine STD exposure Ordered: 01/19/[address] [facility] Comment on above: Ordered: 01/19/2024 Cytology Cervical or vaginal smear or scraping study Pap Smear Pathology and Cytology Routine Well woman exam with routine gynecological exam Ordered: 01/19/[address] [facility] Comment on above: Ordered: 01/19/2024 Hemoglobin A1c/Hemoglobin.total in Blood Hemoglobin A1c Lab Routine Third trimester Ordered: 03/08/[address] [facility] Work Phone: Comment on above: Ordered: 03/08/2024 Hemoglobin A1c/Hemoglobin.total in Blood Hemoglobin A1c Lab Routine Missed menses Ordered: 12/10/[address] [facility] Comment on above: Ordered: 12/10/2023 Hepatitis B virus surface Ag [Presence] in Serum or Plasma by Immunoassay Hepatitis B surface antigen Lab Routine Missed menses Ordered: 12/10/[address] [facility] Comment on above: Ordered: 12/10/2023 Hepatitis C virus Ab [Presence] in Serum or Plasma by Immunoassay Hepatitis C antibody Lab Routine Missed menses Ordered: 12/10/[address] [facility] Comment on above: Ordered: 12/10/2023 HIV-1/HIV-2 antigen/antibody combination immunoassay HIV-1 and HIV-2 antibodies Lab Routine Missed menses Ordered: 12/10/[address] [facility] Comment on above: Ordered: 12/10/2023 Neisseria gonorrhoea e DNA [Presence] in Unspecified specimen by [facility] with probe detection Neisseria gonorrhea DNA probe, direct Lab Routine STD exposure Ordered: 01/19/[address] [facility] Comment on above: Ordered: 01/19/2024 Reagin Ab [Presence] in Serum by RPR RPR Lab Routine Missed menses Ordered: 12/10/[address] [facility] Comment on above: Ordered: 12/10/2023 Rubella antibody, IgG Rubella an tibody, IgG Lab Routine Missed menses Ordered: 12/10/[address] [facility] Comment on above: Ordered: 12/10/2023 SURESWAB(R) ADVANCED VAGINITIS PLUS, TMA SURESWAB(R) ADVANCED VAGINITIS PLUS, TMA Pathology and Cytology Routine Vaginal discharge Ordered: 01/19/[address] [facility] Work Phone: Comment on above: Ordered: 01/19/2024 Immunizations Immunization Date Immunization Notes Care Provider Sara zaidi 01-25-2021 influenza virus vacc ine, unspecified formulation Angelina Mcgowan DO Work Phone: [facility] Payers Date Payer Category Payer Unknown [id number] 2019 Private Health Insurance [id number] 2002 Unknown [id number] 2.16.84 [id number] 2002 Unknown [id number] 2.16.8 40.1.514709.3.579.2.1286 2002 Unknown [id number] 2.16.84 0.1.552379.3.579.2.1286 2002 Unknown [id number] 2.16.84 0.1.238155.3.579.2.1259 2002 Unknown [id number] 2.16.84 0.1.978973.3.579.2.1259 2002 Unknown [id number] 2.16.84 0.1.073995.3.579.2.9 2002 Unknown [id number] 2.16.84 0.1.382211.3.579.2.1259 2002 Unknown [id number] 2.16.84 0.1.084709.3.579.2.9 2002 Unknown [id number] 2.16.84 0.1.051552.3.579.2.9 2002 Unknown [id number] 2.16.84 0.1.082706.3.579.2.9 2002 Unknown [id number] 2.16.84 0.1.199900.3.579.2.9 2002 Unknown [id number] 2.16.84 0.1.555472.3.579.2.9 2002 Unknown [id number] 2.16.84 0.1.613634.3.579.2.9 2002 Unknown [id number] 2.16.84 0.1.336852.3.579.2.1258 2002 Unknown [id number] 2.16.84 0.1.696223.3.579.2.9 2002 Unknown [id number] 2.16.840 .1.182196.3.579.2.1259 1959 Unknown [id number] Social History Date Type Detail Facility Unknown if ever smoked [facility] Other Sex Assigned At [facility] Other Tobacco smoking status KYIS Tobacco smoking consumption unknown [facility] Start: 08-11-2023 [facility] Start: 2000 Sex assigned at Not on file N [facility] Clinical Notes 04-20-2022 to 03-29-2024 Chelsea Mcdonnell, BRAND STRATEGIST - 03/29/2024 10:10 AM Oseas TorresCINTHIA king - 03/08/2024 2:20 PM MANUELA Zayas - 03/08/2024 2:20 PM Johnfranca Amador, TIERRA - 02/23/2024 1:40 PM EST Note Date & Type Note Facility 03-29-2024 History of Presen t illness Narrative Reason for Appointment: Patient ID: Florinda Ortega is a 23 y.o. female who presents for Routine Visit Patient presents today for Return OB appointment. MEDICATIONS Current Outpatient Medications Medication Instructions MV-Min-Fe Fum-FA-DHA ( 1 PO) Take by mouth ALLERGIES No Known Allergies PROBLEMS Active Ambulatory [...] nursing note reviewed. Exam conducted with a casting machine adjuster present. Vitals: Estimated body mass index is 35.89 kg/m as calculated from the following: Height as of 05/19/22: 5' 7 . Weight as of this encounter: 229 lb 1.9 oz. BP: 110/72 Patient's last menstrual period was 08/05/2023. ASSESSMENT & PLAN ICD-10-CM 1. 35 weeks gestation of Z3A.35 POCT urinalysis dipstick manually resulted 2. Third trimester Z34.93 POCT urinalysis dipstick manually resulted Return OB: Patient presents today for a routine obstetrics appointment. Patient is currently 35w0d . Patient states she is doing well but has complaints of being tired due to current . Patient has verbalizes frequent movement. labor precautions was discussed/given and patient was instructed to perform kick counts three times a day. Orders Placed This Encounter Procedures POCT urinalysis dipstick manually resulted Follow Up: Patient is to return to office in 1 week for routine OB appointment. Documented by Chelsea Mcdonnell LPN on behalf of: Angelina Mcgowan DO documented in this encounter [facility] 03-08-2024 History of Presen t illness Narrative [...] of: MANUELA Foy documented in this encounter [facility] 02-23-2024 History of Presen t illness Narrative [...] nursing note reviewed. Exam conducted with a casting machine adjuster present. Vitals: Estimated body mass index is [...] Angelina Mcgowan DO documented in this encounter [facility] 01-19-2024 History of Presen t illness Narrative [...] nursing note reviewed. Exam conducted with a casting machine adjuster present. Vitals: Estimated body mass index is [...] of: MANUELA Foy documented in this encounter [facility] 12-22-2023 History of Presen t illness Narrative [...] nursing note reviewed. Exam conducted with a casting machine adjuster present. Vitals: Estimated body mass index is [...] Angelina Mcgowan DO documented in this encounter [facility] 12-10-2023 History of Presen t illness Narrative [...] or undercooked meat, and stay away from [facility]. Patient has also been advised to not [...] by: Karmen Alvares documented in this encounter [facility] 09-03-2023 Note [phone] [id number] 09-02-2023 Note Patient Education Ma terials Follows:and Gynecology Care care is health care during . It helps you and your unborn baby (fetus) stay as healthy as possible. care may be provided by a electric deicer inspector, a family practice doctor, a mid-level practitioner (nurse practitioner or physician podiatric assistant), or a childbirth and doctor (administrative office assistant). How does this affect me? During , [...] procedures you have had. ? Any current [id number] or prescription medicines, herbs, or supplements that [...] week 24 of (more content not included)... [facility] 07-19-2022 Evaluation note Encounter Date Diagnosis Assessment [...] treatment plan. Patient left in stable condition. [facility] Other 04-29-2023 History general Narrative - Reported* Type Description Date Medical History ADD Medical History Born with cleft palette Surgical History tonsillectomy and adenoidectomy Surgical History cleft palette 3-4 repair Hospitalization History see above [facility] Other 03-05-2023 History general Narrative - Reported* Type Description Date Medical History ADD Medical History Born with cleft palette Surgical History tonsillectomy and adenoidectomy Surgical History cleft palette 3-4 repair Hospitalization History see above [facility] Other 01-29-2023 Evaluation note* Encounter Date Diagnosis [...] this time you do not have COVID. [facility] Other Evaluation note* Diagnosis Second trimester state, [...] trimester state, incidental [facility] Diagnosis 35 weeks gestation of Third trimester state, incidental Other iron deficiency anemia documented in this encounter [facility] Summary [...] and content) DATE CREATED AUTHOR 05/23/2022 [facility] DATE CREATED AUTHOR AUTHOR'S ORGANIZ ATION 09/03/2023 [facility] DATE CREATED AUTHOR AUTHOR'S ORGANIZ ATION 01/09/2024 [facility] DATE CREATED AUTHOR AUTHOR'S ORGANIZ ATION 02/01/2024 [facility] DATE CREATED AUTHOR AUTHOR'S ORGANIZ ATION 03/11/2024 [facility] EPIC REASON FOR VISIT (unrecogniz ed [...] BE BASED ON THE PRIMARY CLINICAL RECORDS. [employer] [facility]. provides no warranty or guarantee of the accuracy or completeness of information in this document.
[2024-04-01 10:07] LABS: Basophils Percent Auto 0.3 % (0.2-2.0); Eosinophils Absolute Auto 0.1 10^3/uL (0.0-0.7); Hematocrit 31.4 % (36.0-48.0); Hemoglobin 9.6 g/dL (12.0-16.0); Immature Granulocytes Abs Auto 0.05 10^3/uL (0.00-0.03); Immature Granulocytes Pct Auto 0.5 % (0.0-0.5); Lymphocytes Absolute Auto 2.5 10^3/uL (1.2-3.8); Lymphocytes Percent Auto 27.7 % (20.5-60.0); Mean Corpuscular HGB Conc 30.6 g/dL (29.9-35.2); Mean Corpuscular Hemoglobin 23.5 pg (26.7-34.0); Mean Platelet Volume 9.6 fL (9.5-13.5); Monocytes Absolute Auto 0.3 10^3/uL (0.3-0.8); Monocytes Percent Auto 3.5 % (1.7-12.0); Neutrophils Absolute Auto 6.1 10^3/uL (1.4-6.5); Platelet Count 276 10^3/uL (150-450); Red Blood Count 4.08 10^6/uL (4.20-5.40); Red Cell Distribution Width 14.2 % (11.0-15.0); White Blood Count 9.2 10^3/uL (4.0-11.0)
== END 2024-04-01 09:26 | disposition home or self-care (01) ==
LOC: LAB 09:26
PROVIDERS: PCP Nurse Practitioner; Visit Provider Obstetrics & Gynecology
DX: Z13.1 Encounter for screening for diabetes mellitus (principal)
CPT/HCPCS: 36415; 85025

== ENCOUNTER 2024-04-07 17:00 | Outpatient (REF) | payer OTHER, SELFPAY ==
--- OUTSIDE RECORDS SUMMARY | 2024-04-08 07:02 | XMS_ITS | CCD ---
Author Organization [facility] Inform ion [facility] Care Team Providers Care Cadd Manager Name Role Phone ZENY ., ANA LUISA Attending Unavailable ZENY ., ANA LUISA Consulting Unavailable EZNY Sun, ANA LUISA Admitting Unavailable YOLANDA ZAMORA Primary [...] Attending Unavailable BINA ZAMORA Primary Care Unavailable ANGELINA MCGOWAN Attending Unavailable ZENY, ANA LUISA Attending Unavailable ANGELINA MCGOWAN Attending Unavailable ZENY, ANA LUISA Attending Unavailable JOSELIN MCGOWANY Attending Unavailable ANGELINA MCGOWAN Attending Unavailable ZENY, ANA LUISA Attending Unavailable ROSLYN, ANGELINA Attending Unavailable ZENY, ANA LUISA Attending Unavailable ROSLYN, ANGELINA Attending Unavailable ZENY, ANA LUISA Attending Unavailable JOSELIN MCGOWANY Attending Unavailable Medications Current Medications Medication Drug Class(es) Dates Sig (Normalized) Sig (Original) [id number] 200 actuat albuterol 0.09 mg/actuat metered dose [...] oral solution (1 source) alpha-Adrenergic Agonist, Uncompetitive J-sioaqn-H-asparta te Receptor Antagonist, Sigma-1 Agonist Start: 3 take 10 mL by mouth every six hours Wnzlepgau-Nksbmack-MP 30-2-10 MG/5ML 10 mL Orally every 6 [...] polysaccharide iron complex 391 mg oral capsule (6 sources) Start: 5 End: 5 take 1 [...] source) Vitamin B12 Start: 03-27-2023 End: 12-10-2023 H-Yexzowffsivj-A8-B 12 (Folbic RF) 1.13-25-2 MG tablet Take [...] syndrome] Chronic Other and delivery including normal (15 sources) Second trimester ; Translations: [Encounter for [...] [35 weeks gestation of ] 03-29-2024 Episodic Residual codes; unclassified (2 sources) Gestation period, 36 weeks; Translations: [36 weeks gestation of ] 04-07-2024 Episodic Unclassified (1 source) Decreased Movement Onset: Results Test Name Value Interpretation Reference Range Facility Urinalysis macro (dipstick) panel (U)on 04-07-2024 Bilirubin, UA Negative Negative - 4(70) +++ mg/dL [facility] Blood, UA Negative Negative - 50 Jimmy/mcL [facility] Clarity, UA Clear [facility] re Color, UA Yellow [facility] Glucose, UA Negative Negative - 1999(110) ++++ mg/dL [facility] Interpretation and review of laboratory results Abnormal [facility] re Ketones, UA Positive Negative - 160(16) ++++ mg/dL [facility] Comment on above: 40 Leukocytes, UA Trace Negative - 500+++ Minnie/mcL [facility] Nitrite, UA Negative Negative - Positive [facility] pH, UA 6 5 - 9 [facility] e Protein, UA Trace Negative - 1999(20) ++++ mg/dL [facility] Spec Grav, UA 1.03 1 - 1.03 [facility] Urobilinogen, UA 0.2 0.2 - 12 mg/dL [facility] e ALL CBC WITH AUTO DIFFon BASOPHILS ABSOLUTE AUTO 0 [facility] Basophils/100 WBC (Bld) 0.3 % 0.2 - 2.0 % [facility] Eosinophils/100 WBC (Bld) 1 % 0.9 - 7.0 % [facility] Erythrocyte distribution width (RBC) [Ratio] 14.2 % 11.0 - 15.0 % [facility] Hematocrit (Bld) [Volume fraction] 31.4 % Low 36.0 - 48.0 % [facility] Health[facility] e Hemoglobin (Bld) [Mass/Vol] 9.6 g/dL Low 12.0 - 16.0 g/dL [facility] IMMATURE GRANULOCYTES ABS AUTO 0.05 High [facility] Immature granulocytes/100 WBC (Bld) 0.5 % 0.0 - 0.5 % [facility] Interpretation and review of laboratory results Abnormal [facility] re LYMPHOCYTES ABSOLUTE AUTO 2.5 [facility] Lymphocytes/100 WBC (Bld) 27.7 % 20.5 - 60.0 % [facility] MCH (RBC) [Entitic mass] 23.5 pg Low 26.7 - 34.0 pg [facility] MCHC (RBC) [Mass/Vol] 30.6 g/dL 29.9 - 35.2 g/dL [facility] MCV (RBC) [Entitic vol] 77 fL Low 81.0 - 99.0 fL [facility] MONOCYTES ABSOLUTE AUTO 0.3 [facility] Monocytes/100 WBC (Bld) 3.5 % 1.7 - 12.0 % [facility] NEUTROPHILS ABSOLUTE AUTO 6.1 [facility] Neutrophils/100 WBC (Bld) 67 % 43.0 - 75.0 % [facility] Platelet mean volume (Bld) [Entitic vol] 9.6 fL 9.5 - 13.5 fL [facility] TBH EO # 0.1 [facility] Health[facility] e TB PLT 276 [facility] RBC 4.08 Low [facility] e TB WBC 9.2 [facility] e Urinalysis macro (dipstick) panel (U)on 03-29-2024 Bilirubin, UA Negative Negative - 4(70) +++ mg/dL [facility] Blood, UA Negative Negative - 50 Jimmy/mcL [facility] Clarity, UA Clear [facility] re Color, UA Ne [facility] Glucose, UA Negative Negative - 2000(110) ++++ mg/dL [facility] Interpretation and review of laboratory results Abnormal [facility] re Ketones, UA Negative Negative - 160(16) ++++ mg/dL [facility] Leukocytes, UA Trace Negative - 500+++ Minnie/mcL [facility] Nitrite, UA Negative Negative - Positive [facility] pH, UA 6 5 - 9 [facility] e Protein, UA Trace Negative - 1999(20) ++++ mg/dL [facility] Spec Grav, UA 1.025 1 - 1.03 [facility] Urobilinogen, UA 0.2 0.2 - 12 mg/dL [facility] MLR HEMOGLOBIN A1Con 024 Glucose [Mass/Vol] 108 mg/dL [facility] HbA1c (Bld) [Mass fraction] 5.4 % 4.5 - 6.2 % [facility] Comment on above: ADA RECOMMENDED LIMI T 4.0 - 6.0 ADA THERAPEUTIC TARGET < 7.0 ACTION SUGGESTED > 7.0 [facility] e Urinalysis macro (dipstick) panel (U)on 03-08-2024 Bilirubin, UA Negative Negative - 4(70) +++ mg/dL [facility] Blood, UA Negative Negative - 50 Ijmmy/mcL [facility] Clarity, UA Clear [facility] re Color, UA Yellow [facility] Glucose, UA Negative Negative - 1999(110) ++++ mg/dL [facility] Interpretation and review of laboratory results Abnormal [facility] Healthca re Ketones, UA Negative Negative - 160(16) ++++ mg/dL [facility] Leukocytes, UA Trace Negative - 500+++ Minnie/mcL [facility] Nitrite, UA Negative Negative - Positive [facility] pH, UA 6.5 5 - 9 [facility] Health[facility] e Protein, UA Negative Negative - 1999(20) ++++ mg/dL [facility] Spec Grav, UA 1.025 1 - 1.03 [facility] Urobilinogen, UA 0.2 0.2 - 12 mg/dL [facility] Urinalysis macro (dipstick) panel (U)on 02-23-2024 Bilirubin, UA Negative Negative - 4(70) +++ mg/dL [facility] Blood, UA Negative Negative - 50 Jimmy/mcL [facility] Clarity, UA Clear [facility] Healthca re Color, UA Yellow [facility] Health[facility] e Glucose, UA Negative Negative - 1999(110) ++++ mg/dL [facility] Interpretation and review of laboratory results Abnormal [facility] Healthca re Ketones, UA Negative Negative - 160(16) ++++ mg/dL [facility] Leukocytes, UA Trace Negative - 500+++ Minnie/mcL [facility] Nitrite, UA Negative Negative - Positive [facility] pH, UA 6.5 5 - 9 [facility] Health[facility] e Protein, UA Negative Negative - 1999(20) ++++ mg/dL [facility] Spec Grav, UA 1.02 1 - 1.03 [facility] Urobilinogen, UA 1.0 0.2 - 12 mg/dL [facility] CBC AND AUTO DIFFon 02-01-20 24 ABSOLUTE BASOPHIL 0.0 X10E9/L Normal 0.0-0.2 [facility] Comment on above: Performed By: #### C HUDSON PÉREZ, , 3083-03 #### [facility] ([id number]) [address] [place] [address] 32521 ABSOLUTE NEUTROPHIL 10.5 X10E9/L High 1.5-6.6 [facility] Comment on above: Performed By: #### Carol PÉREZ CMP, , 3083-03 #### [facility] ([id number]) [address] [place] [address] 11694 Basophils/100 WBC (Bld) 0.4 % Normal [facility] Comment on above: Performed By: #### Carol PÉREZ CMP, 0, 3083-03 #### [facility] ([id number]) [address] [place] [address] 58830 Eosinophils (Bld) [#/Vol] 0.1 10*3/uL Normal 0.0-0.4 [facility] Comment on above: Performed By: #### Carol PÉREZ CMP, , 3083-03 #### [facility] ([id number]) [address] [place] [address] 04845 Eosinophils/100 WBC (Bld) 0.7 % Normal [facility] Comment on above: Performed By: #### Carol PÉREZ CMP, 0, 3083-03 #### [facility] ([id number]) [address] [place] [address] 58312 Erythrocyte distribution width (RBC) [Ratio] 14.5 % Normal 11.5-15.0 [facility] Comment on above: Performed By: #### Carol PÉREZ CMP, 0, 3083-03 #### [facility] ([id number]) [address] [place] [address] 00825 Hematocrit (Bld) [Volume fraction] 29.1 % Low 35-47 [facility] Comment on above: Performed By: #### Carol PÉREZ CMP, 0, 3083-03 #### [facility] ([id number]) [address] [place] [address] 45144 Hemoglobin (Bld) [Mass/Vol] 9.6 g/dL Low 11.7-15.5 [facility] Comment on above: Performed By: #### Carol PÉREZ CMP, 0, 3083-03 #### [facility] ([id number]) [address] [place] [address] 75978 Lymphocytes (Bld) [#/Vol] 2.2 10*3/uL Normal 1.0-3.5 [facility] Comment on above: Performed By: #### Carol PÉREZ CMP, 0, 3083-03 #### [facility] ([id number]) [address] [place] [address] 58468 Lymphocytes/100 WBC (Bld) 16.6 % Normal [facility] Comment on above: Performed By: #### Carol PÉREZ CMP, 0, 3083-03 #### [facility] ([id number]) [address] [place] [address] 61853 MCH (RBC) [Entitic mass] 25.7 pg Low 27-34 [facility] Comment on above: Performed By: #### C ELISA CMP, 253-0, 3083- #### [facility] ([id number]) [address] [place] [address] 92312 MCHC (RBC) [Mass/Vol] 32.9 g/dL Normal 32-36 [facility] Comment on above: Performed By: #### C ELISA CMP, 2531-0, 3083-03 #### [facility] ([id number]) [address] [place] [address] 52654 MCV (RBC) [Entitic vol] 78 fL Low 80-100 [facility] Comment on above: Performed By: #### Carol PÉREZ CMP, 0, 3083-03 #### [facility] ([id number]) [address] [place] [address] 46614 Monocytes (Bld) [#/Vol] 0.5 10*3/uL Normal 0-0.9 [facility] Comment on above: Performed By: #### Carol PÉREZ, CMP, 0, 3083-03 #### [facility] ([id number]) [address] [place] [address] 45290 Monocytes/100 WBC (Bld) 3.7 % Normal [facility] Comment on above: Performed By: #### C ELISA, CMP, 0, 3083-03 #### [facility] ([id number]) [address] [place] [address] 83535 Neutrophils/100 WBC (Bld) 78.6 % Normal [facility] Comment on above: Performed By: #### Carol PÉREZ, CMP, 2531-0, 3083-03 #### [facility] ([id number]) [address] [place] [address] 96705 Platelet mean volume (Bld) [Entitic vol] 7.6 fL Normal 7-12 [facility] Comment on above: Performed By: #### C ELISA CMP, 2531-0, 3083-1 #### [facility] ([id number]) [address] [place] [address] 59642 Platelets (Bld) [#/Vol] 315 10*3/uL Normal 150-450 [facility] Comment on above: Performed By: #### C ELISA CMP, 0, 3083- #### [facility] ([id number]) [address] [place] [address] 02173 RBC COUNT 3.73 X10E12/L Low 3.80-5.20 [facility] Comment on above: Performed By: #### C ELISA, CMP, 0, 3083- #### [facility] ([id number]) [address] [place] [address] 56040 WBC (Bld) [#/Vol] 13.4 10*3/uL High 4.0-11.0 [facility] Comment on above: Performed By: #### C ELISA, CMP, 0, 3083-03 #### [facility] ([id number]) [address] [place] [address] 04833 COMPREHENSIVE METABOLIC PANE Wilbur 02-01-2024 Albumin [Mass/Vol] 3.0 g/dL Low 3.2-5.3 [facility] Comment on above: Performed By: #### C ELISA, CMP, 0, 3083- #### [facility] ([id number]) [address] [place] [address] 47432 ALP [Catalytic activity/Vol] 81 U/L Normal 39-130 [facility] Comment on above: Performed By: #### C BCA, CMP, 2531-0, 3083-03 #### [facility] ([id number]) [address] [place] [address] 90264 ALT [Catalytic activity/Vol] 15 U/L Normal 0-31 [facility] Comment on above: Performed By: #### C BCA, CMP, 2532-0, 3083-1 #### [facility] ([id number]) [address] [place] [address] 67650 Anion gap [Moles/Vol] 11 mmol/L Normal 5-15 [facility] Comment on above: Performed By: #### C BCA, CMP, 2532-0, 3083- #### [facility] ([id number]) [address] [place] [address] 35482 AST [Catalytic activity/Vol] 12 U/L Normal 0-41 [facility] Comment on above: Performed By: #### C BCA, CMP, 2-0, 3083-03 #### [facility] ([id number]) [address] [place] [address] 99459 Bilirubin [Mass/Vol] 0.3 mg/dL Normal 0.3-1.2 [facility] Comment on above: Performed By: #### C BCA, CMP, 2532-0, 3083- #### [facility] ([id number]) [address] [place] [address] 87317 Calcium [Mass/Vol] 8.7 mg/dL Normal 8.5-10.5 [facility] Comment on above: Performed By: #### C BCA, CMP, 2532-0, 308- #### [facility] ([id number]) [address] [place] [address] 79141 Chloride [Moles/Vol] 105 mmol/L Normal 98-109 [facility] Comment on above: Performed By: #### C BCA, CMP, 2532-0, 3083- #### [facility] ([id number]) [address] [place] [address] 78808 CO2 [Moles/Vol] 19 mmol/L Low 22-32 [facility] Comment on above: Performed By: #### C HUDSON PÉREZ, 2531-0, 3083- #### [facility] ([id number]) [address] [place] [address] 25247 Creatinine [Mass/Vol] 0.38 mg/dL Low 0.40-1.00 [facility] Comment on above: Result Comment: METH OD TRACEABLE TO IDMS STANDARD Performed By: #### C HUDSON PÉREZ, 0, 3083-03 #### [facility] ([id number]) [address] [place] [address] 84663 eGFR (CKD-EPI) NON-RACE DEPENDENT >90 Normal >59 [facility] Comment on above: Result Comment: Reported eGFR is based on the CKD-EPI 2020 equation that does not use a race coefficient. Performed By: #### C HUDSON PÉREZ, 0, 3083-03 #### [facility] ([id number]) [address] [place] [address] 93438 Glucose [Mass/Vol] 93 mg/dL Normal 65-99 [facility] Comment on above: Performed By: #### C HUDSON PÉREZ, 0, 3083-03 #### [facility] ([id number]) [address] [place] [address] 11523 Potassium [Moles/Vol] 3.5 mmol/L Normal 3.5-5.0 [facility] Comment on above: Performed By: #### C HUDSON PÉREZ, 2531-0, 3083- #### [facility] ([id number]) [address] [place] [address] 64288 Protein [Mass/Vol] 6.7 g/dL Normal 6.0-8.0 [facility] Comment on above: Performed By: #### C BCA, CMP, 2532-0, 3084-1 #### [facility] ([id number]) [address] [place] [address] 17129 Sodium [Moles/Vol] 135 mmol/L Normal 134-146 [facility] Comment on above: Performed By: #### C BCA, CMP, 2532-0, 4-1 #### [facility] ([id number]) [address] [place] [address] 81764 Urea nitrogen [Mass/Vol] 8 mg/dL Normal 5-23 [facility] Comment on above: Performed By: #### C BCA, CMP, 2-0, 3083-1 #### [facility] ([id number]) [address] [place] [address] 01849 LDH [Catalytic activity/Vol] on 02-01-2024 LDH 107 U/L Normal 100-235 [facility] Comment on above: Performed By: #### C BCA, CMP, 2-0, 3083-1 #### [facility] ([id number]) [address] [place] [address] 16397 URIC ACIDon 02-01-2024 Urate [Mass/Vol] 4.9 mg/dL Normal 2.6-7.2 [facility] Comment on above: Performed By: #### C BCA, CMP, 2532-0, 3083-1 #### [facility] ([id number]) [address] [place] [address] 91027 PROTEIN CREAT RATIOon 2023 RANDOM URINE PROTEIN 190 mg/L High <120 [facility] Comment on above: Performed By: #### U PCR #### [facility] ([id number]) [address] [place] [address] 86609 U/PRO/DIRECTOR SUPPLY CHAIN RATIO CALC 0.11 Normal <0.2 [facility] Comment on above: Result Comment: Neph rotic Syndrome is associated with ratios >3.5 Performed By: #### U PCR #### [facility] ([id number]) [address] [place] [address] 50822 URINE CREATININE,RDM 177.57 mg/dL Normal [facility] Comment on above: Performed By: #### U PCR #### [facility] ([id number]) [address] [place] [address] [place] [address] URINALYSISon 01-31-2024 Bilirubin Ql (U) Negative Normal NEG [facility] Comment on above: Performed By: #### U A #### [facility] ([id number]) [address] [place] [address] [place] [address] BLOOD/HGB Negative Normal NEG [facility] Comment on above: Performed By: #### U A #### [facility] ([id number]) [address] [place] [address] [place] [address] Color (U) YELLOW Normal YELLOW [facility] Comment on above: Performed By: #### U A #### [facility] ([id number]) [address] [place] [address], [place] [address] Glucose Ql (U) Negative Normal NEG [facility] Comment on above: Performed By: #### U A #### [facility] ([id number]) [address] [place] [address], [place] [address] Ketones Ql (U) Trace Abnormal NEG [facility] Comment on above: Performed By: #### U A #### [facility] ([id number]) [address] [place] [address], [place] [address] Leukocyte esterase Test strip Ql (U) Trace Abnormal NEG [facility] Comment on above: Performed By: #### U A #### [facility] ([id number]) [address] [place] [address], [place] [address] Nitrite Ql (U) Negative Normal NEG [facility] Comment on above: Performed By: #### U A #### [facility] ([id number]) [address] [place] [address] 75494 pH (U) 6.0 [pH] Normal 5.0-8.5 [facility] Comment on above: Performed By: #### U A #### [facility] ([id number]) [address] [place] [address] 53883 Protein Ql (U) Negative Normal NEG [facility] Comment on above: Performed By: #### U A #### [facility] ([id number]) [address] [place] [address] 43414 R.B.CELLS 0 /hpf Normal 0-5 [facility] Comment on above: Performed By: #### U A #### [facility] ([id number]) [address] [place] [address] 24406 Specific gravity (U) [Rel density] >1.030 Normal 1.003-1.035 [facility] Comment on above: Performed By: #### U A #### [facility] ([id number]) [address] [place] [address] 59524 SQUAMOUS EPITHELIUM 6 /hpf High 0-5 [facility] Comment on above: Performed By: #### U A #### [facility] ([id number]) [address] [place] [address] 48573 TURBIDITY CLEAR Normal CLEAR [facility] Comment on above: Performed By: #### U A #### [facility] ([id number]) [address] [place] [address] 52076 Urobilinogen Qn (U) 0.2 {Marce'U}/dL Normal <1.1 [facility] Comment on above: Performed By: #### U A #### [facility] ([id number]) [address] [facility], [place] [address] W.B.CELLS 4 /hpf Normal 0-5 [facility] Comment on above: Performed By: #### U A #### [facility] ([id number]) [address] [facility], [place] [address] IGP,APTIMA HPV,AGE GDLNon AGE GDLN ACOG TESTING Note . [facility] Comment on above: TESTS RESULT FLAG U NITS REF RANGE LAB Clinician Provided Cytology Information Source.............Cervix Other.............. No. of containers..01 ThinPrep Vial Age Algo ACOG Velia... -20 04 FLAG LEGEND: L-Low Normal,H-High Normal,LL-Alert Low,HH-Alert High <-Panic Low,>-Panic High,A-Abnormal,AA-Critical Abnormal Performed at: 01 =G [address] [address] Dodie Felix MD, IGP, RFX APTIMA HPV ASCU Note . [facility] Comment on above: TESTS RESULT FLAG UN ITS REF RANGE LAB DIAGNOSIS: 02 NEGATIVE FOR INTRAEPITHELIAL LESION OR MALIGNANCY. FUNGAL ORGANISMS MORPHOLOGICALLY CONSISTENT WITH SHILOH SPECIES ARE PRESENT. Specimen adequacy: 02 Satisfactory for evaluation. No endocervical component is identified. Performed by: Gallo Lyons Seismograph Operator Helper ([facility]) . 02 Note: Note 02 [...] <-Panic Low,>-Panic High,A-Abnormal,AA-Critical Abnormal Performed at: [address] [place] [address] Dodie Felix MD, Performed at: =G - [facility] [address] [id number] [employer] Architect: Dodie Felix MD, Phone: [phone] Performed at: [facility] [address] [id number] [employer] Architect: Dodie Felix MD, Phone: [phone] [facility] URINE CULTURE, ROUTINEon Bacteria identified Cx Nom (U) Urine Culture, Routine [facility] Bacteria identified Cx Nom (U) Mixed urogenital seven [facility] Bacteria identified Cx Nom (U) 25,000-50,000 colony forming units per mL [facility] Bacteria identified Cx Nom (U) Performed at: [facility] Bacteria identified Cx Nom (U) [address], [place] [id number] [facility] Bacteria identified Cx Nom (U) [employer] Architect: Anirudh Avendano PhD, Phone: [phone] [facility] URETHRITIS/DISCHARGE PLUS VA GINITIS (HTRX)on 01-20-2024 ATOPOBIUM VAGINAE 18.808 Abnormal [facility] ATOPOBIUM VAGINAE Detected Abnormal [facility] althcare BVAB 2,3 (BACTERIAL VAGINOSIS ASSOCIATED BACTERIA 2, 3); MOBILUNCUS SPP 0 [facility] Healthcare BVAB 2,3 (BACTERIAL VAGINOSIS ASSOCIATED BACTERIA 2, 3); MOBILUNCUS SPP Not detected [facility] SHILOH ALBICANS, PARAPSILOSIS, TROPICALIS 26.752 Abnormal [facility] Healthcare SHILOH ALBICANS, PARAPSILOSIS, TROPICALIS Detected Abnormal [facility] Healthcare SHILOH GLABRATA 0 [facility] Hea lthcare SHILOH GLABRATA Not [facility] SHILOH KRUSEI 0 [facility] SHILOH KRUSEI Not [facility] CHLAMYDIA TRACHOMATIS 0 [facility] Healthcare CHLAMYDIA TRACHOMATIS Not detected [facility] Healthcare ERMB, C; MEFA 17.114 Abnormal [facility] care ERMB, C; MEFA Detected Abnormal [facility] care GARDNERELLA VAGINALIS 22.039 Abnormal [facility] Healthcare GARDNERELLA VAGINALIS Detected Abnormal [facility] Interpretation and review of laboratory results Abnormal [facility] Healthca re MEGASPHAERA (TYPES 1, 2) 0 [facility] Healthcare MEGASPHAERA (TYPES 1, 2) Not detected [facility] MYCOPLASMA GENITALIUM 0 [facility] MYCOPLASMA GENITALIUM Not detected [facility] NEISSERIA GONORRHOEAE 0 [facility] NEISSERIA GONORRHOEAE Not detected [facility] Healthcare TET B, TET M 17.484 Abnormal [facility] Healthc are TET B, TET M Detected Abnormal [facility] Healthc are TRICHOMONAS VAGINALIS 0 [facility] TRICHOMONAS VAGINALIS Not detected [facility] Urinalysis macro (dipstick) panel (U)on 01-19-2024 Bilirubin, UA Negative Negative - 4(70) +++ mg/dL [facility] Blood, UA Negative Negative - 50 Jimmy/mcL [facility] Healthcare Clarity, UA Clear [facility] Color, UA Light Yellow [facility] Healthc are Glucose, UA Negative Negative - 1999(110) ++++ mg/dL [facility] Interpretation and review of laboratory results Abnormal [facility] Healthca re Ketones, UA Negative Negative - 160(16) ++++ mg/dL [facility] Leukocytes, UA Negative Negative - 500+++ Minnie/mcL [facility] Nitrite, UA Negative Negative - Positive [facility] pH, UA 6.5 5 - 9 [facility] Healthcar e Protein, UA Positive Negative - 1999(20) ++++ mg/dL [facility] Spec Grav, UA 1.02 1 - 1.03 [facility] Urobilinogen, UA 1.0 0.2 - 12 mg/dL [facility] Urinalysis macro (dipstick) panel (U)on 12-22-2023 Bilirubin, UA Negative Negative - 4(70) +++ mg/dL [facility] Blood, UA Negative Negative - 50 Jimmy/mcL [facility] Healthcare Clarity, UA Clear [facility] Healthca re Color, UA Yellow [facility] Healthcar e Glucose, UA Negative Negative - 1999(110) ++++ mg/dL [facility] Interpretation and review of laboratory results Abnormal [facility] Healthca re Ketones, UA Negative Negative - 160(16) ++++ mg/dL [facility] Leukocytes, UA Moderate Negative - 500+++ Minnie/mcL [facility] Nitrite, UA Negative Negative - Positive [facility] pH, UA 6.5 5 - 9 [facility] Healthcar e Protein, UA Negative Negative - 1999(20) ++++ mg/dL [facility] Spec Grav, UA 1.030 1 - 1.03 [facility] Urobilinogen, UA 1.0 0.2 - 12 mg/dL [facility] ALL CBC WITH AUTO DIFFon BASOPHILS ABSOLUTE AUTO 0.0 [facility] Basophils/100 WBC (Bld) 0.5 % 0.2 - 2.0 % [facility] Eosinophils/100 WBC (Bld) 1.0 % 0.9 - 7.0 % [facility] Erythrocyte distribution width (RBC) [Ratio] 14.7 % 11.0 - 15.0 % [facility] Hematocrit (Bld) [Volume fraction] 34.1 % Low 36.0 - 48.0 % [facility] Healthcar e Hemoglobin (Bld) [Mass/Vol] 10.8 g/dL Low 12.0 - 16.0 g/dL [facility] IMMATURE GRANULOCYTES ABS AUTO 0.02 [facility] Immature granulocytes/100 WBC (Bld) 0.3 % 0.0 - 0.5 % [facility] Interpretation and review of laboratory results Abnormal [facility] LYMPHOCYTES ABSOLUTE AUTO 2.2 [facility] Lymphocytes/100 WBC (Bld) 27.3 % 20.5 - 60.0 % [facility] MCH (RBC) [Entitic mass] 26.0 pg Low 26.7 - 34.0 pg [facility] MCHC (RBC) [Mass/Vol] 31.7 g/dL 29.9 - 35.2 g/dL [facility] MCV (RBC) [Entitic vol] 82.0 fL 81.0 - 99.0 fL [facility] MONOCYTES ABSOLUTE AUTO 0.3 [facility] Monocytes/100 WBC (Bld) 4.2 % 1.7 - 12.0 % [facility] NEUTROPHILS ABSOLUTE AUTO 5.3 [facility] Neutrophils/100 WBC (Bld) 66.7 % 43.0 - 75.0 % [facility] Platelet mean volume (Bld) [Entitic vol] 10.2 fL 9.5 - 13.5 fL [facility] TBH EO # 0.1 [facility] e TB PLT 270 [facility] TB RBC 4.16 Low [facility] e TB WBC 7.9 [facility] e HCG ( test) Ql (U)o n 12-10-2023 Interpretation and review of laboratory results Abnormal [facility] Preg Test, Ur Positive [facility] Healthcar e Urinalysis macro (dipstick) panel (U)on 12-10-2023 Bilirubin, UA Negative Negative - 4(70) +++ mg/dL [facility] Blood, UA Negative Negative - 50 Jimmy/mcL [facility] Clarity, UA Clear [facility] Healthca re Color, UA Yellow [facility] Healthcar e Glucose, UA Negative Negative - 1999(110) ++++ mg/dL [facility] Interpretation and review of laboratory results Abnormal [facility] re Ketones, UA Negative Negative - 160(16) ++++ mg/dL [facility] Leukocytes, UA Positive Negative - 500+++ Minnie/mcL [facility] Comment on above: small Nitrite, UA Negative Negative - Positive [facility] pH, UA 7.5 5 - 9 [facility] Healthcar e Protein, UA Negative Negative - 1999(20) ++++ mg/dL [facility] Spec Grav, UA 1.015 1 - 1.03 [facility] Urobilinogen, UA 0.2 0.2 - 12 mg/dL [facility] Consent Formson 09-03-2023 Consent Forms [id number] [facility] - Toxicology Resultson 0 09-03-2023 Lab - Toxicology Results [id number] .[facility] ED Clinical Summaryon 2023 ED Clinical Summary [facility] ? Urgent Care [address] [place], [place] [id number] Clinical Summary PERSON INFORMATION Name: FLORINDA ORTEGA Age: 22 Years Sex: MALE : 2000 MRN: Acct#: Visit Reason: Medical screening exam; [facility] Arrival: 09/02/2023 11:09:30 Discharge: 09/02/2023 11:41:00 LOS: 000 00:32 Check In: 09/02/2023 11:09:30 Checkout: 09/02/2023 11:41:00 Address: [address] [facility] [address] PCP: Bina Zamora CNP PROVIDER INFORMATION Provider [...] Pamela Ortiz [address], [address], [place] [address] Business (1) Comments: Tube Cleaner to 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 Abstain from any alcohol or illicit drugs With: Address: When: Bina Sera [address] [place] [address] Business (1) , only if needed DIAGNOSIS: Physical exam Patient Understands: Yes - Patient/family/caregi carlos verbalizes understanding of instructions given Comment: [facility] ED Patient Summaryon 024 ED Patient Summary [facility] ? Urgent Care [address] [place] [address] [id number] PATIENT DISCHARGE INSTRUCTIONS Patient Information Name: FLORINDA ORTEGA Age: 22 Years Date of : 2000 Reason For Visit: Medical screening exam; [facility] Arrival Time: 09/02/2023 11:09:30 Primary Care Physician: Bina Zamora CNP Attending Physician: MIRIAN HERBERT Comment: Patient Education With: Address: When: [address], [place] [address] Business (1) Comments: Tube Cleaner to 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 Abstain from any alcohol or illicit drugs With: Address: When: Bina Sera [address] [place] [address] Business (1) , only if needed Care care is health care during . It helps you and your unborn baby (fetus) stay as healthy as possible. care may be provided by a magnetometer operator, a family practice doctor, a mid-level practitioner (nurse practitioner or physician assistant infant toddler teacher), or a childbirth and doctor (bench worker helper). How does this affect me? During , [...] procedures you have had. ? Any current [id number] or prescription medicines, herbs, or supplements that [...] any s (more content not included)... Normal [facility] Triage Industrialon 09-02-19 24 Drug Screen Complete Collected Normal [facility] Comment on above: Performed By: #### 1 [id number] #### [facility] (DEFAULT) [address] [place] [address] Urgent Care Note- Provideron 09-02-2023 Urgent Care [...] pharynx is pink and moist. NECK: -Supple ([id number]): non-tender. CARD: -Rate and rhythm: Regular -Edema: [...] Plan Assessment and Plan: Diagnosis: Physical exam ([id number] Z00.00). Cleared for employment [Electronically Signed on: 09/02/2023 11:41 EDT] MIRIAN HERBERT [Verified on: 09/02/2023 11:41 EDT] MIRIAN HERBERT [facility] [place] 024 Urgent Care Record [facility] ? Urgent Care [address] [place] [address] PATIENT DISCHARGE INSTRUCTIONS Patient Information Name: FLORINDA ORTEGA Age: 22 Years Date of : 2000 Reason For Visit: Medical screening exam; [facility] Arrival Time: 09/02/2023 11:09:30 Primary Care Physician: Bina Zamora CNP Attending Physician: MIRIAN HERBERT Comment: Visit Diagnosis: Diagnoses This Visit Medical screening exam ([id number]) Physical exam (Z00.00) If you received any [...] legal documents With: Address: When: Pamela Ortiz [address] [place] [address], [address], [place] [address] Business (1) Comments: Tube Cleaner to 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 Abstain from any alcohol or illicit drugs With: Address: When: Bina Zamora [address] [place] [address] Business (1) , only if needed Medication Information: The exam and treatment you received today in the [facility] were for an urgent problem and are not intended as complete care. It is important for you to follow up with a doctor, nurse practitioner, or physician?s assistant infant toddler teacher for ongoing care. If your symptoms become [...] so we can reach you if necessary. [facility] Urgent [facility] has provided you with a complete list of medications post discharge. Please inform your vertical boring mill operator/provider of your visit and for further instruction [...] possible. care may be provided by a magnetometer operator, a family practice doctor, a mid-level practitioner (nurse practitioner or physician assistant infant toddler teacher), or a childbirth and doctor (bench worker helper). How does this affect me? During , [...] ? Any (more content not included)... Normal [facility] COVID/FLU RT-PCRon 3 SARS-CoV-2 (COVID-19) RNA [facility]+probe Ql (Unsp spec) Negative [employer] Other COVID/FLU RT-PCR Negative [employer] Other CHLAMYDIA/GONOCOCCUS [facility] (SW AB/URINE/PAPon 03-02-2023 Chlamydia trachomatis, [facility] Negative Normal Negative [facility] Comment on above: Performed By: #### C T/NGNA #### [facility] [address] [place] [address] Dr. Clau Valdivia Neisseria gonorrhoeae, [facility] Negative Normal Negative [facility] Comment on above: Performed By: #### C T/NGNA #### [facility] [address] [place] [address] Dr. Clau Valdivia VAGINITIS/VAGINOSIS DNA PROB Melvin 05-21-2022 Shiloh species Positive Abnormal Negative [facility] Comment on above: Performed By: #### V AGINT #### [facility] [address] [place] [address] Dr. Clau Valdivia Gardnerella vaginalis Positive Abnormal Negative [facility] Comment on above: Performed By: #### V AGINT #### [facility] [address] [place] [address] Dr. Clau Valdivia Trichomonas vaginalis Negative Normal Negative [facility] Comment on above: Performed By: #### V AGINT #### [facility] [address] [place] [address] Dr. Clau Valdivia COVID + FLU Quick Testingon 04-20-2022 SARS-CoV-2 (COVID-19) RNA [facility]+probe Ql (Unsp spec) Negative [facility] [employer] Other COVID + FLU Quick Testing Negative [facility] [employer] Other Quick Strepon 04-20-2022 S. pyogenes Org specific cx Ql (Throat) Negative [facility] [employer] Other Quick Strep [facility] [employer] Other Vital Signs Date Time Vital Sign Value Performing Clinician Facility 04-07-2024 08:54-0500 Body mass index (BMI) [Ratio] 36.96 kg/m2 Ana Luisa ROY Work Phone: [facility] 04-07-2024 08:54-0500 Body weight 107.05 kg Ana Luisa ROY Work Phone: [facility] 04-07-2024 08:54-0500 Diastolic blood pressure 74 mm[Hg] Ana Luisa Weatherford PA Work Phone: [facility] 04-07-2024 08:54-0500 Systolic blood pressure 120 mm[Hg] Ana Luisa Weatherford PA Work Phone: [facility] 03-29-2024 10:14-0500 Body mass index (BMI) [Ratio] 35.89 kg/m2 Angelina Roslyn DO Work Phone: [facility] 03-29-2024 10:14-0500 Body weight 103.93 kg Angelina Roslyn DO Work Phone: [facility] 03-29-2024 10:14-0500 Diastolic blood pressure 72 mm[Hg] Angelina Roslyn DO Work Phone: [facility] 03-29-2024 10:14-0500 Systolic blood pressure 110 mm[Hg] Angelina Roslyn DO Work Phone: [facility] 03-08-2024 14:41-0500 Body mass index (BMI) [Ratio] 35.87 kg/m2 Ana Luisa Zeny PA Work Phone: [facility] 03-08-2024 14:41-0500 Body weight 103.87 kg Ana Luisa Zeny PA Work Phone: [facility] 03-08-2024 14:41-0500 Diastolic blood pressure 74 mm[Hg] Ana Luisa Zeny PA Work Phone: [facility] 03-08-2024 14:41-0500 Systolic blood pressure 120 mm[Hg] Ana Luisa Zeny PA Work Phone: [facility] 02-23-2024 13:59-0500 Body mass index (BMI) [Ratio] 35.37 kg/m2 Angelina Roslyn DO Work Phone: [facility] 02-23-2024 13:59-0500 Body weight 102.42 kg Angelina Roslyn DO Work Phone: [facility] 02-23-2024 13:59-0500 Diastolic blood pressure 72 mm[Hg] Angelina Roslyn DO Work Phone: [facility] 02-23-2024 13:59-0500 Systolic blood pressure 118 mm[Hg] Angelina Roslyn DO Work Phone: [facility] 01-19-2024 13:35-0400 Body mass index (BMI) [Ratio] 34.43 kg/m2 Ana Luisa ROY Work Phone: [facility] 01-19-2024 13:35-0400 Body weight 99.7 kg Ana Luisa Weatherford PA Work Phone: [facility] 01-19-2024 13:35-0400 Diastolic blood pressure 70 mm[Hg] Ana Luisa Zeny PA Work Phone: [facility] 01-19-2024 13:35-0400 Systolic blood pressure 108 mm[Hg] Ana Luisa Lindoey PA Work Phone: [facility] 12-22-2023 09:36-0400 Body mass index (BMI) [Ratio] 33.83 kg/m2 Angelina Roslyn DO Work Phone: [facility] 12-22-2023 09:36-0400 Body weight 97.98 kg Angelina Roslyn DO Work Phone: [facility] 12-22-2023 09:36-0400 Diastolic blood pressure 72 mm[Hg] Angelina Roslyn DO Work Phone: [facility] 12-22-2023 09:36-0400 Systolic blood pressure 110 mm[Hg] Angelina Roslyn DO Work Phone: [facility] 12-10-2023 13:39-0400 Body mass index (BMI) [Ratio] 33.67 kg/m2 [facility] 12-10-2023 13:39-0400 Body weight 97.52 kg [facility] Nurse [facility] 12-10-2023 13:39-0400 Diastolic blood pressure 78 mm[Hg] Nom Nurse [facility] 12-10-2023 13:39-0400 Systolic blood pressure 112 mm[Hg] [facility] Nurse [facility] 07-19-2022 11:30-0400 Body height 167.64 cm Ne Santiago Other [employer] Other 07-19-2022 11:30-0400 Body mass index (BMI) [Ratio] 34.7 kg/m2 Ne Henderson Other [employer] Other 07-19-2022 11:30-0400 Body temperature 101 [degF] Ne Henderson Other [employer] Other 07-19-2022 11:30-0400 Body weight 97.52 kg Ne Henderson Other [employer] Other 07-19-2022 11:30-0400 Diastolic blood pressure 76 mm[Hg] Ne Henderson Other [employer] Other 07-19-2022 11:30-0400 Respiratory rate 18 /min Ne Henderson Other [employer] Other 07-19-2022 11:30-0400 SaO2% (BldA) [Mass fraction] 97 % Ne Henderson Other [employer] Other 07-19-2022 11:30-0400 Systolic blood pressure 113 mm[Hg] Ne Henderson Other [employer] Other 04-20-2022 10:50-0500 Body height 167.64 cm Anya Contreras Other [employer] Other 04-20-2022 10:50-0500 Body mass index (BMI) [Ratio] 34.7 kg/m2 Anya Contreras Other [employer] Other 04-20-2022 10:50-0500 Body temperature 98.6 [degF] Anya Contreras Other [employer] Other 04-20-2022 10:50-0500 Body weight 97.52 kg Anya Contreras Other [employer] Other 04-20-2022 10:50-0500 Respiratory rate 18 /min Anya Contreras Other [employer] Other 04-20-2022 10:50-0500 SaO2% (BldA) [Mass fraction] 98 % Anya Contreras Other [employer] Other Encounters Encounter Date Encounter Type Care Provider Facility Start: 04-07-2024 End: 04-07-2024 Bamboo flowsheet Ana Luisa ROY Work Phone: [facility] Start: 04-07-2024 End: 04-07-2024 Bamboo flowsheet Ana Luisa ROY Work Phone: [facility] Start: 04-07-2024 End: 04-07-2024 flow sheet Ana Luisa ROY Work Phone: [facility] Comment on above: Third trimester preg sharee; 36 weeks gestation of Start: 04-01-2024 End: 04-01-2024 Clinisync Result Encounter Generic External Data Provider [facility] External Department Unsolicited Start: 04-01-2024 End: 04-01-2024 Clinisync Result Encounter Generic External Data Provider [facility] External Department Unsolicited Start: 03-29-2024 End: 03-29-2024 Bamboo flowsheet Angelina Roslyn DO Work Phone: [facility] Start: 03-29-2024 End: 03-29-2024 Bamboo flowsheet Angelina Roslyn DO Work Phone: [facility] Start: 03-29-2024 End: 03-29-2024 flow sheet Angelina Roslyn DO Work Phone: [facility] Comment on above: 35 weeks gestation o f ; Third trimester ; Other iron deficiency anemia Start: 03-29-2024 End: 03-29-2024 ambulatory ANGELINA ROSLYN Not Available Start: 03-11-2024 End: 03-11-2024 Clinisync Result Encounter Ana Luisa ROY Work Phone: [facility] External [facility] Unsolicited Start: 03-11-2024 End: 03-11-2024 Clinisync Result Encounter Ana Luisa ROY Work Phone: [facility] External Department Unsolicited Start: 03-08-2024 End: 03-08-2024 flow sheet Ana Luisa ROY Work Phone: [facility] Comment on above: Third trimester [...] Not Available Start: 01-31-2024 End: 02-01-2024 ambulatory KATHLEEN HASKINS [facility] Start: 01-20-2024 End: 01-22-2024 Clinisync Result Encounter [...] Not Available Start: 01-07-2024 End: 01-07-2024 ambulatory Araceli Val BOOGIE Facility:[facility] Start: 12-30-2023 End: 12-30-2023 ambulatory Araceli Val BOOGIE Facility:[facility] Start: 12-22-2023 End: 12-22-2023 Bamboo flowsheet Angelina [...] GA: 19w2d Start: 12-10-2023 End: 12-10-2023 ambulatory ANGELINA ROSLYN Not Available Start: 09-02-2023 End: 09-02-2023 ambulatory Bina Zamora Facility:[facility] Start: 07-16-2023 End: 07-16-2023 ambulatory [...] Not Available Start: 04-11-2023 End: 04-11-2023 ambulatory MAREVL CHRISTIAN [facility] Start: 04-06-2023 End: 04-06-2023 ambulatory ANGELINA ROSLYN Not Available Start: 07-19-2022 End: 07-19-2022 ambulatory Ne Henderson Other [employer] Other Start: 07-19-2022 Office outpatient vi sit 25 minutes Ne Henderson [facility] Start: 05-19-2022 End: 05-19-2022 ambulatory ANA LUISA MOURA . Facility: Start: 04-20-2022 End: 04-20-2022 ambulatory Anya Contreras Other [facility] [employer] Other Start: 04-20-2022 Office outpatient vi sit 25 minutes Anya Contreras [facility] Procedures Date Procedure Procedure Detail Performing Clinician Start: 04-07-2024 Urnls dip stick/tabl et rgnt non-auto w/o micrscp Ana Luisa ROY Work Phone: Start: 04-01-2024 ALL CBC WITH AUTO DIFF Angelina Roslyn DO Work Phone: Start: 03-29-2024 Urnls dip stick/tabl et rgnt [...] Treatment Date Care Activity Detail Author Start: 04-14-2024 End: 04-14-2024 Patient encounter procedure 04/14/2024 10:00 AM EST Routine [facility] [address] [place] [address] RoslynAngelina gonzalez, DO [address] [place] [address] [facility] Start: 04-07-2024 End: 04-07-2025 CULTURE, GROUP B STREP WITH SUSCEPTIBLITY CULTURE, GROUP B STREP WITH SUSCEPTIBLITY Lab Routine Third trimester Expected: 04/07/2024, Expires: 04/07/2025 [facility] Work Phone: Comment on above: Expected: 04/07/2024 , Expires: 04/07/2025 Start: 04-07-2024 End: 04-07-2024 Patient encounter procedure [facility] Comment on above: Arrived Start: 03-29-2024 End: 03-29-2024 Patient encounter procedure [facility] Comment on above: Arrived Start: 03-08-2024 End: 03-08-2024 Patient encounter procedure [facility] Comment on above: Arrived Start: 03-08-2024 End: 03-08-2024 Professional / ancillary services management 03/08/2024 1:30 PM EST Ancillary Procedure [facility] [address] [place] [id number] [facility] Start: 02-23-2024 End: 02-22-2025 CBC panel - Blood by Automated count CBC Lab Routine Diabetes mellitus screening Expected: 02/23/2024 (Approximate), Expires: 02/22/2025 [facility] Healthcare Comment on above: Expected: 02/23/2024 (Approximate), Expires: 02/22/2025 Start: 02-23-2024 End: 02-22-2025 Measurement of glucose 1 hour after glucose challenge for glucose tolerance test Glucose tolerance, 1 hour Lab Routine Diabetes mellitus screening Expected: 02/23/2024 (Approximate), Expires: 02/22/2025 [facility] Healthcare Comment on above: Expected: 02/23/2024 (Approximate), Expires: 02/22/2025 Start: 02-23-2024 End: 02-22-2025 US for US OB SCAN FOR GROWTH Imaging Routine size inconsistent with dates Expected: 02/23/2024 (Approximate), Expires: 02/22/2025 [facility] Work Phone: Comment on above: Expected: 02/23/2024 (Approximate), Expires: 02/22/2025 Start: 02-23-2024 End: 02-23-2024 Patient encounter procedure 02/23/2024 1:40 PM EST Routine [facility] [address] [place] [phone] Angelina Mcgowan, DO [address] [place] [address] Arrived [facility] Comment on above: Arrived Start: 02-16-2024 End: 02-16-2024 Patient encounter procedure 02/16/2024 1:50 PM EST Routine [facility] [address] [place] [phone] Angelina Mcgowan, DO [address] [place] [address] [facility] Start: 01-19-2024 End: 01-19-2024 Patient encounter procedure [facility] Comment on above: Arrived Start: 12-22-2023 End: 12-22-2023 Patient encounter procedure [facility] Comment on above: Arrived Start: 12-22-2023 End: 12-22-2023 Professional / ancillary services management 12/22/2023 8:00 AM EDT Ancillary Procedure [facility] [address] [place] [phone] [facility] Start: 12-21-2023 End: 12-21-2023 Patient encounter procedure 12/21/2023 9:00 AM EDT Routine [facility] [address] [place] [id number] Angelina Mcgowan, DO [address] [place] [address] [facility] Start: 12-10-2023 End: 12-09-2024 ABO/Rh ABO/Rh Lab Routine Missed menses Expected: 12/10/2023 (Approximate), Expires: 12/09/2024 [facility] Comment on above: Expected: 12/10/2023 (Approximate), Expires: 12/09/2024 Start: 12-10-2023 End: 12-09-2024 Alpha fetoprotein, maternal Alpha fetoprotein, maternal Lab Routine Second trimester Expected: 12/10/2023 (Approximate), Expires: 12/09/2024 [facility] Comment on above: Expected: 12/10/2023 (Approximate), Expires: 12/09/2024 Start: 12-10-2023 End: 12-09-2024 Blood type and Indirect antibody screen panel - Blood Type and screen Lab Routine Missed menses Expected: 12/10/2023 (Approximate), Expires: 12/09/2024 [facility] Work Phone: Comment on above: Expected: 12/10/2023 (Approximate), Expires: 12/09/2024 Start: 12-10-2023 End: 12-09-2024 Drugs of abuse panel - Urine by Screen method Rapid drug screen, urine Lab Routine Encounter for supervision of normal first in first trimester , unspecified gestational age Expected: 12/10/2023 (Approximate), Expires: 12/09/2024 [facility] Comment on above: Expected: 12/10/2023 (Approximate), Expires: 12/09/2024 Start: 12-10-2023 End: 12-09-2024 [place] for [facility] Comment on above: Expected: 12/10/2023 (Approximate), Expires: 12/09/2024 Start: 11-22-2023 Influenza vaccination Influenza Vacc ine (#1) [facility] Bacteria identified in Urine by Culture Urine culture Microbiology Routine Missed menses Ordered: 12/10/2023 [facility] Comment on above: Ordered: 12/10/2023 CBC W Auto Different ial panel - Blood CBC and differential Lab Routine Missed menses Ordered: 12/10/2023 [facility] Comment on above: Ordered: 12/10/2023 CHLAMYDIA TRACHOMATI S (GENITO/STI) CHLAMYDIA TRACHOMATIS (GENITO/STI) Lab Routine STD exposure Ordered: 01/19/2024 [facility] Comment on above: Ordered: 01/19/2024 Cytology Cervical or vaginal smear or scraping study Pap Smear Pathology and Cytology Routine Well woman exam with routine gynecological exam Ordered: 01/19/2024 [facility] Comment on above: Ordered: 01/19/2024 Hemoglobin A1c/Hemoglobin.total in Blood Hemoglobin A1c Lab Routine Third trimester Ordered: 03/08/2024 [facility] Work Phone: Comment on above: Ordered: 03/08/2024 Hemoglobin A1c/Hemoglobin.total in Blood Hemoglobin A1c Lab Routine Missed menses Ordered: 12/10/2023 [facility] Comment on above: Ordered: 12/10/2023 Hepatitis B virus surface Ag [Presence] in Serum or Plasma by Immunoassay Hepatitis B surface antigen Lab Routine Missed menses Ordered: 12/10/2023 [facility] Comment on above: Ordered: 12/10/2023 Hepatitis C virus Ab [Presence] in Serum or Plasma by Immunoassay Hepatitis C antibody Lab Routine Missed menses Ordered: 12/10/2023 [facility] Comment on above: Ordered: 12/10/2023 HIV-1/HIV-2 antigen/antibody combination immunoassay HIV-1 and HIV-2 antibodies Lab Routine Missed menses Ordered: 12/10/2023 [facility] Comment on above: Ordered: 12/10/2023 Neisseria gonorrhoea e DNA [Presence] in Unspecified specimen by [facility] with probe detection Neisseria gonorrhea DNA probe, direct Lab Routine STD exposure Ordered: 01/19/2024 [facility] Comment on above: Ordered: 01/19/2024 Reagin Ab [Presence] in Serum by RPR RPR Lab Routine Missed menses Ordered: 12/10/2023 [facility] Comment on above: Ordered: 12/10/2023 Rubella antibody, IgG Rubella an tibody, IgG Lab Routine Missed menses Ordered: 12/10/2023 [facility] Comment on above: Ordered: 12/10/2023 SURESWAB(R) ADVANCED VAGINITIS PLUS, TMA SURESWAB(R) ADVANCED VAGINITIS PLUS, TMA Pathology and Cytology Routine Vaginal discharge Ordered: 01/19/2024 [facility] Work Phone: Comment on above: Ordered: 01/19/2024 Immunizations Immunization Date Immunization Notes Care Provider Sara zaidi 01-25-2021 influenza virus vacc ine, unspecified formulation Angelinareggie Armentao DO Work Phone: [facility] Payers Date Payer Category Payer Unknown [id number] 2019 Private Health Insurance [id number] 2002 Unknown [id number] 2.16.84 [id number] 2002 Unknown [id number] 2.16.8 40.1.285416.3.579.2.1286 2002 Unknown [id number] 2.16.84 0.1.143492.3.579.2.1286 2002 Unknown [id number] 2.16.84 0.1.122139.3.579.2.1259 2002 Unknown [id number] 2.16.84 0.1.236261.3.579.2.1259 2002 Unknown [id number] 2.16.84 0.1.672094.3.579.2.1259 2002 Unknown [id number] 2.16.84 0.1.284217.3.579.2.1259 2002 Unknown [id number] 2.16.84 0.1.661583.3.579.2.9 2002 Unknown [id number] 2.16.84 0.1.544664.3.579.2.9 2002 Unknown [id number] 2.16.84 0.1.974797.3.579.2.1258 2002 Unknown [id number] 2.16.84 0.1.789719.3.579.2.9 2002 Unknown [id number] 2.16.84 0.1.871778.3.579.2.1258 2002 Unknown [id number] 2.16.84 0.1.720101.3.579.2.1258 2002 Unknown [id number] 2.16.84 0.1.508754.3.579.2.9 2002 Unknown [id number] 2.16.84 0.1.584475.3.579.2.9 2002 Unknown [id number] 2.16.84 0.1.407003.3.579.2.9 1959 Unknown [id number] Social History Date Type Detail Facility Unknown if ever smoked [facility] Other Sex Assigned At [facility] Other Tobacco smoking status VAIS Tobacco smoking consumption unknown [facility] Start: 08-11-2023 [facility] Start: 2002 Sex assigned at Not on file [facility] Clinical Notes 04-20-2022 to 04-07-2024 MANUELA Foy - 04/07/2024 8:50 AM Lizzy Mcdonnell LPN - 03/29/2024 10:10 AM Oseas Torres MA - 03/08/2024 2:20 PM MANUELA Zayas - 03/08/2024 2:20 PM MANUELA Zayas - 01/19/2024 1:30 PM EDT Note Date & Type Note Facility 04-07-2024 History of Presen t illness Narrative Reason for Appointment: Patient ID: Florinda Ortega is a 23 y.o. female who presents for Routine Visit Patient presents today for Return OB appointment. MEDICATIONS Current Outpatient Medications Medication Instructions iron polysaccharides (PROFE) 391.3 mg, Oral, Daily MV-Min-Fe Fum-FA-DHA ( 1 PO) Take by [...] reviewed. Vitals: Estimated body mass index is 36.96 kg/m as calculated from the following: Height as of 05/19/22: 5' 7 . Weight as of this encounter: 236 lb. BP: 120/74 Patient's last menstrual period was 08/05/2023. ASSESSMENT & PLAN ICD-10-CM 1. Third trimester Z34.93 POCT urinalysis dipstick manually resulted CULTURE, GROUP B STREP WITH SUSCEPTIBLITY CULTURE, GROUP B STREP WITH SUSCEPTIBLITY 2. 36 weeks gestation of Z3A.36 Patient is doing well but has complaints of being tired and having maternal discomfort due to . Patient verbalized frequent movement and was instructed to perform kick counts three times per day. labor precautions were given, LARC consent was signed/declined, and GBS was obtained. Cervical check was performed and patient is 0cm dilated. Orders Placed This Encounter Procedures CULTURE, GROUP B STREP WITH SUSCEPTIBLITY POCT urinalysis dipstick manually resulted Follow Up: Patient is to return to office in 1 week for routine OB appointment Documented by Gila Torres MA on behalf of: MANUELA Foy documented in this encounter [facility] 03-29-2024 History of Presen t illness Narrative [...] nursing note reviewed. Exam conducted with a financial services intern present. Vitals: Estimated body mass index is [...] Angelina Mcgowan DO documented in this encounter [facility] 03-08-2024 History of Presen t illness Narrative [...] of: MANUELA Foy documented in this encounter [facility] 02-23-2024 History of Presen t illness Narrative [...] nursing note reviewed. Exam conducted with a financial services intern present. Vitals: Estimated body mass index is [...] Angelina Mcgowan DO documented in this encounter [facility] 01-19-2024 History of Presen t illness Narrative [...] nursing note reviewed. Exam conducted with a financial services intern present. Vitals: Estimated body mass index is [...] of: MANUELA Foy documented in this encounter [facility] 12-22-2023 History of Presen t illness Narrative [...] nursing note reviewed. Exam conducted with a financial services intern present. Vitals: Estimated body mass index is [...] Angelina Mcgowan DO documented in this encounter [facility] 12-10-2023 History of Presen t illness Narrative [...] or undercooked meat, and stay away from [facility]. Patient has also been advised to [...] by: Karmen Alvares documented in this encounter [facility] 09-03-2023 Note [id number] 09-02-2023 Note Patient Education Ma terials Follows:and Gynecology Care care is health care during . It helps you and your unborn baby (fetus) stay as healthy as possible. care may be provided by a magnetometer operator, a family practice doctor, a mid-level practitioner (nurse practitioner or physician assistant infant toddler teacher), or a childbirth and doctor (bench worker helper). How does this affect me? During , [...] procedures you have had. ? Any current [id number] or prescription medicines, herbs, or supplements that [...] week 24 of (more content not included)... [facility] 07-19-2022 Evaluation note Encounter Date [...] treatment plan. Patient left in stable condition. [facility] Other 04-29-2023 History general Narrative - Reported* Type Description Date Medical History ADD Medical History Born with cleft palette Surgical History tonsillectomy and adenoidectomy Surgical History cleft palette 3-4 repair Hospitalization History see above nadiya [facility] Other 03-05-2023 History general Narrative - Reported* Type Description Date Medical History ADD Medical History Born with cleft palette Surgical History tonsillectomy and adenoidectomy Surgical History cleft palette 3-4 repair Hospitalization History see above [facility] [employer] Other 01-29-2023 Evaluation note* Encounter Date Diagnosis [...] this time you do not have COVID. [facility] Other Evaluation note* Diagnosis Second trimester state, [...] deficiency anemia [facility] Third trimester state, incidental 36 weeks gestation of documented in this encounter [...] and content) DATE CREATED AUTHOR 05/23/2022 [facility] DATE CREATED AUTHOR AUTHOR'S ORGANIZ ATION 09/03/2023 [facility] DATE CREATED AUTHOR AUTHOR'S ORGANIZ ATION 01/09/2024 [facility] DATE CREATED AUTHOR AUTHOR'S ORGANIZ ATION 02/01/2024 [facility] DATE CREATED AUTHOR AUTHOR'S ORGANIZ ATION 04/04/2024 [facility] EPIC REASON FOR VISIT (unrecogniz [...] BE BASED ON THE PRIMARY CLINICAL RECORDS. [facility] [employer] [facility]. provides no warranty or guarantee of the accuracy or completeness of information in this document.
== END 2024-04-07 17:01 | disposition home or self-care (01) ==
LOC: LAB 17:00
PROVIDERS: PCP Nurse Practitioner; Visit Provider Physician Assistant
DX: Z34.93 Encounter for supervision of normal pregnancy, unspecified, third trimester (principal)
CPT/HCPCS: 36415; 87081

== ENCOUNTER 2024-04-11 12:27 | Emergency (ER) | payer OTHER, SELFPAY ==
[2024-04-11 12:39] VITALS: BP 131/80; PULSE 124; TEMP 36.5; O2SAT 97; BMI 38.7
[2024-04-11 12:51] VITALS: O2SAT 99
--- OUTSIDE RECORDS SUMMARY | 2024-04-11 12:52 | XMS_ITS | CCD ---
Author Organization [facility] Inform ion Partnership [facility] Care Team Providers Care Media Buyer Name Role Phone ZENY ., ANA LUISA Attending Unavailable ZENY ., ANA LUISA Consulting Unavailable ZENY Sun, ANA LUISA Admitting Unavailable YOLANDA ZAMORA [...] MOURA Attending Unavailable ANGELINA MCGOWAN Attending Unavailable ANA LUISA MOURA Attending Unavailable ANGELINA MCGOWAN Attending Unavailable ANGELINA MCGOWAN Attending Unavailable ZENY, ANA LUISA Attending Unavailable ANGELINA MCGOWAN Attending Unavailable ANA LUISA MOURA Attending Unavailable ROSLYNJOSELIN VERDEY Attending Unavailable ZENY, ANA LUISA Attending Unavailable JOSELIN MCGOWANY Attending Unavailable ANA LUISA MOURA Attending Unavailable Medications Current Medications Medication Drug Class(es) Dates Sig (Normalized) Sig (Original) [id number] 200 actuat albuterol 0.09 mg/actuat metered dose [...] oral solution (1 source) alpha-Adrenergic Agonist, Uncompetitive C-xkvpde-Q-asparta te Receptor Antagonist, Sigma-1 Agonist Start: 3 take 10 mL by mouth every six hours Wzclwlvdv-Ffiepdsk-AH 30-2-10 MG/5ML 10 mL Orally every 6 [...] source) Vitamin B12 Start: 03-27-2023 End: 12-10-2023 B-Twzwfoypjdcc-G8-B 12 (Folbic RF) 1.13-25-2 MG tablet Take [...] UA Negative Negative - 4(70) +++ mg/dL [facility] Blood, UA Negative Negative - 50 Jimmy/mcL [facility] Clarity, UA Clear [facility] re Color, UA Yellow [facility] e Glucose, UA Negative Negative - 1999(110) ++++ mg/dL [facility] Interpretation and review of laboratory results Abnormal [facility] re Ketones, UA Positive Negative - 160(16) ++++ mg/dL [facility] Comment on above: 40 Leukocytes, UA Trace Negative - 500+++ Minnie/mcL [facility] Nitrite, UA Negative Negative - Positive [facility] pH, UA 6 5 - 9 [facility] e Protein, UA Trace Negative - 1999(20) ++++ mg/dL [facility] Spec Grav, UA 1.03 1 - 1.03 [facility] Urobilinogen, UA 0.2 0.2 - 12 mg/dL [facility] ALL CBC WITH AUTO DIFFon BASOPHILS ABSOLUTE AUTO 0 [facility] Basophils/100 WBC (Bld) 0.3 % 0.2 - 2.0 % [facility] Eosinophils/100 WBC (Bld) 1 % 0.9 - 7.0 % [facility] Erythrocyte distribution width (RBC) [Ratio] 14.2 % 11.0 - 15.0 % [facility] Hematocrit (Bld) [Volume fraction] 31.4 % Low 36.0 - 48.0 % [facility] e Hemoglobin (Bld) [Mass/Vol] 9.6 g/dL Low 12.0 - 16.0 g/dL [facility] IMMATURE GRANULOCYTES ABS AUTO 0.05 High [facility] Immature granulocytes/100 WBC (Bld) 0.5 % 0.0 - 0.5 % [facility] Interpretation and review of laboratory results [facility] LYMPHOCYTES ABSOLUTE AUTO 2.5 [facility] Lymphocytes/100 WBC (Bld) 27.7 % 20.5 - 60.0 % [facility] MCH (RBC) [Entitic mass] 23.5 pg Low 26.7 - 34.0 pg [facility] MCHC (RBC) [Mass/Vol] 30.6 g/dL 29.9 - 35.2 g/dL [facility] MCV (RBC) [Entitic vol] 77 fL Low 81.0 - 99.0 fL [facility] MONOCYTES ABSOLUTE AUTO 0.3 [facility] Monocytes/100 WBC (Bld) 3.5 % 1.7 - 12.0 % [facility] NEUTROPHILS ABSOLUTE AUTO 6.1 [facility] Neutrophils/100 WBC (Bld) 67 % 43.0 - 75.0 % [facility] Platelet mean volume (Bld) [Entitic vol] 9.6 fL 9.5 - 13.5 fL [facility] TBH EO # 0.1 [facility]T 276 [facility] TB RBC 4.08 Low [facility] TB WBC 9.2 [facility] Urinalysis macro (dipstick) panel (U)on 03-29-2024 Bilirubin, UA Negative Negative - 4(70) +++ mg/dL [facility] Blood, UA Negative Negative - 50 Jimmy/mcL [facility] Clarity, UA Clear [facility] re Color, UA Ne [facility] Glucose, UA Negative Negative - 2000(110) ++++ mg/dL [facility] Interpretation and review of laboratory results Abnormal [facility] Ketones, UA Negative Negative - 160(16) ++++ mg/dL [facility] Leukocytes, UA Trace Negative - 500+++ Minnie/mcL [facility] Nitrite, UA Negative Negative - Positive [facility] pH, UA 6 5 - 9 [facility] Protein, UA Trace Negative - 1999(20) ++++ mg/dL [facility] Spec Grav, UA 1.025 1 - 1.03 [facility] Urobilinogen, UA 0.2 0.2 - 12 mg/dL [facility] MLR HEMOGLOBIN A1Con 024 Glucose [Mass/Vol] 108 mg/dL [facility]care HbA1c (Bld) [Mass fraction] 5.4 % 4.5 - 6.2 % [facility] Comment on above: ADA RECOMMENDED LIMI T 4.0 - 6.0 ADA THERAPEUTIC TARGET < 7.0 ACTION SUGGESTED > 7.0 [facility] Urinalysis macro (dipstick) panel (U)on 03-08-2024 Bilirubin, UA Negative Negative - 4(70) +++ mg/dL [facility] Blood, UA Negative Negative - 50 Jimmy/mcL [facility] Clarity, UA Clear [facility] Color, UA Yellow [facility] Glucose, UA Negative Negative - 1999(110) ++++ mg/dL [facility] Interpretation and review of laboratory results Abnormal [facility] re Ketones, UA Negative Negative - 160(16) ++++ mg/dL [facility] Leukocytes, UA Trace Negative - 500+++ Minnie/mcL [facility] Nitrite, UA Negative Negative - Positive [facility] pH, UA 6.5 5 - 9 [facility] Protein, UA Negative Negative - 1999(20) ++++ mg/dL [facility] Spec Grav, UA 1.025 1 - 1.03 [facility] Urobilinogen, UA 0.2 0.2 - 12 mg/dL [facility] Urinalysis macro (dipstick) panel (U)on 02-23-2024 Bilirubin, UA Negative Negative - 4(70) +++ mg/dL [facility] Blood, UA Negative Negative - 50 Jimmy/mcL [facility] Clarity, UA Clear [facility] re Color, UA Yellow [facility] Glucose, UA Negative Negative - 1999(110) ++++ mg/dL [facility] Interpretation and review of laboratory results Abnormal [facility] re Ketones, UA Negative Negative - 160(16) ++++ mg/dL [facility] Leukocytes, UA Trace Negative - 500+++ Minnie/mcL [facility] Nitrite, UA Negative Negative - Positive [facility] pH, UA 6.5 5 - 9 [facility] Protein, UA Negative Negative - 1999(20) ++++ mg/dL [facility] Spec Grav, UA 1.02 1 - 1.03 [facility] Urobilinogen, UA 1.0 0.2 - 12 mg/dL [facility] CBC AND AUTO DIFFon 02-01-20 24 ABSOLUTE BASOPHIL 0.0 X10E9/L Normal 0.0-0.2 [facility] Comment on above: Performed By: #### C HUDSON PÉREZ, , 3083-03 #### [facility] ([id number]) [address] [place] [address] 89212 ABSOLUTE NEUTROPHIL 10.5 X10E9/L High 1.5-6.6 [facility] Comment on above: Performed By: #### Carol PÉREZ CMP, , 3083-03 #### [facility] ([id number]) [address] [place] [address] 36252 Basophils/100 WBC (Bld) 0.4 % Normal [facility] Comment on above: Performed By: #### Carol PÉREZ CMP, 0, 3083-03 #### [facility] ([id number]) [address] [place] [address] 80235 Eosinophils (Bld) [#/Vol] 0.1 10*3/uL Normal 0.0-0.4 [facility] Comment on above: Performed By: #### Carol PÉREZ CMP, 0, 3083-03 #### [facility] ([id number]) [address] [place] [address] 21288 Eosinophils/100 WBC (Bld) 0.7 % Normal [facility] Comment on above: Performed By: #### C HUDSON PÉREZ, 2531-0, 3083-03 #### [facility] ([id number]) [address] [place] [address] 01869 Erythrocyte distribution width (RBC) [Ratio] 14.5 % Normal 11.5-15.0 [facility] Comment on above: Performed By: #### C HUDSON PÉREZ, 2531-0, 3083-03 #### [facility] ([id number]) [address] [place] [address] 14180 Hematocrit (Bld) [Volume fraction] 29.1 % Low 35-47 [facility] Comment on above: Performed By: #### Carol PÉREZ CMP, 0, 3083-03 #### [facility] ([id number]) [address] [place] [address] 26099 Hemoglobin (Bld) [Mass/Vol] 9.6 g/dL Low 11.7-15.5 [facility] Comment on above: Performed By: #### Carol PÉREZ CMP, 0, 3083-03 #### [facility] ([id number]) [address] [place] [address] 07415 Lymphocytes (Bld) [#/Vol] 2.2 10*3/uL Normal 1.0-3.5 [facility] Comment on above: Performed By: #### Carol PÉREZ CMP, 2531-0, 3083-03 #### [facility] ([id number]) [address] [place] [address] 10125 Lymphocytes/100 WBC (Bld) 16.6 % Normal [facility] Comment on above: Performed By: #### Carol PÉREZ CMP, 2531-0, 3083-03 #### [facility] ([id number]) [address] [place] [address] 04165 MCH (RBC) [Entitic mass] 25.7 pg Low 27-34 [facility] Comment on above: Performed By: #### C ELISA CMP, 2531-0, 3083-03 #### [facility] ([id number]) [address] [place] [address] 50795 MCHC (RBC) [Mass/Vol] 32.9 g/dL Normal 32-36 [facility] Comment on above: Performed By: #### C ELISA CMP, 0, 3083-03 #### [facility] ([id number]) [address] [place] [address] 70106 MCV (RBC) [Entitic vol] 78 fL Low 80-100 [facility] Comment on above: Performed By: #### Carol PÉREZ CMP, 0, 3083-03 #### [facility] ([id number]) [address] [place] [address] 66614 Monocytes (Bld) [#/Vol] 0.5 10*3/uL Normal 0-0.9 [facility] Comment on above: Performed By: #### Carol PÉREZ, CMP, 0, 3083-03 #### [facility] ([id number]) [address] [place] [address] 27912 Monocytes/100 WBC (Bld) 3.7 % Normal [facility] Comment on above: Performed By: #### Carol PÉREZ, CMP, 0, 3083-03 #### [facility] ([id number]) [address] [place] [address] 89827 Neutrophils/100 WBC (Bld) 78.6 % Normal [facility] Comment on above: Performed By: #### Carol PÉREZ, CMP, 0, 3083-03 #### [facility] ([id number]) [address] [place] [address], [place] [address] Platelet mean volume (Bld) [Entitic vol] 7.6 fL Normal 7-12 [facility] Comment on above: Performed By: #### C ELISA CMP, 2532-0, 3083-1 #### [facility] ([id number]) [address] [place] [address] 95878 Platelets (Bld) [#/Vol] 315 10*3/uL Normal 150-450 [facility] Comment on above: Performed By: #### C ELISA CMP, 2531-0, 3083-1 #### [facility] ([id number]) [address] [place] [address] 36352 RBC COUNT 3.73 X10E12/L Low 3.80-5.20 [facility] Comment on above: Performed By: #### C ELISA, CMP, 0, 3083- #### [facility] ([id number]) [address] [place] [address] 33861 WBC (Bld) [#/Vol] 13.4 10*3/uL High 4.0-11.0 [facility] Comment on above: Performed By: #### C ELISA, CMP, 0, 3083- #### [facility] ([id number]) [address] [place] [address] 17251 COMPREHENSIVE METABOLIC PANE Wilbur 02-01-2024 Albumin [Mass/Vol] 3.0 g/dL Low 3.2-5.3 [facility] Comment on above: Performed By: #### C ELISA, CMP, 2531-0, 3083- #### [facility] ([id number]) [address] [place] [address] 17135 ALP [Catalytic activity/Vol] 81 U/L Normal 39-130 [facility] Comment on above: Performed By: #### C BCA, CMP, 2532-0, 3084-1 #### [facility] ([id number]) [address] [place] [address] 70600 ALT [Catalytic activity/Vol] 15 U/L Normal 0-31 [facility] Comment on above: Performed By: #### C BCA, CMP, 2532-0, 3084-1 #### [facility] ([id number]) [address] [place] [address] 76374 Anion gap [Moles/Vol] 11 mmol/L Normal 5-15 [facility] Comment on above: Performed By: #### C BCA, CMP, 2532-0, 3083-1 #### [facility] ([id number]) [address] [place] [address] 00640 AST [Catalytic activity/Vol] 12 U/L Normal 0-41 [facility] Comment on above: Performed By: #### C BCA, CMP, 2532-0, 3083- #### [facility] ([id number]) [address] [place] [address] 73621 Bilirubin [Mass/Vol] 0.3 mg/dL Normal 0.3-1.2 [facility] Comment on above: Performed By: #### C BCA, CMP, 2532-0, 3083-1 #### [facility] ([id number]) [address] [place] [address] 54631 Calcium [Mass/Vol] 8.7 mg/dL Normal 8.5-10.5 [facility] Comment on above: Performed By: #### C BCA, CMP, 2532-0, 308-1 #### [facility] ([id number]) [address] [place] [address] 19605 Chloride [Moles/Vol] 105 mmol/L Normal 98-109 [facility] Comment on above: Performed By: #### C BCA, CMP, 2532-0, 3083-1 #### [facility] ([id number]) [address] [place] [address] 72944 CO2 [Moles/Vol] 19 mmol/L Low 22-32 [facility] Comment on above: Performed By: #### C HUDSON PÉREZ, 2531-0, 3083- #### [facility] ([id number]) [address] [place] [address] 03531 Creatinine [Mass/Vol] 0.38 mg/dL Low 0.40-1.00 [facility] Comment on above: Result Comment: METH OD TRACEABLE TO IDMS STANDARD Performed By: #### C HUDSON PÉREZ, 0, 3083-03 #### [facility] ([id number]) [address] [place] [address] 83245 eGFR (CKD-EPI) NON-RACE DEPENDENT >90 Normal >59 [facility] Comment on above: Result Comment: Reported eGFR is based on the CKD-EPI 2020 equation that does not use a race coefficient. Performed By: #### C HUDSON PÉREZ, 0, 3083-03 #### [facility] ([id number]) [address] [place] [address] 30324 Glucose [Mass/Vol] 93 mg/dL Normal 65-99 [facility] Comment on above: Performed By: #### C HUDSON PÉREZ, 0, 3083-03 #### [facility] ([id number]) [address] [place] [address] 74738 Potassium [Moles/Vol] 3.5 mmol/L Normal 3.5-5.0 [facility] Comment on above: Performed By: #### C ELISA CMP, 253-0, 3083-03 #### [facility] ([id number]) [address] [place] [address] 23000 Protein [Mass/Vol] 6.7 g/dL Normal 6.0-8.0 [facility] Comment on above: Performed By: #### C BCA, CMP, 2532-0, 3084-1 #### [facility] ([id number]) [address] [place] [address] 16365 Sodium [Moles/Vol] 135 mmol/L Normal 134-146 [facility] Comment on above: Performed By: #### C BCA, CMP, 2532-0, 3084-1 #### [facility] ([id number]) [address] [place] [address] 23413 Urea nitrogen [Mass/Vol] 8 mg/dL Normal 5-23 [facility] Comment on above: Performed By: #### C BCA, CMP, 2532-0, 3083-1 #### [facility] ([id number]) [address] [place] [address] 07377 LDH [Catalytic activity/Vol] on 02-01-2024 LDH 107 U/L Normal 100-235 [facility] Comment on above: Performed By: #### C BCA, CMP, 2532-0, 3083-1 #### [facility] ([id number]) [address] [place] [address] 82198 URIC ACIDon 02-01-2024 Urate [Mass/Vol] 4.9 mg/dL Normal 2.6-7.2 [facility] Comment on above: Performed By: #### C BCA, CMP, 2532-0, 3083-1 #### [facility] ([id number]) [address] [place] [address] 93674 PROTEIN CREAT RATIOon 2023 RANDOM URINE PROTEIN 190 mg/L High <120 [facility] Comment on above: Performed By: #### U PCR #### [facility] ([id number]) [address] [place] [address] 61479 U/PRO/LINE CLOSER RATIO CALC 0.11 Normal <0.2 [facility] Comment on above: Result Comment: Neph rotic Syndrome is associated with ratios >3.5 Performed By: #### U PCR #### [facility] ([id number]) [address] [place] [address] 55979 URINE CREATININE,RDM 177.57 mg/dL Normal [facility] Comment on above: Performed By: #### U PCR #### [facility] ([id number]) [address] [place] [address] [place] [address] URINALYSISon 01-31-2024 Bilirubin Ql (U) Negative Normal NEG [facility] Comment on above: Performed By: #### U A #### [facility] ([id number]) [address] [place] [address] [place] [address] BLOOD/HGB Negative Normal NEG [facility] Comment on above: Performed By: #### U A #### [facility] ([id number]) [address] [place] [address] [place] [address] Color (U) YELLOW Normal YELLOW [facility] Comment on above: Performed By: #### U A #### [facility] ([id number]) [address] [place] [address] [place] [address] Glucose Ql (U) Negative Normal NEG [facility] Comment on above: Performed By: #### U A #### [facility] ([id number]) [address] [place] [address] [place] [address] Ketones Ql (U) Trace Abnormal NEG [facility] Comment on above: Performed By: #### U A #### [facility] ([id number]) [address] [place] [address] [place] [address] Leukocyte esterase Test strip Ql (U) Trace Abnormal NEG [facility] Comment on above: Performed By: #### U A #### [facility] ([id number]) [address] [place] [address] [place] [address] Nitrite Ql (U) Negative Normal NEG [facility] Comment on above: Performed By: #### U A #### [facility] ([id number]) [address] [place] [address] 09344 pH (U) 6.0 [pH] Normal 5.0-8.5 [facility] Comment on above: Performed By: #### U A #### [facility] ([id number]) [address] [place] [address] 26146 Protein Ql (U) Negative Normal NEG [facility] Comment on above: Performed By: #### U A #### [facility] ([id number]) [address] [place] [address] 34418 R.B.CELLS 0 /hpf Normal 0-5 [facility] Comment on above: Performed By: #### U A #### [facility] ([id number]) [address] [place] [address] 01885 Specific gravity (U) [Rel density] >1.030 Normal 1.003-1.035 [facility] Comment on above: Performed By: #### U A #### [facility] ([id number]) [address] [place] [address] 79039 SQUAMOUS EPITHELIUM 6 /hpf High 0-5 [facility] Comment on above: Performed By: #### U A #### [facility] ([id number]) [address] [place] [address] [place] [address] TURBIDITY CLEAR Normal CLEAR [facility] Comment on above: Performed By: #### U A #### [facility] ([id number]) [address] [place] [address] 95605 Urobilinogen Qn (U) 0.2 {Marce'U}/dL Normal <1.1 [facility] Comment on above: Performed By: #### U A #### [facility] ([id number]) [address] [facility] [place], [place] [address] W.B.CELLS 4 /hpf Normal 0-5 [facility] Comment on above: Performed By: #### U A #### [facility] ([id number]) [address] [place] [address], [place] [address] IGP,APTIMA HPV,AGE GDLNon AGE GDLN ACOG TESTING Note . [facility] Comment on above: TESTS RESULT FLAG UN ITS REF RANGE LAB Clinician Provided Cytology Information Source.............Cervix Other.............. No. of containers..01 ThinPrep Vial Age Algo ACOG Velia... FLAG LEGEND: L-Low Normal,H-High Normal,LL-Alert Low,HH-Alert High <-Panic Low,>-Panic High,A-Abnormal,AA-Critical Abnormal Performed at: 01 =G [facility] [address] [address] Dodie Felix MD, IGP, RFX APTIMA HPV ASCU Note . [facility] [employer] Comment on above: TESTS RESULT FLAG UN ITS REF RANGE LAB DIAGNOSIS: 02 NEGATIVE FOR INTRAEPITHELIAL LESION OR MALIGNANCY. FUNGAL ORGANISMS MORPHOLOGICALLY CONSISTENT WITH SHILOH SPECIES ARE PRESENT. Specimen adequacy: 02 Satisfactory for evaluation. No endocervical component is identified. Performed by: 02 Brianna Lyons [employer] ([facility]) . 02 Note: Note 02 The Pap [...] <-Panic Low,>-Panic High,A-Abnormal,AA-Critical Abnormal Performed at: [address] [facility] [address] [place] [address] Dodie Felix MD, Performed at: =G - [facility] [address] [id number] Barrel Lapper: Dodie Felix MD, Phone: [phone] Performed at: [facility] [id number] Barrel Lapper: Dodie Felix MD, Phone: [phone] [facility] URINE CULTURE, ROUTINEon Bacteria identified Cx Nom (U) Urine Culture, Routine [facility] Bacteria identified [facility] (U) Mixed urogenital seven [facility] Bacteria identified [facility] (U) 25,000-50,000 colony forming units per mL [facility] Bacteria identified Cx Nom (U) Performed at: [facility] Bacteria identified Cx Nom (U) [address] [place], [place] [id number] [facility] Healthcare Bacteria identified Cx Nom (U) Barrel Lapper: Anirudh Avendano PhD, Phone: [phone] [facility] e URETHRITIS/DISCHARGE PLUS VA GINITIS (HTRX)on 01-20-2024 ATOPOBIUM VAGINAE 18.808 Abnormal [facility]care ATOPOBIUM VAGINAE Detected Abnormal [facility] BVAB 2,3 (BACTERIAL VAGINOSIS ASSOCIATED BACTERIA 2, 3); MOBILUNCUS SPP 0 [facility] BVAB 2,3 (BACTERIAL VAGINOSIS ASSOCIATED BACTERIA 2, 3); MOBILUNCUS SPP Not detected [facility] SHILOH ALBICANS, PARAPSILOSIS, TROPICALIS 26.752 Abnormal [facility] Healthcare SHILOH ALBICANS, PARAPSILOSIS, TROPICALIS Detected Abnormal [facility] Healthcare SHILOH GLABRATA 0 [facility] Hea lthcare SHILOH GLABRATA Not detected [facility] KRUSEI Not [facility] CHLAMYDIA TRACHOMATIS 0 [facility] CHLAMYDIA TRACHOMATIS Not detected [facility] ERMB, C; MEFA 17.114 Abnormal [facility] Health care ERMB, C; MEFA Detected Abnormal [facility] care GARDNERELLA VAGINALIS 22.039 Abnormal [facility] GARDNERELLA VAGINALIS Detected Abnormal [facility] Interpretation and review of laboratory results Abnormal [facility] Healthca re MEGASPHAERA (TYPES 1, 2) 0 [facility] Healthcare MEGASPHAERA (TYPES 1, 2) Not detected [facility] MYCOPLASMA GENITALIUM 0 [facility] MYCOPLASMA GENITALIUM Not detected [facility] NEISSERIA GONORRHOEAE 0 [facility] NEISSERIA GONORRHOEAE Not detected [facility] TET B, TET M 17.484 Abnormal [facility] Healthc are TET B, TET M Detected Abnormal [facility] Healthc are TRICHOMONAS VAGINALIS 0 [facility] TRICHOMONAS VAGINALIS Not detected [facility] Urinalysis macro (dipstick) panel (U)on 01-19-2024 Bilirubin, UA Negative Negative - 4(70) +++ mg/dL [facility] Blood, UA Negative Negative - 50 Jimmy/mcL [facility] Healthcare Clarity, UA Clear [facility] Color, UA Light Yellow [facility] Glucose, UA Negative Negative - 1999(110) ++++ mg/dL [facility] Interpretation and review of laboratory results Abnormal [facility] re Ketones, UA Negative Negative - 160(16) ++++ mg/dL [facility] Leukocytes, UA Negative Negative - 500+++ Minnie/mcL [facility] Healthcare Nitrite, UA Negative Negative - Positive [facility] pH, UA 6.5 5 - 9 [facility] Health[facility] e Protein, UA Positive Negative - 1999(20) ++++ mg/dL [facility] Spec Grav, UA 1.02 1 - 1.03 [facility] Urobilinogen, UA 1.0 0.2 - 12 mg/dL [facility]inalysis macro (dipstick) panel (U)on 12-22-2023 Bilirubin, UA Negative Negative - 4(70) +++ mg/dL [facility] Blood, UA Negative Negative - 50 Jimmy/mcL [facility] Healthcare Clarity, UA Clear [facility] Healthca re Color, UA Yellow [facility]car e Glucose, UA Negative Negative - 1999(110) ++++ mg/dL [facility] Interpretation and review of laboratory results Abnormal [facility] re Ketones, UA Negative Negative - 160(16) ++++ mg/dL [facility] Leukocytes, UA Moderate Negative - 500+++ Minnie/mcL [facility] Healthcare Nitrite, UA Negative Negative - Positive [facility] pH, UA 6.5 5 - 9 [facility] Healthcar e Protein, UA Negative Negative - 1999(20) ++++ mg/dL [facility] Spec Grav, UA 1.030 1 - 1.03 [facility] Urobilinogen, UA 1.0 0.2 - 12 mg/dL [facility] ALL CBC WITH AUTO DIFFon BASOPHILS ABSOLUTE AUTO 0.0 [facility] Basophils/100 WBC (Bld) 0.5 % 0.2 - 2.0 % [facility] Eosinophils/100 WBC (Bld) 1.0 % 0.9 - 7.0 % [facility] Erythrocyte distribution width (RBC) [Ratio] 14.7 % 11.0 - 15.0 % [facility] Hematocrit (Bld) [Volume fraction] 34.1 % Low 36.0 - 48.0 % [facility] Hem[facility] (Bld) [Mass/Vol] 10.8 g/dL Low 12.0 - 16.0 g/dL [facility] IMMATURE GRANULOCYTES ABS AUTO 0.02 [facility] Immature granulocytes/100 WBC (Bld) 0.3 % 0.0 - 0.5 % [facility] Interpretation and review of laboratory results Abnormal [facility] LYMPHOCYTES ABSOLUTE AUTO 2.2 [facility] Lymphocytes/100 WBC (Bld) 27.3 % 20.5 - 60.0 % [facility] MCH (RBC) [Entitic mass] 26.0 pg Low 26.7 - 34.0 pg [facility] MCHC (RBC) [Mass/Vol] 31.7 g/dL 29.9 - 35.2 g/dL [facility] MCV (RBC) [Entitic vol] 82.0 fL 81.0 - 99.0 fL [facility] MONOCYTES ABSOLUTE AUTO 0.3 [facility] Monocytes/100 WBC (Bld) 4.2 % 1.7 - 12.0 % [facility] NEUTROPHILS ABSOLUTE AUTO 5.3 [facility] Neutrophils/100 WBC (Bld) 66.7 % 43.0 - 75.0 % [facility] Platelet mean volume (Bld) [Entitic vol] 10.2 fL 9.5 - 13.5 fL [facility] TBH EO # 0.1 [facility] TB PLT 270 [facility] TB RBC 4.[address] [facility] e TB WBC 7.9 [facility] e CL[facility] e HCG ( test) Ql (U)o n 12-10-2023 Interpretation and review of laboratory results Abnormal [facility] re Preg Test, Ur Positive [facility] Health[facility] e Urinalysis macro (dipstick) panel (U)on 12-10-2023 Bilirubin, UA Negative Negative - 4(70) +++ mg/dL [facility] Blood, UA Negative Negative - 50 Jimmy/mcL [facility] Clarity, UA Clear [facility] Color, UA Yellow [facility] Health[facility] e Glucose, UA Negative Negative - 1999(110) ++++ mg/dL [facility] Interpretation and review of laboratory results Abnormal [facility] Healthca re Ketones, UA Negative Negative - 160(16) ++++ mg/dL [facility] Leukocytes, UA Positive Negative - 500+++ Minnie/mcL [facility] Comment on above: small Nitrite, UA Negative Negative - Positive [facility] pH, UA 7.5 5 - 9 [facility] Healthcar e Protein, UA Negative Negative - 1999(20) ++++ mg/dL [facility] Spec Grav, UA 1.015 1 - 1.03 [facility] Urobilinogen, UA 0.2 0.2 - 12 mg/dL [facility] Consent Formson 09-03-2023 Consent Forms [id number] [facility] 0 09-03-2023 Lab - Toxicology Results [id number] .[facility] Summaryon 2023 ED Clinical Summary [facility] ? 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 Abstain from any alcohol or illicit drugs With: Address: When: Bina Sera [address] [place] [address] Business (1) , only if needed DIAGNOSIS: Physical exam Patient Understands: Yes - Patient/family/caregi carlos verbalizes understanding of instructions given Comment: [facility] ED Patient Summaryon 024 ED Patient Summary [facility] ? 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 Abstain from any alcohol or illicit drugs With: Address: When: Bina Sera [address] [place] [address] Business (1) , only if needed Care care is health care during . It helps you and your unborn baby (fetus) stay as healthy as possible. care may be provided by a application integration engineer, a family practice doctor, a mid-level practitioner (nurse practitioner or physician assistant project manager), or a childbirth and doctor (percussion instrument tuner). How does this affect me? During , [...] procedures you have had. ? Any current mudo-olu-bbkchne or prescription medicines, herbs, or supplements that [...] any s (more content not included)... Normal [facility] Triage Industrialon 09-02-19 24 Drug Screen Complete Collected Normal [facility] Comment on above: Performed By: #### 1 [id number] #### [facility] (DEFAULT) [address] [place] [address] Urgent Care Note- Provideron 09-02-2023 Urgent Care [...] pharynx is pink and moist. NECK: -Supple (srsa-ga-apzlk): non-tender. CARD: -Rate and rhythm: Regular -Edema: [...] Plan Assessment and Plan: Diagnosis: Physical exam ([id number] Z00.00). Cleared for employment [Electronically Signed on: 09/02/2023 11:41 EDT] MIRIAN HERBERT [Verified on: 09/02/2023 11:41 EDT] MIRIAN HERBERT [facility] [address] 024 Urgent Care Record [facility] ? 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 Abstain from any alcohol or illicit drugs With: Address: When: Bina Zamora [address] [place] [address] Business (1) , only if needed Medication Information: The exam and treatment you received today in the [facility] were for an urgent problem and are not intended as complete care. It is important for you to follow up with a doctor, nurse practitioner, or physician?s assistant project manager for ongoing care. If your symptoms become [...] so we can reach you if necessary. [facility] Urgent Care has provided you with a complete list of medications post discharge. Please inform your volunteer services specialist/provider of your visit and for further [...] possible. care may be provided by a application integration engineer, a family practice doctor, a mid-level practitioner (nurse practitioner or physician assistant project manager), or a childbirth and doctor (percussion instrument tuner). How does this affect me? During , [...] ? Any (more content not included)... Normal [facility] COVID/FLU RT-PCRon 3 SARS-CoV-2 (COVID-19) RNA [facility]+probe Ql (Unsp spec) Negative [employer] Other COVID/FLU RT-PCR Negative [facility] Other CHLAMYDIA/GONOCOCCUS [facility] (SW AB/URINE/PAPon 05-22-2022 Chlamydia trachomatis, [facility] Negative Normal Negative [facility] Comment on above: Performed By: #### C T/NGNA #### [facility] [address] [place] [address] Dr. Clau Valdivia Neisseria gonorrhoeae, [facility] Negative Normal Negative [facility] Comment on above: Performed By: #### C T/NGNA #### [facility] [address] [place] [address] Dr. Clau Valdivia VAGINITIS/VAGINOSIS DNA PROB Melvin 05-21-2022 Shiloh species Positive Abnormal Negative [facility] Comment on above: Performed By: #### V AGINT #### [facility] [address] [place] [address] Dr. Clau Valdivia Gardnerella vaginalis Positive Abnormal Negative [facility] Comment on above: Performed By: #### V AGINT #### [facility] [address] [place] [address] Dr. Clau Valdivia Trichomonas vaginalis Negative Normal Negative [facility] Comment on above: Performed By: #### V AGINT #### [facility] [address] [place] [address] Dr. Clau Valdivia COVID + FLU Quick Testingon 04-20-2022 SARS-CoV-2 (COVID-19) RNA [facility]probe Ql (Unsp spec) Negative [facility] [employer] Other COVID + FLU Quick Testing Negative [facility] [employer] Other Quick Strepon 04-20-2022 S. pyogenes Org specific cx Ql (Throat) Negative [facility] [employer] Other Quick Strep [facility] [employer] Other Vital Signs Date Time Vital Sign Value Performing Clinician Facility 04-07-2024 08:54-0500 Body mass index (BMI) [Ratio] 36.96 kg/m2 Ana Luisa ROY Work Phone: [facility] 04-07-2024 08:54-0500 Body weight 107.05 kg Ana Luisa ROY Work Phone: [facility] 04-07-2024 08:54-0500 Diastolic blood pressure 74 mm[Hg] Ana Luisa Zeny PA Work Phone: [facility] 04-07-2024 08:54-0500 Systolic blood pressure 120 mm[Hg] Ana Luisa [place] PA Work Phone: [facility] 03-29-2024 10:14-0500 Body mass index (BMI) [Ratio] 35.89 kg/m2 Angelina Roslyn DO Work Phone: [facility] 03-29-2024 10:14-0500 Body weight 103.93 kg Angelina Roslyn DO Work Phone: [facility] 03-29-2024 10:14-0500 Diastolic blood pressure 72 mm[Hg] Angelina Roslyn DO Work Phone: [facility] 03-29-2024 10:14-0500 Systolic blood pressure 110 mm[Hg] Angelina Roslyn DO Work Phone: [facility] 03-08-2024 14:41-0500 Body mass index (BMI) [Ratio] 35.87 kg/m2 Ana Luisa [place] PA Work Phone: [facility] 03-08-2024 14:41-0500 Body weight 103.87 kg Ana Luisa [place] PA Work Phone: [facility] 03-08-2024 14:41-0500 Diastolic blood pressure 74 mm[Hg] Ana Luisa Zeny PA Work Phone: [facility] 03-08-2024 14:41-0500 Systolic blood pressure 120 mm[Hg] Ana Luisa Zeny PA Work Phone: [facility] 02-23-2024 13:59-0500 Body mass index (BMI) [Ratio] 35.37 kg/m2 Angelina Rolsyn DO Work Phone: [facility] 02-23-2024 13:59-0500 Body weight 102.42 kg Angelina Roslyn DO Work Phone: [facility] 02-23-2024 13:59-0500 Diastolic blood pressure 72 mm[Hg] Angelina Roslyn DO Work Phone: [facility] 02-23-2024 13:59-0500 Systolic blood pressure 118 mm[Hg] Angelina Roslyn DO Work Phone: [facility] 01-19-2024 13:35-0400 Body mass index (BMI) [Ratio] 34.43 kg/m2 Ana Luisa ROY Work Phone: [facility] 01-19-2024 13:35-0400 Body weight 99.7 kg Ana Luisa [place] PA Work Phone: [facility] 01-19-2024 13:35-0400 Diastolic blood pressure 70 mm[Hg] Ana Luisa Lindoey PA Work Phone: [facility] 01-19-2024 13:35-0400 Systolic blood pressure 108 mm[Hg] Ana Luisa Moura PA Work Phone: [facility] 12-22-2023 09:36-0400 Body mass index (BMI) [Ratio] 33.83 kg/m2 Angelina Roslyn DO Work Phone: [facility] 12-22-2023 09:36-0400 Body weight 97.98 kg Angelina Roslyn DO Work Phone: [facility] 12-22-2023 09:36-0400 Diastolic blood pressure 72 mm[Hg] Angelina Roslyn DO Work Phone: [facility] 12-22-2023 09:36-0400 Systolic blood pressure 110 mm[Hg] Angelina Roslyn DO Work Phone: [facility] 12-10-2023 13:39-0400 Body mass index (BMI) [Ratio] 33.67 kg/m2 [facility] Nurse [facility] 12-10-2023 13:39-0400 Body weight 97.52 kg [facility] Nurse [facility] 12-10-2023 13:39-0400 Diastolic blood pressure 78 mm[Hg] [facility] Nurse [facility] 12-10-2023 13:39-0400 Systolic blood pressure 112 mm[Hg] [facility] Nurse [facility] 07-19-2022 11:30-0400 Body height 167.64 cm Ne Henderson Other [employer] Other 07-19-2022 11:30-0400 Body mass index (BMI) [Ratio] 34.7 kg/m2 Ne Henderson Other [employer] Other 07-19-2022 11:30-0400 Body temperature 101 [degF] Ne Henderson Other [employer] Other 07-19-2022 11:30-0400 Body weight 97.52 kg Ne Henderson Other [employer] Other 07-19-2022 11:30-0400 Diastolic blood pressure 76 mm[Hg] Ne Henderson Other [employer] Other 07-19-2022 11:30-0400 Respiratory rate 18 /min Ne Henderson Other [employer] Other 07-19-2022 11:30-0400 SaO2% (BldA) [Mass fraction] 97 % Ne Henderson Other [employer] Other 07-19-2022 11:30-0400 Systolic blood pressure 113 mm[Hg] Ne Henderson Other [employer] Other 04-20-2022 10:50-0500 Body height 167.64 cm Anya Contreras Other [employer] Other 04-20-2022 10:50-0500 Body mass index (BMI) [Ratio] 34.7 kg/m2 Anya Contreras Other [employer] Other 04-20-2022 10:50-0500 Body temperature 98.6 [degF] Anya Contreras Other [employer] Other 04-20-2022 10:50-0500 Body weight 97.52 kg Anya Contreras Other [employer] Other 04-20-2022 10:50-0500 Respiratory rate 18 /min Anya Contreras Other [employer] Other 04-20-2022 10:50-0500 SaO2% (BldA) [Mass fraction] 98 % Anya Contreras Other [employer] Other Encounters Encounter Date Encounter Type Care Provider Facility Start: 04-07-2024 End: 04-07-2024 Bamboo flowsheet Ana Luisa ROY Work Phone: [facility] Start: 04-07-2024 End: 04-07-2024 Bamboo flowsheet Ana Luisa ROY Work Phone: [facility] Start: 04-07-2024 End: 04-07-2024 flow sheet Ana Luisa ROY Work Phone: [facility] Comment on above: Third trimester preg sharee; 36 weeks gestation of Start: 04-07-2024 End: 04-07-2024 ambulatory ANA LUISA MOURA Not Available Start: 04-01-2024 End: 04-01-2024 Clinisync Result Encounter [...] 03-08-2024 End: 03-08-2024 Bamboo flowsheet Ana Luisa Moura PA Work Phone: [facility] Start: 03-08-2024 [...] Available Start: 01-31-2024 End: 02-01-2024 ambulatory KATHLEEN Mali HASKINS [facility] Start: 01-20-2024 End: 01-22-2024 Clinisync [...] Available Start: 01-07-2024 End: 01-07-2024 ambulatory Araceli BOOGIE Facility:[facility] Start: 12-30-2023 End: 12-30-2023 ambulatory Araceli BOOGIE Facility:[facility] Start: 12-22-2023 End: 12-22-2023 Bamboo flowsheet Angelina [...] Start: 09-02-2023 End: 09-02-2023 ambulatory Bina Zamora Facility:[facility] Start: 07-16-2023 End: 07-16-2023 ambulatory [...] 04-11-2023 End: 04-11-2023 ambulatory MARVEL Villaseñor ANAHI [facility] Start: 07-19-2022 End: 07-19-2022 ambulatory Ne Henderson Other [employer] Other Start: 07-19-2022 Office outpatient vi sit 25 minutes Ne Henderson [facility] Start: 05-19-2022 End: 05-19-2022 ambulatory ANA LUISA MOURA . Facility: Start: 04-20-2022 End: 04-20-2022 ambulatory Anya Contreras Other [facility] Other Start: 04-20-2022 Office outpatient vi sit [...] AM EST Routine [facility] [address] [place] [address] Angelina Mcgowan, DO [address] [place], [place] [id number] [facility] Start: 04-07-2024 End: 04-07-2025 [...] Procedure [facility] [address] [place] [address] [facility] Start: 02-23-2024 End: 02-22-2025 CBC panel - Blood by Automated count CBC Lab Routine Diabetes mellitus screening Expected: 02/23/2024 (Approximate), Expires: 02/22/2025 [facility] Healthcare Comment on above: Expected: 02/23/2024 (Approximate), Expires: 02/22/2025 Start: 02-23-2024 End: 02-22-2025 Measurement of glucose 1 hour after glucose challenge for glucose tolerance test Glucose tolerance, 1 hour Lab Routine Diabetes mellitus screening Expected: 02/23/2024 (Approximate), Expires: 02/22/2025 [facility] Comment on above: Expected: 02/23/2024 (Approximate), Expires: 02/22/2025 Start: 02-23-2024 End: 02-22-2025 US for US OB SCAN FOR GROWTH Imaging Routine size inconsistent with dates Expected: 02/23/2024 (Approximate), Expires: 02/22/2025 [facility] Healthcare Work Phone: Comment on above: Expected: 02/23/2024 (Approximate), Expires: 02/22/2025 Start: 02-23-2024 End: 02-23-2024 Patient encounter procedure 02/23/2024 1:40 PM EST Routine [facility] [address] [place] [address] Angelina Mcgowan, DO [address] [place] [address] Arrived [facility] Comment on above: Arrived Start: 02-16-2024 End: 02-16-2024 Patient encounter procedure 02/16/2024 1:50 PM EST Routine [facility] [address] [place] [address] Angelina Mcgowan, DO [address] [place] [address] [facility] Start: 01-19-2024 End: 01-19-2024 Patient encounter procedure [facility] Comment on above: Arrived Start: 12-22-2023 End: 12-22-2023 Patient encounter procedure [facility] Comment on above: Arrived Start: 12-22-2023 End: 12-22-2023 Professional / ancillary services management 12/22/2023 8:00 AM EDT Ancillary Procedure [facility] [address] [place] [id number] [facility] Start: 12-21-2023 End: 12-21-2023 Patient encounter procedure 12/21/2023 9:[address] [facility] [address] [place] [address] Angelina Mcgowan, DO [address] [place] [address] [place] [address] [facility] Start: 12-10-2023 End: 12-09-2024 ABO/Rh ABO/Rh Lab Routine Missed menses Expected: 12/10/2023 (Approximate), Expires: 12/09/2024 [facility] Comment on above: Expected: 12/10/2023 (Approximate), Expires: 12/09/2024 Start: 12-10-2023 End: 12-09-2024 Alpha fetoprotein, maternal Alpha fetoprotein, maternal Lab Routine Second trimester Expected: 12/10/2023 (Approximate), Expires: 12/09/2024 [facility] Comment on above: Expected: 12/10/2023 (Approximate), Expires: 12/09/2024 Start: 12-10-2023 End: 12-09-2024 Blood type and Indirect antibody screen panel - Blood Type and screen Lab Routine Missed menses Expected: 12/10/2023 (Approximate), Expires: 12/09/2024 [facility] Work Phone: Comment on above: Expected: 12/10/2023 (Approximate), Expires: 12/09/2024 Start: 12-10-2023 End: 12-09-2024 Drugs of abuse panel - Urine by Screen method Rapid drug screen, urine Lab Routine Encounter for supervision of normal first in first trimester , unspecified gestational age Expected: 12/10/2023 (Approximate), Expires: 12/09/2024 [facility] Comment on above: Expected: 12/10/2023 (Approximate), Expires: 12/09/2024 Start: 12-10-2023 End: 12-09-2024 US for [facility] Comment on above: Expected: 12/10/2023 (Approximate), Expires: 12/09/2024 Start: 11-22-2023 Influenza vaccination Influenza Vacc ine (#1) [facility] Bacteria identified in Urine by Culture Urine culture Microbiology Routine Missed menses Ordered: 12/10/2023 [facility] Comment on above: Ordered: 12/10/2023 CBC W Auto Different ial panel - Blood CBC and differential Lab Routine Missed menses Ordered: 12/10/2023 [facility] Comment on above: Ordered: 12/10/2023 CHLAMYDIA TRACHOMATI S (GENITO/STI) CHLAMYDIA TRACHOMATIS (GENITO/STI) Lab Routine STD exposure Ordered: 01/19/2024 [facility] Comment on above: Ordered: 01/19/2024 Cytology Cervical or vaginal smear or scraping study Pap Smear Pathology and Cytology Routine Well woman exam with routine gynecological exam Ordered: 01/19/2024 [facility] Comment on above: Ordered: 01/19/2024 Hemoglobin A1c/Hemoglobin.total in Blood Hemoglobin A1c Lab Routine Third trimester Ordered: 03/08/2024 [facility] Work Phone: Comment on above: Ordered: 03/08/2024 Hemoglobin A1c/Hemoglobin.total in Blood Hemoglobin A1c Lab Routine Missed menses Ordered: 12/10/2023 [facility] Comment on above: Ordered: 12/10/2023 Hepatitis B virus surface Ag [Presence] in Serum or Plasma by Immunoassay Hepatitis B surface antigen Lab Routine Missed menses Ordered: 12/10/2023 [facility] Comment on above: Ordered: 12/10/2023 Hepatitis C virus Ab [Presence] in Serum or Plasma by Immunoassay Hepatitis C antibody Lab Routine Missed menses Ordered: 12/10/2023 [facility] Comment on above: Ordered: 12/10/2023 HIV-1/HIV-2 antigen/antibody combination immunoassay HIV-1 and HIV-2 antibodies Lab Routine Missed menses Ordered: 12/10/2023 [facility] Comment on above: Ordered: 12/10/2023 Neisseria gonorrhoea e DNA [Presence] in Unspecified specimen by [facility] with probe detection Neisseria gonorrhea DNA probe, direct Lab Routine STD exposure Ordered: 01/19/2024 [facility] Comment on above: Ordered: 01/19/2024 Reagin Ab [Presence] in Serum by RPR RPR Lab Routine Missed menses Ordered: 12/10/2023 [facility] Comment on above: Ordered: 12/10/2023 Rubella antibody, IgG Rubella an tibody, IgG Lab Routine Missed menses Ordered: 12/10/2023 [facility] Comment on above: Ordered: 12/10/2023 SURESWAB(R) ADVANCED VAGINITIS PLUS, TMA SURESWAB(R) ADVANCED VAGINITIS PLUS, TMA Pathology and Cytology Routine Vaginal discharge Ordered: 01/19/2024 [facility] Work Phone: Comment on above: Ordered: 01/19/2024 Immunizations Immunization Date Immunization Notes Care Provider Sara zaidi 01-25-2021 influenza virus vacc ine, unspecified formulation Angelina Roslyn DO Work Phone: [facility] Healthcare Payers Date Payer Category Payer Unknown [id number] 2019 Private Health Insurance [id number] 2002 Unknown [id number] 2.16.84 [id number] 2002 Unknown [id number] 2.16.8 40.1.105561.3.579.2.1286 2002 Unknown [id number] 2.16.84 0.1.036342.3.579.2.1286 2002 Unknown [id number] 2.16.84 0.1.546601.3.579.2.1259 2002 Unknown [id number] 2.16.84 0.1.835614.3.579.2.1259 2002 Unknown [id number] 2.16.84 0.1.917449.3.579.2.1259 2002 Unknown [id number] 2.16.84 0.1.313782.3.579.2.1259 2002 Unknown [id number] 2.16.84 0.1.365149.3.579.2.9 2002 Unknown [id number] 2.16.84 0.1.973690.3.579.2.1258 2002 Unknown [id number] 2.16.84 0.1.773321.3.579.2.9 2002 Unknown [id number] 2.16.84 0.1.957334.3.579.2.1258 2002 Unknown [id number] 2.16.84 0.1.036487.3.579.2.1258 2002 Unknown [id number] 2.16.84 0.1.240432.3.579.2.1258 2002 Unknown [id number] 2.16.84 0.1.631033.3.579.2.9 2002 Unknown [id number] 2.16.84 0.1.270838.3.579.2.1258 2002 Unknown [id number] 2.16.84 0.1.958922.3.579.2.1259 1959 Unknown [id number] Social History Date Type Detail Facility Unknown if ever smoked [facility] [employer] Other Sex Assigned At [employer] Other Tobacco smoking status NYIS Tobacco smoking consumption unknown [facility] Start: 08-11-2023 [facility] Start: 2002 Sex assigned at Not on file [facility] Clinical Notes 04-20-2022 to 04-07-2024 MANUELA [...] of: MANUELA Foy documented in this encounter [facility] 03-29-2024 History of Presen t illness Narrative [...] nursing note reviewed. Exam conducted with a tailor men's ready to wear present. Vitals: Estimated body mass index is [...] Angelina Mcgowan DO documented in this encounter [facility] 03-08-2024 History of Presen t illness Narrative [...] of: MANUELA Foy documented in this encounter [facility] 02-23-2024 History of Presen t illness [...] nursing note reviewed. Exam conducted with a tailor men's ready to wear present. Vitals: Estimated body mass index is [...] Angelina Mcgowan DO documented in this encounter [facility] 01-19-2024 History of Presen t illness [...] nursing note reviewed. Exam conducted with a tailor men's ready to wear present. Vitals: Estimated body mass index is [...] of: MANUELA Foy documented in this encounter [facility] 12-22-2023 History of Presen t illness [...] nursing note reviewed. Exam conducted with a tailor men's ready to wear present. Vitals: Estimated body mass index is [...] Angelina Mcgowan DO documented in this encounter [facility] 12-10-2023 History of Presen t illness [...] undercooked meat, and stay away from [facility]. Patient has also been advised to [...] by: Karmen Alvares documented in this encounter [facility] 09-03-2023 Note [phone] [id number] 09-02-2023 Note Patient Education Ma terials Follows:and Gynecology Care care is health care during . It helps you and your unborn baby (fetus) stay as healthy as possible. care may be provided by a application integration engineer, a family practice doctor, a mid-level practitioner (nurse practitioner or physician assistant project manager), or a childbirth and doctor (percussion instrument tuner). How does this affect me? During , [...] procedures you have had. ? Any current [id number] or prescription medicines, herbs, or supplements that [...] week 24 of (more content not included)... [facility] 07-19-2022 Evaluation note Encounter Date [...] treatment plan. Patient left in stable condition. [employer] Other 04-29-2023 History general Narrative - Reported* Type Description Date Medical History ADD Medical History Born with cleft palette Surgical History tonsillectomy and adenoidectomy Surgical History cleft palette 3-4 repair Hospitalization History see above sugical hx [employer] Other 03-05-2023 History general Narrative - Reported* Type Description Date Medical History ADD Medical History Born with cleft palette Surgical History tonsillectomy and adenoidectomy Surgical History cleft palette 3-4 repair Hospitalization History see above [employer] Other 01-29-2023 Evaluation note* Encounter Date Diagnosis [...] this time you do not have COVID. [employer] Other Evaluation note* Diagnosis Second trimester state, [...] DATE CREATED AUTHOR 05/23/2022 [facility] DATE CREATED AUTHOR AUTHOR'S ORGANIZ ATION 09/03/2023 [facility] DATE CREATED AUTHOR AUTHOR'S ORGANIZ ATION 01/09/2024 [facility] DATE CREATED AUTHOR AUTHOR'S ORGANIZ ATION 02/01/2024 [facility] DATE CREATED AUTHOR AUTHOR'S ORGANIZ ATION 04/10/2024 [facility] EPIC REASON FOR VISIT (unrecogniz ed [...] BE BASED ON THE PRIMARY CLINICAL RECORDS. [facility] [employer] [facility]. provides no warranty or guarantee of the accuracy or completeness of information in this document.
[2024-04-11 13:13] LABS: Basophils Percent Auto 0.3 % (0.2-2.0); Eosinophils Absolute Auto 0.1 10^3/uL (0.0-0.7); Eosinophils Percent Auto 0.4 % (0.9-7.0); Hemoglobin 9.9 g/dL (12.0-16.0); Immature Granulocytes Abs Auto 0.06 10^3/uL (0.00-0.03); Immature Granulocytes Pct Auto 0.5 % (0.0-0.5); Lymphocytes Absolute Auto 1.2 10^3/uL (1.2-3.8); Lymphocytes Percent Auto 10.4 % (20.5-60.0); Mean Corpuscular HGB Conc 30.9 g/dL (29.9-35.2); Mean Corpuscular Hemoglobin 23.2 pg (26.7-34.0); Mean Corpuscular Volume 75.1 fL (81.0-99.0); Mean Platelet Volume 9.7 fL (9.5-13.5); Monocytes Absolute Auto 0.5 10^3/uL (0.3-0.8); Monocytes Percent Auto 4.5 % (1.7-12.0); Neutrophils Absolute Auto 9.7 10^3/uL (1.4-6.5); Neutrophils Percent Auto 83.9 % (43.0-75.0); Platelet Count 286 10^3/uL (150-450); Red Blood Count 4.26 10^6/uL (4.20-5.40); Red Cell Distribution Width 14.6 % (11.0-15.0); White Blood Count 11.6 10^3/uL (4.0-11.0)
[2024-04-11 13:20] LABS: Bilirubin Urine NEGATIVE (NEGATIVE); Blood Urine NEGATIVE (NEGATIVE); Clarity Urine CLEAR (CLEAR); Color Urine LT. YELLOW (YELLOW); Glucose Urine UA NEGATIVE (NEGATIVE); Ketones Urine NEGATIVE (NEGATIVE); Leukocyte Esterase Urine SMALL (NEGATIVE); Nitrite Urine NEGATIVE (NEGATIVE); Protein Urine TRACE mg/dL (NEG/TRACE); Specific Gravity Urine 1.025 (1.005-1.025); pH Urine 6.5 (5.0-9.0)
[2024-04-11 13:23] LABS: Urine Microscopic Indicated YES
[2024-04-11 13:23] LABS: Alanine Aminotransferase 14 U/L (14-59); Albumin Globulin Ratio 0.5; Albumin Level 2.4 g/dL (3.4-5.0); Alkaline Phosphatase 117 U/L (46-116); Anion Gap 13.1; Aspartate Amino Transferase 10 U/L (15-37); BUN Creatinine Ratio 13.8; Bilirubin Total 0.3 mg/dL (0.2-1.0); Calcium 8.5 mg/dL (8.5-10.1); Carbon Dioxide 23.6 mmol/L (21.0-32.0); Chloride 102 mmol/L (98-107); Estimated GFR (African America >60 (>=60 mL/min/1.73m^2); Estimated GFR (Non-African Ame >60 (>=60 mL/min/1.73m^2); Globulin 4.5 g/dL; Glucose 97 mg/dL (74-106); Potassium 3.7 mmol/L (3.5-5.1); Sodium 135 mmol/L (136-145); Total Protein 6.9 g/dL (6.4-8.2)
[2024-04-11] MEDS: 0.9 % SODIUM CHLORIDE 1,000 ML 1000 ML IV (13:26)
[2024-04-11] MEDS: ONDANSETRON PF 4 MG/2 ML VIAL IV (13:26)
[2024-04-11 13:28] LABS: Bacteria Urine SMALL #/HPF (NONE SEEN); Cast Seen? NONE SEEN #/LPF (NONE SEEN); Crystals Seen? None Seen #/HPF (None Seen); Mucus Urine TRACE (NONE SEEN); RBC Urine 0-2 #/HPF (0-2); Squamous Epithelial Cell Urine FEW #/LPF (NONE/RARE); Urine Culture Indicated YES
[2024-04-11 13:47] LABS: Influenza Virus A Antigen Negative; Influenza Virus B Antigen Negative; Internal Control Within Normal Limits; SARS-CoV-2 Ag NEGATIVE (NEGATIVE)
[2024-04-11 13:48] LABS: Internal Control Within Normal Limits
[2024-04-11 14:19] VITALS: PULSE 100; O2SAT 99
--- NOTE | 2024-04-11 18:02 | ED_ITS ---
HPI - Nausea/Vomiting/Diarrhea General Chief complaint: Nausea/Vomiting/Diarrhea Stated complaint: DIARRHEA CRAMPING VOMITTING Time Seen by Provider: 04/11/24 13:01 Source: patient Mode of arrival: walk-in Limitations: no limitations History of Present Illness HPI Narrative: The patient is 37 weeks coming to the ER with nausea vomiting and diarrhea since yesterday, that started yesterday after she started having those symptoms, the patient is not tolerating anything p.o., she denies having any nausea or vomiting with her and she also denies any abdominal cramping or bleeding but she mentioned having some epigastric discomfort after vomiting multiple times 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 with similar symptoms Related Data Previous Rx's ?Medication ?Instructions ?Recorded amoxicillin 875 mg-potassium 1 tab PO BID #10 tabs 04/11/24 clavulanate 125 mg tablet ondansetron 4 mg disintegrating 4 mg PO Q8H PRN nausea and 04/11/24 tablet vomiting 3 days #9 tabs Allergies Allergy/AdvReac Type Severity Reaction Status Date / Time No Known Drug Allergies Allergy Verified 04/11/24 12:43 Review of Systems ROS Status of ROS 10 or more systems reviewed and unremark able except as noted in history and below [facility] Medical History (Updated 04/11/24 @ 14:07 by Edie Nix MD) Normal vaginal delivery ?O80 - Encounter for full-term uncomplicated delivery (ICD-10) Social History Smoking status: Never smoker Highest level of school completed/degree received: high school graduate Little interest or pleasure in doing things: not at all Feeling down, depressed, or hopeless: not at all Exam Narrative Exam Narrative: Nurses notes and vital signs reviewed and patient is not hypoxic. General: Well-appearing and in no apparent distress. Skin: Warm, dry, no pallor noted. No rash. Head: Normocephalic, atraumatic. Neck: Supple, non-tender. Eye: Pupils are equal, round and EOMI. No scleral icterus. Ears, Nose, Mouth, and Throat: TM are clear, no nasal mucosal hypertrophy. Oral mucosa is moist, no posterior oropharynx erythema, uvula is mid-line Cardiovascular: Regular Rate and Rhythm without murmur, gallop or rub. Respiratory: No accessory muscle use or respiratory distress. Lungs are clear to auscultation, no wheezing, rales or rhonchi Chest Wall: no tenderness Back: No midline thoracic or lumbar vertebral tenderness. No CVA tenderness Musculoskeletal: normal ROM, no calf or popliteal tenderness, no lower extremity edema/swelling GI: Abdomen is soft, non-distended. Normal bowel sounds. No masses appreciated. No tenderness to palpation. No rebound, guarding, or rigidity noted. Neurological: A&O x4. No cranial nerve dysfunction observed. No truncal ataxia. Moves all extremities. Sensation intact. Psychiatric: Cooperative and interactive. Normal mood and affect. Constitutional Vital Signs, click to edit/add: Last Vital Signs Temp 97.7 F 04/11/24 12:39 Pulse 100 H 04/11/24 14:19 Resp 18 04/11/24 14:19 BP 131/80 04/11/24 12:39 Pulse Ox 99 04/11/24 14:19 O2 Del Method Room Air 04/11/24 14:19 Course Vital Signs Vital signs: Vital Signs Temperature 97.7 F 04/11/24 12:39 Pulse Rate 124 H 04/11/24 12:39 Respiratory Rate 20 04/11/24 12:39 Blood Pressure 131/80 04/11/24 12:39 Pulse Oximetry 97 04/11/24 12:39 Oxygen Delivery Method Room Air 04/11/24 12:39 Temperature 97.7 F 04/11/24 12:39 Pulse Rate 100 H 04/11/24 14:19 Respiratory Rate 18 04/11/24 14:19 Blood Pressure 131/80 04/11/24 12:39 Pulse Oximetry 99 04/11/24 14:19 Oxygen Delivery Method Room Air 04/11/24 14:19 MDM - Nausea/Vomiting/Diarrhea MDM Narrative Medical decision making narrative: The patient CBC and chemistry showed no acute pathology and she was provided with IV fluids and Zofran after which she was feeling much better Patient was discharged home with Zofran after her heart rate responded to hydration The patient also had a urinalysis that shows no UTI but bacteriuria with and that while she was provided with Augmentin as a treatment The patient is to follow up with primary care physician in next 2-3 days or to return to the emergency department should any of the signs or symptoms worsen or new symptoms develop. The patient agrees with the following Diagnosis and Treatment plan and the patient will be discharged home. Lab Data Labs: Lab Results 04/11/24 04/11/24 04/11/24 Range/Units 12:45 12:47 13:27 WBC 11.6 H (4.0-11.0) 10^3/uL RBC 4.26 (4.20-5.40) 10^6/uL Hgb 9.9 L (12.0-16.0) g/dL Hct 32.0 L (36.0-48.0) % MCV 75.1 L (81.0-99.0) fL MCH 23.2 L (26.7-34.0) pg MCHC 30.9 (29.9-35.2) g/dL RDW 14.6 (11.0-15.0) % Plt Count 286 (150-450) 10^3/uL MPV 9.7 (9.5-13.5) fL Neut % (Auto) 83.9 H (43.0-75.0) % Lymph % (Auto) 10.4 L (20.5-60.0) % [place] % (Auto) 4.5 (1.7-12.0) % Eos % (Auto) 0.4 L (0.9-7.0) % Baso % (Auto) 0.3 (0.2-2.0) % Neut # (Auto) 9.7 H (1.4-6.5) 10^3/uL Lymph # (Auto) 1.2 (1.2-3.8) 10^3/uL [place] # (Auto) 0.5 (0.3-0.8) 10^3/uL Eos # (Auto) 0.1 (0.0-0.7) 10^3/uL Baso # (Auto) 0.0 (0.0-0.1) 10^3/uL Abs Immat Gran (auto) 0.06 H (0.00-0.03) 10^3/uL Imm/Tot Granulo (auto) 0.5 (0.0-0.5) % Sodium 135 L (136-145) mmol/L Potassium 3.7 (3.5-5.1) mmol/L Chloride 102 (98-107) mmol/L Carbon Dioxide 23.6 (21.0-32.0) mmol/L Anion Gap 13.1 BUN 8.0 (7.0-18.0) mg/dL Creatinine 0.58 (0.55-1.02) mg/dL Est GFR ( Amer) >60 (>=60 mL/min/1.73m^2) Est GFR (Non-Af Amer) >60 (>=60 mL/min/1.73m^2) BUN/Creatinine Ratio 13.8 Glucose 97 (74-106) mg/dL Calcium 8.5 (8.5-10.1) mg/dL Total Bilirubin 0.3 (0.2-1.0) mg/dL AST 10 L (15-37) U/L ALT 14 (14-59) U/L Alkaline Phosphatase 117 H (46-116) U/L Total Protein 6.9 (6.4-8.2) g/dL Albumin 2.4 L (3.4-5.0) g/dL Globulin 4.5 g/dL Albumin/Globulin Ratio 0.5 Urine Color Lt. yellow (YELLOW) Urine Clarity Clear (CLEAR) Urine pH 6.5 (5.0-9.0) Ur Specific [place] 1.025 (1.005-1.025) Urine Protein Trace (NEG/TRACE) mg/dL Urine Glucose (UA) Negative (NEGATIVE) mg/dL Urine Ketones Negative (NEGATIVE) mg/dL Urine Occult Blood Negative (NEGATIVE) Urine Nitrite Negative (NEGATIVE) Urine Bilirubin Negative (NEGATIVE) Urine Urobilinogen 1.0 (0.2-1.0) EU/dL Ur Leukocyte Esterase Small A (NEGATIVE) Urine RBC 0-2 (0-2) #/HPF Urine WBC 10-20 A (NONE SEEN) #/HPF Ur Squamous Epith Cells Few A (NONE/RARE) #/LPF Urine Crystals None seen (None Seen) #/HPF Urine Bacteria Small A (NONE SEEN) #/HPF Urine Casts None seen (NONE SEEN) #/LPF Urine Mucus Trace A (NONE SEEN) Ur Culture Indicated? Yes Influenza Type A Ag Negative Influenza Type B Ag Negative SARS-CoV-2 Ag (CV2AG) Negative (NEGATIVE) Discharge Plan Discharge Chief Complaint: Nausea/Vomiting/Diarrhea Clinical Impression: Viral gastroenteritis, Asymptomatic bacteriuria during Patient Disposition: Home, Self-Care Time of Disposition Decision: 14:07 Condition: Good Prescriptions / Home Meds: New amoxicillin-pot clavulanate 875-125 mg tablet 1 tab PO BID Qty: 10 0RF ondansetron 4 mg tablet,disintegrating 4 mg PO Q8H PRN (Reason: nausea and vomiting) 3 Days Qty: 9 0RF Print Language: Nepali Instructions: Acute Nausea and Vomiting (DC) Referrals: Bina Zamora FORKLIFT SUPERVISOR [Primary Care Provider] - 1 week Discharge Date/Time: 04/11/24 14:20
== END 2024-04-11 14:20 | disposition home or self-care (01) ==
PROVIDERS: Emergency Provider Emergency Medicine; PCP Nurse Practitioner
DX: O99.613 Diseases of the digestive system complicating pregnancy, third trimester (principal); K52.9 Noninfective gastroenteritis and colitis, unspecified; Z3A.37 37 weeks gestation of pregnancy; O99.891 Other specified diseases and conditions complicating pregnancy; R82.71 Bacteriuria
CPT/HCPCS: 36415; 80053; 81001; 85025; 87086; 87804; 87811; 96361; 96374; 99284; J2405

== ENCOUNTER 2024-04-17 16:55 | Observation (INO) | payer OTHER, SELFPAY ==
--- OUTSIDE RECORDS SUMMARY | 2024-04-17 16:59 | XMS_ITS | CCD ---
Author Organization [facility] Team Providers Care Track Maintainer Name Role Phone ZENY ., ANA LUISA [...] Attending Unavailable BINA ZAMORA Primary Care Unavailable JOSELIN MCGOWANY Attending Unavailable ZENY, ANA LUISA Attending Unavailable [...] Drug Class(es) Dates Sig (Normalized) Sig (Original) [id number] 200 actuat albuterol 0.09 mg/actuat metered dose [...] oral solution (1 source) alpha-Adrenergic Agonist, Uncompetitive M-fhacch-Z-asparta te Receptor Antagonist, Sigma-1 Agonist Start: 3 take 10 mL by mouth every six hours Riwndehbj-Hncwnmfh-SQ 30-2-10 MG/5ML 10 mL Orally every 6 [...] polysaccharide iron complex 391 mg oral capsule (9 sources) Start: 5 End: 5 take 1 [...] source) Vitamin B12 Start: 03-27-2023 End: 12-10-2023 W-Blzdxbohhuga-N1-B 12 (Folbic RF) 1.13-25-2 MG tablet Take [...] Test Name Value Interpretation Reference Range Facility ALL MISCELLANEOUS TESTon MISCELLANEOUS TEST COMMENT . [facility] Comment on above: Test Ordered: [id number] Strep Gp B Culture+Rflx Strep Gp B Culture+Rflx Positive [A ] CB Reference Range: Negative Centers for Disease Control and Prevention (CDC) and [place] Congress of Obstetricians and Gynecologists (ACOG) guidelines for prevention of group B streptococcal (GBS) disease specify co-collection of a vaginal and rectal swab specimen to maximize sensitivity of GBS detection. Per the CDC and ACOG, swabbing both the lower vagina and rectum substantially increases the yield of detection compared with sampling the vagina alone. Penicillin G, ampicillin, or cefazolin are indicated for intrapartum prophylaxis of GBS colonization. Reflex susceptibility testing should be performed prior to use of clindamycin only on GBS isolates from penicillin- allergic women who are considered a high risk for anaphylaxis. Treatment with vancomycin without additional testing is warranted if resistance to clindamycin is noted. Organism Identification Comment CB Reference Range: . Beta hemolytic Streptococcus, group B Clindamycin Resistant [A ] CB Reference Range: . Testing for inducible clindamycin resistance was performed using erythromycin and clindamycin in the D-zone test. Per the Centers for Disease Control and Prevention (CDC), erythromycin is no longer an acceptable alternative for intrapartum group B Streptococcus (GBS) prophylaxis for penicillin-allergic women at high risk for anaphylaxis. Performed at: [facility] [address], [place] [id number] Nut Sheller: Anirudh Avendano PhD, Phone: [phone] GROUP B STREP [id number] Group B Streptococcus Colonization Detection Culture With Re [facility] URINE CULTURE, ROUTINEon Bacteria identified Cx Nom (U) Urine Culture, Routine [facility] Healthcare Bacteria identified Cx Nom (U) Mixed urogenital seven [facility] Bacteria identified Cx Nom (U) 10,000-25,000 colony forming units per mL [facility] Bacteria identified Cx Nom (U) Performed at: [facility] Bacteria identified Cx Nom (U) [address], [place] [id number] [facility] Bacteria identified Cx Nom (U) Nut Sheller: Anirudh Avendano PhD, Phone: [phone] [facility] Urinalysis macro (dipstick) panel (U)on 04-07-2024 Bilirubin, UA Negative Negative - 4(70) +++ mg/dL [facility] Blood, UA Negative Negative - 50 Jimmy/mcL [facility] Clarity, UA Clear [facility] re Color, UA Yellow [facility] Glucose, UA Negative Negative - 2000(110) ++++ mg/dL [facility] Interpretation and review of laboratory results Abnormal [facility] re Ketones, UA Positive Negative - 160(16) ++++ mg/dL [facility] Comment on above: 40 Leukocytes, UA Trace Negative - 500+++ Minnie/mcL [facility] Nitrite, UA Negative Negative - Positive [facility] pH, UA 6 5 - 9 [facility] Protein, UA Trace Negative - 1999(20) ++++ mg/dL [facility] Spec Grav, UA 1.03 1 - 1.03 [facility] Urobilinogen, UA 0.2 0.2 - 12 mg/dL [facility] ALL CBC WITH AUTO DIFFon BASOPHILS ABSOLUTE AUTO 0 [facility] Basophils/100 WBC (Bld) 0.3 % 0.2 - 2.0 % [facility] Eosinophils/100 WBC (Bld) 1 % 0.9 - 7.0 % [facility] Erythrocyte distribution width (RBC) [Ratio] 14.2 % 11.0 - 15.0 % [facility] Hematocrit (Bld) [Volume fraction] 31.4 % Low 36.0 - 48.0 % [facility] Hemoglobin (Bld) [Mass/Vol] 9.6 g/dL Low 12.0 - 16.0 g/dL [facility] IMMATURE GRANULOCYTES ABS AUTO 0.05 High [facility] Immature granulocytes/100 WBC (Bld) 0.5 % 0.0 - 0.5 % [facility] Interpretation and review of laboratory results [facility] LYMPHOCYTES ABSOLUTE AUTO 2.5 [facility] Lymphocytes/100 WBC (Bld) 27.7 % 20.5 - 60.0 % [facility] MCH (RBC) [Entitic mass] 23.5 pg Low 26.7 - 34.0 pg [facility] MCHC (RBC) [Mass/Vol] 30.6 g/dL 29.9 - 35.2 g/dL [facility] MCV (RBC) [Entitic vol] 77 fL Low 81.0 - 99.0 fL [facility] MONOCYTES ABSOLUTE AUTO 0.3 [facility] Monocytes/100 WBC (Bld) 3.5 % 1.7 - 12.0 % [facility] NEUTROPHILS ABSOLUTE AUTO 6.1 [facility] Neutrophils/100 WBC (Bld) 67 % 43.0 - 75.0 % [facility] Platelet mean volume (Bld) [Entitic vol] 9.6 fL 9.5 - 13.5 fL [facility] TBH EO # 0.1 [facility] TB PLT 276 [facility] TB RBC 4.08 Low [facility] TBH WBC 9.2 [facility] Urinalysis macro (dipstick) panel (U)on 03-29-2024 Bilirubin, UA Negative Negative - 4(70) +++ mg/dL [facility] Blood, UA Negative Negative - 50 Jimmy/mcL [facility] Clarity, UA Clear [facility]ca re Color, UA Ne [facility] Glucose, UA Negative Negative - 2000(110) ++++ mg/dL [facility] Interpretation and review of laboratory results Abnormal [facility] re Ketones, UA Negative Negative - 160(16) ++++ mg/dL [facility] Leukocytes, UA Trace Negative - 500+++ Minnie/mcL [facility] Nitrite, UA Negative Negative - Positive [facility] pH, UA 6 5 - 9 [facility] Protein, UA Trace Negative - 1999(20) ++++ mg/dL [facility] Spec Grav, UA 1.025 1 - 1.03 [facility] Urobilinogen, UA 0.2 0.2 - 12 mg/dL [facility] MLR HEMOGLOBIN A1Con 03-11- 024 Glucose [Mass/Vol] 108 mg/dL [facility] HbA1c (Bld) [Mass fraction] 5.4 % 4.5 - 6.2 % [facility] Comment on above: ADA RECOMMENDED LIMI T 4.0 - 6.0 ADA THERAPEUTIC TARGET < 7.0 ACTION SUGGESTED > 7.0 [facility] Urinalysis macro (dipstick) panel (U)on 03-08-2024 Bilirubin, UA Negative Negative - 4(70) +++ mg/dL [facility] Blood, UA Negative Negative - 50 Jimmy/mcL [facility] Clarity, UA Clear [facility] re Color, UA Yellow [facility] e Glucose, UA Negative Negative - 1999(110) ++++ mg/dL [facility] Interpretation and review of laboratory results Abnormal [facility] re Ketones, UA Negative Negative - 160(16) ++++ mg/dL [facility] Leukocytes, UA Trace Negative - 500+++ Minnie/mcL [facility] Nitrite, UA Negative Negative - Positive [facility] pH, UA 6.5 5 - 9 [facility] Protein, UA Negative Negative - 1999(20) ++++ mg/dL [facility] Spec Grav, UA 1.025 1 - 1.03 [facility] Urobilinogen, UA 0.2 0.2 - 12 mg/dL [facility] Urinalysis macro (dipstick) panel (U)on 02-23-2024 Bilirubin, UA Negative Negative - 4(70) +++ mg/dL [facility] Blood, UA Negative Negative - 50 Jimmy/mcL [facility] Clarity, UA Clear [facility] Color, UA Yellow [facility] Glucose, UA Negative Negative - 1999(110) ++++ mg/dL [facility] Interpretation and review of laboratory results Abnormal [facility] Ketones, UA Negative Negative - 160(16) ++++ mg/dL [facility] Leukocytes, UA Trace Negative - 500+++ Minnie/mcL [facility] Nitrite, UA Negative Negative - Positive [facility] pH, UA 6.5 5 - 9 [facility] Protein, UA Negative Negative - 1999(20) ++++ mg/dL [facility] Spec Grav, UA 1.02 1 - 1.03 [facility] Urobilinogen, UA 1.0 0.2 - 12 mg/dL [facility] CBC AND AUTO DIFFon 02-01-20 24 ABSOLUTE BASOPHIL 0.0 X10E9/L Normal 0.0-0.2 [facility] Comment on above: Performed By: #### C HUDSON PÉREZ, , 3083-03 #### [facility] ([id number]) [address] [place] [address]23 ABSOLUTE NEUTROPHIL 10.5 X10E9/L High 1.5-6.6 [facility] Comment on above: Performed By: #### Carol PÉREZ CMP, , 3083-03 #### [facility] ([id number]) [address] [place] [address] 44983 Basophils/100 WBC (Bld) 0.4 % Normal [facility] Comment on above: Performed By: #### Carol PÉREZ CMP, 0, 3083-03 #### [facility] ([id number]) [address] [place] [address] 28151 Eosinophils (Bld) [#/Vol] 0.1 10*3/uL Normal 0.0-0.4 [facility] Comment on above: Performed By: #### Carol PÉREZ CMP, , 3083-03 #### [facility] ([id number]) [address] [place] [address] 39708 Eosinophils/100 WBC (Bld) 0.7 % Normal [facility] Comment on above: Performed By: #### Carol PÉREZ CMP, 0, 3083-03 #### [facility] ([id number]) [address] [place] [address] 98092 Erythrocyte distribution width (RBC) [Ratio] 14.5 % Normal 11.5-15.0 [facility] Comment on above: Performed By: #### Carol PÉREZ CMP, 0, 3083-03 #### [facility] ([id number]) [address] [place] [address] 09712 Hematocrit (Bld) [Volume fraction] 29.1 % Low 35-47 [facility] Comment on above: Performed By: #### Carol PÉREZ CMP, 0, 3083-03 #### [facility] ([id number]) [address] [place] [address] 63628 Hemoglobin (Bld) [Mass/Vol] 9.6 g/dL Low 11.7-15.5 [facility] Comment on above: Performed By: #### Carol PÉREZ CMP, 0, 3083-03 #### [facility] ([id number]) [address] [place] [address] 51909 Lymphocytes (Bld) [#/Vol] 2.2 10*3/uL Normal 1.0-3.5 [facility] Comment on above: Performed By: #### Carol PÉREZ CMP, 0, 3083-03 #### [facility] ([id number]) [address] [place] [address] 98462 Lymphocytes/100 WBC (Bld) 16.6 % Normal [facility] Comment on above: Performed By: #### Carol PÉREZ CMP, 0, 3083-03 #### [facility] ([id number]) [address] [place] [address] 12670 MCH (RBC) [Entitic mass] 25.7 pg Low 27-34 [facility] Comment on above: Performed By: #### C ELISA CMP, 2532-0, 3083-03 #### [facility] ([id number]) [address] [place] [address] 89606 MCHC (RBC) [Mass/Vol] 32.9 g/dL Normal 32-36 [facility] Comment on above: Performed By: #### C ELISA, CMP, 2531-0, 3083-03 #### [facility] ([id number]) [address] [place] [address] 53345 MCV (RBC) [Entitic vol] 78 fL Low 80-100 [facility] Comment on above: Performed By: #### Carol PÉREZ, CMP, 0, 3083-03 #### [facility] ([id number]) [address] [place] [address] 88996 Monocytes (Bld) [#/Vol] 0.5 10*3/uL Normal 0-0.9 [facility] Comment on above: Performed By: #### Carol PÉREZ, CMP, 2530, 3083-03 #### [facility] ([id number]) [address] [place] [address] 32263 Monocytes/100 WBC (Bld) 3.7 % Normal [facility] Comment on above: Performed By: #### C ELISA, CMP, 253-0, 3083-03 #### [facility] ([id number]) [address] [place] [address] 61252 Neutrophils/100 WBC (Bld) 78.6 % Normal [facility] Comment on above: Performed By: #### Carol PÉREZ, CMP, 253-0, 3083-03 #### [facility] ([id number]) [address] [place] [address] 80412 Platelet mean volume (Bld) [Entitic vol] 7.6 fL Normal 7-12 [facility] Comment on above: Performed By: #### C ELISA CMP, 2532-0, 3083-1 #### [facility] ([id number]) [address] [place] [address] 79575 Platelets (Bld) [#/Vol] 315 10*3/uL Normal 150-450 [facility] Comment on above: Performed By: #### C ELISA CMP, 2531-0, 3083- #### [facility] ([id number]) [address] [place] [address] 29471 RBC COUNT 3.73 X10E12/L Low 3.80-5.20 [facility] Comment on above: Performed By: #### C ELISA CMP, 2531-0, 3083- #### [facility] ([id number]) [address] [place] [address] 64107 WBC (Bld) [#/Vol] 13.4 10*3/uL High 4.0-11.0 [facility] Comment on above: Performed By: #### C ELISA CMP, 0, 3083-1 #### [facility] ([id number]) [address] [place] [address] 14319 COMPREHENSIVE METABOLIC PANE Wilbur 02-01-2024 Albumin [Mass/Vol] 3.0 g/dL Low 3.2-5.3 [facility] Comment on above: Performed By: #### C ELISA CMP, 2531-0, 3083- #### [facility] ([id number]) [address] [place] [address] 58213 ALP [Catalytic activity/Vol] 81 U/L Normal 39-130 [facility] Comment on above: Performed By: #### C ELISA, CMP, 2532-0, 3083-03 #### [facility] ([id number]) [address] [place] [address] 95451 ALT [Catalytic activity/Vol] 15 U/L Normal 0-31 [facility] Comment on above: Performed By: #### C BCA, CMP, 2531-0, 3083- #### [facility] ([id number]) [address] [place] [address] 09083 Anion gap [Moles/Vol] 11 mmol/L Normal 5-15 [facility] Comment on above: Performed By: #### C BCA, CMP, 0, 3083-03 #### [facility] ([id number]) [address] [place] [address] 39524 AST [Catalytic activity/Vol] 12 U/L Normal 0-41 [facility] Comment on above: Performed By: #### C BCA, CMP, 0, 3083-03 #### [facility] ([id number]) [address] [place] [address] 58230 Bilirubin [Mass/Vol] 0.3 mg/dL Normal 0.3-1.2 [facility] Comment on above: Performed By: #### C BCA, CMP, 0, 3083-03 #### [facility] ([id number]) [address] [place] [address] 13051 Calcium [Mass/Vol] 8.7 mg/dL Normal 8.5-10.5 [facility] Comment on above: Performed By: #### C BCA, CMP, 2531-0, 3083- #### [facility] ([id number]) [address] [place] [address] 38676 Chloride [Moles/Vol] 105 mmol/L Normal 98-109 [facility] Comment on above: Performed By: #### C BCA, CMP, 2531-0, 3083-1 #### [facility] ([id number]) [address] [place] [address] 41883 CO2 [Moles/Vol] 19 mmol/L Low 22-32 [facility] Comment on above: Performed By: #### C HUDSON PÉREZ, 2531-0, 3083- #### [facility] ([id number]) [address] [place] [address] 70400 Creatinine [Mass/Vol] 0.38 mg/dL Low 0.40-1.00 [facility] Comment on above: Result Comment: METH OD TRACEABLE TO IDMS STANDARD Performed By: #### C HUDSON PÉREZ, 0, 3083-03 #### [facility] ([id number]) [address] [place] [address] 59614 eGFR (CKD-EPI) NON-RACE DEPENDENT >90 Normal >59 [facility] Comment on above: Result Comment: Reported eGFR is based on the CKD-EPI 2020 equation that does not use a race coefficient. Performed By: #### C HUDSON PÉREZ, 0, 3083-03 #### [facility] ([id number]) [address] [place] [address] 94447 Glucose [Mass/Vol] 93 mg/dL Normal 65-99 [facility] Comment on above: Performed By: #### C HUDSON PÉREZ, 0, 3083-03 #### [facility] ([id number]) [address] [place] [address] 40865 Potassium [Moles/Vol] 3.5 mmol/L Normal 3.5-5.0 [facility] Comment on above: Performed By: #### C HUDSON PÉREZ, 253-0, 3083-03 #### [facility] ([id number]) [address] [place] [address] 87485 Protein [Mass/Vol] 6.7 g/dL Normal 6.0-8.0 [facility] Comment on above: Performed By: #### C BCA, CMP, 2532-0, 308-1 #### [facility] ([id number]) [address] [place] [address] 86193 Sodium [Moles/Vol] 135 mmol/L Normal 134-146 [facility] Comment on above: Performed By: #### C BCA, CMP, 2532-0, 3083-1 #### [facility] ([id number]) [address] [place] [address] 68078 Urea nitrogen [Mass/Vol] 8 mg/dL Normal 5-23 [facility] Comment on above: Performed By: #### C BCA, CMP, 2531-0, 3083-1 #### [facility] ([id number]) [address] [place] [address] 03895 LDH [Catalytic activity/Vol] on 02-01-2024 LDH 107 U/L Normal 100-235 [facility] Comment on above: Performed By: #### C BCA, CMP, 0, 3083-1 #### [facility] ([id number]) [address] [place] [address] 92491 URIC ACIDon 02-01-2024 Urate [Mass/Vol] 4.9 mg/dL Normal 2.6-7.2 [facility] Comment on above: Performed By: #### C BCA, CMP, 2-0, 3083-1 #### [facility] ([id number]) [address] [place] [address] 59282 PROTEIN CREAT RATIOon 2023 RANDOM URINE PROTEIN 190 mg/L High <120 [facility] Comment on above: Performed By: #### U PCR #### [facility] ([id number]) [address] [place] [address] 40266 U/PRO/SOFTWARE WRITER RATIO CALC 0.11 Normal <0.2 [facility] Comment on above: Result Comment: Neph rotic Syndrome is associated with ratios >3.5 Performed By: #### U PCR #### [facility] ([id number]) [address] [place] [address] [place] [address] URINE CREATININE,RDM 177.57 mg/dL Normal [facility] Comment on above: Performed By: #### U PCR #### [facility] ([id number]) [address] [place] [address] [place] [address] URINALYSISon 01-31-2024 Bilirubin Ql (U) Negative Normal NEG [facility] Comment on above: Performed By: #### U A #### [facility] ([id number]) [address] [place] [address] [place] [address] BLOOD/HGB Negative Normal NEG [facility] Comment on above: Performed By: #### U A #### [facility] ([id number]) [address] [place] [address] [place] [address] Color (U) YELLOW Normal YELLOW [facility] Comment on above: Performed By: #### U A #### [facility] ([id number]) [address] [place] [address] [place] [address] Glucose Ql (U) Negative Normal NEG [facility] Comment on above: Performed By: #### U A #### [facility] ([id number]) [address] [place] [address], [place] [address] Ketones Ql (U) Trace Abnormal NEG [facility] Comment on above: Performed By: #### U A #### [facility] ([id number]) [address] [place] [address], [place] [address] Leukocyte esterase Test strip Ql (U) Trace Abnormal NEG [facility] Comment on above: Performed By: #### U A #### [facility] ([id number]) [address] [place] [address] [place] [address] Nitrite Ql (U) Negative Normal NEG [facility] Comment on above: Performed By: #### U A #### [facility] ([id number]) [address] [place] [address] 90517 pH (U) 6.0 [pH] Normal 5.0-8.5 [facility] Comment on above: Performed By: #### U A #### [facility] ([id number]) [address] [place] [address] 65977 Protein Ql (U) Negative Normal NEG [facility] Comment on above: Performed By: #### U A #### [facility] ([id number]) [address] [place] [address] 28079 R.B.CELLS 0 /hpf Normal 0-5 [facility] Comment on above: Performed By: #### U A #### [facility] ([id number]) [address] [place] [address] 31587 Specific gravity (U) [Rel density] >1.030 Normal 1.003-1.035 [facility] Comment on above: Performed By: #### U A #### [facility] ([id number]) [address] [place] [address] 42538 SQUAMOUS EPITHELIUM 6 /hpf High 0-5 [facility] Comment on above: Performed By: #### U A #### [facility] ([id number]) [address] [place] [address] 99199 TURBIDITY CLEAR Normal CLEAR [facility] Comment on above: Performed By: #### U A #### [facility] ([id number]) [address] [place] [address] 81888 Urobilinogen Qn (U) 0.2 {Marce'U}/dL Normal <1.1 [facility] Comment on above: Performed By: #### U A #### [facility] ([id number]) [address] [facility] [address] [facility] [place] [address] W.B.CELLS 4 /hpf Normal 0-5 [facility] Comment on above: Performed By: #### U A #### [facility] ([id number]) [address] [facility], [place] [address] IGP,APTIMA HPV,AGE GDLNon AGE GDLN ACOG TESTING Note . [facility] Comment on above: TESTS RESULT FLAG UN ITS REF RANGE LAB Clinician Provided Cytology Information Source.............Cervix Other.............. No. of containers..01 ThinPrep Vial Age Algo ACOG Velia... - 01 FLAG LEGEND: L-Low Normal,H-High Normal,LL-Alert Low,HH-Alert High <-Panic Low,>-Panic High,A-Abnormal,AA-Critical Abnormal Performed at: 01 =G [facility] [address] Dodie Felix MD, IGP, RFX APTIMA HPV ASCU Note . [facility] [employer] Comment on above: TESTS RESULT FLAG UN ITS REF RANGE LAB DIAGNOSIS: 02 NEGATIVE FOR INTRAEPITHELIAL LESION OR MALIGNANCY. FUNGAL ORGANISMS MORPHOLOGICALLY CONSISTENT WITH SHILOH SPECIES ARE PRESENT. Specimen adequacy: 02 Satisfactory for evaluation. No endocervical component is identified. Performed by: 02 Brianna Lyons C Web Developer (ASC) . 02 Note: Note 02 The Pap [...] <-Panic Low,>-Panic High,A-Abnormal,AA-Critical Abnormal Performed at: [address] [place] [address] Dodie Felix MD, Performed at: = - [facility] [address] [id number] Nut Sheller: Dodie Felix MD, Phone: [phone] Performed at: [facility] [address] [id number] Nut Sheller: Dodie Felix MD, Phone: [phone] [facility] C[facility] URINE CULTURE, ROUTINEon Bacteria identified Cx Nom (U) Urine Culture, Routine [facility] Bacteria identified Cx Nom (U) Mixed urogenital seven [facility] Bacteria identified Cx Nom (U) 25,000-50,000 colony forming units per mL [facility] Bacteria identified Cx Nom (U) Performed at: [facility] Bacteria identified Cx Nom (U) [address] [place], [place] [id number] [facility] Bacteria identified Cx Nom (U) Nut Sheller: Anirudh Avendano PhD, Phone: [phone] [facility] URETHRITIS/DISCHARGE PLUS VA GINITIS (HTRX)on 01-20-2024 ATOPOBIUM VAGINAE 18.808 Abnormal [facility] ATOPOBIUM VAGINAE Detected Abnormal [facility] BVAB 2,3 (BACTERIAL VAGINOSIS ASSOCIATED BACTERIA 2, 3); MOBILUNCUS SPP 0 [facility] BVAB 2,3 (BACTERIAL VAGINOSIS ASSOCIATED BACTERIA 2, 3); MOBILUNCUS SPP Not detected [facility] SHILOH ALBICANS, PARAPSILOSIS, TROPICALIS 26.752 Abnormal [facility] SHILOH ALBICANS, PARAPSILOSIS, TROPICALIS Detected Abnormal [facility] Healthcare SHILOH GLABRATA 0 [facility] SHILOH GLABRATA Not [facility] SHILOH KRUSEI 0 [facility] Healt hcare SHILOH KRUSEI Not detected [facility] a lthcare CHLAMYDIA TRACHOMATIS 0 [facility] CHLAMYDIA TRACHOMATIS Not detected [facility] ERMB, C; MEFA 17.114 Abnormal [facility] Health care ERMB, C; MEFA Detected Abnormal [facility] care GARDNERELLA VAGINALIS 22.039 Abnormal [facility] Healthcare GARDNERELLA VAGINALIS Detected Abnormal [facility] Healthcare Interpretation and review of laboratory results Abnormal [facility] Healthca re MEGASPHAERA (TYPES 1, 2) 0 [facility] MEGASPHAERA (TYPES 1, 2) Not detected [facility] MY[facility]MA [facility]ITALIUM 0 [facility] MYCOPLASMA GENITALIUM Not detected [facility] NEISSERIA GONORRHOEAE 0 [facility] NEISSERIA GONORRHOEAE Not detected [facility] TET B, TET M 17.484 Abnormal [facility] are TET B, TET M Detected Abnormal [facility] Healthc are TRICHOMONAS VAGINALIS 0 [facility] TRICHOMONAS VAGINALIS Not detected [facility] Urinalysis macro (dipstick) panel (U)on 01-19-2024 Bilirubin, UA Negative Negative - 4(70) +++ mg/dL [facility] Blood, UA Negative Negative - 50 Jimmy/mcL [facility] Healthcare Clarity, UA Clear [facility] re Color, UA Light Yellow [facility] Healthc are Glucose, UA Negative Negative - 1999(110) ++++ mg/dL [facility] Interpretation and review of laboratory results Abnormal [facility] Healthca re Ketones, UA Negative Negative - 160(16) ++++ mg/dL [facility] Leukocytes, UA Negative Negative - 500+++ Minnie/mcL [facility] Nitrite, UA Negative Negative - Positive [facility] pH, UA 6.5 5 - 9 [facility] Healthcar e Protein, UA Positive Negative - 1999(20) ++++ mg/dL [facility] Spec Grav, UA 1.02 1 - 1.03 [facility] Urobilinogen, UA 1.0 0.2 - 12 mg/dL [facility]inalysis macro (dipstick) panel (U)on 12-22-2023 Bilirubin, UA Negative Negative - 4(70) +++ mg/dL [facility] Blood, UA Negative Negative - 50 Jimmy/mcL [facility] Healthcare Clarity, UA Clear [facility] Healthca re Color, UA Yellow [facility] Glucose, UA Negative Negative - 1999(110) ++++ mg/dL [facility] Interpretation and review of laboratory results Abnormal [facility] Healthca re Ketones, UA Negative Negative - 160(16) ++++ mg/dL [facility] Leukocytes, UA Moderate Negative - 500+++ Minnie/mcL [facility] Nitrite, UA Negative Negative - Positive [facility] pH, UA 6.5 5 - 9 [facility] Healthcar e Protein, UA Negative Negative - 1999(20) ++++ mg/dL [facility] Spec Grav, UA 1.030 1 - 1.03 [facility] Urobilinogen, UA 1.0 0.2 - 12 mg/dL [facility] ALL CBC WITH AUTO DIFFon BASOPHILS ABSOLUTE AUTO 0.0 [facility] Basophils/100 WBC (Bld) 0.5 % 0.2 - 2.0 % [facility] Eosinophils/100 WBC (Bld) 1.0 % 0.9 - 7.0 % [facility] Erythrocyte distribution width (RBC) [Ratio] 14.7 % 11.0 - 15.0 % [facility] Hematocrit (Bld) [Volume fraction] 34.1 % Low 36.0 - 48.0 % [facility] Healthcar e Hemoglobin (Bld) [Mass/Vol] 10.8 g/dL Low 12.0 - 16.0 g/dL [facility] IMMATURE GRANULOCYTES ABS AUTO 0.02 [facility] Immature granulocytes/100 WBC (Bld) 0.3 % 0.0 - 0.5 % [facility] Interpretation and review of laboratory results [facility]normal [facility] LYMPHOCYTES ABSOLUTE AUTO 2.2 [facility] Lymphocytes/100 WBC (Bld) 27.3 % 20.5 - 60.0 % [facility] MCH (RBC) [Entitic mass] 26.0 pg Low 26.7 - 34.0 pg [facility] MCHC (RBC) [Mass/Vol] 31.7 g/dL 29.9 - 35.2 g/dL [facility] MCV (RBC) [Entitic vol] 82.0 fL 81.0 - 99.0 fL [facility] MONOCYTES ABSOLUTE AUTO 0.3 [facility] Monocytes/100 WBC (Bld) 4.2 % 1.7 - 12.0 % [facility] NEUTROPHILS ABSOLUTE AUTO 5.3 [facility] Neutrophils/100 WBC (Bld) 66.7 % 43.0 - 75.0 % [facility] Platelet mean volume (Bld) [Entitic vol] 10.2 fL 9.5 - 13.5 fL [facility] TBH EO # 0.1 [facility] e TB PLT 270 [facility] e TB RBC 4.16 Low [facility] WBC 7.9 [facility] HCG ( test) Ql (U)o n 12-10-2023 Interpretation and review of laboratory results Abnormal [facility] re Preg Test, Ur Positive [facility] e Urinalysis macro (dipstick) panel (U)on 12-10-2023 Bilirubin, UA Negative Negative - 4(70) +++ mg/dL [facility] Blood, UA Negative Negative - 50 Jimmy/mcL [facility] Clarity, UA Clear [facility] Healthca re Color, UA Yellow [facility] Healthcar e Glucose, UA Negative Negative - 1999(110) ++++ mg/dL [facility] Interpretation and review of laboratory results Abnormal [facility] Healthca re Ketones, UA Negative Negative - 160(16) ++++ mg/dL [facility] Leukocytes, UA Positive Negative - 500+++ Minnie/mcL [facility] Comment on above: small Nitrite, UA Negative Negative - Positive [facility] pH, UA 7.5 5 - 9 [facility] Healthcar e Protein, UA Negative Negative - 1999(20) ++++ mg/dL [facility] Spec Grav, UA 1.015 1 - 1.03 [facility] Urobilinogen, UA 0.2 0.2 - 12 mg/dL [facility] Consent Formson 09-03-2023 Consent Forms [id number] [facility] Lab - Toxicology Resultson 0 09-03-2023 Lab - Toxicology Results [id number] [facility] ED Clinical Summaryon 2023 ED Clinical Summary [facility] ? Urgent Care [address] [place], [place] [id number] Clinical Summary PERSON INFORMATION Name: FLORINDA ORTEGA Age: 22 Years Sex: MALE : 2000 MRN: Acct#: Visit Reason: Medical screening exam; [facility] Arrival: 09/02/2023 11:09:30 Discharge: 09/02/2023 11:41:00 LOS: 000 00:32 Check In: 09/02/2023 11:09:30 Checkout: 09/02/2023 11:41:00 Address: [address] [facility] [id number] PCP: Bina Zamora CNP PROVIDER INFORMATION Provider [...] Pamela Ortiz [address], [address], [place] [address] Business (1) Comments: Br[employer] B[employer]pper to 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 Abstain from any alcohol or illicit drugs With: Address: When: Bina Zamora [address] [place] [address] Business (1) , only if needed DIAGNOSIS: Physical exam Patient Understands: Yes - Patient/family/caregi carlos verbalizes understanding of instructions given Comment: Normal [facility] ED Patient Summaryon 024 ED Patient Summary [facility] ? Urgent Care [address] [place] [address] [id number] PATIENT DISCHARGE INSTRUCTIONS Patient Information Name: FLORINDA ORTEGA Age: 22 Years Date of : 2000 Reason For Visit: Medical screening exam; [facility] Arrival Time: 09/02/2023 11:09:30 Primary Care Physician: Bina Zamora CNP Attending Physician: MIRIAN HERBERT Comment: Patient Education With: Address: When: Pamela Ortiz [address], [address], [place] [address] Business (1) Comments: [employer] to 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 Abstain from any alcohol or illicit drugs With: Address: When: Bina Zamora [address] [place] [address] Business (1) , only if needed Care care is health care during . It helps you and your unborn baby (fetus) stay as healthy as possible. care may be provided by a bottom cementer, a family practice doctor, a mid-level practitioner (nurse practitioner or physician workers compensation claims assistant), or a childbirth and doctor (sales representative). How does this affect me? During , [...] procedures you have had. ? Any current bqev-qpl-fuxoefe or prescription medicines, herbs, or supplements that [...] any s (more content not included)... Normal [facility] Triage Industrialon 09-02-19 24 Drug Screen Complete Collected Normal [facility] Comment on above: Performed By: #### 1 [id number] #### [facility] (DEFAULT) [address] [place] [address] Urgent Care Note- Provideron 09-02-2023 Urgent Care [...] pharynx is pink and moist. NECK: -Supple (fbmo-hy-ilxck): non-tender. CARD: -Rate and rhythm: Regular -Edema: [...] Plan Assessment and Plan: Diagnosis: Physical exam ([id number] Z00.00). Cleared for employment [Electronically Signed on: 09/02/2023 11:41 EDT] MIRIAN HERBERT [Verified on: 09/02/2023 11:41 EDT] MIRIAN HERBERT [facility] [place] 024 Urgent Care Record [facility] ? Urgent Care [address] [place] [address] PATIENT DISCHARGE INSTRUCTIONS Patient Information Name: FLORINDA ORTEGA Age: 22 Years Date of : 2000 Reason For Visit: Medical screening exam; [facility] Arrival Time: 09/02/2023 11:09:30 Primary Care Physician: Bina Zamora CNP Attending Physician: MIRIAN HERBERT Comment: Visit Diagnosis: Diagnoses This Visit Medical screening exam ([id number]) Physical exam (Z00.00) If you received any [...] documents With: Address: When: Pamela Ortiz [address], [address], [place] [address] Business (1) Comments: [employer] B[employer] Clipper to 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 Abstain from any alcohol or illicit drugs With: Address: When: Bina Zamora [address] [place] [address] Business (1) , only if needed Medication Information: The exam and treatment you received today in the [facility] were for an urgent problem and are not intended as complete care. It is important for you to follow up with a doctor, nurse practitioner, or physician?s workers compensation claims assistant for ongoing care. If your symptoms [...] so we can reach you if necessary. [facility]gent [facility] has provided you with a complete list of medications post discharge. Please inform your control clerk auditing/provider of your visit and for further instruction [...] possible. care may be provided by a bottom cementer, a family practice doctor, a mid-level practitioner (nurse practitioner or physician workers compensation claims assistant), or a childbirth and doctor (sales representative). How does this affect me? During , [...] ? Any (more content not included)... Normal [facility] COVID/FLU RT-PCRon 3 SARS-CoV-2 (COVID-19) RNA [facility]+probe Ql (Unsp spec) Negative [employer] Other COVID/FLU RT-PCR Negative [facility]oco[employer] La scen[employer] Other CHLAMYDIA/GONOCOCCUS [facility] (SW AB/URINE/PAPon 05-22-2022 Chlamydia trachomatis, [facility] Negative Normal Negative [facility] Comment on above: Performed By: #### C T/NGNA #### [facility] Laboratory [address] [place] [address] Dr. Clau Valdivia Neisseria gonorrhoeae, [facility] Negative Normal Negative [facility] Comment on above: Performed By: #### C T/NGNA #### [facility] Laboratory [address] [place] [address] Dr. Clau Valdivia VAGINITIS/VAGINOSIS DNA PROB Melvin 05-21-2022 Shiloh species Positive Abnormal Negative [facility] Comment on above: Performed By: #### V AGINT #### [facility] [address] [place] [address] Dr. Clau Valdivia Gardnerella vaginalis Positive Abnormal Negative [facility] Comment on above: Performed By: #### V AGINT #### [facility] [address] [place] [address] Dr. Clau Valdivia Trichomonas vaginalis Negative Normal Negative [facility] Comment on above: Performed By: #### V AGINT #### [facility] [address] [place] [address] Dr. Clau Valdivia COVID + FLU Quick Testingon 04-20-2022 SARS-CoV-2 (COVID-19) RNA [facility]+probe Ql (Unsp spec) Negative [facility] [employer] Other COVID + FLU Quick Testing Negative [facility] [employer] Other Quick Strepon 04-20-2022 S. pyogenes Org specific cx Ql (Throat) Negative [facility] [employer] Other Quick Strep [facility] [employer] Other Vital Signs Date Time Vital Sign Value Performing Clinician Facility 04-07-2024 08:54-0500 Body mass index (BMI) [Ratio] 36.96 kg/m2 Ana Luisa ROY Work Phone: [facility] 04-07-2024 08:54-0500 Body weight 107.05 kg Ana Luisa ROY Work Phone: [facility] 04-07-2024 08:54-0500 Diastolic blood pressure 74 mm[Hg] Ana Luisa Zeny PA Work Phone: [facility] 04-07-2024 08:54-0500 Systolic blood pressure 120 mm[Hg] Ana Luisa Zeny PA Work Phone: [facility] 03-29-2024 10:14-0500 Body mass index (BMI) [Ratio] 35.89 kg/m2 Angelina Roslyn DO Work Phone: [facility] 03-29-2024 10:14-0500 Body weight 103.93 kg Angelina Roslyn DO Work Phone: [facility] 03-29-2024 10:14-0500 Diastolic blood pressure 72 mm[Hg] Angelina Roslyn DO Work Phone: [facility] 03-29-2024 10:14-0500 Systolic blood pressure 110 mm[Hg] Angelina Roslyn DO Work Phone: [facility] 03-08-2024 14:41-0500 Body mass index (BMI) [Ratio] 35.87 kg/m2 Ana Luisa Zeny PA Work Phone: [facility] 03-08-2024 14:41-0500 Body weight 103.87 kg Ana Luisa Zeny PA Work Phone: [facility] 03-08-2024 14:41-0500 Diastolic blood pressure 74 mm[Hg] Ana Luisa Zeny PA Work Phone: [facility] 03-08-2024 14:41-0500 Systolic blood pressure 120 mm[Hg] Ana Luisa [place] PA Work Phone: [facility] 02-23-2024 13:59-0500 Body mass index (BMI) [Ratio] 35.37 kg/m2 Angelina Roslyn DO Work Phone: [facility] 02-23-2024 13:59-0500 Body weight 102.42 kg Angelina Roslyn DO Work Phone: [facility] 02-23-2024 13:59-0500 Diastolic blood pressure 72 mm[Hg] Angelina Roslyn DO Work Phone: [facility] 02-23-2024 13:59-0500 Systolic blood pressure 118 mm[Hg] Angelina Roslyn DO Work Phone: [facility] 01-19-2024 13:35-0400 Body mass index (BMI) [Ratio] 34.43 kg/m2 Ana Luisa Moura PA Work Phone: [facility] 01-19-2024 13:35-0400 Body weight 99.7 kg Ana Luisa Zeny PA Work Phone: [facility] 01-19-2024 13:35-0400 Diastolic blood pressure 70 mm[Hg] Ana Luisa Moura PA Work Phone: [facility] 01-19-2024 13:35-0400 Systolic blood pressure 108 mm[Hg] Ana Luisa Moura PA Work Phone: [facility] 12-22-2023 09:36-0400 Body mass index (BMI) [Ratio] 33.83 kg/m2 Angelina Roslyn DO Work Phone: [facility] 12-22-2023 09:36-0400 Body weight 97.98 kg Angelina Roslyn DO Work Phone: [facility] 12-22-2023 09:36-0400 Diastolic blood pressure 72 mm[Hg] Angelina Roslyn DO Work Phone: [facility] 12-22-2023 09:36-0400 Systolic blood pressure 110 mm[Hg] Angelina Roslyn DO Work Phone: [facility] 12-10-2023 13:39-0400 Body mass index (BMI) [Ratio] 33.67 kg/m2 [facility] Nurse [facility] 12-10-2023 13:39-0400 Body weight 97.52 kg [facility] Nurse [facility] 12-10-2023 13:39-0400 Diastolic blood pressure 78 mm[Hg] Nom Nurse [facility] 12-10-2023 13:39-0400 Systolic blood pressure 112 mm[Hg] [facility] Nurse [facility] 07-19-2022 11:30-0400 Body height 167.64 cm Ne Santiago Other [employer] Other 07-19-2022 11:30-0400 Body mass index (BMI) [Ratio] 34.7 kg/m2 Ne Henderson Other [employer] Other 07-19-2022 11:30-0400 Body temperature 101 [degF] Ne Henderson Other [employer] Other 07-19-2022 11:30-0400 Body weight 97.52 kg Ne Henderson Other [employer] Other 07-19-2022 11:30-0400 Diastolic blood pressure 76 mm[Hg] Ne Henderson Other [employer] Other 07-19-2022 11:30-0400 Respiratory rate 18 /min Ne Hnederson Other [employer] Other 07-19-2022 11:30-0400 SaO2% (BldA) [Mass fraction] 97 % Ne Henderson Other [employer] Other 07-19-2022 11:30-0400 Systolic blood pressure 113 mm[Hg] Ne Henderson Other [employer] Other 04-20-2022 10:50-0500 Body height 167.64 cm Anya Contreras Other [employer] Other 04-20-2022 10:50-0500 Body mass index (BMI) [Ratio] 34.7 kg/m2 Anya Contreras Other [employer] Other 04-20-2022 10:50-0500 Body temperature 98.6 [degF] Anya Contreras Other [employer] Other 04-20-2022 10:50-0500 Body weight 97.52 kg Anya Contreras Other [employer] Other 04-20-2022 10:50-0500 Respiratory rate 18 /min Anya Contreras Other [employer] Other 04-20-2022 10:50-0500 SaO2% (BldA) [Mass fraction] 98 % Anya Contreras Other [employer] Other Encounters Encounter Date Encounter Type Care Provider Facility Start: 04-14-2024 End: 04-14-2024 Bamboo flowsheet Angelina Roslyn DO Work Phone: [facility] Start: 04-14-2024 End: 04-14-2024 Bamboo flowsheet Angelina Roslyn DO Work Phone: [facility] Start: 04-14-2024 End: 04-14-2024 ambulatory ANGELINA ROSLYN Not Available Start: 04-11-2024 End: 04-12-2024 Clinisync Result Encounter Generic External Data Provider [facility] External Department Unsolicited Start: 04-11-2024 End: 04-12-2024 Clinisync Result Encounter Generic External Data Provider [facility] External Department Unsolicited Start: 04-07-2024 End: 04-07-2024 Bamboo flowsheet Ana Luisa ROY Work Phone: [facility] Start: 04-07-2024 End: 04-13-2024 Bamboo flowsheet Ana Luisa ROY Work Phone: [facility] Start: 04-07-2024 End: 04-13-2024 Clinisync Result Encounter Generic External Data Provider [facility] External Department Unsolicited Start: 04-07-2024 End: 04-07-2024 flow sheet Ana [...] Not Available Start: 01-31-2024 End: 02-01-2024 ambulatory [facility] Start: 01-20-2024 End: 01-22-2024 Clinisync Result [...] End: 01-19-2024 Patient encounter procedure Ana Luisa Zeny PA Work Phone: [facility] Work Phone: Start: 01-19-2024 End: 01-19-2024 Periodic preventive med est patient 18-39 yrs Ana Luisa ROY Work Phone: [facility] Comment on above: Well woman exam with routine gynecological exam; Second trimester ; Vaginal discharge; STD exposure; 25 weeks gestation of Start: 01-19-2024 End: 01-19-2024 ambulatory ANA LUISA MOURA Not Available Start: 01-07-2024 End: 01-07-2024 ambulatory [facility] Start: 12-30-2023 End: 12-30-2023 ambulatory [facility] Start: 12-22-2023 End: 12-22-2023 Bamboo flowsheet Angelina [...] Start: 09-02-2023 End: 09-02-2023 ambulatory Bina Zamora Facility:[facility] Start: 07-16-2023 End: 07-16-2023 ambulatory ANA [...] Start: 04-11-2023 End: 04-11-2023 ambulatory MARVEL M R ANAHI [facility] Start: 07-19-2022 End: 07-19-2022 ambulatory Ne Henderson Other [employer] Other Start: 07-19-2022 Office outpatient vi sit 25 minutes Ne Henderson [facility] Start: 05-19-2022 End: 05-19-2022 ambulatory ANA LUISA MOURA . Facility: Start: 04-20-2022 End: 04-20-2022 ambulatory Anya Contreras Other [employer] Other Start: 04-20-2022 Office outpatient vi sit 25 minutes Anya Contreras [facility] Procedures Date Procedure Procedure Detail Performing Clinician Start: 04-11-2024 Bacteria identified in Urine by Culture Generic External Data Provider Start: 04-07-2024 Urnls dip stick/tabl et rgnt non-auto w/o micrscp Ana Luisa Moura PA Work Phone: Start: 04-07-2024 ALL MISCELLANEOUS TEST Ana Luisa Moura PA Work Phone: Start: 04-01-2024 ALL CBC WITH [...] stick/tabl et rgnt non-auto w/o micrscp Angelina Rsolyn DO Work Phone: Start: 12-18-2023 ALL CBC WITH AUTO DIFF Angelina Roslyn DO Work Phone: Start: 12-10-2023 End: 12-10-2023 Urnls dip stick/tablet rgnt non-auto w/o micrscp Angelina Roslyn DO Work Phone: Plan of Treatment Date Care Activity Detail Author Start: 04-21-2024 End: 04-21-2024 Patient encounter procedure 04/21/2024 9:30 AM EST Routine [facility] [address] [place] [id number] Angelina Mcgowan, DO [address] [place] [address] [facility] Start: 04-14-2024 End: 04-14-2024 Patient encounter procedure 04/14/2024 10:00 AM EST Routine [facility] [address] [phone] Angelina Mcgowan DO [address] [place] [address] [facility] Start: 04-07-2024 End: 04-07-2025 [...] EST Ancillary Procedure [facility] [address] [id number] [facility] Start: 02-23-2024 End: 02-22-2025 CBC panel - Blood by Automated count CBC Lab Routine Diabetes mellitus screening Expected: 02/23/2024 (Approximate), Expires: 02/22/2025 [facility] Comment on above: Expected: 02/23/2024 (Approximate), [...] with dates Expected: 02/23/2024 (Approximate), Expires: 02/22/2025 [facility] Work Phone: Comment on above: Expected: 02/23/2024 (Approximate), Expires: 02/22/2025 Start: 02-23-2024 End: 02-23-2024 Patient encounter procedure 02/23/2024 1:40 PM EST Routine [facility] [address] [place] [id number] Angelina Mcgowan, DO [address] [place], [place] [id number] Arrived [facility] Comment on above: Arrived Start: 02-16-2024 End: 02-16-2024 Patient encounter procedure 02/16/2024 1:50 PM EST Routine [facility] [address] [place] [id number] Angelina Mcgowan, DO [address] [place] [address] [facility] Start: 01-19-2024 End: 01-19-2024 Patient encounter procedure [facility] Comment on above: Arrived Start: 12-22-2023 End: 12-22-2023 Patient encounter procedure [facility] Comment on above: Arrived Start: 12-22-2023 End: 12-22-2023 Professional / ancillary services management 12/22/2023 8:00 AM EDT Ancillary Procedure [facility] [address] [place] [address] [facility] Start: 12-21-2023 End: 12-21-2023 Patient encounter procedure 12/21/2023 9:00 AM EDT Routine [facility] [address] [place] [address] Angelina Mcgowan, DO [address] [place] [address] [facility] Start: 12-10-2023 End: 12-09-2024 ABO/Rh ABO/Rh Lab Routine Missed menses Expected: 12/10/2023 (Approximate), Expires: 12/09/2024 [facility] Healthcare Comment on above: Expected: 12/10/2023 (Approximate), Expires: 12/09/2024 Start: 12-10-2023 End: 12-09-2024 Alpha fetoprotein, maternal Alpha fetoprotein, maternal Lab Routine Second trimester Expected: 12/10/2023 (Approximate), Expires: 12/09/2024 [facility] Healthcare Comment on above: Expected: 12/10/2023 (Approximate), Expires: 12/09/2024 Start: 12-10-2023 End: 12-09-2024 Blood type and Indirect antibody screen panel - Blood Type and screen Lab Routine Missed menses Expected: 12/10/2023 (Approximate), Expires: 12/09/2024 [facility] Work Phone: Comment on above: Expected: 12/10/2023 (Approximate), Expires: 12/09/2024 Start: 12-10-2023 End: 12-09-2024 Drugs of abuse panel - Urine by Screen method Rapid drug screen, urine Lab Routine Encounter for supervision of normal first in first trimester , unspecified gestational age Expected: 12/10/2023 (Approximate), Expires: 12/09/2024 [facility] Healthcare Comment on above: Expected: 12/10/2023 (Approximate), Expires: 12/09/2024 Start: 12-10-2023 End: 12-09-2024 US for [facility] Healthcare Comment on above: Expected: 12/10/2023 (Approximate), Expires: 12/09/2024 Start: 11-22-2023 Influenza vaccination Influenza Vacc ine (#1) [facility] Bacteria identified in Urine by Culture Urine culture Microbiology Routine Missed menses Ordered: 12/10/2023 [facility] Comment on above: Ordered: 12/10/2023 CBC W Auto Different ial panel - Blood CBC and differential Lab Routine Missed menses Ordered: 12/10/2023 [facility] Comment on above: Ordered: 12/10/2023 CHLAMYDIA TRACHOMATI S (GENITO/STI) CHLAMYDIA TRACHOMATIS (GENITO/STI) Lab Routine STD exposure Ordered: 01/19/2024 [facility] Comment on above: Ordered: 01/19/2024 Cytology Cervical or vaginal smear or scraping study Pap Smear Pathology and Cytology Routine Well woman exam with routine gynecological exam Ordered: 01/19/2024 [facility] Comment on above: Ordered: 01/19/2024 Hemoglobin A1c/Hemoglobin.total in Blood Hemoglobin A1c Lab Routine Third trimester Ordered: 03/08/2024 [facility] Work Phone: Comment on above: Ordered: 03/08/2024 Hemoglobin A1c/Hemoglobin.total in Blood Hemoglobin A1c Lab Routine Missed menses Ordered: 12/10/2023 [facility] Comment on above: Ordered: 12/10/2023 Hepatitis B virus surface Ag [Presence] in Serum or Plasma by Immunoassay Hepatitis B surface antigen Lab Routine Missed menses Ordered: 12/10/2023 [facility] Comment on above: Ordered: 12/10/2023 Hepatitis C virus Ab [Presence] in Serum or Plasma by Immunoassay Hepatitis C antibody Lab Routine Missed menses Ordered: 12/10/2023 [facility] Comment on above: Ordered: 12/10/2023 HIV-1/HIV-2 antigen/antibody combination immunoassay HIV-1 and HIV-2 antibodies Lab Routine Missed menses Ordered: 12/10/2023 [facility] Comment on above: Ordered: 12/10/2023 Neisseria gonorrhoea e DNA [Presence] in Unspecified specimen by [facility] with probe detection Neisseria gonorrhea DNA probe, direct Lab Routine STD exposure Ordered: 01/19/2024 [facility] Comment on above: Ordered: 01/19/2024 Reagin Ab [Presence] in Serum by RPR RPR Lab Routine Missed menses Ordered: 12/10/2023 [facility] Comment on above: Ordered: 12/10/2023 Rubella antibody, IgG Rubella an tibody, IgG Lab Routine Missed menses Ordered: 12/10/2023 [facility] Comment on above: Ordered: 12/10/2023 SURESWAB(R) ADVANCED VAGINITIS PLUS, TMA SURESWAB(R) ADVANCED VAGINITIS PLUS, TMA Pathology and Cytology Routine Vaginal discharge Ordered: 01/19/2024 [facility] Work Phone: Comment on above: Ordered: 01/19/2024 Immunizations Immunization Date Immunization Notes Care Provider Sara zaidi 01-25-2021 influenza virus vacc ine, unspecified formulation Angelina Mcgowan DO Work Phone: [facility] Payers Date Payer Category Payer Unknown [id number] 2019 Private Health Insurance [id number] 2002 Unknown [id number] 2.16.84 0.1.506573.3.579.2.593 2002 Unknown [id number] 2.16.8 40.1.282372.3.579.2.1286 2002 Unknown [id number] 2.16.84 0.1.762173.3.579.2.1286 2002 Unknown [id number] 2.16.84 0.1.151494.3.579.2.1259 2002 Unknown [id number] 2.16.84 0.1.904743.3.579.2.1259 2002 Unknown [id number] 2.16.84 0.1.765025.3.579.2.1259 2002 Unknown [id number] 2.16.84 0.1.667563.3.579.2.1259 2002 Unknown [id number] 2.16.84 0.1.783288.3.579.2.1259 2002 Unknown [id number] 2.16.84 0.1.502246.3.579.2.1259 2002 Unknown [id number] 2.16.84 0.1.260494.3.579.2.1259 2002 Unknown [id number] 2.16.84 0.1.115074.3.579.2.1259 2002 Unknown [id number] 2.16.84 0.1.197849.3.579.2.1259 2002 Unknown [id number] 2.16.84 0.1.811170.3.579.2.9 2002 Unknown [id number] 2.16.84 0.1.559475.3.579.2.9 2002 Unknown [id number] 2.16.84 0.1.043894.3.579.2.9 2002 Unknown [id number] 2.16.84 0.1.292309.3.579.2.9 2002 Unknown [id number] 2.16.84 0.1.768815.3.579.2.1259 1959 Unknown [id number] Social History Date Type Detail Facility Unknown if ever smoked [facility] Other Sex Assigned At [facility] Other Tobacco smoking status [facility] Tobacco smoking consumption unknown [facility] Start: 08-11-2023 [facility] Start: 2002 Sex assigned at Not on file [facility] Clinical Notes 04-20-2022 to 04-07-2024 MANUELA [...] of: MANUELA Foy documented in this encounter [facility] 03-29-2024 History of Presen t illness Narrative [...] nursing note reviewed. Exam conducted with a long distance operator present. Vitals: Estimated body mass index is [...] Angelina Mcgowan DO documented in this encounter [facility] 03-08-2024 History of Presen t illness Narrative [...] of: MANUELA Foy documented in this encounter [facility] 02-23-2024 History of Presen t illness Narrative [...] nursing note reviewed. Exam conducted with a long distance operator present. Vitals: Estimated body mass index is [...] Angelina Mcgowan DO documented in this encounter [facility] 01-19-2024 History of Presen t illness Narrative [...] nursing note reviewed. Exam conducted with a long distance operator present. Vitals: Estimated body mass index is [...] of: MANUELA Foy documented in this encounter [facility] 12-22-2023 History of Presen t illness Narrative [...] nursing note reviewed. Exam conducted with a long distance operator present. Vitals: Estimated body mass index is [...] Angelina Mcgowan DO documented in this encounter [facility] 12-10-2023 History of Presen t illness Narrative [...] or undercooked meat, and stay away from [facility]. Patient has also been advised to not [...] by: Karmen Alvares documented in this encounter [facility] 09-03-2023 Note [phone] [id number] Patient Education Ma terials Follows:and Gynecology Care care is health care during . It helps you and your unborn baby (fetus) stay as healthy as possible. care may be provided by a bottom cementer, a family practice doctor, a mid-level practitioner (nurse practitioner or physician workers compensation claims assistant), or a childbirth and doctor (sales representative). How does this affect me? During , [...] procedures you have had. ? Any current [id number] or prescription medicines, herbs, or supplements that [...] week 24 of (more content not included)... [facility] 07-19-2022 Evaluation note Encounter Date Diagnosis [...] treatment plan. Patient left in stable condition. [facility] [employer] Other 04-29-2023 History general Narrative - Reported* Type Description Date Medical History ADD Medical History Born with cleft palette Surgical History tonsillectomy and adenoidectomy Surgical History cleft palette 3-4 repair Hospitalization History see above [facility] 03-05-2023 History general Narrative - Reported* Type Description Date Medical History ADD Medical History Born with cleft palette Surgical History tonsillectomy and adenoidectomy Surgical History cleft palette 3-4 repair Hospitalization History see above [facility] 01-29-2023 Evaluation note* Encounter Date Diagnosis [...] this time you do not have COVID. [facility] [employer] Other Evaluation note* Diagnosis Second trimester [...] DATE CREATED AUTHOR AUTHOR'S ORGANIZ ATION 09/03/2023 [facility] DATE CREATED AUTHOR AUTHOR'S ORGANIZ ATION 01/09/2024 [facility] DATE CREATED AUTHOR AUTHOR'S ORGANIZ ATION 02/01/2024 [facility] DATE CREATED AUTHOR AUTHOR'S ORGANIZ ATION 04/16/2024 [facility] EPIC REASON FOR VISIT (unrecogniz [...] BE BASED ON THE PRIMARY CLINICAL RECORDS. [facility] [employer] [facility]. provides no warranty or guarantee of the accuracy or completeness of information in this document.
[2024-04-17 17:10] VITALS: BP 133/87; PULSE 113
[2024-04-17 17:21] LABS: Bilirubin Urine NEGATIVE (NEGATIVE); Blood Urine NEGATIVE (NEGATIVE); Clarity Urine SL CLOUDY (CLEAR); Color Urine LT. YELLOW (YELLOW); Glucose Urine UA NEGATIVE (NEGATIVE); Ketones Urine NEGATIVE (NEGATIVE); Leukocyte Esterase Urine SMALL (NEGATIVE); Nitrite Urine NEGATIVE (NEGATIVE); Protein Urine NEGATIVE (NEG/TRACE); Specific Gravity Urine 1.025 (1.005-1.025); Urobilinogen Urine 0.2 EU/dL (0.2-1.0)
[2024-04-17 17:30] LABS: Urine Microscopic Indicated YES
[2024-04-17 17:31] LABS: Bacteria Urine MODERATE #/HPF (NONE SEEN); Cast Seen? NONE SEEN #/LPF (NONE SEEN); Crystals Seen? None Seen #/HPF (None Seen); Mucus Urine SMALL (NONE SEEN); RBC Urine 0-2 #/HPF (0-2); Squamous Epithelial Cell Urine FEW #/LPF (NONE/RARE); Transitional Epi Cells Urine RARE #/LPF (NONE SEEN); Urine Culture Indicated YES
== END 2024-04-17 18:30 | disposition home or self-care (01) ==
PROVIDERS: Admitting Provider Obstetrics & Gynecology Gynecology; PCP Nurse Practitioner; Visit Provider Obstetrics & Gynecology Gynecology
DX: O26.899 Other specified pregnancy related conditions, unspecified trimester (principal); R10.9 Unspecified abdominal pain; Z3A.00 Weeks of gestation of pregnancy not specified
CPT/HCPCS: 59025; 81001; 87086; G0378; G0379

== ENCOUNTER 2024-04-27 04:47 | Inpatient (IN) | payer OTHER, SELFPAY ==
[2024-04-27] VITALS (44 sets, daily range): BP systolic 97–164; BP diastolic 54–120; PULSE 78–118; TEMP 36.7
--- OUTSIDE RECORDS SUMMARY | 2024-04-27 04:51 | XMS_ITS | CCD ---
Author Organization [facility] Care Team Providers Care Cow Puncher Name Role Phone ZENY ., ANA LUISA [...] Primary Care Unavailable JOSELIN MCGOWANY Attending Unavailable ROSLYN, ANGELINA Attending Unavailable ROSLYN, [...] Drug Class(es) Dates Sig (Normalized) Sig (Original) [id number] 200 actuat albuterol 0.09 mg/actuat metered dose [...] oral solution (1 source) alpha-Adrenergic Agonist, Uncompetitive D-ltwahk-Y-asparta te Receptor Antagonist, Sigma-1 Agonist Start: 3 take 10 mL by mouth every six hours Khlthzsgk-Vsbmawgk-KK 30-2-10 MG/5ML 10 mL Orally every 6 [...] this medication. 14 tablet 01/20/2024 01/27/2024 Active ondansetron 4 mg disintegrating oral tablet (7 sources) Serotonin-3 Receptor Antagonist Start: 5 ondansetron ODT (Zofran-ODT) 4 MG disintegrating tablet Take 4 mg by mouth if needed for nausea 04/11/2024 Active Start: 03-31-2023 End: 12-10-2023 ondansetron ODT (Zofran-ODT) 4 MG disintegrating tablet DISSOLVE 1 TABLET ON THE TONGUE FOUR TIMES DAILY NEEDED 03/31/2023 12/10/2023 Discontinued polysaccharide iron complex 391 mg oral capsule (15 sources) Start: 03-29-2024 End: 04-28-2024 take 1 capsule by mouth once daily [...] tablet by mouth twice daily at mealtime amoxicillin-clavul anate (Augmentin) 500-125 MG tablet TAKE 1 TABLET BY MOUTH TWICE DAILY WITH FOOD FOR 7 DAYS 12/19/2023 03/08/2024 Discontinued (Therapy completed) desogestrel 0.15 mg / ethinyl estradiol 0.03 mg oral tablet (1 source) Progestin, Estrogen Start: 07-16-2023 End: 12-10-2023 desogestrel-ethiny l estradiol (Apri) 0.15-30 MG-MCG tablet Indications: 6 [...] source) Vitamin B12 Start: 03-27-2023 End: 12-10-2023 A-Eckhwkmpoazb-C2- B12 (Folbic RF) 1.13-25-2 MG tablet Take 1 tablet by mouth in the morning. 03/27/2023 12/10/2023 Discontinued loratadine 10 mg oral tablet (1 source) End: 12-10-2023 take 1 tablet by mouth in the morning loratadine (Claritin) 10 MG tablet Take 10 mg by mouth in the morning. 12/10/2023 Discontinued terconazole 4 mg/ml vaginal cream [...] syndrome] Chronic Other and delivery including normal (19 sources) Second trimester ; Translations: [Encounter for [...] [36 weeks gestation of ] 04-07-2024 Episodic Residual codes; unclassified (2 sources) Gestation period, 37 weeks; Translations: [37 weeks gestation of ] 04-14-2024 Episodic Residual codes; unclassified (2 sources) Gestation period, 38 weeks; Translations: [38 weeks gestation of ] 04-21-2024 Episodic Unclassified (1 source) Decreased Movement Onset: Results Test Name Value Interpretation Reference Range Facility Urinalysis macro (dipstick) panel (U)on 04-21-2024 Bilirubin, UA Negative Negative - 4(70) +++ mg/dL [facility] Blood, UA Negative Negative - 50 Jimmy/mcL [facility] Clarity, UA Clear [facility] re Color, UA Yellow [facility] Gl[facility], [facility] Negative Negative - 2000(110) ++++ mg/dL [facility] Interpretation and review of laboratory results Abnormal [facility] re Ketones, UA Negative Negative - 160(16) ++++ mg/dL [facility] Leukocytes, UA Positive Negative - 500+++ Minnie/mcL [facility] Comment on above: small Nitrite, UA Negative Negative - Positive [facility] pH, UA 6.5 5 - 9 [facility] Protein, UA Trace Negative - 1999(20) ++++ mg/dL [facility] Spec Grav, UA 1.025 1 - 1.[address] [facility] Urobilinogen, UA 0.2 0.2 - 12 mg/dL [facility] URINE CULTURE, ROUTINEon Bacteria identified Cx Nom (U) Urine Culture, Routine [facility] Bacteria identified Cx Nom (U) Mixed urogenital seven [facility] Bacteria identified Cx Nom (U) 50,000-100,000 colony forming units per mL [facility] Bacteria identified Cx Nom (U) Performed at: [facility] Bacteria identified Cx Nom (U) [address] [place] [address] [phone] [facility] Bacteria identified Cx Nom (U) Senior Product Manager: Anirudh Avendano PhD, Phone: [phone] [facility] Urinalysis macro (dipstick) panel (U)on 04-14-2024 Bilirubin, UA Trace Negative - 4(70) +++ mg/dL [facility] Blood, UA Negative Negative - 50 Jimmy/mcL [facility] Clarity, UA Clear [facility] Color, UA Yellow [facility] Glucose, UA Negative Negative - 1999(110) ++++ mg/dL [facility] Interpretation and review of laboratory results Abnormal [facility] Ketones, UA Negative Negative - 160(16) ++++ mg/dL [facility] Leukocytes, UA Trace Negative - 500+++ Minnie/mcL [facility] Nitrite, UA Negative Negative - Positive [facility] pH, UA 6.5 5 - 9 [facility] Protein, UA Positive Negative - 1999(20) ++++ mg/dL [facility] Spec Grav, UA 1.03 1 - 1.[address] [facility] Urobilinogen, UA 2.0 0.2 - 12 mg/dL [facility] ALL MISCELLANEOUS TESTon MISCELLANEOUS TEST COMMENT . [facility] Comment on above: Test Ordered: [id number] Strep Gp B Culture+Rflx Strep Gp B Culture+Rflx Positive [A ] CB Reference Range: Negative Centers for Disease Control and Prevention (CDC) and [place] [employer] of Obstetricians and Gynecologists (ACOG) guidelines [...] at high risk for anaphylaxis. Performed at: [facility] [address] [place], [place] [id number] Senior Product Manager: Anirudh Avendano PhD, Phone: [phone] GROUP B STREP [id number] Group B Streptococcus Colonization Detection Culture With Re [facility] URINE CULTURE, ROUTINEon Bacteria identified Cx Nom (U) Urine Culture, Routine [facility] Bacteria identified Cx Nom (U) Mixed urogenital seven [facility] Bacteria identified Cx Nom (U) 10,000-25,000 colony forming units per mL [facility] Bacteria identified Cx Nom (U) Performed at: [facility] Bacteria identified Cx Nom (U) [address], [place] [id number] [facility] Bacteria identified Cx Nom (U) Senior Product Manager: Anirudh Avendano PhD, Phone: [phone] [facility] Urinalysis macro (dipstick) panel (U)on 04-07-2024 Bilirubin, UA Negative Negative - 4(70) +++ mg/dL [facility] Blood, UA Negative Negative - 50 Jimmy/mcL [facility] Clarity, UA Clear [facility] Color, UA Yellow [facility] Glucose, UA Negative Negative - 1999(110) ++++ mg/dL [facility] Interpretation and review of laboratory results Abnormal [facility] re Ketones, UA Positive Negative - 160(16) ++++ mg/dL [facility] Comment on above: 40 Leukocytes, UA Trace Negative - 500+++ Minnie/mcL [facility] Nitrite, UA Negative Negative - Positive [facility] pH, UA 6 5 - 9 [facility] e Protein, UA Trace Negative - 1999(20) ++++ mg/dL [facility] Spec Grav, UA 1.03 1 - 1.[address] [facility] Urobilinogen, UA 0.2 0.2 - 12 mg/dL [facility] ALL CBC WITH AUTO DIFFon BASOPHILS ABSOLUTE AUTO 0 [facility] Basophils/100 WBC (Bld) 0.3 % 0.2 - 2.0 % [facility] Eosinophils/100 WBC (Bld) 1 % 0.9 - 7.0 % [facility] Erythrocyte distribution width (RBC) [Ratio] 14.2 % 11.0 - 15.0 % [facility] Hematocrit (Bld) [Volume fraction] 31.4 % Low 36.0 - 48.0 % [facility] Hemoglobin (Bld) [Mass/Vol] 9.6 g/dL Low 12.0 - 16.0 g/dL [facility] IMMATURE GRANULOCYTES ABS AUTO 0.05 High [facility] Immature granulocytes/100 WBC (Bld) 0.5 % 0.0 - 0.5 % [facility] Interpretation and review of laboratory results Abnormal [facility] re LYMPHOCYTES ABSOLUTE AUTO 2.5 [facility] Lymphocytes/100 WBC (Bld) 27.7 % 20.5 - 60.0 % [facility] MCH (RBC) [Entitic mass] 23.5 pg Low 26.7 - 34.0 pg [facility] MCHC (RBC) [Mass/Vol] 30.6 g/dL 29.9 - 35.2 g/dL [facility] MCV (RBC) [Entitic vol] 77 fL Low 81.0 - 99.0 fL [facility] MONOCYTES ABSOLUTE AUTO 0.3 [facility] Monocytes/100 WBC (Bld) 3.5 % 1.7 - 12.0 % [facility] NEUTROPHILS ABSOLUTE AUTO 6.1 [facility] Neutrophils/100 WBC (Bld) 67 % 43.0 - 75.0 % [facility] Platelet mean volume (Bld) [Entitic vol] 9.6 fL 9.5 - 13.5 fL [facility] TBH EO # 0.1 [facility] PLT 276 [facility] TB RBC 4.08 Low [facility] TB WBC 9.2 [facility] Urinalysis macro (dipstick) panel (U)on 03-29-2024 Bilirubin, UA Negative Negative - 4(70) +++ mg/dL [facility] Blood, UA Negative Negative - 50 Jimmy/mcL [facility] Clarity, UA Clear [facility] re Color, UA Ne [facility] Glucose, UA Negative Negative - 1999(110) ++++ mg/dL [facility] Interpretation and review of laboratory results Abnormal [facility] re Ketones, UA Negative Negative - 160(16) ++++ mg/dL [facility] Leukocytes, UA Trace Negative - 500+++ Minnie/mcL [facility] Nitrite, UA Negative Negative - Positive [facility] pH, UA 6 5 - 9 [facility] e Protein, UA Trace Negative - 1999(20) ++++ mg/dL [facility] Spec Grav, UA 1.025 1 - 1.[address] [facility] Urobilinogen, UA 0.2 0.2 - 12 mg/dL [facility] MLR HEMOGLOBIN A1Con 20-2 024 Glucose [Mass/Vol] 108 mg/dL [facility] HbA1c (Bld) [Mass fraction] 5.4 % 4.5 - 6.2 % [facility] Comment on above: ADA RECOMMENDED LIMI T 4.0 - 6.0 ADA THERAPEUTIC TARGET < 7.0 ACTION SUGGESTED > 7.0 [facility] Urinalysis macro (dipstick) panel (U)on 03-08-2024 Bilirubin, UA Negative Negative - 4(70) +++ mg/dL [facility] Blood, UA Negative Negative - 50 Jimmy/mcL [facility] Clarity, UA Clear [facility] re Color, UA Yellow [facility] Glucose, UA Negative Negative - 1999(110) ++++ mg/dL [facility] Interpretation and review of laboratory results Abnormal [facility] Ketones, UA Negative Negative - 160(16) ++++ mg/dL [facility] Leukocytes, UA Trace Negative - 500+++ Minnie/mcL [facility] Nitrite, UA Negative Negative - Positive [facility] pH, UA 6.5 5 - 9 [facility] Protein, UA Negative Negative - 1999(20) ++++ mg/dL [facility] Spec Grav, UA 1.025 1 - 1.03 [facility] Urobilinogen, UA 0.2 0.2 - 12 mg/dL [facility] Urinalysis macro (dipstick) panel (U)on 02-23-2024 Bilirubin, UA Negative Negative - 4(70) +++ mg/dL [facility] Blood, UA Negative Negative - 50 Jimmy/mcL [facility] Clarity, UA Clear [facility] re Color, UA Yellow [facility] Glucose, UA Negative Negative - 1999(110) ++++ mg/dL [facility] Interpretation and review of laboratory results Abnormal [facility] Ketones, UA Negative Negative - 160(16) ++++ mg/dL [facility] Leukocytes, UA Trace Negative - 500+++ Minnie/mcL [facility] Nitrite, UA Negative Negative - Positive [facility] pH, UA 6.5 5 - 9 [facility] Protein, UA Negative Negative - 1999(20) ++++ mg/dL [facility] Spec Grav, UA 1.02 1 - 1.03 [facility] Health care Urobilinogen, UA 1.0 0.2 - 12 mg/dL [facility] CBC AND AUTO DIFFon 02-01-20 24 ABSOLUTE BASOPHIL 0.0 X10E9/L Normal 0.0-0.2 [facility] Comment on above: Performed By: #### C BCA, CMP, 2532-0, 3084-1 #### [facility] ([id number]) [address] [place] [address], [place] [address] ABSOLUTE NEUTROPHIL 10.5 X10E9/L High 1.5-6.6 [facility] Comment on above: Performed By: #### C HUDSON PÉREZ, 0, 3083-03 #### [facility] ([id number]) [address] [place] [address] 27143 Basophils/100 WBC (Bld) 0.4 % Normal [facility] Comment on above: Performed By: #### C ELISA CMP, 0, 3083-03 #### [facility] ([id number]) [address] [place] [address] 13257 Eosinophils (Bld) [#/Vol] 0.1 10*3/uL Normal 0.0-0.4 [facility] Comment on above: Performed By: #### Carol PÉREZ CMP, 0, 3083-03 #### [facility] ([id number]) [address] [place] [address] 86022 Eosinophils/100 WBC (Bld) 0.7 % Normal [facility] Comment on above: Performed By: #### Carol PÉREZ CMP, 0, 3083-03 #### [facility] ([id number]) [address] [place] [address] 14432 Erythrocyte distribution width (RBC) [Ratio] 14.5 % Normal 11.5-15.0 [facility] Comment on above: Performed By: #### Carol PÉREZ CMP, 0, 3083-03 #### [facility] ([id number]) [address] [place] [address] 30444 Hematocrit (Bld) [Volume fraction] 29.1 % Low 35-47 [facility] Comment on above: Performed By: #### C ELISA CMP, 0, 3083-03 #### [facility] ([id number]) [address] [place] [address] 46917 Hemoglobin (Bld) [Mass/Vol] 9.6 g/dL Low 11.7-15.5 [facility] Comment on above: Performed By: #### C HUDSON PÉREZ, 0, 3083-03 #### [facility] ([id number]) [address] [place] [address] 75044 Lymphocytes (Bld) [#/Vol] 2.2 10*3/uL Normal 1.0-3.5 [facility] Comment on above: Performed By: #### C HUDSON PÉREZ, 0, 3083-03 #### [facility] ([id number]) [address] [place] [address] 08045 Lymphocytes/100 WBC (Bld) 16.6 % Normal [facility] Comment on above: Performed By: #### Carol PÉREZ CMP, 0, 3083-03 #### [facility] ([id number]) [address] [place] [address] 65307 MCH (RBC) [Entitic mass] 25.7 pg Low 27-34 [facility] Comment on above: Performed By: #### Carol PÉREZ CMP, 0, 3083-03 #### [facility] ([id number]) [address] [place] [address] 05470 MCHC (RBC) [Mass/Vol] 32.9 g/dL Normal 32-36 [facility] Comment on above: Performed By: #### Carol PÉREZ CMP, 0, 3083-03 #### [facility] ([id number]) [address] [place] [address] 33050 MCV (RBC) [Entitic vol] 78 fL Low 80-100 [facility] Comment on above: Performed By: #### Carol PÉREZ CMP, 0, 3083-03 #### [facility] ([id number]) [address] [place] [address] 79142 Monocytes (Bld) [#/Vol] 0.5 10*3/uL Normal 0-0.9 [facility] Comment on above: Performed By: #### C ELISA CMP, 0, 3083-03 #### [facility] ([id number]) [address] [place] [address] 17545 Monocytes/100 WBC (Bld) 3.7 % Normal [facility] Comment on above: Performed By: #### Carol PÉREZ CMP, 0, 3083- #### [facility] ([id number]) [address] [place] [address] 12420 Neutrophils/100 WBC (Bld) 78.6 % Normal [facility] Comment on above: Performed By: #### Carol PÉREZ CMP, 0, 3083-03 #### [facility] ([id number]) [address] [place] [address] 38562 Platelet mean volume (Bld) [Entitic vol] 7.6 fL Normal 7-12 [facility] Comment on above: Performed By: #### Carol PÉREZ CMP, 0, 3083-03 #### [facility] ([id number]) [address] [place] [address] 88315 Platelets (Bld) [#/Vol] 315 10*3/uL Normal 150-450 [facility] Comment on above: Performed By: #### Carol PÉREZ CMP, 0, 3083-03 #### [facility] ([id number]) [address] [place] [address] 04334 RBC COUNT 3.73 X10E12/L Low 3.80-5.20 [facility] Comment on above: Performed By: #### Carol PÉREZ CMP, 0, 3083-03 #### [facility] ([id number]) [address] [place] [address] 48227 WBC (Bld) [#/Vol] 13.4 10*3/uL High 4.0-11.0 [facility] Comment on above: Performed By: #### C BCA, CMP, 2532-0, 3084-1 #### [facility] ([id number]) [address] [place] [address] [place] [address] COMPREHENSIVE METABOLIC PANE Wilbur 02-01-2024 Albumin [Mass/Vol] 3.0 g/dL Low 3.2-5.3 [facility] Comment on above: Performed By: #### C BCA, CMP, 2532-0, 3083-1 #### [facility] ([id number]) [address] [place] [address] 02561 ALP [Catalytic activity/Vol] 81 U/L Normal 39-130 [facility] Comment on above: Performed By: #### C BCA, CMP, 2531-0, 3084-1 #### [facility] ([id number]) [address] [place] [address] [place] [address] ALT [Catalytic activity/Vol] 15 U/L Normal 0-31 [facility] Comment on above: Performed By: #### C BCA, CMP, 2531-0, 3084-1 #### [facility] ([id number]) [address] [place] [address] 05354 Anion gap [Moles/Vol] 11 mmol/L Normal 5-15 [facility] Comment on above: Performed By: #### C BCA, CMP, 2532-0, 3083-1 #### [facility] ([id number]) [address] [place] [address] 31348 AST [Catalytic activity/Vol] 12 U/L Normal 0-41 [facility] Comment on above: Performed By: #### C BCA, CMP, 2532-0, 3084-1 #### [facility] ([id number]) [address] [place] [address] 79640 Bilirubin [Mass/Vol] 0.3 mg/dL Normal 0.3-1.2 [facility] Comment on above: Performed By: #### C BCA, CMP, 2532-0, 3083-1 #### [facility] ([id number]) [address] [place] [address] 55971 Calcium [Mass/Vol] 8.7 mg/dL Normal 8.5-10.5 [facility] Comment on above: Performed By: #### C BCA, CMP, 2532-0, 3083-1 #### [facility] ([id number]) [address] [place] [address] 97831 Chloride [Moles/Vol] 105 mmol/L Normal 98-109 [facility] Comment on above: Performed By: #### C BCA, CMP, 2532-0, 3083-03 #### [facility] ([id number]) [address] [place] [address] 56889 CO2 [Moles/Vol] 19 mmol/L Low 22-32 [facility] Comment on above: Performed By: #### C BCA, CMP, 2532-0, 1 #### [facility] ([id number]) [address] [place] [address] 16487 Creatinine [Mass/Vol] 0.38 mg/dL Low 0.40-1.00 [facility] Comment on above: Result Comment: METH OD TRACEABLE TO IDMS STANDARD Performed By: #### C BCA, CMP, 2532-0, 3083-03 #### [facility] ([id number]) [address] [place] [address] 49695 eGFR (CKD-EPI) NON-RACE DEPENDENT >90 Normal >59 [facility] Comment on above: Result Comment: Reported eGFR is based on the CKD-EPI 2020 equation that does not use a race coefficient. Performed By: #### C BCA, CMP, 2532-0, 3083-1 #### [facility] ([id number]) [address] [place] [address] 79992 Glucose [Mass/Vol] 93 mg/dL Normal 65-99 [facility] Comment on above: Performed By: #### C BCA, CMP, 2532-0, 3083-1 #### [facility] ([id number]) [address] [place] [address] 18552 Potassium [Moles/Vol] 3.5 mmol/L Normal 3.5-5.0 [facility] Comment on above: Performed By: #### C BCA, CMP, 2-0, 3083-1 #### [facility] ([id number]) [address] [place] [address] 64094 Protein [Mass/Vol] 6.7 g/dL Normal 6.0-8.0 [facility] Comment on above: Performed By: #### C BCA, CMP, 0, 3083-03 #### [facility] ([id number]) [address] [place] [address] 91416 Sodium [Moles/Vol] 135 mmol/L Normal 134-146 [facility] Comment on above: Performed By: #### C BCA, CMP, 0, 3083- #### [facility] ([id number]) [address] [place] [address] 06492 Urea nitrogen [Mass/Vol] 8 mg/dL Normal 5-23 [facility] Comment on above: Performed By: #### C BCA, CMP, 2-0, 3083- #### [facility] ([id number]) [address] [place] [address] 95828 LDH [Catalytic activity/Vol] on 02-01-2024 LDH 107 U/L Normal 100-235 [facility] Comment on above: Performed By: #### C BCA, CMP, 2532-0, 3083- #### [facility] ([id number]) [address] [place] [address] URIC ACIDon 02-01-2024 Urate [Mass/Vol] 4.9 mg/dL Normal 2.6-7.2 [facility] Comment on above: Performed By: #### C BCA, CMP, 2532-0, 3084-1 #### [facility] ([id number]) [address] [place] [address] 93277 PROTEIN CREAT RATIOon 2023 RANDOM URINE PROTEIN 190 mg/L High <120 [facility] Comment on above: Performed By: #### U PCR #### [facility] ([id number]) [address] [place] [address] 59702 U/PRO/STREET SWEEPER RATIO CALC 0.11 Normal <0.2 [facility] Comment on above: Result Comment: Neph rotic Syndrome is associated with ratios >3.5 Performed By: #### U PCR #### [facility] ([id number]) [address] [place] [address] 42089 URINE CREATININE,RDM 177.57 mg/dL Normal [facility] Comment on above: Performed By: #### U PCR #### [facility] ([id number]) [address] [place] [address] 35863 URINALYSISon 01-31-2024 Bilirubin Ql (U) Negative Normal NEG [facility] Comment on above: Performed By: #### U A #### [facility] ([id number]) [address] [place] [address] 57235 BLOOD/HGB Negative Normal NEG [facility] Comment on above: Performed By: #### U A #### [facility] ([id number]) [address] [place] [address] 11297 Color (U) YELLOW Normal YELLOW [facility] Comment on above: Performed By: #### U A #### [facility] ([id number]) [address] [place] [address], [place] [address] Glucose Ql (U) Negative Normal NEG [facility] Comment on above: Performed By: #### U A #### [facility] ([id number]) [address] [place] [address], [place] [address] Ketones Ql (U) Trace Abnormal NEG [facility] Comment on above: Performed By: #### U A #### [facility] ([id number]) [address] [place] [address], [place] [address] Leukocyte esterase Test strip Ql (U) Trace Abnormal NEG [facility] Comment on above: Performed By: #### U A #### [facility] ([id number]) [address] [place] [address] [place] [address] Nitrite Ql (U) Negative Normal NEG [facility] Comment on above: Performed By: #### U A #### [facility] ([id number]) [address] [place] [address], [place] [address] pH (U) 6.0 [pH] Normal 5.0-8.5 [facility] Comment on above: Performed By: #### U A #### [facility] ([id number]) [address] [place] [address], [place] [address] Protein Ql (U) Negative Normal NEG [facility] Comment on above: Performed By: #### U A #### [facility] ([id number]) [address] [place] [address], [place] [address] R.B.CELLS 0 /hpf Normal 0-5 [facility] Comment on above: Performed By: #### U A #### [facility] ([id number]) [address] [place] [address], [place] [address] Specific gravity (U) [Rel density] >1.030 Normal 1.003-1.035 [facility] Comment on above: Performed By: #### U A #### [facility] ([id number]) [address] [place] [address] 64339 SQUAMOUS EPITHELIUM 6 /hpf High 0-5 [facility] Comment on above: Performed By: #### U A #### [facility] ([id number]) [address] [place] [address] 86762 TURBIDITY CLEAR Normal CLEAR [facility] Comment on above: Performed By: #### U A #### [facility] ([id number]) [address] [place] [address] 60096 Urobilinogen Qn (U) 0.2 {Marce'U}/dL Normal <1.1 [facility] Comment on above: Performed By: #### U A #### [facility] ([id number]) [address] [place] [address] 80549 W.B.CELLS 4 /hpf Normal 0-5 [facility] Comment on above: Performed By: #### U A #### [facility] ([id number]) [address] [place] [address] 83938 IGP,APTIMA HPV,AGE GDLNon AGE GDLN ACOG TESTING Note . [facility] Comment on above: TESTS RESULT FLAG UN ITS REF RANGE LAB Clinician Provided Cytology Information Source.............Cervix Other.............. No. of containers..01 ThinPrep Vial Age Algo ACOG Velia... FLAG LEGEND: L-Low Normal,H-High Normal,LL-Alert Low,HH-Alert High <-Panic Low,>-Panic High,A-Abnormal,AA-Critical Abnormal Performed at: 01 =G [facility] [place] [address] Dodie Felix MD, IGP, RFX APTIMA HPV ASCU Note . [facility] Comment on above: TESTS RESULT FLAG UN ITS REF RANGE LAB DIAGNOSIS: 02 NEGATIVE FOR INTRAEPITHELIAL LESION OR MALIGNANCY. FUNGAL ORGANISMS MORPHOLOGICALLY CONSISTENT WITH SHILOH SPECIES ARE PRESENT. Specimen adequacy: 02 Satisfactory for evaluation. No endocervical component is identified. Performed by: Gallo Lyons, Fast Food Services Manager ([facility]) . 02 Note: Note 02 The [...] <-Panic Low,>-Panic High,A-Abnormal,AA-Critical Abnormal Performed at: [address] [id number] Dodie Felix MD, Performed at: =[facility] [id number] Senior Product Manager: Dodie Felix MD, Phone: [phone] Performed at: [address] [id number] Senior Product Manager: Dodie Felix MD, Phone: [phone] [facility] URINE CULTURE, ROUTINEon Bacteria identified Cx Nom (U) Urine Culture, Routine [facility] Healthcare Bacteria identified Cx Nom (U) Mixed urogenital seven [facility] Bacteria identified Cx Nom (U) 25,000-50,000 colony forming units per mL [facility] Bacteria identified Cx Nom (U) [facility]formed [facility]: [facility] B[facility] identified Cx Nom (U) [address] [place], [place] [id number] [facility] Bacteria identified Cx Nom (U) Senior Product Manager: Anirudh Avendano PhD, Phone: [phone] [facility] URETHRITIS/DISCHARGE PLUS VA GINITIS (HTRX)on 01-20-2024 ATOPOBIUM VAGINAE 18.808 Abnormal [facility] ATOPOBIUM VAGINAE Detected Abnormal [facility] BVAB 2,3 (BACTERIAL VAGINOSIS ASSOCIATED BACTERIA 2, 3); MOBILUNCUS SPP 0 [facility] BVAB 2,3 (BACTERIAL VAGINOSIS ASSOCIATED BACTERIA 2, 3); MOBILUNCUS SPP Not detected [facility] SHILOH ALBICANS, PARAPSILOSIS, TROPICALIS 26.752 Abnormal [facility] SHILOH ALBICANS, PARAPSILOSIS, TROPICALIS Detected Abnormal [facility] SHILOH GLABRATA 0 [facility] SHILOH GLABRATA Not detected [facility] SHILOH KRUSEI 0 [facility] Healt hcare SHILOH KRUSEI Not detected [facility] CHLAMYDIA TRACHOMATIS 0 [facility] Healthcare CHLAMYDIA TRACHOMATIS Not detected [facility] Healthcare ERMB, C; MEFA 17.114 Abnormal [facility] Health care ERMB, C; MEFA Detected Abnormal [facility] care GARDNERELLA VAGINALIS 22.039 Abnormal [facility] Healthcare GARDNERELLA VAGINALIS Detected Abnormal [facility] Healthcare Interpretation and review of laboratory results Abnormal [facility] Healthca re MEGASPHAERA (TYPES 1, 2) 0 [facility] Healthcare MEGASPHAERA (TYPES 1, 2) Not detected [facility] MYCOPLASMA GENITALIUM 0 [facility] MYCOPLASMA GENITALIUM Not detected [facility] NEISSERIA GONORRHOEAE 0 [facility] NEISSERIA GONORRHOEAE Not detected [facility] TET B, TET M 17.484 Abnormal [facility] Healthc are TET B, TET M Detected Abnormal [facility] are TRICHOMONAS VAGINALIS 0 [facility] TRICHOMONAS VAGINALIS Not detected [facility] Urinalysis macro (dipstick) panel (U)on 01-19-2024 Bilirubin, UA Negative Negative - 4(70) +++ mg/dL [facility] Blood, UA Negative Negative - 50 Jimmy/mcL [facility] Healthcare Clarity, UA Clear [facility] Healthca re Color, UA Light Yellow [facility] are Glucose, UA Negative Negative - 1999(110) ++++ mg/dL [facility] Interpretation and review of laboratory results Abnormal [facility] Healthca re Ketones, UA Negative Negative - 160(16) ++++ mg/dL [facility] Leukocytes, UA Negative Negative - 500+++ Minnie/mcL [facility] Nitrite, UA Negative Negative - Positive [facility] pH, UA 6.5 5 - 9 [facility] Health[facility] e Protein, UA Positive Negative - 1999(20) ++++ mg/dL [facility] Spec Grav, UA 1.02 1 - 1.03 [facility] care Urobilinogen, UA 1.0 0.2 - 12 mg/dL [facility] Urinalysis macro (dipstick) panel (U)on 12-22-2023 Bilirubin, UA Negative Negative - 4(70) +++ mg/dL [facility] Blood, UA Negative Negative - 50 Jimmy/mcL [facility] Clarity, UA Clear [facility] Color, UA Yellow [facility] Glucose, UA Negative Negative - 1999(110) ++++ mg/dL [facility] Interpretation and review of laboratory results Abnormal [facility] Ketones, UA Negative Negative - 160(16) ++++ mg/dL [facility] Leukocytes, UA Moderate Negative - 500+++ Minnie/mcL [facility] Nitrite, UA Negative Negative - Positive [facility] pH, UA 6.5 5 - 9 [facility] Protein, UA Negative Negative - 1999(20) ++++ mg/dL [facility] Spec Grav, UA 1.030 1 - 1.[address] [facility] Urobilinogen, UA 1.0 0.2 - 12 mg/dL [facility] Health[facility] e ALL CBC WITH AUTO DIFFon BASOPHILS ABSOLUTE AUTO 0.0 [facility] Basophils/100 WBC (Bld) 0.5 % 0.2 - 2.0 % [facility] Eosinophils/100 WBC (Bld) 1.0 % 0.9 - 7.0 % [facility] Erythrocyte distribution width (RBC) [Ratio] 14.7 % 11.0 - 15.0 % [facility] Hematocrit (Bld) [Volume fraction] 34.1 % Low 36.0 - 48.0 % [facility] e Hemoglobin (Bld) [Mass/Vol] 10.8 g/dL Low 12.0 - 16.0 g/dL [facility] IMMATURE GRANULOCYTES ABS AUTO 0.02 [facility] Immature granulocytes/100 WBC (Bld) 0.3 % 0.0 - 0.5 % [facility] Interpretation and review of laboratory results Abnormal [facility] re LYMPHOCYTES ABSOLUTE AUTO 2.2 [facility] Lymphocytes/100 WBC (Bld) 27.3 % 20.5 - 60.0 % [facility] MCH (RBC) [Entitic mass] 26.0 pg Low 26.7 - 34.0 pg [facility] MCHC (RBC) [Mass/Vol] 31.7 g/dL 29.9 - 35.2 g/dL [facility] MCV (RBC) [Entitic vol] 82.0 fL 81.0 - 99.0 fL [facility] MONOCYTES ABSOLUTE AUTO 0.3 [facility] Monocytes/100 WBC (Bld) 4.2 % 1.7 - 12.0 % [facility] NEUTROPHILS ABSOLUTE AUTO 5.3 [facility] Neutrophils/100 WBC (Bld) 66.7 % 43.0 - 75.0 % [facility] Platelet mean volume (Bld) [Entitic vol] 10.2 fL 9.5 - 13.5 fL [facility] TBH EO # 0.1 [facility] TB PLT 270 [facility] TBH RBC 4.16 Low [facility] TBH WBC 7.9 [facility] e CLINISYNC [facility] Health[facility] e HCG ( test) Ql (U)o n 12-10-2023 Interpretation and review of laboratory results Abnormal [facility] re Preg Test, Ur Positive [facility] Urinalysis macro (dipstick) panel (U)on 12-10-2023 Bilirubin, UA Negative Negative - 4(70) +++ mg/dL [facility] Blood, UA Negative Negative - 50 Jimmy/mcL [facility] Clarity, UA Clear [facility] re Color, UA Yellow [facility] Glucose, UA Negative Negative - 1999(110) ++++ mg/dL [facility] Interpretation and review of laboratory results Abnormal [facility] re Ketones, UA Negative Negative - 160(16) ++++ mg/dL [facility] Leukocytes, UA Positive Negative - 500+++ Minnie/mcL [facility] Comment on above: small Nitrite, UA Negative Negative - Positive [facility] pH, UA 7.5 5 - 9 [facility] Protein, UA Negative Negative - 1999(20) ++++ mg/dL [facility] Spec Grav, UA 1.015 1 - 1.[address] [facility] Urobilinogen, UA 0.2 0.2 - 12 mg/dL [facility] e Consent Formson 09-03-2023 Consent Forms [id number] .[facility] Resultson 0 09-03-2023 Lab - Toxicology Results [id number] .[facility] Summaryon 2023 ED Clinical Summary [facility] ? Urgent Care [address] [place] [address] Clinical Summary PERSON INFORMATION Name: FLORINDA ORTEGA Age: 22 Years Sex: MALE : 2000 MRN: Acct#: Visit Reason: Medical screening exam; [facility]BIGNIEW SHARPE Arrival: 09/02/2023 11:09:30 Discharge: 09/02/2023 11:41:00 LOS: 000 00:32 Check In: 09/02/2023 11:09:30 Checkout: 09/02/2023 11:41:00 Address: [facility] [address] PCP: Bina Zamora CNP PROVIDER INFORMATION Provider [...] of Follow-Up: With: Address: When: Pamela Ortiz [address] [place] [address], [facility] [address], [place] [address] Business (1) Comments: Sales Representative Uniforms to 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 Abstain from any alcohol or illicit drugs With: Address: When: Bina Zamora [address] [place] [address] Business (1) , only if needed DIAGNOSIS: Physical exam Patient Understands: Yes - Patient/family/caregi carlos verbalizes understanding of instructions given Comment: Normal [facility] ED Patient Summaryon 024 ED Patient Summary [facility] ? Urgent Care [address] [place], [place] [id number] PATIENT DISCHARGE INSTRUCTIONS Patient Information Name: FLORINDA ORTEGA Age: 22 Years Date of : 2000 Reason For Visit: Medical screening exam; [facility] Ar[facility] Time: 09/02/2023 11:09:30 Primary Care Physician: Bina Zamora CNP Attending Physician: MIRIAN HERBERT Comment: Patient Education With: Address: When: Pamela Harriskirstentelma [address], [address], [place] [address] Business (1) Comments: Sales Representative Uniforms to 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 Abstain from any alcohol or illicit drugs With: Address: When: Bina Zamora [address] [place] [address] Business (1) , only if needed Care care is health care during . It helps you and your unborn baby (fetus) stay as healthy as possible. care may be provided by a pathology teacher, a family practice doctor, a mid-level practitioner (nurse practitioner or physician senior office support assistant sosa), or a childbirth and doctor (flight engineer helicopter). How does this affect me? During , [...] procedures you have had. ? Any current eahc-rqd-cjcjtho or prescription medicines, herbs, or supplements that [...] about any s (more content not included)... [facility] Triage Industrialon 09-02-19 24 Drug Screen Complete Collected Normal [facility] Comment on above: Performed By: #### 1 [id number] #### [facility] (DEFAULT) [address] [place] [address] Urgent Care Note- Provideron 09-02-2023 Urgent Care [...] pharynx is pink and moist. NECK: -Supple (vnhf-ot-buqor): non-tender. CARD: -Rate and rhythm: Regular -Edema: [...] Plan Assessment and Plan: Diagnosis: Physical exam ([id number] Z00.00). Cleared for employment [Electronically Signed on: 09/02/2023 11:41 EDT] MIRIAN HERBERT [Verified on: 09/02/2023 11:41 EDT] MIRIAN HERBRET Normal [facility] Recordon 024 Urgent Care Record [facility] ? Urgent Care [address] [place] [address] PATIENT DISCHARGE INSTRUCTIONS Patient Information Name: FLORINDA ORTEGA Age: 22 Years Date of : 2000 [facility]: [id number] Reason For Visit: Medical screening exam; [facility] Arrival Time: 09/02/2023 11:09:30 Primary Care Physician: Bina Zamora CNP Attending Physician: MIRIAN HERBERT Comment: Visit Diagnosis: Diagnoses This Visit Medical screening exam ([id number]) Physical exam (Z00.00) If you received any [...] documents With: Address: When: Pamela Ortiz [address] [facility], [address], [place] [address] Business (1) Comments: Sales Representative Uniforms to 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 Abstain from any alcohol or illicit drugs With: Address: When: Bina Zamora [address] [place] [address] Business (1) , only if needed Medication Information: The exam and treatment you received today in the [facility] were for an urgent problem and are not intended as complete care. It is important for you to follow up with a doctor, nurse practitioner, or physician?s senior office support assistant sosa for ongoing care. If your symptoms become [...] so we can reach you if necessary. [facility] has provided you with a complete list of medications post discharge. Please inform your curriculum and instruction director/provider of your visit and for further instruction [...] possible. care may be provided by a pathology teacher, a family practice doctor, a mid-level practitioner (nurse practitioner or physician senior office support assistant sosa), or a childbirth and doctor (flight engineer helicopter). How does this affect me? During , [...] ? Any (more content not included)... Normal [facility] COVID/FLU RT-PCRon 3 SARS-CoV-2 (COVID-19) RNA [facility]+probe Ql (Unsp spec) Negative [facility] Other COVID/FLU RT-PCR Negative [facility] [employer] Other CHLAMYDIA/GONOCOCCUS [facility] (SW AB/URINE/PAPon 05-22-2022 Chlamydia trachomatis, [facility] Negative Normal Negative [facility] Comment on above: Performed By: #### C T/NGNA #### [facility] [address] [place] [address] Dr. Clau Valdivia Neisseria gonorrhoeae, [facility] Negative Normal Negative [facility] Comment on above: Performed By: #### C T/NGNA #### [facility] [address] [place] [address] Dr. Clau Valdivia VAGINITIS/VAGINOSIS DNA PROB Melvin 05-21-2022 Shiloh species Positive Abnormal Negative [facility] Comment on above: Performed By: #### V AGINT #### [facility] [address] [place] [address] Dr. Clau Valdivia Gardnerella vaginalis Positive Abnormal Negative [facility] Comment on above: Performed By: #### V AGINT #### [facility] [address] [place] [address] Dr. Clau Valdivia Trichomonas vaginalis Negative Normal Negative [facility] Comment on above: Performed By: #### V AGINT #### [facility] [address] [place] [address] Dr. Clau Valdivia COVID + FLU Quick Testingon 04-20-2022 SARS-CoV-2 (COVID-19) RNA [facility]+probe Ql (Unsp spec) Negative [facility] Other COVID + FLU Quick Testing Negative [employer] Other Quick Strepon 04-20-2022 S. pyogenes Org specific cx Ql (Throat) Negative [facility] Other Quick Strep [facility] [facility] Other Vital Signs Date Time Vital Sign Value Performing Clinician Facility 04-21-2024 09:28-0500 Body mass index (BMI) [Ratio] 36.15 kg/m2 [employer] Work Phone: [facility] 04-21-2024 09:28-0500 Body weight 104.69 kg [employer] Work Phone: [facility] 04-21-2024 09:28-0500 Diastolic blood pressure 80 mm[Hg] [employer] [address] Work Phone: [facility] 04-21-2024 09:28-0500 Systolic blood pressure 120 mm[Hg] Angelina Roslyn [address] Work Phone: [facility] 04-07-2024 08:54-0500 Body mass index (BMI) [Ratio] 36.96 kg/m2 Ana Luisa ROY Work Phone: [facility] 04-07-2024 08:54-0500 Body weight 107.05 kg Ana Luisa ROY Work Phone: [facility] 04-07-2024 08:54-0500 Diastolic blood pressure 74 mm[Hg] Ana Luisa ROY Work Phone: [facility] 04-07-2024 08:54-0500 Systolic blood pressure 120 mm[Hg] Ana Luisa ROY Work Phone: [facility] 03-29-2024 10:14-0500 Body mass index (BMI) [Ratio] 35.89 kg/m2 Angelina Roslyn [employer] Work Phone: [facility] 03-29-2024 10:14-0500 Body weight 103.93 kg Angelina Roslyn DO Work Phone: [facility] 03-29-2024 10:14-0500 Diastolic blood pressure 72 mm[Hg] Angelina Roslyn DO Work Phone: [facility] 03-29-2024 10:14-0500 Systolic blood pressure 110 mm[Hg] Angelina Roslyn DO Work Phone: [facility] 03-08-2024 14:41-0500 Body mass index (BMI) [Ratio] 35.87 kg/m2 Ana Luisa Zeny PA Work Phone: [facility] 03-08-2024 14:41-0500 Body weight 103.87 kg Ana Luisa Zeny PA Work Phone: [facility] 03-08-2024 14:41-0500 Diastolic blood pressure 74 mm[Hg] Ana Luisa Zeny PA Work Phone: [facility] 03-08-2024 14:41-0500 Systolic blood pressure 120 mm[Hg] Ana Luisa Zeny PA Work Phone: [facility] 02-23-2024 13:59-0500 Body mass index (BMI) [Ratio] 35.37 kg/m2 Angelina Roslyn DO Work Phone: [facility] 02-23-2024 13:59-0500 Body weight 102.42 kg Angelina Roslyn DO Work Phone: [facility] 02-23-2024 13:59-0500 Diastolic blood pressure 72 mm[Hg] Angelina Roslyn DO Work Phone: [facility] 02-23-2024 13:59-0500 Systolic blood pressure 118 mm[Hg] Angelina Roslyn DO Work Phone: [facility] 01-19-2024 13:35-0400 Body mass index (BMI) [Ratio] 34.43 kg/m2 Ana Luisa Zeny PA Work Phone: [facility] 01-19-2024 13:35-0400 Body weight 99.7 kg Ana Luisa Stratford PA Work Phone: [facility] 01-19-2024 13:35-0400 Diastolic blood pressure 70 mm[Hg] Ana Luisa ROY Work Phone: [facility] 01-19-2024 13:35-0400 Systolic blood pressure 108 mm[Hg] Ana Luisa Zeny ROY Work Phone: [facility] 12-22-2023 09:36-0400 Body mass index (BMI) [Ratio] 33.83 kg/m2 Angelina Roslyn DO Work Phone: [facility] 12-22-2023 09:36-0400 Body weight 97.98 kg Angelina Roslyn DO Work Phone: [facility] 12-22-2023 09:36-0400 Diastolic blood pressure 72 mm[Hg] Angelina Roslyn DO Work Phone: [facility] 12-22-2023 09:36-0400 Systolic blood pressure 110 mm[Hg] Angelina Roslyn DO Work Phone: [facility] 12-10-2023 13:39-0400 Body mass index (BMI) [Ratio] 33.67 kg/m2 [facility] 12-10-2023 13:39-0400 Body weight 97.52 kg [facility] 12-10-2023 13:39-0400 Diastolic blood pressure 78 mm[Hg] [facility] 12-10-2023 13:39-0400 Systolic blood pressure 112 mm[Hg] [facility] 07-19-2022 11:30-0400 Body height 167.64 cm Ne Henderson Other [employer] Other 07-19-2022 11:30-0400 Body mass index (BMI) [Ratio] 34.7 kg/m2 Ne Henderson Other [facility] [facility] Other 07-19-2022 11:30-0400 Body temperature 101 [degF] Ne Henderson Other [facility] Other 07-19-2022 11:30-0400 Body weight 97.52 kg Ne Henderson Other [facility] Other 07-19-2022 11:30-0400 Diastolic blood pressure 76 mm[Hg] Ne Henderson Other [facility] Other 07-19-2022 11:30-0400 Respiratory rate 18 /min Ne Santiago Other [employer] Other 07-19-2022 11:30-0400 SaO2% (BldA) [Mass fraction] 97 % Ne Henderson Other [facility] Other 07-19-2022 11:30-0400 Systolic blood pressure 113 mm[Hg] Ne Henderson Other [facility] Other 04-20-2022 10:50-0500 Body height 167.64 cm Anya Diane Other [employer] [facility] Other 04-20-2022 10:50-0500 Body mass index (BMI) [Ratio] 34.7 kg/m2 Anya Contreras Other [facility] Other 04-20-2022 10:50-0500 Body temperature 98.6 [degF] Anya Contreras Other [facility] Other 04-20-2022 10:50-0500 Body weight 97.52 kg Anya Contreras Other [facility] Other 04-20-2022 10:50-0500 Respiratory rate 18 /min Anya Contreras Other [facility] Other 04-20-2022 10:50-0500 SaO2% (BldA) [Mass fraction] 98 % Anya Lucasault Other [employer] [facility] Other Encounters Encounter Date Encounter Type Care Provider Facility Start: 04-21-2024 End: 04-21-2024 Bamboo flowsheet Angelina Roslyn DO Work Phone: [facility] Start: 04-21-2024 End: 04-21-2024 Bamboo flowsheet Angelina Roslyn DO Work Phone: [facility] Start: 04-21-2024 End: 04-21-2024 flow sheet Angelina Roslyn DO Work Phone: [facility] Comment on above: 38 weeks gestation o f ; Third trimester Start: 04-21-2024 End: 04-21-2024 ambulatory ANGEILNA ROSLYN Not Available Start: 04-17-2024 End: 04-19-2024 Clinisync Result Encounter Generic External Data Provider [facility] External Department Unsolicited Start: 04-17-2024 End: 04-19-2024 Clinisync Result Encounter Generic External Data Provider [facility] External Department Unsolicited Start: 04-14-2024 End: 04-14-2024 Bamboo flowsheet Angelina Roslyn DO Work Phone: [facility] Start: 04-14-2024 End: 04-14-2024 Bamboo flowsheet Angelina Roslyn DO Work Phone: [facility] Start: 04-14-2024 End: 04-14-2024 flow sheet Angelina Roslyn DO Work Phone: [facility] Comment on above: Third trimester preg sharee; 37 weeks gestation of Start: 04-14-2024 End: 04-14-2024 ambulatory ANGELINA ROSLYN [...] Not Available Start: 01-31-2024 End: 02-01-2024 ambulatory [facility] Start: 01-20-2024 End: 01-22-2024 Clinisync [...] Not Available Start: 01-07-2024 End: 01-07-2024 ambulatory [facility] Facility:[facility] Start: 12-30-2023 End: 12-30-2023 ambulatory [facility] Facility:[facility] Start: 12-22-2023 End: [...] 09-02-2023 End: 09-02-2023 ambulatory Bina Subha Zamora Facility:[facility] Start: 07-16-2023 End: 07-16-2023 ambulatory ANA LUISA ZENY Not Available Start: 06-01-2023 End: 06-01-2023 ambulatory ANGELINA ROSLYN Not Available Start: 05-25-2023 End: 05-25-2023 ambulatory ANGELINA ROSLYN Not Available Start: 05-18-2023 End: 05-18-2023 ambulatory ANA LUISA ZENY Not Available Start: 05-04-2023 End: 05-04-2023 ambulatory ANGELINA ROSLYN Not Available Start: 04-11-2023 End: 04-11-2023 ambulatory MARVEL M R [facility] Start: 07-19-2022 End: 07-19-2022 ambulatory Ne Henderson Other [employer] Other Start: 07-19-2022 Office outpatient vi sit 25 minutes Ne Henderson [facility] Start: 05-19-2022 End: 05-19-2022 ambulatory ANA LUISA ZENY . Facility: Start: 04-20-2022 End: 04-20-2022 ambulatory Anya Contreras Other [employer] Other Start: 04-20-2022 Office outpatient vi sit 25 minutes Anya Contreras [facility] Procedures Date Procedure Procedure Detail Performing Clinician Start: 04-21-2024 Urnls dip stick/tabl et rgnt non-auto w/o micrscp Angelina Roslyn DO Work Phone: Start: 04-17-2024 Bacteria identified in Urine by Culture Generic External Data Provider Start: 04-14-2024 Urnls dip stick/tabl et rgnt non-auto w/o micrscp Angelina Roslny DO Work Phone: Start: 04-11-2024 Bacteria identified in Urine by Culture Generic External Data Provider Start: 04-07-2024 Urnls dip stick/tabl et rgnt non-auto w/o micrscp Ana Luisa ROY Work Phone: Start: 04-07-2024 ALL MISCELLANEOUS TEST Ana Luisa ROY Work Phone: Start: 04-01-2024 [...] Treatment Date Care Activity Detail Author Start: 05-30-2024 End: 05-30-2024 ambulatory 05/30/2024 9:30 AM EDT Visit [facility] [address] [address] Ana Luisa Moura PA [address] [place], [place] [id number] [facility] Start: 04-21-2024 End: 04-21-2024 Patient encounter procedure [facility] Comment on above: Arrived Start: 04-14-2024 End: 04-14-2024 Patient encounter procedure 04/14/2024 10:00 AM EST Routine [facility] [address] [facility] [facility] [id number] Angelina Mcgowan, DO [address] [place], [place] [id number] [facility] Start: 04-07-2024 End: 04-07-2025 [...] EST Ancillary Procedure [facility] [address] [facility] [facility] [id number] [facility] Start: 02-23-2024 End: 02-22-2025 CBC panel - Blood by Automated count CBC Lab Routine Diabetes mellitus screening Expected: 02/23/2024 (Approximate), Expires: 02/22/2025 [facility] Comment on above: Expected: 02/23/2024 (Approximate), Expires: 02/22/2025 Start: 02-23-2024 End: 02-22-2025 Measurement of glucose 1 hour after glucose challenge for glucose tolerance test Glucose tolerance, 1 hour Lab Routine Diabetes mellitus screening Expected: 02/23/2024 (Approximate), Expires: 02/22/2025 [facility] Comment on above: Expected: 02/23/2024 (Approximate), Expires: 02/22/2025 Start: 02-23-2024 End: 02-22-2025 US for US OB SCAN FOR GROWTH Imaging Routine size inconsistent with dates Expected: 02/23/2024 (Approximate), Expires: 02/22/2025 [facility] Work Phone: Comment on above: Expected: 02/23/2024 (Approximate), Expires: 02/22/2025 Start: 02-23-2024 End: 02-23-2024 Patient encounter procedure 02/23/2024 1:40 PM EST Routine [facility] [address] [place] [phone] Angelina Mcgowan, DO [address] [place], [place] [id number] Arrived [facility] Comment on above: Arrived Start: 02-16-2024 End: 02-16-2024 Patient encounter procedure 02/16/2024 1:50 PM EST Routine [facility] [address] [place] [address] Angelina Mcgowan, DO [address] [place] [address] [facility] Start: 01-19-2024 End: 01-19-2024 Patient encounter procedure [facility] Comment on above: Arrived Start: 12-22-2023 End: 12-22-2023 Patient encounter procedure [facility] Comment on above: Arrived Start: 12-22-2023 End: 12-22-2023 Professional / ancillary services management 12/22/2023 8:00 AM EDT Ancillary Procedure [facility] [address] [facility] [id number] [facility] Start: 12-21-2023 End: 12-21-2023 Patient encounter procedure 12/21/2023 9:00 AM EDT Routine [facility] [address] [facility] [id number] Angelina Mcgowan, DO [address] [place] [address] [facility] Start: 12-10-2023 End: 12-09-2024 ABO/Rh ABO/Rh Lab Routine Missed menses Expected: 12/10/2023 (Approximate), Expires: 12/09/2024 [facility] Comment on above: Expected: 12/10/2023 [...] Missed menses Expected: 12/10/2023 (Approximate), Expires: 12/09/2024 [facility] Work Phone: Comment on above: Expected: 12/10/2023 (Approximate), Expires: 12/09/2024 Start: 12-10-2023 End: 12-09-2024 Drugs of abuse panel - Urine by Screen method Rapid drug screen, urine Lab Routine Encounter for supervision of normal first in first trimester , unspecified gestational age Expected: 12/10/2023 (Approximate), Expires: 12/09/2024 [facility] Comment on above: Expected: 12/10/2023 (Approximate), Expires: 12/09/2024 Start: 12-10-2023 End: 12-09-2024 US for [facility] Comment on above: Expected: 12/10/2023 (Approximate), Expires: 12/09/2024 Start: 11-22-2023 Influenza vaccination Influenza Vacc ine (#1) [facility] Bacteria identified in Urine by Culture Urine culture Microbiology Routine Missed menses Ordered: 12/10/2023 [facility] Comment on above: Ordered: 12/10/2023 CBC W Auto Different ial panel - Blood CBC and differential Lab Routine Missed menses Ordered: 12/10/2023 [facility] Comment on above: Ordered: 12/10/2023 CHLAMYDIA TRACHOMATI S (GENITO/STI) CHLAMYDIA TRACHOMATIS (GENITO/STI) Lab Routine STD exposure Ordered: 01/19/2024 [facility] Comment on above: Ordered: 01/19/2024 Cytology Cervical or vaginal smear or scraping study Pap Smear Pathology and Cytology Routine Well woman exam with routine gynecological exam Ordered: 01/19/2024 [facility] Comment on above: Ordered: 01/19/2024 Hemoglobin A1c/Hemoglobin.total in Blood Hemoglobin A1c Lab Routine Third trimester Ordered: 03/08/2024 [facility] Work Phone: Comment on above: Ordered: 03/08/2024 Hemoglobin A1c/Hemoglobin.total in Blood Hemoglobin A1c Lab Routine Missed menses Ordered: 12/10/2023 [facility] Comment on above: Ordered: 12/10/2023 Hepatitis B virus surface Ag [Presence] in Serum or Plasma by Immunoassay Hepatitis B surface antigen Lab Routine Missed menses Ordered: 12/10/2023 [facility] Comment on above: Ordered: 12/10/2023 Hepatitis C virus Ab [Presence] in Serum or Plasma by Immunoassay Hepatitis C antibody Lab Routine Missed menses Ordered: 12/10/2023 [facility] Comment on above: Ordered: 12/10/2023 HIV-1/HIV-2 antigen/antibody combination immunoassay HIV-1 and HIV-2 antibodies Lab Routine Missed menses Ordered: 12/10/2023 [facility] Comment on above: Ordered: 12/10/2023 Neisseria gonorrhoea e DNA [Presence] in Unspecified specimen by [facility] with probe detection Neisseria gonorrhea DNA probe, direct Lab Routine STD exposure Ordered: 01/19/2024 [facility] Comment on above: Ordered: 01/19/2024 Reagin Ab [Presence] in Serum by RPR RPR Lab Routine Missed menses Ordered: 12/10/2023 [facility] Comment on above: Ordered: 12/10/2023 Rubella antibody, IgG Rubella an tibody, IgG Lab Routine Missed menses Ordered: 12/10/2023 [facility] Comment on above: Ordered: 12/10/2023 SURESWAB(R) ADVANCED VAGINITIS PLUS, TMA SURESWAB(R) ADVANCED VAGINITIS PLUS, TMA Pathology and Cytology Routine Vaginal discharge Ordered: 01/19/2024 [facility] Work Phone: Comment on above: Ordered: 01/19/2024 Immunizations Immunization Date Immunization Notes Care Provider Sara zaidi 01-25-2021 influenza virus vacc ine, unspecified formulation Angelina Mcgowan DO Work Phone: [facility] Payers Date Payer Category Payer Unknown [id number] 2019 Private Health Insurance [id number] 2002 Unknown [id number] 2.16.84 [id number] 2002 Unknown [id number] 2.16.8 [id number] 2002 Unknown [id number] 2.16.84 0.1.509384.3.579.2.1286 2002 Unknown [id number] 2.16.84 0.1.407482.3.579.2.1258 2002 Unknown [id number] 2.16.84 0.1.247385.3.579.2.1258 2002 Unknown [id number] 2.16.84 0.1.472610.3.579.2.1258 2002 Unknown [id number] 2.16.84 0.1.626289.3.579.2.1258 2002 Unknown [id number] 2.16.84 0.1.025845.3.579.2.1258 2002 Unknown [id number] 2.16.84 0.1.823730.3.579.2.1258 2002 Unknown [id number] 2.16.84 0.1.518385.3.579.2.1258 2002 Unknown [id number] 2.16.84 0.1.479057.3.579.2.1258 2002 Unknown [id number] 2.16.84 0.1.976590.3.579.2.1258 2002 Unknown [id number] 2.16.84 0.1.316958.3.579.2.1258 2002 Unknown [id number] 2.16.84 0.1.905591.3.579.2.1258 2002 Unknown [id number] 2.16.84 0.1.997984.3.579.2.1258 2002 Unknown [id number] 2.16.84 0.1.145358.3.579.2.1258 2002 Unknown [id number] 2.16.84 0.1.038404.3.579.2.9 1959 Unknown [id number] Social History Date Type Detail Facility Unknown if ever smoked [facility] Other Sex Assigned At [facility] Other Tobacco smoking status LAIS Tobacco smoking consumption unknown [facility] Start: 08-11-2023 [facility] Start: 2000 Sex assigned at Not on file [facility] Clinical Notes 04-20-2022 to 04-21-2024 Ruthy Alfonso, AUTOMOBILE INSPECTOR - 04/21/2024 9:30 AM Batsheva Alfonso, AUTOMOBILE INSPECTOR - 04/14/2024 10:00 AM Thien Zeny, MANUELA - 04/07/2024 8:50 AM Lizzy Mcdonnell, AUTOMOBILE INSPECTOR - 03/29/2024 10:10 AM EST Note Date & Type Note Facility 04-21-2024 History of Presen t illness Narrative Reason for Appointment: Patient ID: Florinda Ortega is a 23 y.o. female who presents for Well Women Visit Patient presents today for Return OB appointment. MEDICATIONS Current Outpatient Medications Medication Instructions iron polysaccharides (PROFE) 391.3 mg, Oral, Daily ondansetron ODT (ZOFRAN-ODT) 4 mg, As needed MV-Min-Fe Fum-FA-DHA ( 1 PO) Take by [...] nursing note reviewed. Exam conducted with a manager of it present. Vitals: Estimated body mass index is 36.15 kg/m as calculated from the following: Height as of 05/19/22: 5' 7 . Weight as of this encounter: 230 lb 12.8 oz. BP: 120/80 Patient's last menstrual period was 08/05/2023. ASSESSMENT & PLAN ICD-10-CM 1. 38 weeks gestation of Z3A.38 POCT urinalysis dipstick manually resulted 2. Third trimester Z34.93 POCT urinalysis dipstick manually resulted Patient presents today for a routine obstetrics appointment. Patient is currently 38w2d with a Estimated Date of Delivery: 05/03/24. Patient to have IOL on 04/27/24 at 0500. Patient was placed on the books with [facility] at last appointment. Patient to setup 6 week post appointment. IOL paperwork will be sent to [facility] along with episode prior to end of day today. Documented by Ruthy Alfonso LPN on behalf of: Angelina Mcgowan DO documented in this encounter [facility] 04-14-2024 History of Presen t illness Narrative Reason for Appointment: Patient ID: Florinda Ortega is a 23 y.o. female who presents for Routine Visit Patient presents today for Return OB appointment. MEDICATIONS Current Outpatient Medications Medication Instructions iron polysaccharides (PROFE) 391.3 mg, Oral, Daily ondansetron ODT (ZOFRAN-ODT) 4 mg, As needed MV-Min-Fe Fum-FA-DHA ( 1 PO) Take by [...] nursing note reviewed. Exam conducted with a manager of it present. Vitals: Estimated body mass index is 36.96 kg/m as calculated from the following: Height as of 05/19/22: 5' 7 . Weight as of 04/07/24: 236 lb. BP: Patient's last menstrual period was 08/05/2023. ASSESSMENT & PLAN ICD-10-CM 1. Third trimester Z34.93 POCT urinalysis dipstick manually resulted 2. 37 weeks gestation of Z3A.37 Patient presents today for a routine obstetrics appointment. Patient is currently 37w2d with a Estimated Date of Delivery: 05/03/24. Patient is scheduled for IOL on 04/27/2024, Dr. [facility] and patient was placed on the books. Patient will sign IOL consents at next appointment. Patient is currently 2cm and 60% effaced. Patient to return to clinic in 1 week for Return OB and sign IOL paperwork. Documented by Ruthy Alfonso LPN on behalf of: Angelina Mcgowan DO documented in this encounter [facility] 04-07-2024 History of Presen t illness Narrative [...] of: MANUELA Foy documented in this encounter [facility] 03-29-2024 History of Presen t illness [...] nursing note reviewed. Exam conducted with a manager of it present. Vitals: Estimated body mass index is [...] Angelina Mcgowan DO documented in this encounter [facility] 03-08-2024 History of Presen t illness [...] of: MANUELA Foy documented in this encounter [facility] 02-23-2024 History of Presen t illness [...] nursing note reviewed. Exam conducted with a manager of it present. Vitals: Estimated body mass index is [...] Angelina Mcgowan DO documented in this encounter [facility] 01-19-2024 History of Presen t illness [...] nursing note reviewed. Exam conducted with a manager of it present. Vitals: Estimated body mass index is [...] of: MANUELA Foy documented in this encounter [facility] 12-22-2023 History of Presen t illness [...] nursing note reviewed. Exam conducted with a manager of it present. Vitals: Estimated body mass index is [...] Angelina Mcgowan DO documented in this encounter [facility] 12-10-2023 History of Presen t illness [...] or undercooked meat, and stay away from [facility]. Patient has also been advised to [...] by: Karmen Alvares documented in this encounter [facility] 09-03-2023 Note [phone] [id number] 09-02-2023 Note Patient Education Ma terials Follows:and Gynecology Care care is health care during . It helps you and your unborn baby (fetus) stay as healthy as possible. care may be provided by a pathology teacher, a family practice doctor, a mid-level practitioner (nurse practitioner or physician senior office support assistant sosa), or a childbirth and doctor (flight engineer helicopter). How does this affect me? During , [...] procedures you have had. ? Any current [id number] or prescription medicines, herbs, or supplements that [...] week 24 of (more content not included)... [facility] 07-19-2022 Evaluation note Encounter Date Diagnosis [...] treatment plan. Patient left in stable condition. [facility] Other 04-29-2023 History general Narrative - Reported* Type Description Date Medical History ADD Medical History Born with cleft palette Surgical History tonsillectomy and adenoidectomy Surgical History cleft palette 3-4 repair Hospitalization History see above nadiya [facility] 03-05-2023 History general Narrative - Reported* Type Description Date Medical History ADD Medical History Born with cleft palette Surgical History tonsillectomy and adenoidectomy Surgical History cleft palette 3-4 repair [facility] 01-29-2023 Evaluation note* Encounter Date Diagnosis [...] this time you do not have COVID. [facility] Other Evaluation note* Diagnosis Second trimester state, [...] HealthcareEvaluation note* Diagnosis Third trimester state, incidental 37 weeks gestation of documented in this encounter [facility]* Diagnosis 38 weeks gestation of Third trimester state, incidental documented in this encounter [facility] Summary [...] and content) DATE CREATED AUTHOR 05/23/2022 [facility] DATE CREATED AUTHOR AUTHOR'S ORGANIZ ATION 09/03/2023 [facility] DATE CREATED AUTHOR AUTHOR'S ORGANIZ ATION 01/09/2024 [facility] DATE CREATED AUTHOR AUTHOR'S ORGANIZ ATION 02/01/2024 [facility] DATE CREATED AUTHOR AUTHOR'S ORGANIZ ATION 04/23/2024 [facility] EPIC REASON FOR VISIT (unrecogniz ed section and content) Reason Comments Routine Visit Reason Comments Initial Visit Reason Comments Well Women Visit FOR RECORDS PERTAINING TO PATIENTS WHO [...] BE BASED ON THE PRIMARY CLINICAL RECORDS. [facility]. provides no warranty or guarantee of the accuracy or completeness of information in this document.
[2024-04-27] MEDS: 0.9 % SODIUM CHLORIDE 1,000 ML 125 ML IV ×2 (05:08→11:35)
[2024-04-27] MEDS: AMPICILLIN SODIUM 2,000 MG in 0.9 % SODIUM CHLORIDE 100 ML 200 MG IV (05:25)
[2024-04-27] MEDS: OXYTOCIN/0.9 % SODIUM CHLORIDE 10 UNITS/500 ML PLAST..BAG 6 UNIT IV (05:30)
[2024-04-27 05:41] LABS: Hematocrit 32.5 % (36.0-48.0); Mean Corpuscular HGB Conc 30.8 g/dL (29.9-35.2); Mean Corpuscular Hemoglobin 22.7 pg (26.7-34.0); Mean Corpuscular Volume 73.9 fL (81.0-99.0); Mean Platelet Volume 9.6 fL (9.5-13.5); Platelet Count 343 10^3/uL (150-450); Red Cell Distribution Width 14.6 % (11.0-15.0); White Blood Count 11.4 10^3/uL (4.0-11.0)
[2024-04-27 06:02] LABS: Amphetamine Screen Urine NEGATIVE (NEGATIVE); Barbiturates Screen Urine NEGATIVE (NEGATIVE); Benzodiazepines Screen Urine NEGATIVE (NEGATIVE); Buprenorphine Screen Urine NEGATIVE (NEGATIVE); Cannabinoid Screen Urine NEGATIVE (NEGATIVE); Cocaine Screen Urine NEGATIVE (NEGATIVE); Methadone Screen Urine NEGATIVE (NEGATIVE); Methamphetamines Screen Urine NEGATIVE (NEGATIVE); Opiate Screen Urine NEGATIVE (NEGATIVE); Oxycodone Screen Urine NEGATIVE (NEGATIVE); Phencyclidine Screen Urine NEGATIVE (NEGATIVE); Tricyclic Antidepressant Urine NEGATIVE (NEGATIVE)
--- NOTE | 2024-04-27 07:15 | W.PC.ACHO ---
Registration Status: ADM IN Primary Language: Lebanese Preferred Language: Lebanese Report given to Matty Manning RN. Care relinquished at 0710. Bedside report completed. Active Medications Generic Name Dose Route Start Last Admin Trade Name Freq PRN Reason Stop Dose Admin Carboprost Tromethamine 250 mcg 04/27/24 04:52 Carboprost Tromethamine 250 Mcg/Ml 1 Ml Vial IM 04/29/24 04:53 Q15M PRN Bleeding Diphenhydramine HCl 25 mg 04/27/24 04:52 Diphenhydramine Hcl 50 Mg/Ml Vial IV 04/28/24 04:56 Q6H PRN Itching Ephedrine Sulfate 5 mg 04/27/24 04:52 Ephedrine Sulfate 50 Mg/Ml Vial IV 04/28/24 04:56 Q5M PRN Blood Pressure - Low Fentanyl Citrate 100 mcg 04/27/24 04:52 Fentanyl Citrate/Pf 100 Mcg/2 Ml Vial EPIDURAL ONCE PRN epidural Fentanyl Citrate 100 mcg 04/27/24 04:52 Fentanyl Citrate/Pf 100 Mcg/2 Ml Vial EPIDURAL ONCE PRN epidural Tranexamic Acid 1,000 mg/ 110 mls @ 440 mls/hr 04/27/24 04:52 Sodium Chloride IV 04/29/24 04:53 ONCE PRN Uterine Bleeding Sodium Chloride 1,000 mls @ 125 mls/hr 04/27/24 05:00 04/27/24 05:08 Sodium Chloride 0.9% 1,000 Ml IV 125 mls/hr .Q8H PORTIA Administration Oxytocin/Sodium Chloride 10 units in 500 mls @ 6 mls/hr 04/27/24 05:00 04/27/24 07:05 Pitocin 10 Unit/500 Ml-Ns IV 8 milliunit/min TITR PORTIA 24 mls/hr Infusion Protocol 2 MILLIUNIT/MIN Ampicillin 1,000 mg/ Sodium 50 mls @ 100 mls/hr 04/27/24 09:30 Chloride IV Q4H PORTIA Oxytocin/Sodium Chloride 20 units in 1,000 mls @ 125 mls/hr 04/27/24 04:52 Pitocin 20 Unit/1,000 Ml-Ns IV Q8H PRN POST DELIVERY Ropivacaine/Sodium Chloride 400 mg in 200 mls @ 6 mls/hr 04/27/24 05:00 Naropin 0.2% 400 Mg/200 Ml Bag EPIDURAL Q24H PORTIA Lidocaine 5 ml 04/27/24 04:52 Lidocaine Viscous 2% 15 Ml Solution TOPICAL 04/29/24 04:54 ONCE PRN Pain Lidocaine 1 ml 04/27/24 04:52 Lidocaine Hcl 1% 200 Mg/20 Ml Mdv INJ 04/29/24 04:54 ONCE PRN Pain Lidocaine 5 ml 04/27/24 04:52 Lidocaine Hcl 2% Pf 100 Mg/5 Ml Vial INJ 04/28/24 04:56 Q1H PRN Epidural Methylergonovine Maleate 0.2 mg 04/27/24 04:52 Methylergonovine Maleate 0.2 Mg/Ml Ampule IM 04/29/24 04:53 ONCE PRN Uterine Contractility/Contract Methylergonovine Maleate 0.2 mg 04/27/24 04:52 Methylergonovine Maleate 0.2 Mg Tablet PO 04/29/24 04:53 Q4H PRN Uterine Contractility/Contract Misoprostol 600 mcg 04/27/24 04:52 Misoprostol 100 Mcg Tablet PO 04/29/24 04:53 ONCE PRN Uterine Bleeding Misoprostol 800 mcg 04/27/24 04:52 Misoprostol 100 Mcg Tablet SL 04/29/24 04:53 ONCE PRN Uterine Bleeding Misoprostol 1,000 mcg 04/27/24 04:52 Misoprostol 100 Mcg Tablet LA 04/29/24 04:53 ONCE PRN Uterine Bleeding Nalbuphine HCl 10 mg 04/27/24 04:52 Nalbuphine Hcl 10 Mg/Ml Ampule IV Q3H PRN Pain Naloxone HCl 0.4 mg 04/27/24 04:52 Naloxone Hcl 0.4 Mg/Ml Vial IV 04/28/24 04:56 ONCE PRN Respiratory Distress Ondansetron HCl 4 mg 04/27/24 04:52 Ondansetron Pf 4 Mg/2 Ml Vial IV Q6H PRN Nausea And Vomiting Ondansetron HCl 4 mg 04/27/24 04:52 Ondansetron 4 Mg Rapdis Tablet SL Q6H PRN Nausea And Vomiting Oxytocin 10 unit 04/27/24 04:52 Oxytocin 10 Unit/Ml Vial IM 04/29/24 04:53 ONCE PRN Bleeding Diet Category Date Time Status Regular Consistency Diet Diet 04/27/24 04:53 Active Consults Category Date Time Status Consult to Anesthesiology Routine Cons 04/27/24 Ordered IV Insertion/Site Date of IV Line Insertion [ 04/27/24 Short PIV (<1.75 in) 20g left Forearm] IV Insertion Time [Short PIV ( 05:05 <1.75 in) 20g left Forearm] Neurology Patient orientation (short person,place,time,situation list) Respiratory Oxygen Delivery Method Room Air
[2024-04-27] MEDS: AMPICILLIN SODIUM 1,000 MG in 0.9 % SODIUM CHLORIDE 50 ML 100 MG IV (09:17)
[2024-04-27] MEDS: 0.9 % SODIUM CHLORIDE 1,000 ML 1000 ML IV (11:05)
[2024-04-27] MEDS: FENTANYL CITRATE/PF 100 MCG/2 ML VIAL EPIDURAL (11:08)
[2024-04-27] MEDS: ROPIVACAINE HCL/PF 400 MG/200 ML PREMIX 10 MG EPIDURAL (11:10)
[2024-04-27] MEDS: ROPIVACAINE HCL 0.2% PF 40 MG/20 ML VIAL EPIDURAL (11:15)
[2024-04-27] MEDS: AMPICILLIN SODIUM 1,000 MG in 0.9 % SODIUM CHLORIDE 50 ML 10 MG IV (14:03)
--- NOTE | 2024-04-27 14:33 | PM.OBPRCVD ---
Procedure Intrapartal events: None Induction method: per pitocin protocol Delivery augmentation: rupture of membranes and pitocin Delivery monitor: external FHT and external uterine Route of delivery: Episiotomy Description: none L&D Laceration Description: none Estimated blood loss (mL): 250 Anesthesia type: Epidural Disposition: floor Delivery date: 04/27/24 Gender: male presentation: vertex Placental delivery description: Spontaneous cord description: 3 Vessels
[2024-04-27] MEDS: OXYTOCIN/0.9 % SODIUM CHLORIDE 20 UNITS/1,000 ML PLAST..BAG 125 UNIT IV (14:48)
[2024-04-27] MEDS: BENZOCAINE/MENTHOL 85 GRAM SPRAY BOTTLE 1 APPLIC TOPICAL (17:46)
[2024-04-27] MEDS: GLYCERIN/WITCH HAZEL PADS 1 PAD TOPICAL (17:47)
[2024-04-27] MEDS: ACETAMINOPHEN 325 MG TABLET 650 MG PO (19:30)
[2024-04-27] MEDS: DIPHENHYDRAMINE HCL 50 MG/ML VIAL 25 MG IV (19:31)
[2024-04-27] MEDS: IBUPROFEN 600 MG TABLET PO (22:10)
[2024-04-28 01:00] VITALS: TEMP 37
[2024-04-28 01:01] VITALS: BP 124/79; PULSE 88
[2024-04-28] MEDS: IBUPROFEN 600 MG TABLET PO ×3 (05:05→18:20)
[2024-04-28 06:25] LABS: Basophils Absolute Auto 0.1 10^3/uL (0.0-0.1); Basophils Percent Auto 0.4 % (0.2-2.0); Eosinophils Absolute Auto 0.1 10^3/uL (0.0-0.7); Eosinophils Percent Auto 0.7 % (0.9-7.0); Hematocrit 28.7 % (36.0-48.0); Hemoglobin 8.6 g/dL (12.0-16.0); Immature Granulocytes Abs Auto 0.07 10^3/uL (0.00-0.03); Immature Granulocytes Pct Auto 0.6 % (0.0-0.5); Lymphocytes Absolute Auto 2.8 10^3/uL (1.2-3.8); Lymphocytes Percent Auto 24.8 % (20.5-60.0); Mean Corpuscular Hemoglobin 22.2 pg (26.7-34.0); Mean Corpuscular Volume 74.2 fL (81.0-99.0); Mean Platelet Volume 9.5 fL (9.5-13.5); Monocytes Absolute Auto 0.6 10^3/uL (0.3-0.8); Monocytes Percent Auto 5.1 % (1.7-12.0); Neutrophils Absolute Auto 7.7 10^3/uL (1.4-6.5); Neutrophils Percent Auto 68.4 % (43.0-75.0); Platelet Count 258 10^3/uL (150-450); Red Blood Count 3.87 10^6/uL (4.20-5.40); Red Cell Distribution Width 14.6 % (11.0-15.0); White Blood Count 11.2 10^3/uL (4.0-11.0)
--- NOTE | 2024-04-28 08:13 | PM.OBPN ---
OB - PN: Subj Subjective Patient comments: no complaints and pain well controlled status: doing well Exam Constitutional Vital Signs, click to edit/add: Last Vital Signs Temp 98.6 F 04/28/24 01:00 Pulse 88 04/28/24 01:01 Resp 16 04/28/24 01:00 BP 124/79 04/28/24 01:01 O2 Del Method Room Air 04/28/24 01:00 Documenting provider has reviewed patient's vital signs: yes Common normals: no apparent distress Respiratory Common normals: normal respiratory effort and clear to auscultation bilaterally Cardio Common normals: regular rate and regular rhythm GI Common normals: Normal to inspection, nondistended, normoactive bowel sounds present Extremity Common normals: no clubbing, cyanosis or edema and no calf tenderness Results Labs Labs: Short CBC 04/28/24 Range/Units 06:10 WBC 11.2 H (4.0-11.0) 10^3/uL Hgb 8.6 L (12.0-16.0) g/dL Hct 28.7 L (36.0-48.0) % Plt Count 258 (150-450) 10^3/uL OB - PN: A/P Plan - Vaginal Delivery day: 1 Plan: routine care Time Spent with Patient Time: Total time spent is greater than 50% in coordination of care (as documented) at patient's floor/unit and/or counseling patient: Total time spent with greater than 50% in coordination of care (as documented) at patient's floor/unit and/or counseling patient: less than 15 minutes
[2024-04-28 08:53] VITALS: BP 120/72; PULSE 104
[2024-04-28] MEDS: ACETAMINOPHEN 325 MG TABLET 650 MG PO ×2 (09:01→16:04)
[2024-04-28] MEDS: DOCUSATE SODIUM 100 MG CAPSULE PO (09:01)
[2024-04-28 18:10] VITALS: BP 126/93; PULSE 82; TEMP 35.8
[2024-04-28 18:16] VITALS: BP 134/98; PULSE 84
[2024-04-28 18:21] VITALS: BP 127/90; PULSE 82
--- NOTE | 2024-04-29 07:53 | PM.OBPN ---
OB - PN: Subj Subjective Patient comments: no complaints and pain well controlled [place] status: doing well Exam Constitutional Vital Signs, click to edit/add: Last Vital Signs Temp 96.4 F L 04/28/24 18:10 Pulse 82 04/28/24 18:21 Resp 16 04/28/24 18:20 BP 127/90 04/28/24 18:21 O2 Del Method Room Air 04/28/24 18:20 Documenting provider has reviewed patient's vital signs: yes Common normals: no apparent distress Respiratory Common normals: normal respiratory effort and clear to auscultation bilaterally Cardio Common normals: regular rate and regular rhythm GI Common normals: Normal to inspection, nondistended, normoactive bowel sounds present Extremity Common normals: no clubbing, cyanosis or edema and no calf tenderness OB - PN: A/P Plan - Vaginal Delivery day: 2 Plan: routine care, discharge home and follow up 6 weeks Time Spent with Patient Time: Total time spent is greater than 50% in coordination of care (as documented) at patient's floor/unit and/or counseling patient: Total time spent with greater than 50% in coordination of care (as documented) at patient's floor/unit and/or counseling patient: less than 15 minutes
== END 2024-04-28 19:20 | disposition home or self-care (01) | DRG 807 ==
PROVIDERS: Admitting Provider Obstetrics & Gynecology; PCP Nurse Practitioner; Visit Provider Obstetrics & Gynecology
DX: O99.824 Streptococcus B carrier state complicating childbirth (principal); Z37.0 Single live birth; Z3A.39 39 weeks gestation of pregnancy
CPT/HCPCS: 36415; 59050; 59410; 80307; 85025; 85027; 86850; 86900; 86901; J0290; J1200; J2795; J3010

== ENCOUNTER 2024-07-27 16:36 | Emergency (ER) | payer OTHER, SELFPAY ==
[2024-07-27] VITALS (15 sets, daily range): BP systolic 132–147; BP diastolic 94–96; PULSE 71–104; TEMP 37; O2SAT 98–100; BMI 35.5
--- NOTE | 2024-07-27 16:51 | ECG_ITS ---
[facility] Test Date: 2024-07-27 Pat Name: NOEMI ORTEGA Department: Room: - Gender: Female Ostomy Nurse: : 2000 Requested By: [id number] Order Number: [id number] Reading MD: JOSÉ LIZARRAGA M.D. Measurements Intervals [place] Rate: 81 P: 32 WA: 138 QRS: 57 QRSD: 88 T: 19 QT: 368 QTc: 405 Interpretive Statements 1100 Sinus rhythm 9110 normal ECG Compared to ECG 03/31/2023 01:25:53 Sinus tachycardia no longer present Electronically Signed On 07-27-2024 18:18:33 EDT by JOSÉ LIZARRAGA M.D.
--- NOTE | 2024-07-27 16:52 | ED.GENADUL1 ---
HPI HPI - General Adult General Chief complaint: Back Pain/Injury Stated complaint: back pain radiates into ribs and chest Time Seen by Provider: 07/27/24 16:37 Source: patient Mode of arrival: walk-in History of Present Illness HPI narrative: Patient is a 23-year-old female who presents to the emergency department for 3-day history of pain radiating from the thoracic spine around the bilateral rib cage into the inferior sternum of the chest. She denies fevers, chills, cough, congestion or shortness of breath. She states she does feel some discomfort on the sides of the abdomen. She has had no urinary symptoms. She has no concern for . She delivered a baby 3 months ago, she is not currently breast-feeding. No medications taken prior to arrival. She denies any falls, injuries. Pain is not worse with movement or deep breathing. Related Data Home Medications ?Medication ?Instructions ?Recorded ?Confirmed sertraline 100 mg tablet 100 mg PO Q24H 07/27/24 07/27/24 Previous Rx's ?Medication ?Instructions ?Recorded ketorolac 10 mg tablet 10 mg PO TID PRN pain #10 tabs 07/27/24 methocarbamol 750 mg tablet 750 mg PO TID PRN pain #20 tabs 07/27/24 Allergies Allergy/AdvReac Type Severity Reaction Status Date / Time No Known Drug Allergies Allergy Verified 04/11/24 12:43 Opioid HPI Opioid Management Most Recent Opioid Data: Last Pain Scale 5 Today, 17:05 Ur Phencyclidine Scrn, (NEGATIVE) Negative 04/27/24, 04:55 Review of Systems ROS Constitutional Denies: fever or chills Ears, nose, mouth, and throat Denies: throat pain or nasal congestion Cardiovascular Reports: chest pain Respiratory Denies: shortness of breath or cough Gastrointestinal Reports: abdominal pain; Denies: nausea, vomiting or diarrhea Genitourinary Denies: painful urination Musculoskeletal Reports: back pain; Denies: neck pain Integumentary/Breast Denies: rash Neurological Denies: headache, numbness in extremities or weakness in extremities Hematologic/Lymphatic Denies: easy bruising or easy bleeding PFSH PFS Medical History (Updated 07/27/24 @ 18:32 by MANUELA Villanueva) Normal vaginal delivery ?O80 - Encounter for full-term uncomplicated delivery (ICD-10) Surgical History (Updated 04/27/24 @ 05:24 by Ying Dunn) H/O cleft lip repair ?Z87.730 - Personal history of (corrected) cleft lip and palate (ICD-10) History of tonsillectomy ?Z90.89 - Acquired absence of other organs (ICD-10) Family History (Updated 04/27/24 @ 05:21 by Ying Dunn) Father Family history of hypertension Social History Within the past year, how often did you have a drink containing alcohol: never Score interpretation: A score less than 3 is consistent with normal alcohol consumption. Smoking status: Never smoker Non-prescribed substance use: denies use Highest level of school completed/degree received: high school graduate Are you now , , , , never or living with a partner: living with partner Little interest or pleasure in doing things: not at all Feeling down, depressed, or hopeless: not at all Feel stressed/tense/nervous/anxious/difficulty sleeping: not at all Do you think of yourself as: straight/heterosexual Gender Identity: female Exam Narrative Exam Narrative: Gen.: Awake, alert, in no distress Head: Normocephalic, atraumatic ENT: Moist mucous membranes Respiratory: No respiratory distress, lungs clear bilaterally Cardio: Regular rate and rhythm, inferior sternum is tender to palpation Gastrointestinal: Abdomen is soft, nondistended and nontender to palpation Back: No bony tenderness of the T-spine or L-spine, no CVA tenderness. No rashes or color change appreciated of the posterior chest wall Extremities: Moves extremities equally, no pedal edema Psych: Normal mood and affect Neuro: No focal neuro deficit Skin: Warm, dry, intact Constitutional Vital Signs, click to edit/add: Last Vital Signs Temp 98.6 F 07/27/24 16:42 Pulse 91 H 07/27/24 16:42 Resp 18 07/27/24 16:42 BP 147/96 H 07/27/24 16:42 Pulse Ox 98 07/27/24 16:42 O2 Del Method Room Air 07/27/24 16:42 Course Vital Signs Vital signs: Vital Signs Temperature 98.6 F 07/27/24 16:42 Pulse Rate 91 H 07/27/24 16:42 Respiratory Rate 18 07/27/24 16:42 Blood Pressure 147/96 H 07/27/24 16:42 Pulse Oximetry 98 07/27/24 16:42 Oxygen Delivery Method Room Air 07/27/24 16:42 Temperature 98.6 F 07/27/24 16:42 Pulse Rate 91 H 07/27/24 16:42 Respiratory Rate 18 07/27/24 16:42 Blood Pressure 147/96 H 07/27/24 16:42 Pulse Oximetry 98 07/27/24 16:42 Oxygen Delivery Method Room Air 07/27/24 16:42 Medical Decision Making MDM Narrative Medical decision making narrative: Laboratory studies reviewed and noted, EKG is unremarkable but D-dimer was elevated to the patient was sent for CT angio of the chest. This shows no evidence of acute process and the patient will be treated for musculoskeletal pain. She is hemodynamically stable with no respiratory difficulty in the ER. She is started on a muscle relaxant and NSAID for home. Follow-up with PCP and return to the ER if symptoms change or worsen SHARED APC VISIT, PHYSICIAN ATTESTATION: [id number] I performed a substantive part of the MDM during the patient?s E/M visit. I personally evaluated and examined the patient. I personally made or approved the documented management plan and acknowledge its risk of complications. Medical Records Medical records reviewed: Yes I reviewed the patient's medical records Lab Data Lab results reviewed: Yes I reviewed the patient's lab results Labs: Lab Results 07/27/24 07/27/24 Range/Units 17:05 17:10 WBC 6.9 (4.0-11.0) 10^3/uL RBC 4.62 (4.20-5.40) 10^6/uL Hgb 11.4 L (12.0-16.0) g/dL Hct 36.4 (36.0-48.0) % MCV 78.8 L (81.0-99.0) fL MCH 24.7 L (26.7-34.0) pg MCHC 31.3 (29.9-35.2) g/dL RDW 16.2 H (11.0-15.0) % Plt Count 335 (150-450) 10^3/uL MPV 9.8 (9.5-13.5) fL Neut % (Auto) 62.2 (43.0-75.0) % Lymph % (Auto) 30.4 (20.5-60.0) % [place] % (Auto) 4.7 (1.7-12.0) % Eos % (Auto) 1.5 (0.9-7.0) % Baso % (Auto) 0.9 (0.2-2.0) % Neut # (Auto) 4.3 (1.4-6.5) 10^3/uL Lymph # (Auto) 2.1 (1.2-3.8) 10^3/uL [place] # (Auto) 0.3 (0.3-0.8) 10^3/uL Eos # (Auto) 0.1 (0.0-0.7) 10^3/uL Baso # (Auto) 0.1 (0.0-0.1) 10^3/uL Abs Immat Gran (auto) 0.02 (0.00-0.03) 10^3/uL Imm/Tot Granulo (auto) 0.3 (0.0-0.5) % PT 10.3 (9.0-11.6) sec INR 0.97 D-Dimer 0.87 H* (<=0.59) mg/L FEU Sodium 138 (136-145) mmol/L Potassium 3.8 (3.5-5.1) mmol/L Chloride 105 (98-107) mmol/L Carbon Dioxide 26.8 (21.0-32.0) mmol/L Anion Gap 10.0 BUN 11.0 (7.0-18.0) mg/dL Creatinine 0.67 (0.55-1.02) mg/dL Est GFR ( Amer) >60 (>=60 mL/min/1.73m^2) Est GFR (Non-Af Amer) >60 (>=60 mL/min/1.73m^2) BUN/Creatinine Ratio 16.4 Glucose 118 H (74-106) mg/dL Calcium 9.0 (8.5-10.1) mg/dL Total Bilirubin 0.1 L (0.2-1.0) mg/dL AST 9 L (15-37) U/L ALT 18 (14-59) U/L Alkaline Phosphatase 97 (46-116) U/L Troponin I High Sens <4.0 L (4.0-51.3) pg/mL Total Protein 7.0 (6.4-8.2) g/dL Albumin 3.4 (3.4-5.0) g/dL Globulin 3.6 g/dL Albumin/Globulin Ratio 0.9 Lipase 24.0 (16.0-77.0) U/L Serum HCG, Qual Negative (NEGATIVE) Urine Color Lt. yellow (YELLOW) Urine Clarity Clear (CLEAR) Urine pH 7.0 (5.0-9.0) Ur Specific [place] 1.015 (1.005-1.025) Urine Protein Negative (NEG/TRACE) mg/dL Urine Glucose (UA) Negative (NEGATIVE) mg/dL Urine Ketones Negative (NEGATIVE) mg/dL Urine Occult Blood Negative (NEGATIVE) Urine Nitrite Negative (NEGATIVE) Urine Bilirubin Negative (NEGATIVE) Urine Urobilinogen 0.2 (0.2-1.0) EU/dL Ur Leukocyte Esterase Small A (NEGATIVE) Urine RBC 0-2 (0-2) #/HPF Urine WBC 2-5 A (NONE SEEN) #/HPF Ur Squamous Epith Cells Few A (NONE/RARE) #/LPF Urine Crystals None seen (None Seen) #/HPF Urine Bacteria Small A (NONE SEEN) #/HPF Urine Casts None seen (NONE SEEN) #/LPF Urine Mucus Trace A (NONE SEEN) Urine Yeast Seen A (NONE SEEN) Ur Culture Indicated? Yes-[facility] [place] Imaging Data ct angio chest: Attestation: I have reviewed the pertinent imaging results. Radiologist's impression: NAD ECG Data Attestation: I personally reviewed and interpreted this ECG as follows: (Normal sinus rhythm at a rate of [address] elevation or ectopy. EKG reviewed by attending physician) Discharge Plan Discharge Chief Complaint: Back Pain/Injury Clinical Impression: Acute thoracic back pain, Chest pain Patient Disposition: Home, Self-Care Time of Disposition Decision: 18:32 Condition: Good Prescriptions / Home Meds: New ketorolac 10 mg tablet 10 mg PO TID PRN (Reason: pain) Qty: 10 0RF methocarbamol 750 mg tablet 750 mg PO TID PRN (Reason: pain) Qty: 20 0RF No Action sertraline 100 mg tablet 100 mg PO Q24H Print Language: Slovak Instructions: Thoracic Pain (ED) Referrals: Aichholz,Bina J, SCHEDULING ADMINISTRATOR [Primary Care Provider, Family Practice] - 1 week
[2024-07-27 17:24] LABS: Basophils Absolute Auto 0.1 10^3/uL (0.0-0.1); Basophils Percent Auto 0.9 % (0.2-2.0); Eosinophils Absolute Auto 0.1 10^3/uL (0.0-0.7); Eosinophils Percent Auto 1.5 % (0.9-7.0); Hematocrit 36.4 % (36.0-48.0); Hemoglobin 11.4 g/dL (12.0-16.0); Immature Granulocytes Abs Auto 0.02 10^3/uL (0.00-0.03); Immature Granulocytes Pct Auto 0.3 % (0.0-0.5); Lymphocytes Absolute Auto 2.1 10^3/uL (1.2-3.8); Lymphocytes Percent Auto 30.4 % (20.5-60.0); Mean Corpuscular HGB Conc 31.3 g/dL (29.9-35.2); Mean Corpuscular Hemoglobin 24.7 pg (26.7-34.0); Mean Corpuscular Volume 78.8 fL (81.0-99.0); Mean Platelet Volume 9.8 fL (9.5-13.5); Monocytes Absolute Auto 0.3 10^3/uL (0.3-0.8); Monocytes Percent Auto 4.7 % (1.7-12.0); Neutrophils Absolute Auto 4.3 10^3/uL (1.4-6.5); Neutrophils Percent Auto 62.2 % (43.0-75.0); Platelet Count 335 10^3/uL (150-450); Red Blood Count 4.62 10^6/uL (4.20-5.40); Red Cell Distribution Width 16.2 % (11.0-15.0); White Blood Count 6.9 10^3/uL (4.0-11.0)
[2024-07-27 17:26] LABS: Bilirubin Urine NEGATIVE (NEGATIVE); Blood Urine NEGATIVE (NEGATIVE); Clarity Urine CLEAR (CLEAR); Color Urine LT. YELLOW (YELLOW); Glucose Urine UA NEGATIVE (NEGATIVE); Ketones Urine NEGATIVE (NEGATIVE); Leukocyte Esterase Urine SMALL (NEGATIVE); Nitrite Urine NEGATIVE (NEGATIVE); Protein Urine NEGATIVE (NEG/TRACE); Specific Gravity Urine 1.015 (1.005-1.025); Urobilinogen Urine 0.2 EU/dL (0.2-1.0)
[2024-07-27 17:33] LABS: Bacteria Urine SMALL #/HPF (NONE SEEN); Mucus Urine TRACE (NONE SEEN); RBC Urine 0-2 #/HPF (0-2)
[2024-07-27 17:34] LABS: Cast Seen? NONE SEEN #/LPF (NONE SEEN); Crystals Seen? None Seen #/HPF (None Seen); Squamous Epithelial Cell Urine FEW #/LPF (NONE/RARE); Urine Culture Indicated YES-FRMC
[2024-07-27 17:38] LABS: INR 0.97; Prothrombin Time 10.3 sec (9.0-11.6)
[2024-07-27 17:41] LABS: Alanine Aminotransferase 18 U/L (14-59); Albumin Globulin Ratio 0.9; Albumin Level 3.4 g/dL (3.4-5.0); Alkaline Phosphatase 97 U/L (46-116); Aspartate Amino Transferase 9 U/L (15-37); BUN Creatinine Ratio 16.4; Bilirubin Total 0.1 mg/dL (0.2-1.0); Carbon Dioxide 26.8 mmol/L (21.0-32.0); Chloride 105 mmol/L (98-107); Estimated GFR (African America >60 (>=60 mL/min/1.73m^2); Estimated GFR (Non-African Ame >60 (>=60 mL/min/1.73m^2); Globulin 3.6 g/dL; Glucose 118 mg/dL (74-106); Potassium 3.8 mmol/L (3.5-5.1); Sodium 138 mmol/L (136-145)
[2024-07-27 17:42] LABS: Troponin I High Sensitivity <4.0 pg/mL (4.0-51.3)
[2024-07-27 17:43] LABS: HCG Qualitative NEGATIVE (NEGATIVE); Internal Control Within Normal Limits
[2024-07-27 17:45] LABS: D Dimer 0.87 mg/L FEU (<=0.59)
== END 2024-07-27 18:51 | disposition home or self-care (01) ==
PROVIDERS: Physician Assistant; Emergency Provider Emergency Medicine; PCP Nurse Practitioner
DX: M54.6 Pain in thoracic spine (principal); R07.9 Chest pain, unspecified; R79.89 Other specified abnormal findings of blood chemistry
CPT/HCPCS: 36415; 71275; 80053; 81001; 83690; 84484; 84703; 85025; 85378; 85610; 87086; 87088; 93005; 99285; Q9967

== ENCOUNTER 2024-08-14 08:07 | Emergency (ER) | payer OTHER, SELFPAY ==
--- OUTSIDE RECORDS SUMMARY | 2024-07-27 17:10 | XMS_ITS ---
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 Name Role Phone KATHLEEN HASKINS Admitting Unavailable KATHLEEN HASKINS Attending Unavailable BINA ZAMORA Primary Care Unavailable ANGELINA CA Attending Unavailable ROBYANGELINA VERDE Attending Unavailable AICHHOLIván, BINA Attending Unavailable ZENYPAPI HERNANDEZ Attending Unavailable BINA ZAMORA Attending Unavailable FERNANDOHBINA VARGAS Attending Unavailable ANGELINA CA Attending Unavailable ZENY, PAPI Attending Unavailable ROBYANGELINA Attending Unavailable ZENY, PAPI Attending Unavailable ROBY, ANGELINA Attending Unavailable ZENY, PAPI Attending Unavailable AichMichell vargasa J Primary Care Unavailable MIRIAN HERBERT Attending Unavailable MIRIAN HERBERT Admitting Unavailable Araceli BOOGIE Attending Unavailable Araceli BOOGIE Attending Unavailable Pat Jorgensen Admitting Unavailable Pat Jorgensen Attending Unavailable PROBLEMS DATE TYPE CONDITION / CODE ATTENDING STATUS [facility] 01/31/2024 Unknown Other specified related conditions, second trimester / O26.892(ICD-10) KATHLEEN HASKINS Active [facility] 01/31/2024 Unknown Headache, unspec ified / R51.9(ICD-10) JOZEF [facility] 01/31/2024 Unknown Headache / FREETEXT(AOF) [facility] PROCEDURES No Procedure Records Found RESULTS URINE CULTURE Observed: 07/27/2024 5:10 PM Status: F Source: [facility] ORGANISM: Strep agalactiae - (group b) (O:STRAGA) [place] Count <10,000 PERFORMED BY: [place] [address] PATHOLOGIST LITHOGRAPH DESIGNER FREDERIC FITZGERALD M.D. Performed By: #### CUU #### [address] CBC AND AUTO DIFF Collected: 02/01/2024 12:11 A M Status: COMPLETED Source: [facility] TYPE CODE TESTS RESULT OUT OF RANGE REFERENCE UNITS LAB WBC(LOINC) WBC COUNT 13.4 High 4.0-11.0 X10E9/L LAB RBC(LOINC) RBC COUNT 3.73 Low 3.80-5.20 X10E12/L LAB HGB(LOINC) HEMOGLOBIN 9.6 Low 11.7-15.5 g/dL LAB HCT(LOINC) HEMATOCRIT 29.1 Low 35-47 % LAB MCV(LOINC) MCV 78 Low 80-100 fL LAB MCH(LOINC) MCH 25.7 Low 27-34 pg LAB MCHC(LOINC) MCHC 32.9 32-36 g/dL LAB RDW(LOINC) RDW 14.5 11.5-15.0 % LAB PLTC(LOINC) PLATELET COUNT 315 150-450 X10E9 /L LAB MPV(LOINC) MPV 7.6 7-12 fL LAB NEUT(LOINC) % NEUTROPHILS 78.6 % LAB LYMP(LOINC) % LYMPHOCYTES 16.6 % LAB MONO(LOINC) % MONOCYTES 3.7 % LAB EOS(LOINC) % EOSINOPHILS 0.7 % LAB BASO(LOINC) % BASOPHILS 0.4 % LAB ANEUT(LOINC) ABSOLUTE NEUTROPHIL 10.5 High 1.5-6.6 X10E9/L LAB ALYMP(LOINC) ABSOLUTE LYMPHOCYTE 2.2 1.0-3.5 X10E9/L LAB AMONO(LOINC) ABSOLUTE MONOCYTE 0.5 0-0.9 X10E9/L LAB AEOS(LOINC) ABSOLUTE EOSINOPHIL 0.1 0.0-0.4 X10E9/L LAB ABASO(LOINC) ABSOLUTE BASOPHIL 0.0 0.0-0.2 X10E9/L Performed By: #### CBCA, CMP , 2532-0, 3084-1 #### [facility] ([id number]) [address] [place] [address], [place] [address] COMPREHENSIVE METABOLIC PANEL Collected : 02/01/2024 12:11 AM Status: COMPLETED Source: [facility] TYPE CODE TESTS RESULT OUT OF RANGE REFERENCE UNITS LAB NA(LOINC) SODIUM 135 134-146 mmol/L LAB K(LOINC) POTASSIUM 3.5 3.5-5.0 mmol/L LAB CL(LOINC) CHLORIDE 105 98-109 mmol/L LAB CO2(LOINC) CARBON DIOXIDE 19 Low 22-32 mmol/L LAB AGAP(LOINC) ANION GAP 11 5-15 mmol/L LAB BUN(LOINC) BLOOD UREA NITROGEN 8 5-23 mg/dL LAB CRET(LOINC) CREATININE 0.38 Low 0.40-1.00 mg/dL Result Comment: METHOD TRACE ABLE TO IDMS STANDARD LAB GLU(LOINC) GLUCOSE 93 65-99 mg/dL LAB CA(LOINC) CALCIUM 8.7 8.5-10.5 mg/dL LAB TP(LOINC) TOTAL PROTEIN 6.7 6.0-8.0 g/dL LAB ALB(LOINC) ALBUMIN 3.0 Low 3.2-5.3 g/dL LAB ALK(LOINC) ALKALINE PHOSPHATASE 81 39-130 U/L LAB AST(LOINC) AST 12 0-41 U/L LAB ALT1(LOINC) ALT 15 0-31 U/L LAB TBIL(LOINC) BILIRUBIN,TOTAL 0.3 0.3-1.2 mg/d L LAB EGFR(LOINC) eGFR (CKD-EPI) NON-RACE DEPENDENT >90 >59 ml/min/1 .73sq.m Result Comment: Reported eGFR is based on the CKD-EPI 2020 equation that does not use a race coefficient. Performed By: #### IBETH, HUDSON , 2532-0, 3084-1 #### [facility] ([id number]) [address] [place] [address] LDH Collected: 02/01/2024 12:11 AM Status: COMPLETED Source: [facility] TYPE CODE TESTS RESULT OUT OF RANGE REFERENCE UNITS LAB LDH(LOINC) LDH 107 100-235 U/L Performed By: #### HUDSON CRISTINA , 2532-0, 3084-1 #### [facility] ([id number]) [address] [place] [address] URIC ACID Collected: 02/01/2024 12:11 AM Status: COMPLETED Source: [facility] TYPE CODE TESTS RESULT OUT OF RANGE REFERENCE UNITS LAB URIC(LOINC) URIC ACID 4.9 2.6-7.2 mg/dL Performed By: #### HUDSON CRISTINA , 2532-0, 3084-1 #### [facility] ([id number]) [address] [place] [address] URINALYSIS Collected: 01/31/2024 11:00 PM Status: COMPLETED Source: [facility] TYPE CODE TESTS RESULT OUT OF RANGE REFERENCE UNITS LAB COLP(LOINC) COLOR YELLOW YELLOW LAB TURB(LOINC) TURBIDITY CLEAR CLEAR LAB SPGR(LOINC) SPECIFIC GRAVITY >1.030 1.003-1.035 LAB NITR(LOINC) NITRITE Negative (qualifier value) NEG LAB PHUR(LOINC) PH,URINE 6.0 5.0-8.5 LAB LEST(LOINC) LEUKOCYTE ESTERASE Trace Abnormal NEG LAB PRU(LOINC) PROTEIN Negative (qualifier value) NEG mg/dL LAB GLUR(LOINC) GLUCOSE (URINE) Negative (qualifier value) NEG mg/dL LAB KET(LOINC) KETONES (URINE) Trace Abnormal NEG mg/d L LAB UROB(LOINC) UROBILINOGEN 0.2 <1.1 eu/dL LAB BILEU(LOINC) BILIRUBIN (URINE) Negative (qualifier value) NEG LAB BLUR(LOINC) BLOOD/HGB Negative (qualifier value) NEG LAB WBCU(LOINC) W.B.CELLS 4 0-5 /hpf LAB RBCU(LOINC) R.B.CELLS 0 0-5 /hpf LAB SEP(LOINC) SQUAMOUS EPITHELIUM 6 High 0-5 /hpf Performed By: #### UA #### [facility] ([id number]) [address] [place] [address] PROTEIN CREAT RATIO Collected: 01/31/20 24 11:00 PM Status: COMPLETED Source: [facility] TYPE CODE TESTS RESULT OUT OF RANGE REFERENCE UNITS LAB UCRR(LOINC) URINE CREATININE,RDM 177.57 mg/dL LAB UTPR(LOINC) RANDOM URINE PROTEIN 190 High <120 mg/L LAB UPCRC(LOINC) U/PRO/CIGAR WRAPPER TENDER AUTOMATIC RATIO CALC 0.11 <0.2 Result Comment: Nephrotic Sy ndrome is associated with ratios >3.5 Performed By: #### UPCR #### [facility] ([id number]) [address] [place] [address] TRIAGE INDUSTRIAL Collected: 12:07 PM Status: F Source: [facility] TYPE CODE TESTS RESULT OUT OF RANGE REFERENCE UNITS LAB [id number](LOINC ) Drug Screen Complete Collected Performed By: #### [id number] #### [facility] (DEFAULT) [address] [place] [id number] PATIENT HANDOUT Observed: 09/02/2023 11:41 AM Status: C Source: [facility] Patient Education Materials Follows:and Gynecology Care care is health care during . It helps you and your unborn baby (fetus) stay as healthy as possible. care may be provided by a gas technician, a family practice doctor, a mid-level practitioner (nurse practitioner or physician communication assistant), or a childbirth and doctor (beauty consultant). How does this affect me? During , [...] procedures you have had. ? Any current yeok-muz-pjzkhqa or prescription medicines, herbs, or supplements that [...] is usually done around week 24 of . ? Ultrasounds to check your baby's growth and development, to check for defects, and to check your baby's well-being. These can also help to decide when you should deliver your baby. ? A test to check for group B strep (GBS) infection. This is usually done around week 36 of . ? Genetic testing. This may include blood, fluid, or tissue sampling, or imaging tests, such as an ultrasound. Some genetic tests are done during the first trimester and some are done during the second trimester. What else can I expect during care visits? Your health care provider may recommend getting certain vaccines during . These may include: ? A yearly flu shot (annual influenza vaccine). This is especially important if you will be during flu season. ? Tdap (tetanus, diphtheria, pertussis) vaccine. Getting this vaccine during can protect your baby from whooping cough (pertussis) after . This vaccine may be recommended between weeks 27 and 36 of . ? A COVID-19 vaccine. Later in your , your health care provider may give you information about: ? Childbirth and classes. ? Choosing a health care provider for your baby. ? Umbilical cord banking. ? . ? control after your baby is born. ? [facility] labor and delivery unit and how to set up a tour. ? Registering at the hospital before you go into labor. Where to find more information ? Office on Women's Health: womenshealth.gov ? [place] Association: americanpregnancy.org ? March of Dimes: marchofdimes.org Summary ? care helps you and your baby stay as healthy as possible during . ? Your first care visit will most likely be the longest. ? You will have visits and tests throughout your to monitor your health and your baby's health. ? Bring a list of questions to your visits to ask your health care provider. ? Make sure to keep all follow-up and care visits. This information is not intended to replace advice given to you by your health care provider. Make sure you discuss any questions you have with your health care provider. Document Revised: 12/20/2020 Document Reviewed: 12/20/2020 [employer] Patient Education ? 2022 [employer].First Trimester of The first trimester of starts on the first day of your last menstrual period until the end of week 12. This is months 1 through 3 of . A week after a sperm fertilizes an egg, the egg will implant into the wall of the uterus and begin to develop into a baby. By the end of 12 weeks, all the baby's organs will be formed and the baby will be 2?3 inches in size. Body changes during your first trimester Your body goes through many changes during . The changes vary and generally return to normal after your baby is born. Physical changes ? You may gain or lose weight. ? Your breasts may begin to grow larger and become tender. The tissue that surrounds your nipples (areola) may become darker. ? Dark spots or blotches (chloasma or mask of ) may develop on your face. ? You may have changes in your hair. These can include thickening or thinning of your hair or changes in texture. Health changes ? You may feel nauseous, and you may vomit. ? You may have heartburn. ? You may develop headaches. ? You may develop constipation. ? Your gums may bleed and may be sensitive to brushing and flossing. Other changes ? You may tire easily. ? You may urinate more often. ? Your menstrual periods will stop. ? You may have a loss of appetite. ? You may develop cravings for certain kinds of food. ? You may have changes in your emotions from day to day. ? You may have more vivid and strange dreams. Follow these instructions at home: Medicines ? Follow your health care provider's instructions regarding medicine use. Specific medicines may be either safe or unsafe to take during . Do not take any medicines unless told to by your health care provider. ? Take a vitamin that contains at least 600 micrograms (mcg) of folic acid. Eating and drinking ? Eat a healthy diet that includes fresh fruits and vegetables, whole grains, good sources of protein such as meat, eggs, or tofu, and low-fat dairy products. ? Avoid raw meat and unpasteurized juice, milk, and cheese. These carry germs that can harm you and your baby. ? If you feel nauseous or you vomit: ? Eat 4 or 5 small meals a day instead of 3 large meals. ? Try eating a few soda crackers. ? Drink liquids between meals instead of during meals. ? You may need to take these actions to prevent or treat constipation: ? Drink enough fluid to keep your urine pale yellow. ? Eat foods that are high in fiber, such as beans, whole grains, and fresh fruits and vegetables. ? Limit foods that are high in fat and processed sugars, such as fried or sweet foods. Activity ? Exercise only as directed by your health care provider. Most people can continue their usual exercise routine during . Try to exercise for 30 minutes at least 5 days a week. ? Stop exercising if you develop pain or cramping in the lower abdomen or lower back. ? Avoid exercising if it is very hot or humid or if you are at high altitude. ? Avoid heavy lifting. ? If you choose to, you may have sex unless your health care provider tells you not to. Relieving pain and discomfort ? Wear a good support bra to relieve breast tenderness. ? Rest with your legs elevated if you have leg cramps or low back pain. ? If you develop bulging veins (varicose veins) in your legs: ? Wear support hose as told by your health care provider. ? Elevate your feet for 15 minutes, 3?4 times a day. ? Limit salt in your diet. Safety ? Wear your seat belt at all times when driving or riding in a car. ? Talk with your health care provider if someone is verbally or physically abusive to you. ? Talk with your health care provider if you are feeling sad or have thoughts of hurting yourself. Lifestyle ? Do not use hot tubs, steam rooms, or saunas. ? Do not douche. Do not use tampons or scented sanitary pads. ? Do not use herbal remedies, alcohol, illegal drugs, or medicines that are not approved by your health care provider. Chemicals in these products can harm your baby. ? Do not use any products that contain nicotine or tobacco, such as cigarettes, e-cigarettes, and chewing tobacco. If you need help quitting, ask your health care provider. ? Avoid cat litter boxes and soil used by cats. These carry germs that can cause defects in the baby and possibly loss of the unborn baby (fetus) by miscarriage or stillbirth. General instructions ? During routine visits in the first trimester, your health care provider will do a physical exam, perform necessary tests, and ask you how things are going. Keep all follow-up visits. This is important. ? Ask for help if you have counseling or nutritional needs during . Your health care provider can offer advice or refer you to specialists for help with various needs. ? Schedule a dentist appointment. At home, brush your teeth with a soft toothbrush. Floss gently. ? Write down your questions. Take them to your visits. Where to find more information ? [place] Association: americanpregnancy.org ? [place] College of Obstetricians and Gynecologists: acog.org/en/Womens%20Health/ ? Office on Women's Health: womenshealth.gov/ Contact a health care provider if you have: ? Dizziness. ? A fever. ? Mild pelvic cramps, pelvic pressure, or nagging pain in the abdominal area. ? Nausea, vomiting, or diarrhea that lasts for 24 hours or longer. ? A bad-smelling vaginal discharge. ? Pain when you urinate. ? Known exposure to a contagious illness, such as chickenpox, measles, Zika virus, HIV, or hepatitis. Get help right away if you have: ? Spotting or bleeding from your vagina. ? Severe abdominal cramping or pain. ? Shortness of breath or chest pain. ? Any kind of trauma, such as from a fall or a car crash. ? New or increased pain, swelling, or redness in an arm or leg. Summary ? The first trimester of starts on the first day of your last menstrual period until the end of week 12 (months 1 through 3). ? Eating 4 or 5 small meals a day rather than 3 large meals may help to relieve nausea and vomiting. ? Do not use any products that contain nicotine or tobacco, such as cigarettes, e-cigarettes, and chewing tobacco. If you need help quitting, ask your health care provider. ? Keep all follow-up visits. This is important. This information is not intended to replace advice given to you by your health care provider. Make sure you discuss any questions you have with your health care provider. Document Revised: 08/15/2020 Document Reviewed: 06/21/2020 [employer] Patient Education ? 2022 [employer]. ED PATIENT SUMMARY Observed: 09/02/2023 11:41 AM Status: F Source: [facility] ? Urgent C are [address] [place] [address] PATIENT DISCHARGE INSTRUCTIONS Patient Information Name: FLORINDA ORTEGA Age: 22 Years Date of : 2000 Reason For Visit: Medical screening exam; [facility] Arrival Time: 09/02/2023 11:09:30 Primary Care Physician: Bina Zamora CNP Attending Physician: MIRIAN HERBERT Comment: Patient Education With: Address: When: Pamela Ortiz [address] [place] [address], [address], [place] [address] Business (1) Comments: Personal Development Mentor to 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 Abstain from any alcohol or illicit drugs With: Address: When: Bina Sera [address] [place] [address] Business (1) , only if needed Care care is health care during . It helps you and your unborn baby (fetus) stay as healthy as possible. care may be provided by a gas technician, a family practice doctor, a mid-level practitioner (nurse practitioner or physician communication assistant), or a childbirth and doctor (beauty consultant). How does this affect me? During , [...] procedures you have had. ? Any current dxnz-avg-uslfpsv or prescription medicines, herbs, or supplements that [...] is usually done around week 24 of . ? Ultrasounds to check your baby's growth and development, to check for defects, and to check your baby's well-being. These can also help to decide when you should deliver your baby. ? A test to check for group B strep (GBS) infection. This is usually done around week 36 of . ? Genetic testing. This may include blood, fluid, or tissue sampling, or imaging tests, such as an ultrasound. Some genetic tests are done during the first trimester and some are done during the second trimester. What else can I expect during care visits? Your health care provider may recommend getting certain vaccines during . These may include: ? A yearly flu shot (annual influenza vaccine). This is especially important if you will be during flu season. ? Tdap (tetanus, diphtheria, pertussis) vaccine. Getting this vaccine during can protect your baby from whooping cough (pertussis) after . This vaccine may be recommended between weeks 27 and 36 of . ? A COVID-19 vaccine. Later in your , your health care provider may give you information about: ? Childbirth and classes. ? Choosing a health care provider for your baby. ? Umbilical cord banking. ? . ? control after your baby is born. ? [facility] labor and delivery unit and how to set up a tour. ? Registering at the hospital before you go into labor. Where to find more information ? Office on Women's Health: womenshealth.gov ? [place] Association: americanpregnancy.org ? March of Dimes: marchofdimes.org Summary ? care helps you and your baby stay as healthy as possible during . ? Your first care visit will most likely be the longest. ? You will have visits and tests throughout your to monitor your health and your baby's health. ? Bring a list of questions to your visits to ask your health care provider. ? Make sure to keep all follow-up and care visits. This information is not intended to replace advice given to you by your health care provider. Make sure you discuss any questions you have with your health care provider. Document Revised: 12/20/2020 Document Reviewed: 12/20/2020 [employer] Patient Education ? 2022 [employer] First Trimester of The first trimester of starts on the first day of your last menstrual period until the end of week 12. This is months 1 through 3 of . A week after a sperm fertilizes an egg, the egg will implant into the wall of the uterus and begin to develop into a baby. By the end of 12 weeks, all the baby's organs will be formed and the baby will be 2?3 inches in size. Body changes during your first trimester Your body goes through many changes during . The changes vary and generally return to normal after your baby is born. Physical changes ? You may gain or lose weight. ? Your breasts may begin to grow larger and become tender. The tissue that surrounds your nipples (areola) may become darker. ? Dark spots or blotches (chloasma or mask of ) may develop on your face. ? You may have changes in your hair. These can include thickening or thinning of your hair or changes in texture. Health changes ? You may feel nauseous, and you may vomit. ? You may have heartburn. ? You may develop headaches. ? You may develop constipation. ? Your gums may bleed and may be sensitive to brushing and flossing. Other changes ? You may tire easily. ? You may urinate more often. ? Your menstrual periods will stop. ? You may have a loss of appetite. ? You may develop cravings for certain kinds of food. ? You may have changes in your emotions from day to day. ? You may have more vivid and strange dreams. Follow these instructions at home: Medicines ? Follow your health care provider's instructions regarding medicine use. Specific medicines may be either safe or unsafe to take during . Do not take any medicines unless told to by your health care provider. ? Take a vitamin that contains at least 600 micrograms (mcg) of folic acid. Eating and drinking ? Eat a healthy diet that includes fresh fruits and vegetables, whole grains, good sources of protein such as meat, eggs, or tofu, and low-fat dairy products. ? Avoid raw meat and unpasteurized juice, milk, and cheese. These carry germs that can harm you and your baby. ? If you feel nauseous or you vomit: ? Eat 4 or 5 small meals a day instead of 3 large meals. ? Try eating a few soda crackers. ? Drink liquids between meals instead of during meals. ? You may need to take these actions to prevent or treat constipation: ? Drink enough fluid to keep your urine pale yellow. ? Eat foods that are high in fiber, such as beans, whole grains, and fresh fruits and vegetables. ? Limit foods that are high in fat and processed sugars, such as fried or sweet foods. Activity ? Exercise only as directed by your health care provider. Most people can continue their usual exercise routine during . Try to exercise for 30 minutes at least 5 days a week. ? Stop exercising if you develop pain or cramping in the lower abdomen or lower back. ? Avoid exercising if it is very hot or humid or if you are at high altitude. ? Avoid heavy lifting. ? If you choose to, you may have sex unless your health care provider tells you not to. Relieving pain and discomfort ? Wear a good support bra to relieve breast tenderness. ? Rest with your legs elevated if you have leg cramps or low back pain. ? If you develop bulging veins (varicose veins) in your legs: ? Wear support hose as told by your health care provider. ? Elevate your feet for 15 minutes, 3?4 times a day. ? Limit salt in your diet. Safety ? Wear your seat belt at all times when driving or riding in a car. ? Talk with your health care provider if someone is verbally or physically abusive to you. ? Talk with your health care provider if you are feeling sad or have thoughts of hurting yourself. Lifestyle ? Do not use hot tubs, steam rooms, or saunas. ? Do not douche. Do not use tampons or scented sanitary pads. ? Do not use herbal remedies, alcohol, illegal drugs, or medicines that are not approved by your health care provider. Chemicals in these products can harm your baby. ? Do not use any products that contain nicotine or tobacco, such as cigarettes, e-cigarettes, and chewing tobacco. If you need help quitting, ask your health care provider. ? Avoid cat litter boxes and soil used by cats. These carry germs that can cause defects in the baby and possibly loss of the unborn baby (fetus) by miscarriage or stillbirth. General instructions ? During routine visits in the first trimester, your health care provider will do a physical exam, perform necessary tests, and ask you how things are going. Keep all follow-up visits. This is important. ? Ask for help if you have counseling or nutritional needs during . Your health care provider can offer advice or refer you to specialists for help with various needs. ? Schedule a dentist appointment. At home, brush your teeth with a soft toothbrush. Floss gently. ? Write down your questions. Take them to your visits. Where to find more information ? [place] Association: americanpregnancy.org ? [place] College of Obstetricians and Gynecologists: acog.org/en/Womens%20Health/ ? Office on Women's Health: womenshealth.gov/ Contact a health care provider if you have: ? Dizziness. ? A fever. ? Mild pelvic cramps, pelvic pressure, or nagging pain in the abdominal area. ? Nausea, vomiting, or diarrhea that lasts for 24 hours or longer. ? A bad-smelling vaginal discharge. ? Pain when you urinate. ? Known exposure to a contagious illness, such as chickenpox, measles, Zika virus, HIV, or hepatitis. Get help right away if you have: ? Spotting or bleeding from your vagina. ? Severe abdominal cramping or pain. ? Shortness of breath or chest pain. ? Any kind of trauma, such as from a fall or a car crash. ? New or increased pain, swelling, or redness in an arm or leg. Summary ? The first trimester of starts on the first day of your last menstrual period until the end of week 12 (months 1 through 3). ? Eating 4 or 5 small meals a day rather than 3 large meals may help to relieve nausea and vomiting. ? Do not use any products that contain nicotine or tobacco, such as cigarettes, e-cigarettes, and chewing tobacco. If you need help quitting, ask your health care provider. ? Keep all follow-up visits. This is important. This information is not intended to replace advice given to you by your health care provider. Make sure you discuss any questions you have with your health care provider. Document Revised: 08/15/2020 Document Reviewed: 06/21/2020 [employer] Patient Education ? 2022 [employer] Medication Information: The exam and treatment you received today in the [facility] Emergency Department were for an urgent problem and are not intended as complete care. It is important for you to follow up with a doctor, nurse practitioner, or physician?s communication assistant for ongoing care. If your symptoms become worse or you do not improve as expected and you are unable to reach your usual health care provider, you should return to the Emergency Department, we are available 24 hours a day. For those patients who have received Radiology results, the interpretation of your X-ray as given to you by our Emergency Department physician is only a preliminary report. The Radiologist will review your films and if there is a change in the diagnosis you will be notified by phone. Please make sure you have provided a working phone number so we can reach you if necessary. In the event that you had a lab culture while you were a patient in the Emergency Department, you will be notified by phone if there is a need to change your antibiotic. Please make sure you have provided a working phone number so we can reach you if necessary. [facility] Emergency Department has provided you with a complete list of medications post discharge. Please inform your manager target/provider of your visit and for further instruction on these medications. Any specific questions regarding your chronic medications and dosages should be discussed with your primary care physician(s) and/or pharmacist. Visit Information Visit Diagnosis: Diagnoses This Visit Medical screening exam ([id number]) Physical exam (Z00.00) If you received any [...] business decisions or sign any legal documents Reason for Visit: Allergies: Substance Reaction Symptoms Type Comments No [...] List: Problem Onset Comments No Problems found Major Tests and Procedures: The following procedures and tests were performed during your ED visit. Laboratory Radiology Cardiology Viruses or Bacteria What?s got you sick? Antibiotics only treat bacterial infections. Viral illnesses cannot be treated with antibiotics. When an antibiotic is not prescribed, ask your healthcare professional for tips on how to relieve symptoms and feel better. Usual Cause Illness Viruses Bacteria Antibiotic Needed Cold/Runny Nose NO Bronchitis/Chest Cold (in otherwise healthy children and adults) NO Whooping Cough Yes Flu NO Strep Throat Yes Sore Throat (except strep) NO Fluid in the middle ear (otitis media with effusion) NO Urinary Tract Infection Yes Antibiotics Aren?t Always the Answer www.cdc.gov/getsmart GET SMART Know When Antibiotics Work U.S. Department of Health and Human Services Centers for Disease Control and Prevention November 2013 ED CLINICAL SUMMARY Observed: 09/02/2023 11:41 AM Status: F Source: [facility] ? Urgent C are [address] [place] [address] Clinical Summary PERSON INFORMATION Name: FLORINDA ORTEGA Age: 22 Years Sex: MALE : 2000 MRN: Acct#: Visit Reason: Medical screening exam; [facility] Arrival: 09/02/2023 11:09:30 Discharge: 09/02/2023 11:41:00 LOS: 000 00:32 Check In: 09/02/2023 11:09:30 Checkout: 09/02/2023 11:41:00 Address: [address] [place] [address] PCP: Bina Zamora CNP PROVIDER INFORMATION Provider [...] of Follow-Up: With: Address: When: Pamela Ortiz [facility] [address], [place] [address] Business (1) Comments: Personal Development Mentor to 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 Abstain from any alcohol or illicit drugs With: Address: When: Bina Sera [address] [place] [address] Business (1) , only if needed DIAGNOSIS: Physical exam Patient Understands: Yes - Patient/family/caregiver verbalizes understanding of instructions given Comment: URGENT CARE RECORD Observed: 09/02/2023 11:40 AM Status: C Source: [facility] ? Urgent C are [address] [place] [address] PATIENT DISCHARGE INSTRUCTIONS Patient Information Name: FLORINDA ORTEGA Age: 22 Years Date of : 2000 Reason For Visit: Medical screening exam; [facility] Arrival Time: 09/02/2023 11:09:30 Primary Care Physician: Bina Zamora CNP Attending Physician: MIRIAN HERBERT Comment: Visit Diagnosis: Diagnoses This Visit Medical screening exam ([id number]) Physical exam (Z00.00) If you received any [...] With: Address: When: Pamela ROSAD[address], [address], [place] [address] Business (1) Comments: Personal Development Mentor to 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 Abstain from any alcohol or illicit drugs With: Address: When: Bina Sera [address] [place] [address] Business (1) , only if needed Medication Information: The exam and treatment you received today in the [facility] were for an urgent problem and are not intended as complete care. It is important for you to follow up with a doctor, nurse practitioner, or physician?s communication assistant for ongoing care. If your symptoms [...] so we can reach you if necessary. [facility] has provided you with a complete list of medications post discharge. Please inform your manager target/provider of your visit and for further instruction [...] possible. care may be provided by a gas technician, a family practice doctor, a mid-level practitioner (nurse practitioner or physician communication assistant), or a childbirth and doctor (beauty consultant). How does this affect me? During , [...] procedures you have had. ? Any current oqob-bjj-tuvtcub or prescription medicines, herbs, or supplements that [...] is usually done around week 24 of . ? Ultrasounds to check your baby's growth and development, to check for defects, and to check your baby's well-being. These can also help to decide when you should deliver your baby. ? A test to check for group B strep (GBS) infection. This is usually done around week 36 of . ? Genetic testing. This may include blood, fluid, or tissue sampling, or imaging tests, such as an ultrasound. Some genetic tests are done during the first trimester and some are done during the second trimester. What else can I expect during care visits? Your health care provider may recommend getting certain vaccines during . These may include: ? A yearly flu shot (annual influenza vaccine). This is especially important if you will be during flu season. ? Tdap (tetanus, diphtheria, pertussis) vaccine. Getting this vaccine during can protect your baby from whooping cough (pertussis) after . This vaccine may be recommended between weeks 27 and 36 of . ? A COVID-19 vaccine. Later in your , your health care provider may give you information about: ? Childbirth and classes. ? Choosing a health care provider for your baby. ? Umbilical cord banking. ? . ? control after your baby is born. ? The [facility] labor and delivery unit and how to set up a tour. ? Registering at the hospital before you go into labor. Where to find more information ? Office on Women's Health: womenshealth.gov ? Thai Association: americanpregnancy.org ? March of Dimes: marchofdimes.org Summary ? care helps you and your baby stay as healthy as possible during . ? Your first care visit will most likely be the longest. ? You will have visits and tests throughout your to monitor your health and your baby's health. ? Bring a list of questions to your visits to ask your health care provider. ? Make sure to keep all follow-up and care visits. This information is not intended to replace advice given to you by your health care provider. Make sure you discuss any questions you have with your health care provider. Document Revised: 12/20/2020 Document Reviewed: 12/20/2020 [employer] Patient Education ? 2022 [employer] First Trimester of The first trimester of starts on the first day of your last menstrual period until the end of week 12. This is months 1 through 3 of . A week after a sperm fertilizes an egg, the egg will implant into the wall of the uterus and begin to develop into a baby. By the end of 12 weeks, all the baby's organs will be formed and the baby will be 2?3 inches in size. Body changes during your first trimester Your body goes through many changes during . The changes vary and generally return to normal after your baby is born. Physical changes ? You may gain or lose weight. ? Your breasts may begin to grow larger and become tender. The tissue that surrounds your nipples (areola) may become darker. ? Dark spots or blotches (chloasma or mask of ) may develop on your face. ? You may have changes in your hair. These can include thickening or thinning of your hair or changes in texture. Health changes ? You may feel nauseous, and you may vomit. ? You may have heartburn. ? You may develop headaches. ? You may develop constipation. ? Your gums may bleed and may be sensitive to brushing and flossing. Other changes ? You may tire easily. ? You may urinate more often. ? Your menstrual periods will stop. ? You may have a loss of appetite. ? You may develop cravings for certain kinds of food. ? You may have changes in your emotions from day to day. ? You may have more vivid and strange dreams. Follow these instructions at home: Medicines ? Follow your health care provider's instructions regarding medicine use. Specific medicines may be either safe or unsafe to take during . Do not take any medicines unless told to by your health care provider. ? Take a vitamin that contains at least 600 micrograms (mcg) of folic acid. Eating and drinking ? Eat a healthy diet that includes fresh fruits and vegetables, whole grains, good sources of protein such as meat, eggs, or tofu, and low-fat dairy products. ? Avoid raw meat and unpasteurized juice, milk, and cheese. These carry germs that can harm you and your baby. ? If you feel nauseous or you vomit: ? Eat 4 or 5 small meals a day instead of 3 large meals. ? Try eating a few soda crackers. ? Drink liquids between meals instead of during meals. ? You may need to take these actions to prevent or treat constipation: ? Drink enough fluid to keep your urine pale yellow. ? Eat foods that are high in fiber, such as beans, whole grains, and fresh fruits and vegetables. ? Limit foods that are high in fat and processed sugars, such as fried or sweet foods. Activity ? Exercise only as directed by your health care provider. Most people can continue their usual exercise routine during . Try to exercise for 30 minutes at least 5 days a week. ? Stop exercising if you develop pain or cramping in the lower abdomen or lower back. ? Avoid exercising if it is very hot or humid or if you are at high altitude. ? Avoid heavy lifting. ? If you choose to, you may have sex unless your health care provider tells you not to. Relieving pain and discomfort ? Wear a good support bra to relieve breast tenderness. ? Rest with your legs elevated if you have leg cramps or low back pain. ? If you develop bulging veins (varicose veins) in your legs: ? Wear support hose as told by your health care provider. ? Elevate your feet for 15 minutes, 3?4 times a day. ? Limit salt in your diet. Safety ? Wear your seat belt at all times when driving or riding in a car. ? Talk with your health care provider if someone is verbally or physically abusive to you. ? Talk with your health care provider if you are feeling sad or have thoughts of hurting yourself. Lifestyle ? Do not use hot tubs, steam rooms, or saunas. ? Do not douche. Do not use tampons or scented sanitary pads. ? Do not use herbal remedies, alcohol, illegal drugs, or medicines that are not approved by your health care provider. Chemicals in these products can harm your baby. ? Do not use any products that contain nicotine or tobacco, such as cigarettes, e-cigarettes, and chewing tobacco. If you need help quitting, ask your health care provider. ? Avoid cat litter boxes and soil used by cats. These carry germs that can cause defects in the baby and possibly loss of the unborn baby (fetus) by miscarriage or stillbirth. General instructions ? During routine visits in the first trimester, your health care provider will do a physical exam, perform necessary tests, and ask you how things are going. Keep all follow-up visits. This is important. ? Ask for help if you have counseling or nutritional needs during . Your health care provider can offer advice or refer you to specialists for help with various needs. ? Schedule a dentist appointment. At home, brush your teeth with a soft toothbrush. Floss gently. ? Write down your questions. Take them to your visits. Where to find more information ? Thai Association: americanpregnancy.org ? [place] College of Obstetricians and Gynecologists: acog.org/en/Womens%20Health/ ? Office on Women's Health: womenshealth.gov/ Contact a health care provider if you have: ? Dizziness. ? A fever. ? Mild pelvic cramps, pelvic pressure, or nagging pain in the abdominal area. ? Nausea, vomiting, or diarrhea that lasts for 24 hours or longer. ? A bad-smelling vaginal discharge. ? Pain when you urinate. ? Known exposure to a contagious illness, such as chickenpox, measles, Zika virus, HIV, or hepatitis. Get help right away if you have: ? Spotting or bleeding from your vagina. ? Severe abdominal cramping or pain. ? Shortness of breath or chest pain. ? Any kind of trauma, such as from a fall or a car crash. ? New or increased pain, swelling, or redness in an arm or leg. Summary ? The first trimester of starts on the first day of your last menstrual period until the end of week 12 (months 1 through 3). ? Eating 4 or 5 small meals a day rather than 3 large meals may help to relieve nausea and vomiting. ? Do not use any products that contain nicotine or tobacco, such as cigarettes, e-cigarettes, and chewing tobacco. If you need help quitting, ask your health care provider. ? Keep all follow-up visits. This is important. This information is not intended to replace advice given to you by your health care provider. Make sure you discuss any questions you have with your health care provider. Document Revised: 08/15/2020 Document Reviewed: 06/21/2020 [employer] Patient Education ? 2022 [employer] Viruses or Bacteria What?s got you sick? Antibiotics only treat bacterial infections. Viral illnesses cannot be treated with antibiotics. When an antibiotic is not prescribed, ask your healthcare professional for tips on how to relieve symptoms and feel better. Usual Cause Illness Viruses Bacteria Antibiotic Needed Cold/Runny Nose NO Bronchitis/Chest Cold (in otherwise healthy children and adults) NO Whooping Cough Yes Flu NO Strep Throat Yes Sore Throat (except strep) NO Fluid in the middle ear (otitis media with effusion) NO Urinary Tract Infection Yes Antibiotics Aren?t Always the Answer www.cdc.gov/getsmart GET SMART Know When Antibiotics Work U.S. Department of Health and Human Services Centers for Disease Control and Prevention November 2013 URGENT CARE NOTE- PROVIDER Observed: 02/2024 11:19 AM Status: F Source: [facility] Patient: FLORINDA ORTEGA MRN: [id number] Age: 22 years Sex: MALE : 2000 [...] pharynx is pink and moist. NECK: -Supple (xfif-no-tuzyd): non-tender. CARD: -Rate and rhythm: Regular -Edema: [...] Plan Assessment and Plan: Diagnosis: Physical exam ([id number] Z00.00). Cleared for employment [Electronically Signed on: 09/02/2023 11:41 EDT] MIRIAN HERBERT[Verified on: 09/02/2023 11:41 EDT] MIRIAN HERBERT LAB - TOXICOLOGY RESULTS Observed: 09/01 11:09 AM Status: F Source: [facility] [id number]#1.00OTGTIFF CONSENT FORMS Observed: 09/02/2023 11:09 AM Status: P Source: [place] [id number]#1.00OTGTIFF HISTORY AND PHYSICAL Observed: 11:09 AM Status: P Source: [facility] [id number]#1.00OTGTIFF ALLERGIES DATE TYPE / CODE NAME / CODE REACTION SEVERITY SOURCE Drug Class/[id number](SNO MED CT) NO KNOWN ALLERGIES [facility] Drug/[id number](SNOM ED CT) No known allergies [facility] ENCOUNTERS ADMIT/DISCHARGE ACCOUNT NUMBER ADMITTING ENCOUNTER CLASS LOCATION SOURCE 07/27/2024/07/28/19 [id number] [facility] 07/07/2024/07/08/19 [id number] Ambulatory Building:[facility] 06/06/2024/06/07/19 25 [id number] Ambulatory Building:[facility] 05/30/2024/05/31/19 [id number] Ambulatory Building:NOM S [facility] OB [facility] 05/11/2024/05/11/19 [id number] Ambulatory Building:[facility] 04/21/2024/04/21/19 25 [id number] Ambulatory Building:N[facility] OB [facility] 04/14/2024/04/14/19 25 [id number] Ambulatory Building:N[facility] OB [facility] 04/07/2024/04/07/19 25 [id number] Ambulatory Building:N[facility] OB [facility] 03/29/2024/03/29/19 25 [id number] Ambulatory Building:N[facility] OB [facility] 03/08/2024/03/08/20 24 [id number] Ambulatory Building:N[facility] OB [facility] 02/23/2024/02/23/20 24 [id number] Ambulatory Building:N[facility] OB [facility] 01/31/2024/02/01/20 24 [id number] KATHLEEN HASKINS Ambulatory Building:[facility] _LDRPRoom: 107Bed: 01 [facility] 01/19/2024/01/19/20 24 [id number] Ambulatory Building:NOM S [facility] 01/07/2024/01/07/20 24 [id number] Ambulatory [facility] :FT [facility] 12/30/2023/12/30/19 24 [id number] Ambulatory FTBuilding :FT LAB [facility] 12/22/2023/12/22/19 24 [id number] Ambulatory Building:NOM [facility] OB [facility] 12/10/2023/12/10/19 24 [id number] Ambulatory Building:NOM S [facility] OB [facility] 09/02/2023/09/02/19 24 [id number] MIRIAN HERBERT [facility] U[facility]ENT CARERoom: UCBed: 5 [facility] PAYERS ENCOUNTER GUARANTOR PAYER SUBSCRIBER SOURCE 07/27/[address] [address]Opy: () Primary Insurance:Self PayPolicy Number: Effective Date:2024-07-27 [facility] FLORINDA BAKXDOB: [place], [place] [address]Pmt: (HP) (WP) Primary Insurance:[employer] HEALTHCAREPolicy Number: [id number] Date:2019-04-23 KUN EMERSONXDOB: [id number] [address] [address] [facility] 06/06/2024 FLORINDA BAKXDOB: [place], [place] [address]Rpz: (HP) (WP) Primary Insurance:UNITED HEALTHCAREPolicy Number: [id number] Date:2019-04-23 KUN Mann BAKXDOB: [id number], [place] [address] [facility] 05/30/2024 FLORINDA BAKXDOB: [place] [address]Nzz: (HP) (WP) Primary Insurance:[facility] HEALTHCAREPolicy Number: [id number] Date:2019-04-23 KUN Mann BAKXDOB: [id number] [address], [place] [address] [facility] 05/11/2024 FLORINDA BAKXDOB: [place] [address]Zxo: (HP) (WP) Primary Insurance:[facility]Policy Number: [id number] Date:2019-04-23 KUN Mann BAKXDOB: [id number] [address], [place] [address] [facility] 04/21/2024 FLORINDA BAKXDOB: [place] [address]Jap: (HP) (WP) Primary Insurance:[facility]Policy Number: [id number] Date:2019-04-23 KUN Mann BAKXDOB: [id number] [address], [place] [address] [facility] 04/14/2024 FLORINDA BAKXDOB: [place] [address]Iho: (HP) (WP) Primary Insurance:[facility]ALTHCAREPolicy Number: [id number] Date:2019-04-23 KUN Mann BAKXDOB: [id number] [address], [place] [address] [facility] 04/07/2024 FLORINDA BAKXDOB: [place] [address]Xvd: (HP) (WP) Primary Insurance:[facility]Policy Number: [id number] Date:2019-04-23 KUN Mann BAKXDOB: [id number] [address], [place] [address] [facility] 03/29/2024 FLORINDA BAKXDOB: [place] [address]Wdn: (HP) (WP) Primary Insurance:[facility]Policy Number: [id number] Date:2019-04-23 KUN Mann BAKXDOB: [id number] [address], [place] [address] [facility] 03/08/2024 FLORINDA BAKXDOB: [place] [address]Lzo: (HP) (WP) Primary Insurance:[facility]Policy Number: [id number] Date:2019-04-23 KUN Mann BAKXDOB: [id number] [address], [place] [address] [facility] 02/23/2024 FLORINDA BAKXDOB: [place] [address]Lhf: (HP) (WP) Primary Insurance:[facility]Policy Number: [id number] Date:2019-04-23 KUN Mann BAKXDOB: [id number] [address], [place] [address] [facility] 01/31/2024 FLORINDA JOSE RAFAEL BAKXDOB: [place] [address]Jiw: (HP) Primary Insurance:[facility] Number: [id number] Date:2019-04-23 KUN ALVARENGA BAKXDOB: [id number] [address] [address]Dxx: (HP) (WP) [facility] 01/19/2024 FLORINDA BAKXDOB: [place] [address]Vag: (HP) (WP) Primary Insurance:[facility]Policy Number: [id number] Date:2019-04-23 KUN Mann BAKXDOB: [id number] [address] [facility] 12/22/2023 FLORINDA BAKXDOB: [place] [address]Unl: (HP) (WP) Primary Insurance:[facility]Policy Number: [id number] Date:2019-04-23 KUN EMERSONXDOB: [id number] [address] [facility] 12/10/2023 FLORINDA BAKXDOB: [place] [address]Qrk: (HP) (WP) Primary Insurance:[facility]Policy Number: [id number] Date:2019-04-23 KUN EMERSONXDOB: [id number] [address] [facility] EPIC
[2024-08-14 08:12] VITALS: BP 150/90; PULSE 122; TEMP 37; O2SAT 98; BMI 35.5
--- OUTSIDE RECORDS SUMMARY | 2024-08-14 08:14 | XMS_ITS | Encounter Summary ---
Author Organization [facility] Address [address] [place] [address] Care Team Providers Care Surveillance Supervisor Name Role Phone Romaine Pham MD Primary Care Provider [phone] Bina Zamora NP Unavailable [phone] Encounter Details Date Type Department Care Team (Late st Contact Info) Description 02/19/2023 Clinisync Result Encounter [facility] External Department Unsolicited Provider, Generic External Data Social History Tobacco Use Types Packs/Day Years Used Date Smoking Tobacco: Never Assessed Comments Yes Sex and Gender Information Value Date Recorded Sex Assigned at Not on file Legal Sex Female 8:00 PM EDT Gender Identity Not on file Sexual Orientation Not on file documented as of this encounter Plan of Treatment Upcoming Encounters Date Type Department Care Team (Late st Contact Info) Description 09/01/2024 9:20 AM EDT Office Visit [facility] [address] [place] [address] Bina Zamora, LELE [address] [place] [address] documented as of this encounter Procedures Procedure Name Priority Date/Time Associated Diagnosis Comments US OB INCOMPLETE ANATOMY 02/19/2023 3:12 PM EST documented in this encounter Results * US OB INCOMPLETE ANATOMY (02/19/2023 3:12 PM EST) Anatomical Region Laterality Modality Other 02/19/2023 3:12 PM EST Narrative 02/19/2023 3:12 [place] [address] Ultrasound Report Signed Patient: FLORINDA ORTEGA MR#: [id number] : 2000 Acct:[id number] Age/Sex: 22 / F ADM Date: 02/19/23 Loc: US Attending Dr: Angelina Mcgowan D.O. Ordering Physician: Angelina Mcgowan D.O. Date of Service: 02/19/23 Procedure(s): US OB incomplete anatomy Accession Number(s): [id number] cc: Bina Zamora SHEET METAL LAYOUT MECHANIC; Angelina Mcgowan D.O. The [place] [id number] Patient Name: FLORINDA ORTEGA MRN: [id number] date: 2000 Sex: F Assigned Patient Location: US Current Patient Location: US Accession/Order Number: [id number] Exam Date: 02/19/2023 14:08 Report Date: 02/19/2023 15:12 At the request of: ANGELINA MCGOWAN Procedure: US OB incomplete anatomy EXAM: US OB incomplete anatomy HISTORY: Encounter For Follow Up Ultrasound Anatomy Z36.2 COMPARISON: Ultrasound OB anatomy 01/21/2023 TECHNIQUE: Transabdominal ultrasound FINDINGS: Presentation: Cephalic Heart rate: 140 bpm Anatomy: Three-vessel cord, four-chamber heart, RVOT, LVOT; no appreciable abnormality. US/US OB incomplete anatomy IMPRESSION: 1. Single live intrauterine . 2. Adequate visualization of the three-vessel cord and four-chamber heart. 2. Slightly limited evaluation of the cardiac outflow tracts due to position; no appreciable abnormality. Electronically authenticated by: EVARISTO GRIMES Date: 02/19/2023 15:12 Dictated By: Evaristo Grimes M.D. Signed By: 02/19/23 1515 DD/ 151 TD/TT: Tools Programmer: Procedure Note Radiology, Radiologist, MD - 02/19/2023 [facility] [place] [id number] Ultrasound Report Signed Patient: FLORINDA ORTEGA AMR#: [id number] : 2000Acct:[id number] Age/Sex: 22 / FADM Date: 02/19/23 Loc: US Attending Dr: Angelina Mcgowan D.O. Ordering Physician: Angelina Mcgowan D.O. Date of Service: 02/19/23 Procedure(s): US OB incomplete anatomy Accession Number(s): [id number] cc: Bina Zamora SHEET METAL LAYOUT MECHANIC; Angelina Mcgowan D.O. [place] [id number] Patient Name: FLORINDA ORTEGA MRN: [id number] date: 2000 Sex: F Assigned Patient Location: US Current Patient Location: US Accession/Order Number: [id number] Exam Date: 02/19/2023 14:08 Report Date: 02/19/2023 15:12 At the request of: ANGELINA MCGOWAN Procedure: US OB incomplete anatomy EXAM: US OB incomplete anatomy HISTORY: Encounter For Follow Up Ultrasound Anatomy Z36.2 COMPARISON: Ultrasound OB anatomy 01/21/2023 TECHNIQUE: Transabdominal ultrasound FINDINGS: Presentation: Cephalic Heart rate: 140 bpm Anatomy: Three-vessel cord, four-chamber heart, RVOT, LVOT; no appreciable abnormality. US/US OB incomplete anatomy IMPRESSION: 1. Single live intrauterine . 2. Adequate visualization of the three-vessel cord and four-chamber heart. 2. Slightly limited evaluation of the cardiac outflow tracts due to position; no appreciable abnormality. Electronically authenticated by: EVARISTO GRIMES Date: 02/19/2023 15:12 Dictated By: Evaristo Grimes M.D. Signed By:02/19/23 1515 DD/ 11 TD/TT: Tools Programmer: us Generic External Data Provider [facility] Final Result documented in this encounter Visit Diagnoses Not on filedocumented in this encounter Care Teams Surveillance Supervisor Relationship Specialty Start Date End Date Romaine Pham MD [address] [place] [address] PCP - General Family Medicine 05/04/24 Bina Zamora NP [address] [place] [address] Nurse Practitioner Family Medicine 05/04/24 documented as of this encounter
--- OUTSIDE RECORDS SUMMARY | 2024-08-14 08:14 | XMS_ITS | Encounter Summary ---
Author Organization [facility] Address [address] [place] [address] Care Team Providers Care Cleaning Porter Name Role Phone Romaine Pham MD Primary Care Provider [phone] Bina Zamora BILINGUAL LOAN PROCESSOR Unavailable [phone] Encounter Details Date Type Department Care Team (Late Contact Info) Description 12/10/2023 Abstract [facility] B[facility] OB [address] [facility] [place] [address] Keagan Mcgowan, DO [address] [facility] [address] [place], [place] [id number] Social History Tobacco Use Types Packs/Day Years Used Date Smoking Tobacco: Never Assessed Comments Yes Sex and Gender Information Value Date Recorded Sex Assigned at Not on file Legal Sex Female 8:00 PM EDT Gender Identity Not on file Sexual Orientation Not on file documented as of this encounter Plan of Treatment Upcoming Encounters Date Type Department Care Team ([facility] Contact Info) Description 09/01/2024 9:20 AM EDT Office Visit [facility] [address] [place] [address] Bina Zamora NP [address] [place] [address] documented as of this encounter Visit Diagnoses Not on filedocumented in this encounter Care Teams Cleaning Porter Relationship Specialty Start Date End Date Romaine Pham MD [address] [place] [address] PCP - General Family Medicine 05/04/24 Bina Zamora NP [address] [place] [address] Nurse Practitioner Family Medicine 05/04/24 documented as of this encounter
--- OUTSIDE RECORDS SUMMARY | 2024-08-14 08:14 | XMS_ITS | Encounter Summary ---
Author Organization [facility] Address [address] [place] [address] Care Team Providers Care Thermal Cutting Machine Operator Name Role Phone Romaine Pham MD Primary Care Provider [phone] Bina Zamora MOLDER CLOSED MOLDS Unavailable [phone] Encounter Details Date Type Department Care Team (Late Contact Info) Description 12/10/2023 Abstract [facility] B[facility] OB [address] [facility] [place] [address] Keagan Mcgowan, DO [address] [facility] [address] [place], [place] [address] Social History Tobacco Use Types Packs/Day Years Used Date Smoking Tobacco: Never Assessed Comments Yes Sex and Gender Information Value Date Recorded Sex Assigned at Not on file Legal Sex Female 8:00 PM EDT Gender Identity Not on file Sexual Orientation Not on file documented as of this encounter Plan of Treatment Upcoming Encounters Date Type Department Care Team ([facility] Contact Info) Description 09/01/2024 9:20 AM EDT Office Visit [facility] [address] [place] [address] Bina Zamora NP [address] [place] [address] documented as of this encounter Visit Diagnoses Not on filedocumented in this encounter Care Teams Thermal Cutting Machine Operator Relationship Specialty Start Date End Date Romaine Pham MD [address] [place] [address] PCP - General Family Medicine 05/04/24 Bina Zamora NP [address] [place] [address] Nurse Practitioner Family Medicine 05/04/24 documented as of this encounter
--- OUTSIDE RECORDS SUMMARY | 2024-08-14 08:14 | XMS_ITS | Encounter Summary ---
Author Organization [facility] Address [address] [place] [address] Care Team Providers Care Director Of Analytics Name Role Phone Romaine Pham MD Primary Care Provider [phone] Bina Zamora NP Unavailable [phone] Encounter Details Date Type Department Care Team (Late st Contact Info) Description 12/10/2023 Orders Only [facility] [address] [place] [address] Keagan Mcgowan, DO [address] [place] [address] [address] [place], [place] [address] Social History Tobacco Use Types Packs/Day Years [...] 09/01/2024 9:20 AM EDT Office Visit [facility] [address] [place] [address] Bina Zamora, LELE [address] [place] [address] documented as of this encounter Procedures Procedure Name Priority Date/Time Associated Diagnosis Comments US OB SCAN FOR GROWTH Routine 12/10/2023 2:11 PM EDT documented in this encounter Results * US OB SCAN FOR GROWTH (12/10/2023 2:11 PM EDT) Anatomical Region Laterality Modality Body Ultrasound us Keagan BARCENAS OB US PROCEDURES Final Resul t documented in this encounter Visit Diagnoses Not on filedocumented in this encounter Care Teams Director Of Analytics Relationship Specialty Start Date End Date Romaine Pham MD [address] [place] [address] PCP - General Family Medicine 05/04/24 Bina Zamora NP [address] [place] [address] Nurse Practitioner Family Medicine 05/04/24 documented as of this encounter
--- OUTSIDE RECORDS SUMMARY | 2024-08-14 08:14 | XMS_ITS | Encounter Summary ---
Author Organization [facility] Address [address] [place] [address] Care Team Providers Care Transit Planner Name Role Phone Romaine Pham MD Primary Care Provider [phone] Bina Zamora GL ACCOUNTANT Unavailable [phone] Encounter Details Date Type Department Care Team (Late Contact Info) Description 12/10/2023 Abstract [facility] B[facility] OB [address] [facility] [place] [address] Keagan Mcgowan, DO [address] [facility] [address] [place], [place] [address] Social History Tobacco Use Types Packs/Day Years Used Date Smoking Tobacco: Never Assessed Comments Yes Sex and Gender Information Value Date Recorded Sex Assigned at Not on file Legal Sex Female 8:00 PM EDT Gender Identity Not on file Sexual Orientation Not on file documented as of this encounter Plan of Treatment Upcoming Encounters Date Type Department Care Team ([facility] Contact Info) Description 09/01/2024 9:20 AM EDT Office Visit [facility] [address] [place] [address] Bina Zamora NP [address] [place] [address] documented as of this encounter Visit Diagnoses Not on filedocumented in this encounter Care Teams Transit Planner Relationship Specialty Start Date End Date Romaine Pham MD [address] [place] [address] PCP - General Family Medicine 05/04/24 Bina Zamora NP [address] [place] [address] Nurse Practitioner Family Medicine 05/04/24 documented as of this encounter
--- OUTSIDE RECORDS SUMMARY | 2024-08-14 08:14 | XMS_ITS | Encounter Summary ---
Author Organization [facility] Address [address] [place] [address] Care Team Providers Care Automotive Parts Counter Associate Name Role Phone Romaine Pham MD Primary Care Provider [phone] Bina Zamora NP Unavailable [phone] Encounter Details Date Type Department Care Team (Late st Contact Info) Description 04/13/2023 Clinisync Result Encounter [facility] External Department Unsolicited [...] Visit [facility] [address] [place] [address] Bina Zamora, LELE [address] [place] [address] documented as of this encounter Procedures Procedure Name Priority Date/Time Associated Diagnosis Comments US OB GROWTH 04/13/2023 12:07 PM EST documented in this encounter Results * US OB GROWTH (04/13/2023 12:07 PM EST) Anatomical Region Laterality Modality Other 04/13/2023 12:0 7 PM EST Narrative 04/13/2023 12:10 [place] [address] Ultrasound Report Signed Patient: FLORINDA ORTEGA MR#: [id number] : 2000 Acct:[id number] Age/Sex: 22 / F ADM Date: 04/13/23 Loc: US Attending Dr: Angelina Mcgowan D.O. Ordering Physician: Angelina Mcgowan D.O. Date of Service: 04/13/23 Procedure(s): US OB growth Accession Number(s): [id number] cc: Bina Zamora NP; Angelina Mcgowan D.O. [place] [address] Patient Name: FLORINDA ORTEGA MRN: [id number] date: 2000 Sex: F Assigned Patient Location: US Current Patient Location: US Accession/Order Number: [id number] Exam Date: 04/13/2023 11:16 Report Date: 04/13/2023 12:07 At the request of: ANGELINA MCGOWAN Procedure: US OB growth EXAMINATION: US OB growth HISTORY: SIZE INCONSISTENT WITH DATES COMPARISON: No relevant comparison available. TECHNIQUE: Transabdominal sonographic examination was performed for obstetrical and evaluation. FINDINGS: Number: 1 Heart Rate: 139.0 bpm H.B. /min position: Cephalic presentation, longitudinal lie Amniotic Fluid Volume: 2.9 cm, largest fluid pocket 3.3 cm BIOMETRY: BPD: 8.2 cm 32 weeks 6 days , 75% HC: 29.0 cm 31 weeks 6 days, 19% AC: 27.3 cm 31 weeks 3 days, 38% FL: 6.0 cm 31 weeks 1 days , 21% EFW:1772.4 grams; 3 lbs. 15 oz., 31% FL/AC: 21.9 FL/BPD: 73.0 HC/AC: 1.1 GESTATIONAL AGE: Age by EDC: 31 weeks 5 days Age by current US: 31 weeks 6 days AL by current US: 06/09/2023 AL by EDC: 06/10/2023 US/US OB growth IMPRESSION: Normal interval growth *Reference: [facility] Practice Guideline for the performance of Obstetric Ultrasound Examinations, December 21, 2006. Electronically authenticated by: VERONA VICKERS Date: 04/13/2023 12:07 Dictated By: Verona Vickers M.D. Signed By: 04/13/23 1210 DD/ 1207 TD/TT: Museum Docent: Procedure Note Radiology, Radiologist, MD - 04/13/2023 [place] [address] Ultrasound Report Signed Patient: FLORINDA ORTEGA AMR#: [id number] : 2000Acct:[id number] Age/Sex: 22 FADM Date: 04/13/23 Loc: US Attending Dr: Angelina Mcgowan D.O. Ordering Physician: Angelina Mcgowan D.O. Date of Service: 04/13/23 Procedure(s): US OB growth Accession Number(s): [id number] cc: Bina Zamora AGRICULTURAL PRODUCE COMMISSION AGENT; Angelina Mcgowan D.O. [place] [address] Patient Name: FLORINDA ORTEGA MRN: [facility]:[id number] date: 2000 Sex: F Assigned Patient Location: US Current Patient Location: US Accession/Order Number: [id number] Exam Date: 04/13/2023 11:16 Report Date: 04/13/2023 12:07 At the request of: ANGELINA MCGOWAN Procedure: US OB growth EXAMINATION: US OB growth HISTORY: SIZE INCONSISTENT WITH DATES COMPARISON: No relevant comparison available. TECHNIQUE: Transabdominal sonographic examination was performed for obstetrical and evaluation. FINDINGS: Number: 1 Heart Rate: 139.0 bpm H.B. /min position: Cephalic presentation, longitudinal lie Amniotic Fluid Volume: 2.9 cm, largest fluid pocket 3.3 cm BIOMETRY: BPD: 8.2 cm 32 weeks 6 days , 75% HC: 29.0 cm 31 weeks 6 days, 19% AC: 27.3 cm 31 weeks 3 days, 38% FL: 6.0 cm 31 weeks 1 days , 21% EFW:1772.4 grams; 3 lbs. 15 oz., 31% FL/AC: 21.9 FL/BPD: 73.0 HC/AC: 1.1 GESTATIONAL AGE: Age by EDC: 31 weeks 5 days Age by current US: 31 weeks 6 days AL by current US: 06/09/2023 AL by EDC: 06/10/2023 US/US OB growth IMPRESSION: Normal interval growth *Reference: [facility] Practice Guideline for the performance of Obstetric Ultrasound Examinations, December 21, 2006. Electronically authenticated by: VERONA VICKERS Date: 04/13/2023 12:07 Dictated By: Verona Vickers M.D. Signed By:04/13/23 1210 DD/ 1207 TD/TT: Museum Docent: us Generic External Data Provider [facility] Final Result documented in this encounter Visit Diagnoses Not on filedocumented in this encounter Care Teams Automotive Parts Counter Associate Relationship Specialty Start Date End Date Romaine Pham MD [address] [place] [address] PCP - General Family Medicine 05/04/24 Bina Zamora NP [address] [place] [address] Nurse Practitioner Family Medicine 05/04/24 documented as of this encounter
--- OUTSIDE RECORDS SUMMARY | 2024-08-14 08:14 | XMS_ITS | Encounter Summary ---
Author Organization [facility] Address [address] [place] [address] Care Team Providers Care Oil Well Directional Surveyor Name Role Phone Romaine Pham MD Primary Care Provider [phone] Bina Zamora AUTOMOBILE LIGHTS ASSEMBLER Unavailable [phone] Encounter Details Date Type Department Care Team ([facility] Contact Info) Description 04/21/2023 Abstract [facility] BCP OB [address] [facility] [place] [address] Keagan Mcgowan, DO [address] [facility] [place] [address] Social History Tobacco Use Types Packs/Day Years Used Date Smoking Tobacco: Never Assessed Comments Yes Sex and Gender Information Value Date Recorded Sex Assigned at Not on file Legal Sex Female 8:00 PM EDT Gender Identity Not on file Sexual Orientation Not on file documented as of this encounter Plan of Treatment Upcoming Encounters Date Type Department Care Team ([facility] Contact Info) Description 09/01/2024 9:20 AM EDT Office Visit [facility] [address] [place] [address] Bina Zamora NP [address] [place] [address] documented as of this encounter Visit Diagnoses Not on filedocumented in this encounter Care Teams Oil Well Directional Surveyor Relationship Specialty Start Date End Date Romaine Pham MD [address] [place] [address] PCP - General Family Medicine 05/04/24 Bina Zamora NP [address] [place] [address] Nurse Practitioner Family Medicine 05/04/24 documented as of this encounter
--- OUTSIDE RECORDS SUMMARY | 2024-08-14 08:14 | XMS_ITS | Encounter Summary ---
Author Organization [facility] Address [address] [place] [address] Care Team Providers Care Automobile Rental Clerk Name Role Phone Romaine Pham MD Primary Care Provider [phone] Bina Zamora PAINT TRIMMER PIPE BOWLS Unavailable [phone] Encounter Details Date Type Department Care Team (Late Contact Info) Description 02/06/2023 Abstract [facility] B[facility] OB [address] [facility] [place] [address] Keagan Mcgowan, DO [address] [facility] [place] [address] Social History Tobacco Use Types Packs/Day Years Used Date Smoking Tobacco: Never Assessed Comments Yes Sex and Gender Information Value Date Recorded Sex Assigned at Not on file Legal Sex Female 8:00 PM EDT Gender Identity Not on file Sexual Orientation Not on file documented as of this encounter Plan of Treatment Upcoming Encounters Date Type Department Care Team ([facility] Contact Info) Description 09/01/2024 9:20 AM EDT Office Visit [facility] [address] [place] [address] Bina Zamora NP [address] [place] [address] documented as of this encounter Visit Diagnoses Not on filedocumented in this encounter Care Teams Automobile Rental Clerk Relationship Specialty Start Date End Date Romaine Pham MD [address] [place] [address] PCP - General Family Medicine 05/04/24 Bina Zamora NP [address] [place] [address] Nurse Practitioner Family Medicine 05/04/24 documented as of this encounter
--- OUTSIDE RECORDS SUMMARY | 2024-08-14 08:14 | XMS_ITS | Encounter Summary ---
Author Organization [facility] Address [address] [place] [address] Care Team Providers Care Cash Applications Associate Name Role Phone Romaine Pham MD Primary Care Provider [phone] Bina Zamora STORAGE FACILITY HOUSEKEEPER Unavailable [phone] Encounter Details Date Type Department Care Team (Late Contact Info) Description 01/05/2023 Abstract [facility] BCP OB [address] [facility] [place] [address] Ana Luisa Saleh PA [address] [facility] [place] [address] Social History Tobacco Use Types Packs/Day Years Used Date Smoking Tobacco: Never Assessed Comments Yes Sex and Gender Information Value Date Recorded Sex Assigned at Not on file Legal Sex Female 8:00 PM EDT Gender Identity Not on file Sexual Orientation Not on file documented as of this encounter Plan of Treatment Upcoming Encounters Date Type Department Care Team (Late Contact Info) Description 09/01/2024 9:20 AM EDT Office Visit [facility] [address] [place] [address] Bina Zamora NP [address] [place] [address] documented as of this encounter Visit Diagnoses Not on filedocumented in this encounter Care Teams Cash Applications Associate Relationship Specialty Start Date End Date Romaine Pham MD [address] [place] [address] PCP - General Family Medicine 05/04/24 Bina Zamora NP [address] [place] [address] Nurse Practitioner Family Medicine 05/04/24 documented as of this encounter
--- OUTSIDE RECORDS SUMMARY | 2024-08-14 08:14 | XMS_ITS | Encounter Summary ---
Author Organization [facility] Address [address] [place] [address] Care Team Providers Care Flame Hardening Machine Setter Name Role Phone Romaine Pham MD Primary Care Provider [phone] Bina Zamora NEWS DEPARTMENT INTERN Unavailable [phone] Encounter Details Date Type Department Care Team (Late Contact Info) Description 05/19/2023 Abstract [facility] B[facility] OB [address] [facility] [place] [address] Keagan Mcgowan, DO [address] [facility] [address] [place], [place] [address] Social History Tobacco Use Types Packs/Day Years Used Date Smoking Tobacco: Never Assessed Comments Yes Sex and Gender Information Value Date Recorded Sex Assigned at Not on file Legal Sex Female 8:00 PM EDT Gender Identity Not on file Sexual Orientation Not on file documented as of this encounter Plan of Treatment Upcoming Encounters Date Type Department Care Team ([facility] Contact Info) Description 09/01/2024 9:20 AM EDT Office Visit [facility] [address] [place] [address] Bina Zamora NP [address] [place] [address] documented as of this encounter Visit Diagnoses Not on filedocumented in this encounter Care Teams Flame Hardening Machine Setter Relationship Specialty Start Date End Date Romaine Pham MD [address] [place] [address] PCP - General Family Medicine 05/04/24 Bina Zamora NP [address] [place] [address] Nurse Practitioner Family Medicine 05/04/24 documented as of this encounter
--- OUTSIDE RECORDS SUMMARY | 2024-08-14 08:14 | XMS_ITS | Encounter Summary ---
Author Organization [facility] Address [address] [place] [address] Care Team Providers Care Construction Trench Digger Name Role Phone Romaine Pham MD Primary Care Provider [phone] Bina Zamora CERTIFIED LACTATION COUNSELOR Unavailable [phone] Encounter Details Date Type Department Care Team (Late Contact Info) Description 04/01/2023 Abstract [facility] [address] [place] [address] Bina Zamora NP [address] [place] [address] Social History Tobacco Use Types Packs/Day Years [...] 09/01/2024 9:20 AM EDT Office Visit [facility] [address] [place] [address] Bina Zamora NP [address] [place] [address] documented as of this encounter Visit Diagnoses Not on filedocumented in this encounter Care Teams Construction Trench Digger Relationship Specialty Start Date End Date Romaine Pham MD [address] [place] [address] PCP - General Family Medicine 05/04/24 Bina Zamora NP [address] [place] [place] [address] Nurse Practitioner Family Medicine 05/04/24 documented as of this encounter
--- OUTSIDE RECORDS SUMMARY | 2024-08-14 08:14 | XMS_ITS | Encounter Summary ---
Author Organization [facility] Address [address] [place] [address] Care Team Providers Care Special Librarian Name Role Phone Romaine Pham MD Primary Care Provider [phone] Bina Zamora DOPE WEIGH OPERATOR Unavailable [phone] Encounter Details Date Type Department Care Team (Late Contact Info) Description 03/06/2023 Abstract [facility] BCP OB [address] [place] [address] Keagan Mcgowan, DO [address] [facility] [address] [place], [place] [id number] Social History Tobacco Use Types Packs/Day Years Used Date Smoking Tobacco: Never Assessed Comments Yes Sex and Gender Information Value Date Recorded Sex Assigned at Not on file Legal Sex Female 8:00 PM EDT Gender Identity Not on file Sexual Orientation Not on file documented as of this encounter Plan of Treatment Upcoming Encounters Date Type Department Care Team ([facility] Contact Info) Description 09/01/2024 9:20 AM EDT Office Visit [facility] [address] [place] [address] Bina Zamora NP [address] [place] [address] documented as of this encounter Visit Diagnoses Not on filedocumented in this encounter Care Teams Special Librarian Relationship Specialty Start Date End Date Romaine Pham MD [address] [place] [address] PCP - General Family Medicine 05/04/24 Bina Zamora NP [address] [place] [address] Nurse Practitioner Family Medicine 05/04/24 documented as of this encounter
--- OUTSIDE RECORDS SUMMARY | 2024-08-14 08:14 | XMS_ITS | Encounter Summary ---
Author Organization [facility] Address [address] [place] [address] Care Team Providers Care Drain Technician Name Role Phone Romaine Pham MD Primary Care Provider [phone] Bina Zamora NP Unavailable [phone] Encounter Details Date Type Department Care Team (Late st Contact Info) Description 12/10/2023 Clinisync Result Encounter N[facility]S External Department Unsolicited Angelina Mcgowan, DO [address] [facility] [address] [place], [place] [id number] Social History Tobacco Use Types Packs/Day Years [...] 9:20 AM EDT Office Visit [facility] [address] [place] [address] Bina Zamora NP [address] [place] [address] documented as of this encounter Procedures Procedure Name Priority Date/Time Associated Diagnosis Comments US OB G= 14 WEEKS FETUS 12/10/2023 1:48 PM EDT documented in this encounter Results * US OB G= 14 WEEKS FETUS (12/10/2023 1:48 PM EDT) Anatomical Region Laterality Modality Other 12/10/2023 1:48 PM EDT Narrative 12/10/2023 1:50 [place] [address] Ultrasound Report Signed Patient: FLORINDA ORTEGA MR#: [id number] : 2000 Acct:[id number] Age/Sex: 23 / F ADM Date: 12/10/23 Loc: [facility] Attending Dr: Angelina Mcgowan D.O. Ordering Physician: Angelina Mcgowan D.O. Date of Service: 12/10/23 Procedure(s): US OB >= 14 weeks Fetus Accession Number(s): [id number] cc: Bina Zamora HYDROPONICS GROWER; Angelina Mcgowan D.O. The [place] [id number] Patient Name: FLORINDA ORTEGA MRN: [facility]:[id number] date: 2000 Sex: F Assigned Patient Location: [facility] Current Patient Location: [facility] Accession/Order Number: [id number] Exam Date: 12/10/2023 13:01 Report Date: 12/10/2023 13:48 At the request of: ANGELINA MCGOWAN Procedure: US OB >= 14 weeks Fetus EXAMINATION: US OB >= 14 weeks Fetus HISTORY: MISSED MENSES COMPARISON: No relevant comparison available. FINDINGS: Dozier intrauterine gestation position: Cephalic presentation, transverse lie Heart rate: 148 beats minute Placenta: Posterior BPD: 4.52 cm, 19 weeks 5 days, 96% Head circumference: 16.0 cm, 8 weeks 6 days, 76% Abdominal circumference: 13.5 cm, 19 weeks 0 days, 75% Femur length: 3.0 cm, 19 weeks 3 days, 86% Estimated weight: 277 g, 10 ounces, 95% Clinical age: 18 weeks 1 day Clinical AL: 05/11/2024 Ultrasound age: 19 weeks 2 days Ultrasound AL: 05/03/2024 US/US OB >= 14 weeks Fetus IMPRESSION: BPD at the 96th percentile Dozier intrauterine gestation of 19 weeks 2 days Electronically authenticated by: VERONA VICKERS Date: 12/10/2023 13:48 Dictated By: Verona Vickers M.D. Signed By: 12/10/23 1350 DD/ 1348 TD/TT: Cafeteria Associate: Procedure Note Radiology, Radiologist, - 12/10/2023 [place] [address] Ultrasound Report Signed Patient: FLORINDA ORTEGA AMR#: [id number] : 2000Acct:[id number] Age/Sex: 23 / FADM Date: 12/10/23 Loc: [facility] Attending Dr: Angelina Mcgowan D.O. Ordering Physician: Angelina Mcgowan D.O. Date of Service: 12/10/23 Procedure(s): US OB >= 14 weeks Fetus Accession Number(s): [id number] cc: Bina Zamora HYDROPON[employer] GROWER; Angelina Mcgowan D.O. The [place] [address] Patient Name: FLORINDA ORTEGA MRN: [id number] date: 2000 Sex: F Assigned Patient Location: [facility] Current Patient Location: [facility] Accession/Order Number: [id number] Exam Date: 12/10/2023 13:01 Report Date: 12/10/2023 13:48 At the request of: ANGELINA MCGOWAN Procedure: US OB >= 14 weeks Fetus EXAMINATION: US OB >= 14 weeks Fetus HISTORY: MISSED MENSES COMPARISON: No relevant comparison available. FINDINGS: Dozier intrauterine gestation position: Cephalic presentation, transverse lie Heart rate: 148 beats minute Placenta: Posterior BPD: 4.52 cm, 19 weeks 5 days, 96% Head circumference: 16.0 cm, 8 weeks 6 days, 76% Abdominal circumference: 13.5 cm, 19 weeks 0 days, 75% Femur length: 3.0 cm, 19 weeks 3 days, 86% Estimated weight: 277 g, 10 ounces, 95% Clinical age: 18 weeks 1 day Clinical AL: 05/11/2024 Ultrasound age: 19 weeks 2 days Ultrasound AL: 05/03/2024 US/US OB >= 14 weeks Fetus IMPRESSION: BPD at the 96th percentile Dozier intrauterine gestation of 19 weeks 2 days Electronically authenticated by: VERONA VICKERS Date: 12/10/2023 13:48 Dictated By: Verona Vickers M.D. Signed By:12/10/23 1350 DD/ 1348 TD/TT: Cafeteria Associate: us Angelina Rsolyn DO [facility] Final Result documented in this encounter Visit Diagnoses Not on filedocumented in this encounter Care Teams Drain Technician Relationship Specialty Start Date End Date Romaine Pham MD [address] [place] [address] PCP - General Family Medicine 05/04/24 Bina Zamora NP [address] [place] [address] Nurse Practitioner Family Medicine 05/04/24 documented as of this encounter
--- OUTSIDE RECORDS SUMMARY | 2024-08-14 08:14 | XMS_ITS | Encounter Summary ---
Author Organization [facility] Address [address] [place] [address] Care Team Providers Care Geothermal Powerplant Mechanic Helper Name Role Phone Romaine Pham MD Primary Care Provider [phone] Bina Zamora NP Unavailable [phone] Encounter Details Date Type Department Care Team (Late st Contact Info) Description 04/13/2023 Clinisync Result Encounter [facility] External Department Unsolicited Angelina Mcgowan, DO [address] [facility] [address] [place], [place] [id number] Social History Tobacco Use Types Packs/Day Years [...] Visit [facility] [address] [place] [address] Bina Zamora NP [address] [place] [address] documented as of this encounter Procedures Procedure Name Priority Date/Time Associated Diagnosis Comments US OB GROWTH 04/13/2023 12:07 PM EST documented in this encounter Results * US OB GROWTH (04/13/2023 12:07 PM EST) Anatomical Region Laterality Modality Other 04/13/2023 12:0 7 PM EST Narrative 04/13/2023 12:10 [place] [address] Ultrasound Report Signed Patient: FLORINDA ORTEGA MR#: [id number] : 2000 Acct:[id number] Age/Sex: 22 / F ADM Date: 04/13/23 Loc: US Attending Dr: Angelina Mcgowan D.O. Ordering Physician: Angelina Mcgowan D.O. Date of Service: 04/13/23 Procedure(s): US OB growth Accession Number(s): [id number] cc: Bina Zamora NP; Angelina Mcgowan D.O. [place] [address] Patient Name: FLORINDA ORTEGA MRN: [facility]:[id number] date: 2000 Sex: F Assigned Patient Location: US Current Patient Location: US Accession/Order Number: [id number] Exam Date: 04/13/2023 11:16 Report Date: 04/13/2023 [...] Signed By: 04/13/23 1210 DD/ 1207 TD/TT: Heel Pricker: Procedure Note Radiology, Radiologist, MD - 05/27/2023 [place] [address] Ultrasound Report Signed Patient: FLORINDA ORTEGA AMR#: [id number] : 2000Acct:[id number] Age/Sex: 22 / FADM Date: 04/13/23 Loc: US Attending Dr: Angelina Mcgowan D.O. Ordering Physician: Angelina Mcgowan D.O. Date of Service: 04/13/23 Procedure(s): US OB growth Accession Number(s): [id number] cc: Bina Zamora CLINICAL MANAGER HOME CARE; Angelina Mcgowan D.O. The [address] [address] Patient Name: FLORINDA ORTEGA MRN: [id number] date: 2000 Sex: F Assigned Patient Location: US Current Patient Location: US Accession/Order Number: [id number] Exam Date: 04/13/2023 11:16 Report Date: 04/13/2023 [...] M.D. Signed By:04/13/23 1210 DD/ 1207 TD/TT: Heel Pricker: us Angelina Roslyn DO [facility] Final Result documented in this encounter Visit Diagnoses Not on filedocumented in this encounter Care Teams Geothermal Powerplant Mechanic Helper Relationship Specialty Start Date End Date Romaine Pham MD [address] [place] [address] PCP - General Family Medicine 05/04/24 Bina Zamora NP [address] [place] [address] Nurse Practitioner Family Medicine 05/04/24 documented as of this encounter
--- OUTSIDE RECORDS SUMMARY | 2024-08-14 08:14 | XMS_ITS | Encounter Summary ---
Author Organization [facility] Address [address] [place] [address] Care Team Providers Care Assistant Statistician Name Role Phone Romaine Pham MD Primary Care Provider [phone] Bina Zamora SANFORIZER Unavailable [phone] Encounter Details Date Type Department Care Team (Late Contact Info) Description 05/06/2023 Abstract [facility] BCP OB [address] [place] [address] Magalis Diaz LPN [address] [employer] [facility] [address] [place], [place] [address] Social History Tobacco Use Types Packs/Day Years [...] [facility] [address] [place] [address] Bina Zamora, LELE [address] [place] [address] documented as of this encounter Visit Diagnoses Not on filedocumented in this encounter Care Teams Assistant Statistician Relationship Specialty Start Date End Date Romaine Pham MD [address] [place] [address] PCP - General Family Medicine 05/04/24 Bina Zamora NP [address] [place] [address] Nurse Practitioner Family Medicine 05/04/24 documented as of this encounter
--- OUTSIDE RECORDS SUMMARY | 2024-08-14 08:14 | XMS_ITS | Encounter Summary ---
Author Organization [facility] Address [address] [place] [address] Care Team Providers Care Educational Sign Language Interpreter Name Role Phone Romaine Pham MD Primary Care Provider [phone] Bina Zamora NP Unavailable [phone] Encounter Details Date Type Department Care Team (Late st Contact Info) Description 04/13/2023 Orders Only [facility] [address] [place] [address] Keagan Mcgowan, DO [address] [place] [address] Dr [place], [place] [address] Social History Tobacco Use Types Packs/Day Years [...] Visit [facility] [address] [place] [address] Bina Zamora, LELE [address] [place] [address] documented as of this encounter Procedures Procedure Name Priority Date/Time Associated Diagnosis Comments US OB SCAN FOR GROWTH Routine 04/13/2023 2:45 PM EST documented in this encounter Results * US OB SCAN FOR GROWTH (04/13/2023 2:45 PM EST) Anatomical Region Laterality Modality Body Ultrasound us Keagan BARCENAS OB US PROCEDURES Final Resul t documented in this encounter Visit Diagnoses Not on filedocumented in this encounter Care Teams Educational Sign Language Interpreter Relationship Specialty Start Date End Date Romaine Pham MD [address] [place] [address] PCP - General Family Medicine 05/04/24 Bina Zamora NP [address] [place] [address] Nurse Practitioner Family Medicine 05/04/24 documented as of this encounter
--- OUTSIDE RECORDS SUMMARY | 2024-08-14 08:14 | XMS_ITS | Encounter Summary ---
Author Organization [facility] Address [address] [place] [address] Care Team Providers Care Commercial Credit Head Name Role Phone Romaine Pham MD Primary Care Provider [phone] Bina Zamora NP Unavailable [phone] Encounter Details Date Type Department Care Team (Late st Contact Info) Description 01/21/2023 Clinisync Result Encounter [facility] External Department Unsolicited Ana Luisa Moura PA [address] [place] [address] [place], [place] [phone] Social History Tobacco Use Types Packs/Day Years [...] Visit [facility] [address] [place] [address] Bina Zamora NP [address] [place] [address] documented as of this encounter Procedures Procedure Name Priority Date/Time Associated Diagnosis Comments US OB CERVICAL LENGTH 01/21/2023 4:48 PM EDT documented in this encounter Results * US OB CERVICAL LENGTH (01/21/2023 4:48 PM EDT) Anatomical Region Laterality Modality Other 01/21/2023 4:48 PM EDT Narrative 01/21/2023 4:48 PM EDT [address] [address] Ultrasound Report Signed Patient: FLORINDA ORTEGA MR#: [id number] : 2000 Acct:[id number] Age/Sex: 22 / F ADM Date: 01/21/23 Loc: US Attending Dr: Ana Luisa Moura Ordering Physician: Ana Luisa Moura Date of Service: 01/21/23 Procedure(s): US OB cervical length Accession Number(s): [id number] cc: Bina Zamora ; Ana Luisa Moura [address] [address] Patient Name: FLORINDA ORTEGA MRN: [id number] date: 2000 Sex: F Assigned Patient Location: US Current Patient Location: US Accession/Order Number: [id number] Exam Date: 01/21/2023 10:23 Report Date: 01/21/2023 16:48 At the request of: ANA LUISA MOURA Procedure: US OB cervical length EXAMINATION: US OB anatomy, US OB cervical length HISTORY: ANATOMY COMPARISON: No relevant comparison available. TECHNIQUE: Transabdominal sonographic examination was performed for obstetrical and evaluation. FINDINGS: Number: 1 Heart Rate: 141.0 bpm H.B. /min Amniotic Fluid Volume: Subjectively normal position: Breech presentation, longitudinal lie Placental Location: ANTERIOR, grade 0. Placental edge 5.0 cm from the cervical os Cervix Length: 3.9 cm, closed Normal anatomy: Lateral ventricles, cerebellum, posterior fossa, nose, lips, orbits, diaphragm, stomach, kidneys, abdominal cord insertion, bladder, umbilical arteries, spine, extremities Suboptimal visualization: Four-chamber heart, RVOT, LVOT, three-vessel BIOMETRY: BPD: 4.6 cm 19 weeks 5 days , 41% HC: 17.6 cm 20 weeks 1 days, 48% AC: 13.9 cm 19 weeks 2 days, 23% FL: 3.5 cm 21 weeks 1 days , 79% EFW:333.6 grams; 12 ounces, 53% FL/AC: 25.2 FL/BPD: 77.0 HC/AC: 1.3 GESTATIONAL AGE: Age by EDC: 20 weeks 0 days Age by current US: 20 weeks 1 days AL by current US: 06/09/2023 AL by EDC: 06/10/2023 US/US OB cervical length IMPRESSION: Suboptimal visualization as detailed above, otherwise normal anatomy scan *Reference: [facility] Practice Guideline for the performance of Obstetric Ultrasound Examinations, December 21, 2006. Electronically authenticated by: VERONA VICKERS Date: 01/21/2023 16:48 Dictated By: Verona Vickers M.D. Signed By: 01/21/231649 DD/ 47 TD/TT: Fine Unhairer: Procedure Note Radiology, Radiologist, MD - 01/21/2023 [place] [address] Ultrasound Report Signed Patient: FLORINDA ORTEGA AMR#: [id number] : 2000Acct:[id number] Age/Sex: 22 / FADM Date: 01/21/23 Loc: US Attending Dr: Ana Luisa Moura Ordering Physician: Ana Luisa Moura Date of Service: 01/21/23 Procedure(s): US OB cervical length Accession Number(s): [id number] cc: Bina Zamora ; Ana Luisa Moura The [place] [id number] Patient Name: FLORINDA ORTEGA MRN: [id number] date: 2000 Sex: F Assigned Patient Location: US Current Patient Location: US Accession/Order Number: [id number] Exam Date: 01/21/2023 10:23 Report Date: 01/21/2023 16:48 At the request of: ANA LUISA MOURA Procedure: US OB cervical length EXAMINATION: US OB anatomy, US OB cervical length HISTORY: ANATOMY COMPARISON: No relevant comparison available. TECHNIQUE: Transabdominal sonographic examination was performed for obstetrical and evaluation. FINDINGS: Number: 1 Heart Rate: 141.0 bpm H.B. /min Amniotic Fluid Volume: Subjectively normal position: Breech presentation, longitudinal lie Placental Location: ANTERIOR, grade 0. Placental edge 5.0 cm from thecervical os Cervix Length: 3.9 cm, closed Normal anatomy: Lateral ventricles, cerebellum, posterior fossa, nose,lips, orbits, diaphragm, stomach, kidneys, abdominal cord insertion, bladder, umbilical arteries, spine, extremities Suboptimal visualization: Four-chamber heart, RVOT, LVOT, three-vessel BIOMETRY: BPD: 4.6 cm 19 weeks 5 days , 41% HC: 17.6 cm 20 weeks 1 days, 48% AC: 13.9 cm 19 weeks 2 days, 23% FL: 3.5 cm 21 weeks 1 days , 79% EFW:333.6 grams; 12 ounces, 53% FL/AC: 25.2 FL/BPD: 77.0 HC/AC: 1.3 GESTATIONAL AGE: Age by EDC: 20 weeks 0 days Age by current US: 20 weeks 1 days AL by current US: 06/09/2023 AL by EDC: 06/10/2023 US/US OB cervical length IMPRESSION: Suboptimal visualization as detailed above, otherwise normal anatomy scan *Reference: [facility] Practice Guideline for the performance of Obstetric Ultrasound Examinations, December 21, 2006. Electronically authenticated by: VERONA VICKERS Date: 01/21/2023 16:48 Dictated By: Verona Vickers M.D. Signed By:01/21/231649 DD/ 47 TD/TT: Fine Unhairer: us Ana Luisa ROY [facility] Final Result documented in this encounter Visit Diagnoses Not on filedocumented in this encounter Care Teams Commercial Credit Head Relationship Specialty Start Date End Date Romaine Pham MD [address] [place] [address] PCP - General Family Medicine 05/04/24 Bina Zamora NP [address] [place] [address] Nurse Practitioner Family Medicine 05/04/24 documented as of this encounter
--- OUTSIDE RECORDS SUMMARY | 2024-08-14 08:14 | XMS_ITS | Encounter Summary ---
Author Organization [facility] Address [address] [place] [address] Care Team Providers Care Marketing Professional Name Role Phone Romaine Pham MD Primary Care Provider [phone] iBna Zamora NEWSPAPER JOURNALIST Unavailable [phone] Encounter Details Date Type Department Care Team (Late Contact Info) Description 12/10/2023 Abstract [facility] BCP OB [address] [facility] [place] [address] Keagan Mcgowan, DO [address] [facility] [address] [place], [place] [phone] Social History Tobacco Use Types Packs/Day Years Used Date Smoking Tobacco: Never Assessed Comments Yes Sex and Gender Information Value Date Recorded Sex Assigned at Not on file Legal Sex Female 8:00 PM EDT Gender Identity Not on file Sexual Orientation Not on file documented as of this encounter Plan of Treatment Upcoming Encounters Date Type Department Care Team ([facility] Contact Info) Description 09/01/2024 9:20 AM EDT Office Visit [facility] [address] [place] [address] Bina Zamora NP [address] [place] [address] documented as of this encounter Visit Diagnoses Not on filedocumented in this encounter Care Teams Marketing Professional Relationship Specialty Start Date End Date Romaine Pham MD [address] [place] [address] PCP - General Family Medicine 05/04/24 Bina Zamora NP [address] [place] [address] Nurse Practitioner Family Medicine 05/04/24 documented as of this encounter
--- OUTSIDE RECORDS SUMMARY | 2024-08-14 08:15 | XMS_ITS | Encounter Summary ---
Author Organization [facility] Address [address] [place] [address] Care Team Providers Care Preschool Education Director Name Role Phone Romaine Pham MD Primary Care Provider [phone] Bina Zamora NP Unavailable [phone] Encounter Details Date Type Department Care Team (Late st Contact Info) Description 03/08/2024 Clinisync Result Encounter [facility] External Department Unsolicited Angelina Mcgowan, DO [address] [facility] [address] [place], [place] [address] Social History Tobacco Use Types Packs/Day Years [...] Visit [facility] [address] [place] [address] Bina Zamora NP [address] [place] [address] documented as of this encounter Procedures Procedure Name Priority Date/Time Associated Diagnosis Comments US OB GROWTH 03/08/2024 2:10 PM EST documented in this encounter Results * US OB GROWTH (03/08/2024 2:10 PM EST) Anatomical Region Laterality Modality Other 03/08/2024 2:10 PM EST Narrative 03/08/2024 2:13 PM EST [address] [address] Ultrasound Report Signed Patient: FLORINDA ORTEGA MR#: [id number] : 2000 Acct:[id number] Age/Sex: 23 / F ADM Date: 03/08/24 Loc: [facility] Attending Dr: Angelina Mcgowan D.O. Ordering Physician: Angelina Mcgowan D.O. Date of Service: 03/08/24 Procedure(s): US OB growth Accession Number(s): [id number] cc: Bina Zamora NP; Angelina Mcgowan D.O. [address] [address] Patient Name: FLORINDA ORTEGA MRN: [facility]:[id number] date: 2000 Sex: F Assigned Patient Location: [facility] Current Patient Location: [facility] Accession/Order Number: [id number] Exam Date: 03/08/2024 13:41 Report Date: 03/08/2024 14:10 At the request of: ANGELINA MCGOWAN Procedure: US OB growth EXAMINATION: US OB growth HISTORY: SIZE INCONSISTENT WITH DATES COMPARISON: No relevant comparison available. FINDINGS: Heart Rate: 136 bpm Amniotic Fluid Volume: 16.5 cm, largest fluid pocket 4.9 cm Number: 1 Position: Cephalic presentation, longitudinal lie BIOMETRY: BPD: 8.28 cm; 33 weeks 2 days; 78.70 % HC: 29.36 cm; 32 weeks 3 days; 23.20 % AC: 27.69 cm; 31 weeks 5 days; 40.80 % FL: 6.40 cm; 33 weeks 0 days: 66.50 % EFW: 1960.48 g; 50.20 % 4 lbs. 5 oz. FL/AC: 23.11 FL/BPD: 77.29 HC/AC: 1.06 GESTATIONAL AGE: Age by EDC: 32 weeks 0 days AL by EDC: 2024-05-03 Age by US: 32 weeks 4 days AL by US: 2024-04-29 US/US OB growth IMPRESSION: Normal interval growth Electronically authenticated by: VERONA VICKERS Date: 03/08/2024 14:10 Dictated By: Verona Vickers M.D. Signed By: 03/08/24 1413 DD/ 09 TD/TT: Plumbing Engineer: Procedure Note Radiology, Radiologist, MD - 03/08/2024 [place] [address] Ultrasound Report Signed Patient: FLORINDA ORTEGA AMR#: [id number] : 2000Acct:[id number] Age/Sex: 23 / FADM Date: 03/08/24 Loc: [facility] Attending Dr: Angelina Mcgowan D.O. Ordering Physician: Angelina Mcgowan D.O. Date of Service: 03/08/24 Procedure(s): US OB growth Accession Number(s): [id number] cc: Bina Zamora HYDROELECTRIC PLANT ELECTRICAL ENGINEER; Angelina Mcgowan D.O. The [place] [address] Patient Name: FLORINDA ORTEGA MRN: [facility]:[id number] date: 2000 Sex: F Assigned Patient Location: [facility] Current Patient Location: [facility] Accession/Order Number: [id number] Exam Date: 03/08/2024 13:41 Report Date: 03/08/2024 14:10 At the request of: ANGELINA MCGOWAN Procedure: US OB growth EXAMINATION: US OB growth HISTORY: SIZE INCONSISTENT WITH DATES COMPARISON: No relevant comparison available. FINDINGS: Heart Rate: 136 bpm Amniotic Fluid Volume: 16.5 cm, largest fluid pocket 4.9 cm Number: 1 Position: Cephalic presentation, longitudinal lie BIOMETRY: BPD: 8.28 cm; 33 weeks 2 days; 78.70 % HC: 29.36 cm; 32 weeks 3 days; 23.20 % AC: 27.69 cm; 31 weeks 5 days; 40.80 % FL: 6.40 cm; 33 weeks 0 days: 66.50 % EFW: 1960.48 g; 50.20 % 4 lbs. 5 oz. FL/AC: 23.11 FL/BPD: 77.29 HC/AC: 1.06 GESTATIONAL AGE: Age by EDC: 32 weeks 0 days AL by EDC: 2024-05-03 Age by US: 32 weeks 4 days AL by US: 2024-04-29 US/US OB growth IMPRESSION: Normal interval growth Electronically authenticated by: VERONA VICKERS Date: 03/08/2024 14:10 Dictated By: Verona Vickers M.D. Signed By:03/08/24 1413 DD/ 09 TD/TT: Plumbing Engineer: us Angelina Roslyn DO [facility] Final Result documented in this encounter Visit Diagnoses Not on filedocumented in this encounter Care Teams Preschool Education Director Relationship Specialty Start Date End Date Romaine Pham MD [address] [place] [address] PCP - General Family Medicine 05/04/24 Bina Zamora NP [address] [place] [address] Nurse Practitioner Family Medicine 05/04/24 documented as of this encounter
--- OUTSIDE RECORDS SUMMARY | 2024-08-14 08:15 | XMS_ITS | Encounter Summary ---
Author Organization [facility] Address [address] [place] [address] Care Team Providers Care Ocean Lifeguard Specialist Name Role Phone Romaine Pham MD Primary Care Provider [phone] Bina Zamora NP Unavailable [phone] Encounter Details Date Type Department Care Team (Late st Contact Info) Description 12/22/2023 Orders Only [facility] [address] [place] [address] Keagan Mcgowan, DO [address] [place] [address] Dr [place], [place] [id number] Social History Tobacco Use Types Packs/Day Years [...] Visit [facility] [address] [place] [address] Bina Zamora, LELE [address] [place] [address] documented as of this encounter Procedures Procedure Name Priority Date/Time Associated Diagnosis Comments US OB TRANSVAGINAL Routine 12/22/2023 2: 10 PM EDT US OB ANATOMY SINGLE W US OB CERVICAL LENGTH Routine 12/22/2023 2:02 PM EDT documented in this encounter Results * US OB transvaginal (12/22/2023 2:10 PM EDT) Anatomical Region Laterality Modality Body Ultrasound us Keagan Roslyn DO IMG OB US PROCEDURES Final Resul t * US OB ANATOMY SINGLE W US OB CERVICAL LENGTH (12/22/2023 2:02 PM EDT) Anatomical Region Laterality Modality Body Ultrasound us Keagan Roslyn DO IMG OB US PROCEDURES Final Resul t documented in this encounter Visit Diagnoses Not on filedocumented in this encounter Care Teams Ocean Lifeguard Specialist Relationship Specialty Start Date End Date Romaine Pham MD [address] [place] [address] PCP - General Family Medicine 05/04/24 Bina Zamora NP [address] [place] [address] Nurse Practitioner Family Medicine 05/04/24 documented as of this encounter
--- OUTSIDE RECORDS SUMMARY | 2024-08-14 08:15 | XMS_ITS | Encounter Summary ---
Author Organization [facility] Address [address] [place] [address] Care Team Providers Care Nurse Midwife Name Role Phone Romaine Pham MD Primary Care Provider [phone] Bina Zamora NP Unavailable [phone] Encounter Details Date Type Department Care Team (Late Contact Info) Description 01/28/2024 Orders Only [facility] [address] [facility] [place] [address] Zhane Amador LPN [address] [place] [address] Social History Tobacco Use Types Packs/Day Years [...] 09/01/2024 9:20 AM EDT Office Visit [facility] [address] [place] [address] Bina Zamora, PHARMACOMETRICIAN [address] [place] [address] documented as of this encounter Procedures Procedure Name Priority Date/Time Associated Diagnosis Comments PAP SMEAR Routine 01/19/2024 12:00 AM EDT documented in this encounter Results * Pap Smear (01/19/2024 12:00 AM EDT) Swab Cervical swab / Unknown us Ana Luias [facility] ORDERABLES Final Re sult EXTERNAL LAB documented in this encounter Visit Diagnoses Not on filedocumented in this encounter Care Teams Nurse Midwife Relationship Specialty Start Date End Date Romaine Pham MD [address] [place] [address] PCP - General Family Medicine 05/04/24 Bina Zamora NP [address] [place] [address] Nurse Practitioner Family Medicine 05/04/24 documented as of this encounter
--- OUTSIDE RECORDS SUMMARY | 2024-08-14 08:15 | XMS_ITS | Encounter Summary ---
Author Organization [facility] Address [address] [place] [address] Care Team Providers Care Cathode Builder Name Role Phone Romaine Pham MD Primary Care Provider [phone] Bina Zamora NP Unavailable [phone] Encounter Details Date Type Department Care Team (Late st Contact Info) Description 12/22/2023 Clinisync Result Encounter [facility] External Department Unsolicited Angelina Mcgowan, DO [address] [facility] [place] [address] Social History Tobacco Use Types Packs/Day Years [...] Office Visit [facility] [address] [place] [address] Bina Zamora NP [address] [place] [address] documented as of this encounter Procedures Procedure Name Priority Date/Time Associated Diagnosis Comments US OB ANATOMY 12/22/2023 9:52 AM EDT documented in this encounter Results * US OB ANATOMY (12/22/2023 9:52 AM EDT) Anatomical Region Laterality Modality Other 12/22/2023 9:52 AM EDT Narrative 12/22/2023 9:54 [place] [address] Ultrasound Report Signed Patient: FLORINDA ORTEGA MR#: [id number] : 2000 Acct:[id number] Age/Sex: 23 / F ADM Date: 12/22/23 Loc: [facility] Attending Dr: Angelina Mcgowan D.O. Ordering Physician: Angelina Mcgowan D.O. Date of Service: 12/22/23 Procedure(s): US OB anatomy Accession Number(s): [id number] cc: Bina Zamora NP; Angelina Mcgowan D.O. [address] [address] Patient Name: FLORINDA ORTEGA MRN: [id number] date: 2000 Sex: F Assigned Patient Location: [facility] Current Patient Location: [facility] Accession/Order Number: [id number] Exam Date: 12/22/2023 08:05 Report Date: 12/22/2023 09:52 At the request of: ANGELINA MCGOWAN Procedure: US OB anatomy EXAMINATION: US OB transvaginal, US OB anatomy HISTORY: ANATOMY COMPARISON: 12/22/2023 TECHNIQUE: Transabdominal sonographic examination was performed for obstetrical and evaluation. FINDINGS: Number: 1 Heart Rate: 156 bpm H.B. /min Amniotic Fluid Volume: Subjectively normal Placental Location: POSTERIOR, placental edge is 4.3 cm from the cervical os position: Variable presentation and variable lie Cervix Length: 4.15 cm , closed Normal anatomy: Lateral ventricles, cerebellum, posterior fossa, nose, lips, orbits, four-chamber heart, RVOT, LVOT, diaphragm, stomach, kidneys, abdominal cord insertion, bladder, umbilical arteries, three-vessel cord, spine, extremities BIOMETRY: BPD: 4.67 cm; 20 weeks 1 day; 16.30 % HC: 17.81 cm; 20 weeks 2 days; 13.40 % AC: 16.11 cm; 21 weeks 1 day; 50 % FL: 3.47 cm; 21 weeks 0 days; 38.50 % EFW:369.84 g; 42.60 %, 14 ounces FL/AC: 21.54 FL/BPD: 74.30 HC/AC: 1.11 GESTATIONAL AGE: Age by EDC: 21 weeks 0 days AL by EDC: 2024-05-03 Age by current US: 20 weeks 5 days AL by current US: 2024-05-05 US/US OB anatomy IMPRESSION: Low lying placenta Otherwise normal anatomy scan *Reference: AIUM Practice Guideline for the performance of Obstetric Ultrasound Examinations, December 21, 2006. Electronically authenticated by: VERONA VICKERS Date: 12/22/2023 09:52 Dictated By: Verona Vickers M.D. Signed By: 12/22/23953 DD/ 1 TD/TT: Fire Inspector: Procedure Note Radiology, Radiologist, MD - 12/22/2023 [place] [address] Ultrasound Report Signed Patient: FLORINDA ORTEGA AMR#: [id number] : 2000Acct:[id number] Age/Sex: 23 FADM Date: 12/22/23 Loc: [facility] Attending Dr: Angelina Mcgowan D.O. Ordering Physician: Angelina Mcgowan D.O. Date of Service: 12/22/23 Procedure(s): US OB anatomy Accession Number(s): [id number] cc: Bina Zamora SUPERVISOR VENDOR QUALITY; Angelina Mcgowan D.O. The [place] [id number] Patient Name: FLORINDA ORTEGA MRN: [id number] date: 2000 Sex: F Assigned Patient Location: [facility] Current Patient Location: [facility] Accession/Order Number: [id number] Exam Date: 12/22/2023 08:05 Report Date: 12/22/2023 09:52 At the request of: ANGELINA MCGOWAN Procedure: US OB anatomy EXAMINATION: US OB transvaginal, US OB anatomy HISTORY: ANATOMY COMPARISON: 12/22/2023 TECHNIQUE: Transabdominal sonographic examination was performed for obstetrical and evaluation. FINDINGS: Number: 1 Heart Rate: 156 bpm H.B. /min Amniotic Fluid Volume: Subjectively normal Placental Location: POSTERIOR, placental edge is 4.3 cm from the cervicalos position: Variable presentation and variable lie Cervix Length: 4.15 cm , closed Normal anatomy: Lateral ventricles, cerebellum, posterior fossa, nose,lips, orbits, four-chamber heart, RVOT, LVOT, diaphragm, stomach, kidneys,abdominal cord insertion, bladder, umbilical arteries, three-vessel cord, spine, extremities BIOMETRY: BPD: 4.67 cm; 20 weeks 1 day; 16.30 % HC: 17.81 cm; 20 weeks 2 days; 13.40 % AC: 16.11 cm; 21 weeks 1 day; 50 % FL: 3.47 cm; 21 weeks 0 days; 38.50 % EFW:369.84 g; 42.60 %, 14 ounces FL/AC: 21.54 FL/BPD: 74.30 HC/AC: 1.11 GESTATIONAL AGE: Age by EDC: 21 weeks 0 days AL by EDC: 2024-05-03 Age by current US: 20 weeks 5 days AL by current US: 2024-05-05 US/US OB anatomy IMPRESSION: Low lying placenta Otherwise normal anatomy scan *Reference: [employer]UM Practice Guideline for the performance of Obstetric Ultrasound Examinations, December 21, 2006. Electronically authenticated by: VERONA VICKERS Date: 12/22/2023 09:52 Dictated By: Verona Vickers M.D. Signed By:12/22/23953 DD/ 1 TD/TT: Fire Inspector: us Angelina Roslyn DO [facility] Final Result documented in this encounter Visit Diagnoses Not on filedocumented in this encounter Care Teams Cathode Builder Relationship Specialty Start Date End Date Romaine Pham MD [address] [place] [address] PCP - General Family Medicine 05/04/24 Bina Zamora NP [address] [facility] [place] [address] Nurse Practitioner Family Medicine 05/04/24 documented as of this encounter
--- OUTSIDE RECORDS SUMMARY | 2024-08-14 08:15 | XMS_ITS | Encounter Summary ---
Author Organization [facility] Address [address] [place] [address] Care Team Providers Care Appeals Writer Name Role Phone Romaine Pham MD Primary Care Provider [phone] Bina Zamora NP Unavailable [phone] Encounter Details Date Type Department Care Team (Late st Contact Info) Description 01/21/2023 Clinisync Result Encounter [facility] External Department Unsolicited Ana Luisa Moura PA [address] [place] [address] [place], [place] [address] Social History Tobacco Use Types Packs/Day Years [...] Visit [facility] [address] [place] [address] Bina Zamora NP [address] [place] [address] documented as of this encounter Procedures Procedure Name Priority Date/Time Associated Diagnosis Comments US OB ANATOMY 01/21/2023 4:48 PM EDT documented in this encounter Results * US OB ANATOMY (01/21/2023 4:48 PM EDT) Anatomical Region Laterality Modality Other 01/21/2023 4:48 PM EDT Narrative 01/21/2023 4:48 PM EDT [address] [address] Ultrasound Report Signed Patient: FLORINDA ORTEGA MR#: [id number] : 2000 Acct:[id number] Age/Sex: 22 / F ADM Date: 01/21/23 Loc: US Attending Dr: Ana Luisa Moura Ordering Physician: Ana Luisa Moura Date of Service: 01/21/23 Procedure(s): US OB anatomy Accession Number(s): [id number] cc: Bina Zamora ; Ana Luisa Moura [address] [address] Patient Name: FLORINDA ORTEGA MRN: [id number] date: 2000 Sex: F Assigned Patient Location: US Current Patient Location: US Accession/Order Number: [id number] Exam Date: 01/21/2023 10:23 Report Date: 01/21/2023 16:48 At the request of: ANA LUISA MOURA Procedure: US OB anatomy EXAMINATION: US OB anatomy, US OB cervical [...] 06/09/2023 AL by EDC: 06/10/2023 US/US OB anatomy IMPRESSION: Suboptimal visualization as detailed above, otherwise normal anatomy scan *Reference: AIUM Practice Guideline for the performance of Obstetric Ultrasound Examinations, December 21, 2006. Electronically authenticated by: VERONA VICKERS Date: 01/21/2023 16:48 Dictated By: Verona Vickers M.D. Signed By: 01/21/231649 DD/ 47 TD/TT: Caustic Room Attendant: Procedure Note Radiology, Radiologist, MD - 01/21/2023 [place] [address] Ultrasound Report Signed Patient: FLORINDA ORTEGA AMR#: [id number] : 2000Acct:[id number] Age/Sex: 22 / FADM Date: 01/21/23 Loc: US Attending Dr: Ana Luisa Moura Ordering Physician: Ana Luisa Moura Date of Service: 01/21/23 Procedure(s): US OB anatomy Accession Number(s): [id number] cc: Bina Zamora ; Ana Luisa Moura The [address] [address] Patient Name: FLORINDA ORTEGA MRN: [id number] date: 2000 Sex: F Assigned Patient Location: US Current Patient Location: US Accession/Order Number: [id number] Exam Date: 01/21/2023 10:23 Report Date: 01/21/2023 16:48 At the request of: ANA LUISA MOURA Procedure: US OB anatomy EXAMINATION: US OB anatomy, US OB cervical [...] 06/09/2023 AL by EDC: 06/10/2023 US/US OB anatomy IMPRESSION: Suboptimal visualization as detailed above, otherwise normal anatomy scan *Reference: AIUM Practice Guideline for the performance of Obstetric Ultrasound Examinations, December 21, 2006. Electronically authenticated by: VERONA VICKERS Date: 01/21/2023 16:48 Dictated By: Verona Vickers M.D. Signed By:01/21/231649 DD/ 47 TD/TT: Caustic Room Attendant: us Ana Luisa ROY [facility] Final Result documented in this encounter Visit Diagnoses Not on filedocumented in this encounter Care Teams Appeals Writer Relationship Specialty Start Date End Date Romaine Pham MD [address] [place] [address] PCP - General Family Medicine 05/04/24 Bina Zamora NP [address] [place] [address] Nurse Practitioner Family Medicine 05/04/24 documented as of this encounter
--- OUTSIDE RECORDS SUMMARY | 2024-08-14 08:15 | XMS_ITS | Encounter Summary ---
Author Organization [facility] Address [address] [place] [address] Care Team Providers Care Senior Net Software Developer Name Role Phone Romaine Pham MD Primary Care Provider [phone] Bina Zamora NP Unavailable [phone] Encounter Details Date Type Department Care [...] Visit [facility] [address] [place] [address] Bina Zamora, LELE [address] [place] [address] documented as of this encounter Procedures Procedure Name Priority Date/Time Associated Diagnosis Comments US OB TRANSVAGINAL 12/22/2023 9: 52 AM EDT documented in this encounter Results * US OB TRANSVAGINAL (12/22/2023 9:52 AM EDT) Anatomical Region Laterality Modality Other 12/22/2023 9:52 AM EDT Narrative 12/22/2023 9:54 AM EDT [address] [address] Ultrasound Report Signed Patient: FLORINDA ORTEGA MR#: [id number] : 2000 Acct:[id number] Age/Sex: 23 / F ADM Date: 12/22/23 Loc: [facility] Attending Dr: Angelina Mcgowan D.O. Ordering Physician: Angelina Mcgowan D.O. Date of Service: 12/22/23 Procedure(s): US OB transvaginal Accession Number(s): [id number] cc: Bina Zamora CLERICAL PROOFREADER; Angelina Mcgowan D.O. [address] [address] Patient Name: FLORINDA ORTEGA MRN: [id number] date: 2000 Sex: F Assigned Patient Location: [facility] Current Patient Location: [facility] Accession/Order Number: [id number] Exam Date: 12/22/2023 08:05 Report Date: 12/22/2023 09:52 At the request of: ANGELINA MCGOWAN Procedure: US OB transvaginal EXAMINATION: US OB transvaginal, US OB anatomy [...] AL by current US: 2024-05-05 US/US OB transvaginal IMPRESSION: Low lying placenta Otherwise normal anatomy scan *Reference: AIUM Practice Guideline for the performance of Obstetric Ultrasound Examinations, December 21, 2006. Electronically authenticated by: VERONA VICKERS Date: 12/22/2023 09:52 Dictated By: Verona Vickers M.D. Signed By: 12/22/2354 DD/ 1 TD/TT: Arts Education Teacher: Procedure Note Radiology, Radiologist, MD - 12/22/2023 [place] [address] Ultrasound Report Signed Patient: FLORINDA ORTEGA AMR#: [id number] : 2000Acct:[id number] Age/Sex: 23 / FADM Date: 12/22/23 Loc: [facility] Attending Dr: Angelina Mcgowan D.O. Ordering Physician: Angelina Mcgowan D.O. Date of Service: 12/22/23 Procedure(s): US OB transvaginal Accession Number(s): [id number] cc: Bina Zamora CLERICAL PROOFREADER; Angelina Mcgowan D.O. The [place] [address] Patient Name: FLORINDA ORTEGA MRN: [id number] date: 2000 Sex: F Assigned Patient Location: [facility] Current Patient Location: [facility] Accession/Order Number: [id number] Exam Date: 12/22/2023 08:05 Report Date: 12/22/2023 09:52 At the request of: ANGELINA MCGOWAN Procedure: US OB transvaginal EXAMINATION: US OB transvaginal, US OB anatomy [...] AL by current US: 2024-05-05 US/US OB transvaginal IMPRESSION: Low lying placenta Otherwise normal anatomy scan *Reference: AIUM Practice Guideline for the performance of Obstetric Ultrasound Examinations, December 21, 2006. Electronically authenticated by: VERONA VICKERS Date: 12/22/2023 09:52 Dictated By: Verona Vickers M.D. Signed By:12/22/23953 DD/ 1 TD/TT: Arts Education Teacher: us Generic External Data Provider [facility] Final Result documented in this encounter Visit Diagnoses Not on filedocumented in this encounter Care Teams Senior Net Software Developer Relationship Specialty Start Date End Date Romaine Pham MD [address] [place] [address] PCP - General Family Medicine 05/04/24 Bina Zamora NP [address] [place] [address] Nurse Practitioner Family Medicine 05/04/24 documented as of this encounter
--- OUTSIDE RECORDS SUMMARY | 2024-08-14 08:15 | XMS_ITS | Encounter Summary ---
Author Organization [facility] Address [address] [place] [address] Care Team Providers Care Nursing Education Consultant Name Role Phone Romaine Pham MD Primary Care Provider [phone] Bina Zamora CUMULATIVE EFFECTS ANALYST Unavailable [phone] Encounter Details Date Type Department Care Team (Late Contact Info) Description 02/04/2024 Abstract [facility] BCP OB [address] [facility] [place] [address] Keagan Mcgowan, DO [address] [facility] [address] [place], [place] [id number] Social History Tobacco Use Types Packs/Day Years Used Date Smoking Tobacco: Never Assessed Comments Yes Sex and Gender Information Value Date Recorded Sex Assigned at Not on file Legal Sex Female 8:00 PM EDT Gender Identity Not on file Sexual Orientation Not on file documented as of this encounter Plan of Treatment Upcoming Encounters Date Type Department Care Team ([facility] Contact Info) Description 09/01/2024 9:20 AM EDT Office Visit [facility] [address] [place] [address] Bina Zamora NP [address] [place] [address] documented as of this encounter Visit Diagnoses Not on filedocumented in this encounter Care Teams Nursing Education Consultant Relationship Specialty Start Date End Date Romaine Pham MD [address] [place] [address] PCP - General Family Medicine 05/04/24 Bina Zamora NP [address] [place] [address] Nurse Practitioner Family Medicine 05/04/24 documented as of this encounter
--- OUTSIDE RECORDS SUMMARY | 2024-08-14 08:16 | XMS_ITS | Encounter Summary ---
Author Organization [facility] Address [address] [place] [address] Care Team Providers Care Spray I Painter Name Role Phone Romaine Pham MD Primary Care Provider [phone] Bina Zamora SHIP/REC/DOC CONTROL Unavailable [phone] Encounter Details Date Type Department Care Team (Late Contact Info) Description 04/07/2024 Abstract [facility] [address] [facility] [place] [address] Keagan Mcgowan, DO [address] [facility] [place] [address] Social History Tobacco Use Types Packs/Day Years Used Date Smoking Tobacco: Never Assessed Comments Yes Sex and Gender Information Value Date Recorded Sex Assigned at Not on file Legal Sex Female 8:00 PM EDT Gender Identity Not on file Sexual Orientation Not on file documented as of this encounter Plan of Treatment Upcoming Encounters Date Type Department Care Team ([facility] Contact Info) Description 09/01/2024 9:20 AM EDT Office Visit [facility] [address] [place] [address] Bina Zamora NP [address] [place] [address] documented as of this encounter Visit Diagnoses Not on filedocumented in this encounter Care Teams Spray I Painter Relationship Specialty Start Date End Date Romaine Pham MD [address] [place] [address] PCP - General Family Medicine 05/04/24 Bina Zamora NP [address] [place] [address] Nurse Practitioner Family Medicine 05/04/24 documented as of this encounter
--- OUTSIDE RECORDS SUMMARY | 2024-08-14 08:16 | XMS_ITS | Encounter Summary ---
Author Organization [facility] Address [address] [place] [address] Care Team Providers Care Hollow Ware Maker Name Role Phone Romaine Pham MD Primary Care Provider [phone] Bina Zamora MOTION PICTURE OPERATOR Unavailable [phone] Encounter Details Date Type Department Care Team (Late Contact Info) Description 06/01/2023 Abstract [facility] [address] [facility] [address] Keagan Mcgowan, DO [address] [facility] [address] [place], [place] [id number] Social History Tobacco Use Types Packs/Day Years [...] [facility] [address] [place] [address] Bina Zamora NP [address] [place] [address] documented as of this encounter Visit Diagnoses Not on filedocumented in this encounter Care Teams Hollow Ware Maker Relationship Specialty Start Date End Date Romaine Pham MD [address] [place] [address] PCP - General Family Medicine 05/04/24 Bina Zamora NP [address] [place] [address] Nurse Practitioner Family Medicine 05/04/24 documented as of this encounter
--- OUTSIDE RECORDS SUMMARY | 2024-08-14 08:16 | XMS_ITS | Encounter Summary ---
Author Organization [facility] Address [address] [place] [address] Care Team Providers Care Chief Design Engineer Name Role Phone Romaine Pham MD Primary Care Provider [phone] Bina Zamora NP Unavailable [phone] Reason for Visit * Reason Onset Date Comments Med Refill 08/11/2024 Encounter Details Date Type Department Care Team (Late Contact Info) Description 08/11/2024 Refill [facility] [address] [place] [address] Bian Zamora NP [address] [place] [address] Mixed anxiety and depressive disorder Social History Tobacco Use Types Packs/Day Years Used Date Smoking Tobacco: Never Smokeless Tobacco: Never Alcohol Use Standard Drinks/Week Comments Never 0 (1 standard drink = 0.6 oz pur e alcohol) caffine: daily 1 soda daily PHQ-2 Answer Date Recorded Patient Health Questionnaire-2 Score 0 05/11/2024 Comments No Sex and Gender Information Value Date Recorded Sex Assigned at Not on file Legal Sex Female 8:00 PM EDT Gender Identity Not on file Sexual Orientation Not on file documented as of this encounter Plan of Treatment Upcoming Encounters Date Type Department Care Team (Late Contact Info) Description 09/01/2024 9:20 AM EDT Office Visit [facility] [address] [place] [address] Bina Zamora NP [address] [place] [address] documented as of this encounter Visit Diagnoses Diagnosis Mixed anxiety and depressive disorder Dysthymic disorder documented in this encounter Care Teams Chief Design Engineer Relationship Specialty Start Date End Date Romaine Pham MD [address] [place] [address] PCP - General Family Medicine 05/04/24 Bina Zamora NP [address] [place] [address] Nurse Practitioner Family Medicine 05/04/24 documented as of this encounter
--- OUTSIDE RECORDS SUMMARY | 2024-08-14 08:16 | XMS_ITS | Encounter Summary ---
Author Organization [facility] Address [address] [place] [address] Care Team Providers Care Bar Captain Name Role Phone Romaine Pham MD Primary Care Provider [phone] Bina Zamora NP Unavailable [phone] Encounter Details Date Type Department Care Team (Late st Contact Info) Description 03/08/2024 Orders Only [facility] [address] [place] [address] Keagan Mcgowan, DO [address] [place] [address] [address] [place], [place] [id number] Social History Tobacco Use Types Packs/Day Years [...] Visit [facility] [address] [place] [address] Bina Zamora, LELE [address] [place] [address] documented as of this encounter Procedures Procedure Name Priority Date/Time Associated Diagnosis Comments US OB SCAN FOR GROWTH Routine 03/08/2024 2:17 PM EST documented in this encounter Results * US OB SCAN FOR GROWTH (03/08/2024 2:17 PM EST) Anatomical Region Laterality Modality Body Ultrasound us Keagan BARCENAS OB US PROCEDURES Final Resul t documented in this encounter Visit Diagnoses Not on filedocumented in this encounter Care Teams Bar Captain Relationship Specialty Start Date End Date Romaine Pham MD [address] [place] [address] PCP - General Family Medicine 05/04/24 Bina Zamora NP [address] [place] [address] Nurse Practitioner Family Medicine 05/04/24 documented as of this encounter
--- OUTSIDE RECORDS SUMMARY | 2024-08-14 08:16 | XMS_ITS | Encounter Summary ---
Author Organization [facility] Address [address] [place] [address] Care Team Providers Care Spray Cementer Name Role Phone Romaine Pham MD Primary Care Provider [phone] Bina Zamora FRANCHISE SALES MANAGER Unavailable [phone] Encounter Details Date Type Department Care Team (Late st Contact Info) Description 05/13/2024 Abstract [facility] OB [address] [facility] [address] Keagan Mcgowan, DO [address] [facility] [place] [address] Social History Tobacco Use Types Packs/Day Years Used Date Smoking Tobacco: Never Smokeless Tobacco: Never Alcohol Use Standard Drinks/Week Comments Never 0 (1 standard drink = 0.6 oz pur e alcohol) caffine: daily 1 soda daily PHQ-2 Answer Date Recorded Patient Health Questionnaire-2 Score 0 05/11/2024 Comments Yes Sex and Gender Information Value Date Recorded Sex Assigned at Not on file Legal Sex Female 8:00 PM EDT Gender Identity Not on file Sexual Orientation Not on file documented as of this encounter Plan of Treatment Upcoming Encounters Date Type Department Care Team (Late st Contact Info) Description 09/01/2024 9:20 AM EDT Office Visit [facility] [address] [place] [address] Bina Zamora, FRANCHISE SALES MANAGER [address] [place] [address] documented as of this encounter Visit Diagnoses Not on filedocumented in this encounter Care Teams Spray Cementer Relationship Specialty Start Date End Date Romaine Pham MD [address] [place] [address] PCP - General Family Medicine 05/04/24 Bina Zamora NP [address] [place] [address] Nurse Practitioner Family Medicine 05/04/24 documented as of this encounter
--- OUTSIDE RECORDS SUMMARY | 2024-08-14 08:16 | XMS_ITS | Clinical Summary ---
Author Organization [employer] Address [id number] [address] [place] [address] Care Team Providers Care Front Office Help Name Role Phone ElizabethBina kwong Subha POSADAS-ROUTE DELIVERY SERVICE DRIVER Primary Care Provider Allergies No known active allergies Medications no115/iron/folic acid ( 19 ORAL) Take by mouth. Active folic acid (FOLVITE) 1 mg tablet Take 1 tablet (1 mg total) by mouth in the morning. Active Active Problems Problem Noted Date Diagnosed Date Headache in , antepartum 01/31/2024 26 weeks gestation of 01/31/2024 Dizziness 01/31/2024 Resolved Problems Problem Noted Date Diagnosed Date Resolved Date 31 weeks gestation of 04/11/2023 01/31/2024 Decreased movements in third trimester 01/31/2024 Social History Tobacco Use Types Packs/Day Years Used Date Smoking Tobacco: Never Smokeless Tobacco: Never Tobacco Cessation:Counseling Given: Not Answered Alcohol Use Standard Drinks/Week Comments Not Currently 0 (1 standard drink = 0.6 oz pur e alcohol) Housing Instability Answer Date Recorde d Are you worried or concerned that in the next two months you may not have stable housing that you own, rent or stay in as a part of a household? No 01/31/2024 Childcare Answer Date Recorded Childcare Unknown 09/01/2018 Employment Answer Date Recorded Employment Unknown 09/01/2018 Hunger Screening Answer Date Recorded Within the past 12 months we worried whether our food would run out before we got money to buy more. Never True 01/31/2024 Within the past 12 months th e food we bought just didn't last and we didn't have money to get more. Never True 01/31/2024 Purpose - Life Answer Date Recorded Purpose and direction in life Unknown Comments No Sex and Gender Information Value Date Recorded Sex Assigned at Not on file Legal Sex Female 12:07 PM EDT Gender Identity Not on file Sexual Orientation Not on file Last Filed Vital Signs Vital Sign Reading Time Taken Comments Blood Pressure 98/49 02/01/2024 1:31 AM EST Pulse 97 02/01/2024 1:31 AM EST Temperature 36.7 C (98 F) 01/31/2024 11:28 PM EST Respiratory Rate 18 01/31/2024 11:00 PM EST Oxygen Saturation 99% 01/31/2024 11:28 PM EST Inhaled Oxygen Concentration - - Weight 97.5 kg (215 lb) 11/12/2022 11:04 PM EDT Height 167.6 cm (5' 6 ) 01/24/2019 2:28 PM EST Body Mass Index - - Plan of Treatment Health Maintenance Due Date Last Done Comments Depression Screening 2014 Adult BMI Screening 2020 Pap Smear 09/15/2023 COVID-19 Vaccine ( - 2023-2 5 season) 2023 06/07/2021, 05/03/2020, 04/12/2020 DTaP,Tdap and Td Vaccines (6 - Td or Tdap) 08/03/2024 08/03/2014, 08/25/2007, 08/28/2003, Additional history exists Influenza Vaccine 11/21/2024 01/25/2021, , 02/13/2019, Additional history exists Tobacco Screening 01/30/2025 01/31/2024 Medical Devices Not on file Insurance [facility] Advance Directives * Full Code (Latest Code Status on File) Date Activated Date Inactivated Comments 02/01/2024 1:33 AM 02/01/2024 4:08 AM Care Teams Front Office Help Relationship Specialty Start Date End Date Bina Zamora, SUGAR TRUCKER-ROUTE DELIVERY SERVICE DRIVER PCP - General Nurse Practitioner 11/12/22
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
--- OUTSIDE RECORDS SUMMARY | 2024-08-14 08:16 | XMS_ITS | Encounter Summary ---
Author Organization [facility] Address [address] [place] [address] Care Team Providers Care Wire Mesh Gate Assembler Name Role Phone Romaine Pham MD Primary Care Provider [phone] Bina Zamora NP Unavailable [phone] Encounter Details Date Type Department Care Team (Late st Contact Info) Description 06/01/2023 Clinisync Result Encounter [facility] Unsolicited [...] Visit [facility] [address] [place] [address] Bina Zamora, LELE [address] [place] [address] documented as of this encounter Procedures Procedure Name Priority Date/Time Associated Diagnosis Comments US OB BPP W NON-STRESS 06/01/2023 5:20 PM EDT documented in this encounter Results * US OB BPP W NON-STRESS (06/01/2023 5:20 PM EDT) Anatomical Region Laterality Modality Other 06/01/2023 5:20 PM EDT Narrative 06/01/2023 5:22 PM EDT [facility] [place] [id number] Ultrasound Report Signed Patient: FLORINDA ORTEGA MR#: [id number] : 2000 Acct:[id number] Age/Sex: 22 / F ADM Date: 06/01/23 Loc: [facility] Attending Dr: Angelina Mcgowan D.O. Ordering Physician: Angelina Mcgowan D.O. Date of Service: 06/01/23 Procedure(s): US OB BPP w non-stress Accession Number(s): [id number] cc: Bina Zamora NP; Angelina Mcgowan D.O. The [address] [address] Patient Name: FLORINDA ORTEGA MRN: [id number] date: 2000 Sex: F Assigned Patient Location: [facility] Current Patient Location: Accession/Order Number: [id number] Exam Date: 06/01/2023 16:14 Report Date: 06/01/2023 17:20 At the request of: ANGELINA MCGOWAN Procedure: US OB BPP w non-stress EXAM: US OB BPP w non-stress HISTORY: decreased movement COMPARISON: OB ultrasound previous 04/13/2023 and earlier. TECHNIQUE: Biophysical profile evaluation. FINDINGS: Single fetus cephalic presentation. Heart rate 162 bpm. DEEPALI 13.8 cm. Between fifth and 95th percentile. Biophysical score 8 out 8. breathing movements 2, gross body movements 2, tone 2, qualitative amniotic fluid volume 2 US/US OB BPP w non-stress IMPRESSION: Biophysical score 8 /8. No abnormality noted. Electronically authenticated by: GARRY REYNOSO Date: 06/01/2023 17:20 Dictated By: Garry Reynoso M.D. Signed By: 06/01/231721 DD/ 19 TD/TT: Boat Worker: Procedure Note Radiology, Radiologist, MD - 06/01/2023 [facility] [place] [id number] Ultrasound Report Signed Patient: FLORINDA ORTEGA AMR#: [id number] : 2000Acct:[id number] Age/Sex: 22 / FADM Date: 06/01/23 Loc: [facility] Attending Dr: Angelina Mcgowan D.O. Ordering Physician: Angelina Mcgowan D.O. Date of Service: 06/01/23 Procedure(s): US OB BPP w non-stress Accession Number(s): [id number] cc: Bina Zamora BENDER MACHINE; Angelina Mcgowan D.O. [facility] [place] [id number] Patient Name: FLORINDA ORTEGA MRN: [id number] date: 2000 Sex: F Assigned Patient Location: [facility] Current Patient Location: Accession/Order Number: [id number] Exam Date: 06/01/2023 16:14 Report Date: 06/01/2023 17:20 At the request of: ANGELINA MCGOWAN Procedure: US OB BPP w non-stress EXAM: US OB BPP w non-stress HISTORY: decreased movement COMPARISON: OB ultrasound previous 04/13/2023 and earlier. TECHNIQUE: Biophysical profile evaluation. FINDINGS: Single fetus cephalic presentation. Heart rate 162 bpm. DEEPALI 13.8cm. Between fifth and 95th percentile. Biophysical score 8 out 8. breathing movements 2, gross bodymovements 2, tone 2, qualitative amniotic fluid volume 2 US/US OB BPP w non-stress IMPRESSION: Biophysical score 8 /8. No abnormality noted. Electronically authenticated by: GARRY REYNOSO Date: 06/01/2023 17:20 Dictated By: Garry Reynoso M.D. Signed By:06/01/231721 DD/ 19 TD/TT: Boat Worker: us Generic External Data Provider [facility] Final Result documented in this encounter Visit Diagnoses Not on filedocumented in this encounter Care Teams Wire Mesh Gate Assembler Relationship Specialty Start Date End Date Romaine Pham MD [address] [place] [id number] PCP - General Family Medicine 05/04/24 Bina Zamora NP [address] [place] [id number] Nurse Practitioner Family Medicine 05/04/24 documented as of this encounter
--- NOTE | 2024-08-14 08:27 | ED.GENADUL1 ---
HPI HPI - General Adult General Chief complaint: Ear Stated complaint: ear issue Time Seen by Provider: 08/14/24 08:22 Source: patient Mode of arrival: walk-in Limitations: no limitations History of Present Illness HPI narrative: 23-year-old female presents for left ear pain. She has had it for a few days. No drainage or trauma. She does not have a sore throat or right ear pain. The pain is moderate and sounds are muffled from that ear only. Related Data Home Medications ?Medication ?Instructions ?Recorded ?Confirmed sertraline 100 mg tablet 100 mg PO Q24H 07/27/24 07/27/24 Previous Rx's ?Medication ?Instructions ?Recorded ketorolac 10 mg tablet 10 mg PO TID PRN pain #10 tabs 07/27/24 methocarbamol 750 mg tablet 750 mg PO TID PRN pain #20 tabs 07/27/24 amoxicillin 500 mg capsule 500 mg PO TID 10 days #30 caps 08/14/24 Allergies Allergy/AdvReac Type Severity Reaction Status Date / Time No Known Drug Allergies Allergy Verified 08/14/24 08:11 Opioid HPI Opioid Management Most Recent Opioid Data: Last Pain Scale 5 Today, 08:12 Ur Phencyclidine Scrn, (NEGATIVE) Negative 04/27/24, 04:55 Review of Systems ROS Narrative A ten point review of systems is negative except as noted above. [facility] Medical History (Updated 08/14/24 @ 08:25 by Binh Cross MD) Normal vaginal delivery ?O80 - Encounter for full-term uncomplicated delivery (ICD-10) Surgical History (Updated 04/27/24 @ 05:24 by Ying Dunn) H/O cleft lip repair ?Z87.730 - Personal history of (corrected) cleft lip and palate (ICD-10) History of tonsillectomy ?Z90.89 - Acquired absence of other organs (ICD-10) Family History (Updated 04/27/24 @ 05:21 by Ying Dunn) Father Family history of hypertension Social History Within the past year, how often did you have a drink containing alcohol: never Score interpretation: A score less than 3 is consistent with normal alcohol consumption. Smoking status: Never smoker Non-prescribed substance use: denies use Highest level of school completed/degree received: high school graduate Are you now , , , , never or living with a partner: living with partner Little interest or pleasure in doing things: not at all Feeling down, depressed, or hopeless: not at all Feel stressed/tense/nervous/anxious/difficulty sleeping: not at all Do you think of yourself as: straight/heterosexual Gender Identity: female Exam Narrative Exam Narrative: Nurses note and vital signs reviewed and patient is not hypoxic. General: The patient appears well and in no apparent distress. Patient is resting comfortably on cart. Skin: Warm, dry, no pallor noted. There is no rash noted. Head: Normocephalic, atraumatic Eye: Normal conjunctiva, no drainage Ears, Nose, Mouth, and Throat: oral mucosa is moist. Nares patent. Right TM is normal. Left TM is erythematous with a distorted light reflex. External canals are both normal Cardiovascular: Regular Rate and Rhythm Respiratory: Patient is in no distress, no accessory muscle use, lungs are clear to auscultation, no wheezing, rales or rhonchi Back: non-tender GI: Soft and nontender Musculoskeletal: The patient has no evidence of calf tenderness, no pitting edema, symmetrical pulses noted bilaterally Neurological: A&O, normal speech Psychiatric: Cooperative Constitutional Vital Signs, click to edit/add: Last Vital Signs Temp 98.6 F 08/14/24 08:12 Pulse 122 H 08/14/24 08:12 Resp 18 08/14/24 08:12 BP 150/90 H 08/14/24 08:12 Pulse Ox 98 08/14/24 08:12 O2 Del Method Room Air 08/14/24 08:12 Course Vital Signs Vital signs: Vital Signs Temperature 98.6 F 08/14/24 08:12 Pulse Rate 122 H 08/14/24 08:12 Respiratory Rate 18 08/14/24 08:12 Blood Pressure 150/90 H 08/14/24 08:12 Pulse Oximetry 98 08/14/24 08:12 Oxygen Delivery Method Room Air 08/14/24 08:12 Temperature 98.6 F 08/14/24 08:12 Pulse Rate 122 H 08/14/24 08:12 Respiratory Rate 18 08/14/24 08:12 Blood Pressure 150/90 H 08/14/24 08:12 Pulse Oximetry 98 08/14/24 08:12 Oxygen Delivery Method Room Air 08/14/24 08:12 Medical Decision Making MDM Narrative Medical decision making narrative: My clinical impression is that the patient has otitis media and she is prescribed amoxicillin. Treatment diagnosis and follow-up were discussed with the patient. Differential Diagnosis Differential Diagnosis: Otitis media, otitis externa Discharge Plan Discharge Chief Complaint: Ear Clinical Impression: Left otitis media Patient Disposition: Home, Self-Care Time of Disposition Decision: 08:25 Condition: Good Mode of Transportation: Private Vehicle Prescriptions / Home Meds: New amoxicillin 500 mg capsule 500 mg PO TID 10 Days Qty: 30 0RF No Action sertraline 100 mg tablet 100 mg PO Q24H ketorolac 10 mg tablet 10 mg PO TID PRN (Reason: pain) Qty: 10 0RF methocarbamol 750 mg tablet 750 mg PO TID PRN (Reason: pain) Qty: 20 0RF Print Language: Greek Instructions: Ear Infection (ED) Referrals: Bina Zamora NP [Primary Care Provider, Family Practice] - 1 week
== END 2024-08-14 08:35 | disposition home or self-care (01) ==
PROVIDERS: Emergency Provider Emergency Medicine; PCP Nurse Practitioner
DX: H66.92 Otitis media, unspecified, left ear (principal); H92.02 Otalgia, left ear
CPT/HCPCS: 99283